=== PATIENT | female | born 1950 | race Caucasian/White ===

== ENCOUNTER 2022-11-22 08:13 | Outpatient (OUT) | payer MEDICARE, OTHER, SELFPAY ==
--- NOTE | 2022-11-22 08:27 | P.CN_ITS ---
Consult Note: HPI Data of Consult Patient: known to practice within the last 3 years Requesting Physician: Chayo Eisenberg NP Primary Care Provider: VALENTIN BRIZUELA Consult Narrative Reason for consult: f/u Narrative: Farnaz Ruffin a 72 year old female presents for evaluation of chronic bilateral foot burning numbness and pain. Patient is a controlled diabetic, symptoms have worsened over the last few months. cc:: CC: Chayo Eisenberg NP Review of Systems ROS Status of ROS 10 or more systems reviewed and unremarkable except as noted in history and below Musculoskeletal Reports: extremity pain Exam Constitutional Documenting provider has reviewed patient's vital signs: yes Common normals: no apparent distress, oriented x3, healthy appearing, alert and well nourished General appearance: cooperative HENMT Common normals: normocephalic, hearing grossly normal bilaterally and moist oral mucous membranes Head and scalp: normocephalic Eye Common normals: PERRL Pupil: PERRL Neck & C-Spine Common normals: full ROM General: normal visual inspection Chest Common normals: inspection of chest normal Respiratory Common normals: normal respiratory effort, no retractions and no use of accessory muscles Extremity Right lower extremity: foot and digits Left lower extremity: foot and digits Other: failed proprioception testing failed monofilament testing evidence of severe neuropathy Neuro Common normals: oriented x3, CN's II-XII intact bilaterally, moves all extremities, no focal motor deficits, no sensory deficits noted and deep tendon reflexes 2+ bilaterally Sensorium/orientation: alert Gait (neuro): normal gait Motor exam: strength 5/5 throughout and no movement abnormalities noted Psych Common normals: mental status grossly normal, thought process normal, cooperative, affect normal, speech normal and activity/motor behavior normal Speech: normal speech Thought process: normal thought process Assessment and Plan Assessment and Plan (1) Polyneuropathy: (2) Neuropathic pain: (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 Then patient went on to say she cannot live like this and wants to try the Caudal KRISTINE again. Patient has previously had great benefit, >50% pain relief and functional improvement from Caudal KRISTINE in the past -Repeat caudal KRISTINE under fluoroscopy, will need to get clearance to hold xarelto -educational information provided on topical cream, patient not interested at this time but would like to discuss with her transplant team and call back if interested -f/u 2 weeks after caudal KRISTINE
== END 2022-11-22 08:14 | disposition home or self-care (01) ==
LOC: PM 11-24 13:13
PROVIDERS: PCP Family Medicine; Visit Provider Nurse Practitioner
DX: E11.42 Type 2 diabetes mellitus with diabetic polyneuropathy (principal); Z79.01 Long term (current) use of anticoagulants; K72.90 Hepatic failure, unspecified without coma; M54.16 Radiculopathy, lumbar region
CPT/HCPCS: G0463

== ENCOUNTER 2022-12-11 09:55 | Day surgery (SDC) | payer MEDICARE, OTHER, SELFPAY ==
[2022-12-11 10:39] VITALS: BP 150/77; PULSE 69; RESP 14; TEMP 36.6; O2SAT 97
[2022-12-11 10:52] LABS: Glucometer 127 mg/dL (74-106)
[2022-12-11 11:40] VITALS: BP 174/81; PULSE 71; RESP 18; O2SAT 100
[2022-12-11] MEDS: IOHEXOL 240 MG/ML - 10 ML VIAL IV (11:44)
[2022-12-11] MEDS: BUPIVACAINE HCL 0.25% PF 25 MG/10 ML VIAL 2 ML INJ (11:44)
[2022-12-11] MEDS: LIDOCAINE HCL 2% PF 100 MG/5 ML VIAL INJ (11:44)
[2022-12-11] MEDS: TRIAMCINOLONE ACETONIDE 40 MG/ML VIAL 80 MG INJ (11:45)
[2022-12-11 11:46] VITALS: BP 168/87; PULSE 80; RESP 18; O2SAT 91
--- NOTE | 2022-12-11 11:47 | W.PM.PROCNOT ---
Date of procedure: 12/11/22 Pre-op diagnosis: Lumbar stenosis with neurogenic claudication, lumbar radiculopathy Post-op diagnosis: same as pre-op Procedure: Procedure: Caudal epidural steroid injection Medications: Bupivacaine 0.25% 4cc, normal saline 0.9% 4cc, kenalog 80mg After informed consent was obtained, the patient was brought to the medical procedure unit and placed in the prone position.? A timeout was completed identifying correct patient, procedure, site, positioning, and special equipment.? The skin overlying the area was prepped and draped in standard sterile fashion using alcohol, after which a 25-gauge needle was used to raise a skin wheal over the sacral hiatus identified under fluoroscopy.? Subsequently a 17-gauge Tuohy needle was inserted through anesthetized area and directed toward the sacral hiatus under fluoroscopic guidance.? After piercing the sacrococcygeal membrane, needle tip placement was confirmed by injection of Omnipaque dye.? Then 10 mL of steroid solution was instilled.? Postoperatively, needles were removed and the catheter was removed with the tip intact.? The patient was transferred to the recovery area in stable condition to be discharged after meeting criteria. Anesthesia: Local Surgeon: Jack Kebede Pathology: none sent Condition: stable Disposition: no change
== END 2022-12-11 11:51 | disposition home or self-care (01) ==
PROVIDERS: PCP Family Medicine; Visit Provider Anesthesiology
DX: M48.062 Spinal stenosis, lumbar region with neurogenic claudication (principal); M54.16 Radiculopathy, lumbar region; E11.9 Type 2 diabetes mellitus without complications
CPT/HCPCS: 36415; 36416; 62323; 82948; Q9966

== ENCOUNTER 2022-12-27 08:27 | Outpatient (OUT) | payer MEDICARE, OTHER, SELFPAY ==
--- NOTE | 2022-12-27 08:56 | PM.CN ---
Consult Note: HPI Data of Consult Requesting Physician: Chayo Eisenberg NP Primary Care Provider: VALENTIN BRIZUELA Consult Narrative Reason for consult: f/u Narrative: Farnaz Ruffin a pleasant 72 year old female presents for evaluation and management of chronic radiculopathy and neuropathy of bilateral lower extremeties. Since last visit patient has had several episodes of sudden incontinence and continues to have radiculopathy and pain in bilateral feet. Caudal KRISTINE provided 0% pain relief or symptom relief, previously had great response. Pain 5/10 today in bilateral feet described as a tingling stabbing, as well as weakness of bilateral legs. Pain is worse with sitting, improved with standing. cc:: CC: Chayo Eisenberg NP Review of Systems ROS Status of ROS 10 or more systems reviewed and unremarkable except as noted in history and below Musculoskeletal Reports: extremity pain Meds Home Medications and Allergies Home Medications Medication Instructions Recorded Confirmed Type albuterol 90 mcg/actuation aerosol 90 mcg inhalation .4 TIMES PER DAY 11/22/22 12/11/22 History inhaler PRN shortness of breath carvedilol 25 mg tablet 25 mg PO BID 11/22/22 12/11/22 History denosumab 60 mg/mL subcutaneous mg subcut .EVERY 2 WEEKS 11/22/22 History syringe (Prolia) furosemide 20 mg tablet (Lasix) 20 mg PO DAILY 11/22/22 12/11/22 History rivaroxaban 20 mg tablet (Xarelto) 20 mg PO DAILY 11/22/22 12/11/22 History ropinirole 2 mg tablet 2 mg PO BID 11/22/22 12/11/22 History tacrolimus 1 mg tablet,extended 2 mg PO DAILY 11/22/22 12/11/22 History release 24 hr (Envarsus XR) Allergies Allergy/AdvReac Type Severity Reaction Status Date / Time No Known Drug Allergies Allergy Verified 11/22/22 09:03 Exam Narrative Exam Narrative: pt reports several episodes of urinary incontinence, denies burning urgency or increase in frequency Constitutional Documenting provider has reviewed patient's vital signs: yes Common normals: no apparent distress, oriented x3, healthy appearing, alert and well nourished General appearance: cooperative HENMT Common normals: normocephalic, hearing grossly normal bilaterally and moist oral mucous membranes Head and scalp: normocephalic Eye Common normals: PERRL Pupil: PERRL Neck & C-Spine Common normals: full ROM General: normal visual inspection Chest Common normals: inspection of chest normal Respiratory Common normals: normal respiratory effort, no retractions and no use of accessory muscles Back & Pelvis Lumbar spine/lower back: straight leg raise negative bilaterally Extremity Common normals: normal to inspection and full ROM Right lower extremity: foot and digits Left lower extremity: foot and digits Other: failed proprioception testing failed monofilament testing evidence of severe neuropathy Neuro Common normals: oriented x3, CN's II-XII intact bilaterally, moves all extremities, no focal motor deficits, no sensory deficits noted and deep tendon reflexes 2+ bilaterally Sensorium/orientation: alert Gait (neuro): antalgic Motor exam: strength 5/5 throughout and no movement abnormalities noted Psych Common normals: mental status grossly normal, thought process normal, cooperative, affect normal, speech normal and activity/motor behavior normal Speech: normal speech Thought process: normal thought process Assessment and Plan Assessment and Plan (1) Bladder incontinence: (2) Polyneuropathy: (3) Lumbar radiculopathy: Plan update lumbar MRI without contrast, rule out Cauda Equina syndrome with radiculopathy and numerous episodes of sudden incontinence increasing in frequency patient previously declined topical creams and gabapentin, is now interested in trialing topical creams and is open to lyrica. Caution medications with liver transplant, lyrica has no contraindication transdermal therapeutics cream discussed and ordered podiatry referral declined for neuropathy f/u 6-8 weeks to review MRI and discuss effectiveness of topical cream
== END 2022-12-27 08:28 | disposition home or self-care (01) ==
LOC: PM 08:28
PROVIDERS: PCP Family Medicine; Visit Provider Nurse Practitioner
DX: R32 Unspecified urinary incontinence (principal); G62.9 Polyneuropathy, unspecified; M54.16 Radiculopathy, lumbar region
CPT/HCPCS: G0463

== ENCOUNTER 2023-01-08 10:44 | Outpatient (OUT) | payer MEDICARE, OTHER, SELFPAY ==
--- NOTE | 2023-01-08 10:47 | MR_ITS ---
[facility] [id number] Patient Name: HENOK CERVANTES MRN: [id number] date: 1950 Sex: F Assigned Patient Location: MRI Current Patient Location: MRI Accession/Order Number: [id number] Exam Date: 01/08/2023 11:05 Report Date: 01/08/2023 12:39 At the request of: PATRICK REED Procedure: MR lumbar spine wo con MR lumbar spine wo con, 01/08/2023 11:05 AM EST INDICATION: Lumbar Radiculopathy COMPARISON: Prior MRI lumbar dated 08/19/2021 TECHNIQUE: Multiplanar, multisequential MRI images of lumbar spine were obtained without contrast. FINDINGS: For dictation purposes, the lowest complete disc space in the lumbar spine considered as L5-S1. Bilateral renal lesions with T2 prolongation and shortening not fully characterized by this study and statistically may suggest simple or hemorrhagic renal cyst. There is normal physiologic lumbar lordosis. Mild retrolisthesis of L1 on L2 and L2 on L3 is noted. The vertebral height is preserved. The conus medullaris is at the level of L1. No signal abnormality within the visualized spinal cord is noted. No neural foraminal narrowing or canal stenoses at the level of T12-L1 is noted. At the level of L1-L2, there are disc bulge with right lateral annular fissure with moderate right and mild left neuroforaminal narrowing and mild canal stenosis. At the level of L2-L3, there are disc bulge with moderate bilateral neuroforaminal narrowing and mild canal stenosis. At the level of L3-4, there are disc bulge with mild bilateral neuroforaminal narrowing and mild canal stenosis. At the level of L4-5, there are disc bulge with mild right and severe left neuroforaminal narrowing and mild canal stenosis. At the level of L5-S1, there are disc bulge with mild to moderate bilateral neuroforaminal narrowing and no canal stenosis. Bilateral S1 nerve roots are in close contact with the disc bulge in the lateral recesses. The paraspinal muscles are unremarkable. MR/MR lumbar spine wo con IMPRESSION: Moderate degenerative changes of lumbar spine in particular at L2-L3 and L4-L5. Electronically authenticated by: CIRO LINARES Date: 01/08/2023 12:39
== END 2023-01-08 10:45 | disposition home or self-care (01) ==
LOC: MRI 10:44
PROVIDERS: PCP Family Medicine; Visit Provider Nurse Practitioner
DX: M54.16 Radiculopathy, lumbar region (principal); M51.36 Other intervertebral disc degeneration, lumbar region
CPT/HCPCS: 72148

== ENCOUNTER 2023-01-29 15:01 | Outpatient (OUT) | payer MEDICARE, OTHER, SELFPAY ==
--- NOTE | 2023-01-29 15:43 | PM.CN ---
Consult Note: HPI Data of Consult Patient: known to practice within the last 3 years Consult date: 01/29/23 Requesting Physician: Jack Kebede MD Primary Care Provider: VALENTIN BRIZUELA Consult Narrative Reason for consult: Lumbar radiculopathy, bilateral lower extremity pain Narrative: 72yof who presents for assessment. continues to have significant pain and burning that radiates into bilateral feet. recently underwent lumbar mri, which is significant for multiple levels of stenosis and disc bulging, particularly at l5-s1 with near abutment of s1 nerve root. she continues to engage in a provider directed home exercise program >6 weeks, with minimal benefit. she has recently tried lidocaine patches on her feet, which helps to some degree. she otherwise denies adverse medication side effects or loss of bowel or bladder control. cc:: CC: Jack Kebede MD Review of Systems ROS Status of ROS 10 or more systems reviewed and unremarkable except as noted in history and below Meds Home Medications and Allergies Home Medications Medication Instructions Recorded Confirmed Type albuterol 90 mcg/actuation aerosol 90 mcg inhalation .4 TIMES PER DAY 11/22/22 12/11/22 History inhaler PRN shortness of breath carvedilol 25 mg tablet 25 mg PO BID 11/22/22 12/11/22 History denosumab 60 mg/mL subcutaneous mg subcut .EVERY 2 WEEKS 11/22/22 History syringe (Prolia) furosemide 20 mg tablet (Lasix) 20 mg PO DAILY 11/22/22 12/11/22 History rivaroxaban 20 mg tablet (Xarelto) 20 mg PO DAILY 11/22/22 12/11/22 History ropinirole 2 mg tablet 2 mg PO BID 11/22/22 12/11/22 History tacrolimus 1 mg tablet,extended 2 mg PO DAILY 11/22/22 12/11/22 History release 24 hr (Envarsus XR) Allergies Allergy/AdvReac Type Severity Reaction Status Date / Time No Known Drug Allergies Allergy Verified 11/22/22 09:03 Exam Narrative Exam Narrative: Psych-alert and oriented x 3. Attentive and appropriate, constitutionally normal, displays normal mood and affect per situation. There are no obvious deficits in memory, reasoning, or intellect.? Skin-no obvious rashes, bruising, erythema noted to the patient's area of pain.? Extremities- extremities are warm with minimal edema and palpable pulses. Lumbar-tenderness to palpation noted in the lumbar spine and paraspinal musculature. Pain is elicited with flexion, extension, and lateral rotation of the lumbar spine. Range of motion is diminished with these motions. Facet loading maneuvers are negative.? Strength-noted to be unremarkable with the exception of decreased strength rated at 4 out of 5 in bilateral posterior tibialis. Sensory-no notable sensory deficits in the bilateral lower extremities to touch or pinprick in all dermatomal distributions with the exception to decreased sensation to the bilateral L5, S1 dermatomal distribution Coordination remains intact.? Gait remains non-antalgic. Assessment and Plan Assessment and Plan (1) Lumbar radiculopathy: (2) Lumbar stenosis with neurogenic claudication: (3) Lumbar spondylosis: Plan 72yof who presents for assessment. failed conservative measures, as noted. imaging reviewed, as noted. given symptoms and imaging findings, coupled with failure of conservative measures, prudent to attempt bilateral L5-S1 selective nerve root block under fluoroscopic guidance. she is in agreement. will utilize valium 10mg for this. medications reviewed. agreed to refill lidocaine patches when needed. also suggested that she could place on her neck, which has been painful from a bout of shingles. she expressed understanding. will follow up after procedure.
== END 2023-01-29 15:02 | disposition home or self-care (01) ==
LOC: PM 15:01
PROVIDERS: PCP Family Medicine; Visit Provider Anesthesiology
DX: M54.16 Radiculopathy, lumbar region (principal); M48.062 Spinal stenosis, lumbar region with neurogenic claudication; M47.816 Spondylosis without myelopathy or radiculopathy, lumbar region
CPT/HCPCS: G0463

== ENCOUNTER 2023-02-19 06:55 | Day surgery (SDC) | payer MEDICARE, OTHER, SELFPAY ==
[2023-02-19 07:10] VITALS: BP 153/84; PULSE 77; RESP 16; TEMP 36.2; O2SAT 96
[2023-02-19 07:15] LABS: Glucometer 175 mg/dL (74-106)
[2023-02-19 07:46] VITALS: BP 135/67; PULSE 75; RESP 18; O2SAT 94
[2023-02-19 07:49] VITALS: BP 146/69; PULSE 77; RESP 18; O2SAT 94
--- NOTE | 2023-02-19 07:50 | W.PM.PROCNOT ---
Date of procedure: 02/19/23 Pre-op diagnosis: Lumbar stenosis with neurogenic claudication Post-op diagnosis: same as pre-op Procedure: Procedure: Bilateral L5-S1 transforaminal epidural steroid injection Medications: Bupivacaine 0.25% 2cc, lidocaine 1% 1cc, kenalog 80mg The patient was seen and examined in the preoperative holding area.? Informed consent was obtained and placed on the chart.? Patient was brought to the medical procedure unit and placed in the prone position where a timeout was completed verifying the correct patient, procedure site, position, and planned special equipment using sterile aseptic technique.? Under direct fluoroscopic visualization a 25-gauge Quincke tipped spinal needle was advanced at level left L5-S1 to the designated neural foramen where contrast dye was injected to show adequate spread.? There was no evidence of vascular or adverse uptake.? Epidural spread was appreciated.? The above-mentioned injectate was then placed in a 1.5 mL aliquot preceded by negative aspiration.? The needle was removed. The same procedure, at the same level, was completed on the opposite side. ? Patient was taken to the postprocedural recovery area and monitored for an appropriate length of time before found suitable for discharge in the accompaniment of a responsible adult. Anesthesia: Local Surgeon: Jack Kebede Pathology: none sent Condition: stable Disposition: no change
[2023-02-19] MEDS: 0.9 % SODIUM CHLORIDE 10 ML INJ (07:52)
[2023-02-19] MEDS: IOHEXOL 240 MG/ML - 10 ML VIAL 36 MG INJ (07:53)
[2023-02-19] MEDS: TRIAMCINOLONE ACETONIDE 40 MG/ML VIAL 80 MG INJ (07:53)
[2023-02-19] MEDS: BUPIVACAINE HCL 0.25% PF 25 MG/10 ML VIAL INJ (07:53)
[2023-02-19] MEDS: LIDOCAINE HCL 2% PF 100 MG/5 ML VIAL 3 ML INJ (07:53)
== END 2023-02-19 07:54 | disposition home or self-care (01) ==
PROVIDERS: PCP Family Medicine; Visit Provider Anesthesiology
DX: M48.062 Spinal stenosis, lumbar region with neurogenic claudication (principal)
CPT/HCPCS: 36415; 64483; 82948; Q9966

== ENCOUNTER 2023-03-22 11:00 | Outpatient (OUT) | payer MEDICARE, OTHER, SELFPAY ==
--- NOTE | 2023-03-22 11:50 | PM.CN ---
Consult Note: HPI Data of Consult Patient: known to practice within the last 3 years Consult date: 01/29/23 Requesting Physician: Chayo Eisenberg NP Primary Care Provider: VALENTIN BRIZUELA Consult Narrative Reason for consult: Lumbar radiculopathy, bilateral lower extremity pain Narrative: 72yof who presents for assessment. continues to have significant pain and burning that radiates into bilateral feet. recently underwent lumbar mri, which is significant for multiple levels of stenosis and disc bulging, particularly at l5-s1 with near abutment of s1 nerve root. she continues to engage in a provider directed home exercise program >6 weeks, with minimal benefit. she has recently tried lidocaine patches on her feet, which helps to some degree. she otherwise denies adverse medication side effects or loss of bowel or bladder control. Recently underwent bilateral L5/S1 nerve root block with 90% improvement in symptoms for 4 days-1 to 2 weeks per patient, at this time no ongoing relief. Pain 3/10 sharp burning tingling bilateral feet. cc:: CC: Chayo Eisenberg NP Review of Systems ROS Status of ROS 10 or more systems reviewed and unremarkable except as noted in history and below Meds Home Medications and Allergies Home Medications Medication Instructions Recorded Confirmed Type albuterol 90 mcg/actuation aerosol 90 mcg inhalation .4 TIMES PER DAY 11/22/22 02/19/23 History inhaler PRN shortness of breath carvedilol 25 mg tablet 25 mg PO BID 11/22/22 02/19/23 History denosumab 60 mg/mL subcutaneous mg subcut .EVERY 2 WEEKS 11/22/22 History syringe (Prolia) furosemide 20 mg tablet (Lasix) 20 mg PO DAILY 11/22/22 02/19/23 History rivaroxaban 20 mg tablet (Xarelto) 20 mg PO DAILY 11/22/22 02/19/23 History ropinirole 2 mg tablet 2 mg PO BID 11/22/22 02/19/23 History tacrolimus 1 mg tablet,extended 2 mg PO DAILY 11/22/22 02/19/23 History release 24 hr (Envarsus XR) Allergies Allergy/AdvReac Type Severity Reaction Status Date / Time No Known Drug Allergies Allergy Verified 11/22/22 09:03 Exam Narrative Exam Narrative: Psych-alert and oriented x 3. Attentive and appropriate, constitutionally normal, displays normal mood and affect per situation. There are no obvious deficits in memory, reasoning, or intellect.? Skin-no obvious rashes, bruising, erythema noted to the patient's area of pain.? Extremities- extremities are warm with minimal edema and palpable pulses. Lumbar-tenderness to palpation noted in the lumbar spine and paraspinal musculature. Pain is elicited with flexion, extension, and lateral rotation of the lumbar spine. Range of motion is diminished with these motions. Facet loading maneuvers are negative.? Strength-noted to be unremarkable with the exception of decreased strength rated at 4 out of 5 in bilateral posterior tibialis. Sensory-no notable sensory deficits in the bilateral lower extremities to touch or pinprick in all dermatomal distributions with the exception to decreased sensation to the bilateral L5, S1 dermatomal distribution Coordination remains intact.? Gait remains non-antalgic. Results Additional Findings Additional findings: I have checked an [place] report on this patient today and there are no aberrancies noted in the prescribing history.?? A drug screen was completed and reviewed within the last year, and if there has not been a drug screen completed we ordered one today to monitor higher risk, state monitored pain medication use. As part of providing excellent, safe, comprehensive care, the following was completed at our patient's visit: 1. A medication reconciliation and review to ensure accurate knowledge of current/active medications, including asking our patients to inform us about any [id number] medications or herbal remedies/nutritional supplements/alternative remedies. 2. A review to specifically ensure our patients have had annual screening for: elevated body mass index (BMI), tobacco use, screening for depression, and screening for unhealthy alcohol use. When screening is concerning, patients are provided with education and the specific recommendation to discuss the concerning health issue and treatment options with their primary care provider. 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 Patient educated on SCS trial and given handout, she will think this over. Discussed medication options, patient concerned with potential side effects of gabapentin and lyrica as well as cost. Unfortunately I am unaware of the cost of these medications. Patient would like to think these over and talk with PCP f/u as needed
== END 2023-03-22 11:01 | disposition home or self-care (01) ==
PROVIDERS: PCP Family Medicine; Visit Provider Nurse Practitioner
DX: M47.816 Spondylosis without myelopathy or radiculopathy, lumbar region (principal); M48.062 Spinal stenosis, lumbar region with neurogenic claudication; G62.9 Polyneuropathy, unspecified; M54.16 Radiculopathy, lumbar region
CPT/HCPCS: G0463

== ENCOUNTER 2023-06-13 08:15 | Outpatient (OUT) | payer MEDICARE, OTHER, SELFPAY ==
--- NOTE | 2023-06-13 08:25 | P.CN_ITS ---
Consult Note: HPI Data of Consult Patient: known to practice within the last 3 years Consult date: 01/29/23 Requesting Physician: Chayo Eisenberg NP Primary Care Provider: VALENTIN BRIZUELA Consult Narrative Reason for consult: bilateral lower extremity pain Narrative: 72yof who presents for assessment. continues to have significant pain and burning that radiates into bilateral feet. recently underwent lumbar MRI, which is significant for multiple levels of stenosis and disc bulging, particularly at l5-s1 with near abutment of s1 nerve root. she continues to engage in a provider directed home exercise program >6 weeks, with minimal benefit. she has recently tried lidocaine patches on her feet, which helps to some degree. she otherwise denies adverse medication side effects or loss of bowel or bladder control. Pain today 5/10 increasing to 10/10 in the evenings. Bilateral castro/feet pain worsening and burning is intensifying at night, consistent with neuropathy. Patient has been hesitant to trial gabapentin in the past. With hx of liver failure/transplant I would caution duloxetine, TCAs, SSRIs, SNRIs. Patient very sparingly takes tramadol 50mg but notices improvement. cc:: CC: Chayo Eisenberg NP Review of Systems ROS Status of ROS 10 or more systems reviewed and unremark able except as noted in history and below Musculoskeletal Reports: extremity pain and extremity swelling Meds Home Medications and Allergies Home Medications ?Medication ?Instructions ?Recorded ?Confirmed ?Type albuterol 90 mcg/actuation aerosol 90 mcg inhalation .4 TIMES PER DAY 11/22/22 02/19/23 History inhaler PRN shortness of breath carvedilol 25 mg tablet 25 mg PO BID 11/22/22 02/19/23 History denosumab 60 mg/mL subcutaneous mg subcut .EVERY 2 WEEKS 11/22/22 History syringe (Prolia) furosemide 20 mg tablet (Lasix) 20 mg PO DAILY 11/22/22 02/19/23 History rivaroxaban 20 mg tablet (Xarelto) 20 mg PO DAILY 11/22/22 02/19/23 History ropinirole 2 mg tablet 2 mg PO BID 11/22/22 02/19/23 History tacrolimus 1 mg tablet,extended 2 mg PO DAILY 11/22/22 02/19/23 History release 24 hr (Envarsus XR) Allergies Allergy/AdvReac Type Severity Reaction Status Date / Time No Known Drug Allergies Allergy Verified 09/20/23 09:03 Exam Narrative Exam Narrative: Psych-alert and oriented x 3. Attentive and appropriate, constitutionally normal, displays normal mood and affect per situation. There are no obvious deficits in memory, reasoning, or intellect.? Skin-no obvious rashes, bruising, erythema noted to the patient's area of pain.? Extremities- extremities are warm with minimal edema and palpable pulses. Lumbar-tenderness to palpation noted in the lumbar spine and paraspinal musculature. Pain is elicited with flexion, extension, and lateral rotation of the lumbar spine. Range of motion is diminished with these motions. Facet loading maneuvers are negative.? Strength-noted to be unremarkable with the exception of decreased strength rated at 4 out of 5 in bilateral posterior tibialis. Sensory-no notable sensory deficits in the bilateral lower extremities to touch or pinprick in all dermatomal distributions with the exception to decreased sensation to the bilateral L5, S1 dermatomal distribution Coordination remains intact.? Gait remains non-antalgic. 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 Risks vs benefits discussed, procedure would be completed under fluoroscopy with iv sedation. patient would like to think this over start gabapentin 100mg HS, call if tolerating well we will increase to 100mg BID-TID f/u 1 month, patient can call if she would like to proceed with trial.
== END 2023-06-13 08:16 | disposition home or self-care (01) ==
LOC: PM 06-19 09:44
PROVIDERS: PCP Family Medicine; Visit Provider Nurse Practitioner
DX: E11.40 Type 2 diabetes mellitus with diabetic neuropathy, unspecified (principal); M47.816 Spondylosis without myelopathy or radiculopathy, lumbar region; M48.062 Spinal stenosis, lumbar region with neurogenic claudication; M54.16 Radiculopathy, lumbar region; K72.90 Hepatic failure, unspecified without coma; Z79.01 Long term (current) use of anticoagulants; G62.9 Polyneuropathy, unspecified; N18.9 Chronic kidney disease, unspecified
CPT/HCPCS: G0463

== ENCOUNTER 2023-07-05 08:12 | Outpatient (OUT) | payer MEDICARE, OTHER, SELFPAY ==
--- NOTE | 2023-07-05 08:45 | P.CN_ITS ---
Consult Note: HPI Data of Consult Patient: known to practice within the last 3 years Consult date: 01/29/23 Requesting Physician: Chayo Eisenberg NP Primary Care Provider: VALENTIN BRIZUELA Consult Narrative Reason for consult: bilateral lower extremity pain Narrative: 72yof who presents for assessment. continues to have significant pain and burning that radiates into bilateral feet. recently underwent lumbar MRI, which is significant for multiple levels of stenosis and disc bulging, particularly at l5-s1 with near abutment of s1 nerve root. she continues to engage in a provider directed home exercise program >6 weeks, with minimal benefit. she has recently tried lidocaine patches on her feet, which helps to some degree. she otherwise denies adverse medication side effects or loss of bowel or bladder control. Pain today 5-6/10 increasing to 10/10 in the evenings. Bilateral castro/feet pain worsening and burning is intensifying at night, consistent with painful diabetic neuropathy. With hx of liver failure/transplant I would caution duloxetine, TCAs, SSRIs, SNRIs. Patient takes tramadol 50mg q8hr PRN and notices improvement. failed tylenol, cannot take NSAIDs with CKD. Has started on gabapentin 200mg HS with drowsiness and brain fog, would like to discuss adjusting or rotating. Patient would like to discuss spinal cord stimulator trial. cc:: CC: Chayo Eisenberg NP Review of Systems ROS Status of ROS 10 or more systems reviewed and unremark able except as noted in history and below Musculoskeletal Reports: extremity pain Meds Home Medications and Allergies Home Medications ?Medication ?Instructions ?Recorded ?Confirmed ?Type albuterol 90 mcg/actuation aerosol 90 mcg inhalation .4 TIMES PER DAY 11/22/22 02/19/23 History inhaler PRN shortness of breath carvedilol 25 mg tablet 25 mg PO BID 11/22/22 02/19/23 History denosumab 60 mg/mL subcutaneous mg subcut .EVERY 2 WEEKS 11/22/22 History syringe (Prolia) furosemide 20 mg tablet (Lasix) 20 mg PO DAILY 11/22/22 02/19/23 History rivaroxaban 20 mg tablet (Xarelto) 20 mg PO DAILY 11/22/22 02/19/23 History ropinirole 2 mg tablet 2 mg PO BID 11/22/22 02/19/23 History tacrolimus 1 mg tablet,extended 2 mg PO DAILY 11/22/22 02/19/23 History release 24 hr (Envarsus XR) gabapentin 100 mg capsule 200 mg (2 x 100 mg) PO DAILY #14 06/27/23 Rx caps Allergies Allergy/AdvReac Type Severity Reaction Status Date / Time No Known Drug Allergies Allergy Verified 11/22/22 09:03 Exam Narrative Exam Narrative: Psych-alert and oriented x 3. Attentive and appropriate, constitutionally normal, displays normal mood and affect per situation. There are no obvious deficits in memory, reasoning, or intellect.? Skin-no obvious rashes, bruising, erythema noted to the patient's area of pain.? Extremities- extremities are warm with minimal edema and palpable pulses. Lumbar-tenderness to palpation noted in the lumbar spine and paraspinal musculature. Pain is elicited with flexion, extension, and lateral rotation of the lumbar spine. Range of motion is diminished with these motions. Facet loading maneuvers are negative.? Strength-noted to be unremarkable with the exception of decreased strength rated at 4 out of 5 in bilateral posterior tibialis. Sensory-no notable sensory deficits in the bilateral lower extremities to touch or pinprick in all dermatomal distributions with the exception to decreased sensation to the bilateral L5, S1 dermatomal distribution Coordination remains intact.? Gait remains non-antalgic. Constitutional Documenting provider has reviewed patient's vital signs: yes Common normals: no apparent distress, oriented x3, healthy appearing, alert and well nourished General appearance: cooperative [facility] Common normals: normocephalic, hearing grossly normal bilaterally and moist oral mucous membranes Head and scalp: normocephalic Eye Common normals: PERRL Pupil: PERRL Neck & C-Spine Common normals: full ROM General: normal visual inspection Chest Common normals: inspection of chest normal Respiratory Common normals: normal respiratory effort, no retractions and no use of a ccessory muscles Neuro Common normals: oriented x3, CN's II-XII intact bilaterally, moves all extremities, no focal motor deficits, no sensory deficits noted and deep tendon reflexes 2+ bilaterally Sensorium/orientation: alert Motor exam: strength 5/5 throughout and no movement abnormalities noted Psych Common normals: mental status grossly normal, thought process normal, cooperative, affect normal, speech normal and activity/motor behavior normal Speech: normal speech Thought process: normal thought process Results Additional Findings Additional findings: If on a controlled substance or opioids, I have checked an [place]AR[place] report on this patient and there are no aberrancies noted in the prescribing history.??If on a controlled substance or opioid a drug screen was completed and reviewed within the last year, and if there has not been a drug screen completed we ordered one today to monitor higher risk, state monitored pain medication use. As part of providing excellent, safe, comprehensive care, the following was completed at our patient's visit: 1. A medication reconciliation and review to ensure accurate knowledge of current/active medications, including asking our patients to inform us about any [id number] medications or herbal remedies/nutritional supplements/alternative remedies. 2. A review to specifically ensure our patients have had annual screening for screening for depression, screening for tobacco use, and screening for unhealthy alcohol use. For concerning screenings had a discussion with the patient, provided patient education, and recommended follow-up with primary care provider when appropriate. If patient noted with a risk of falling, they received education on strength, gait, and balance training to prevent future risk of falling. Assessment and Plan Assessment and Plan (1) Chronic painful diabetic neuropathy: Assessment and Plan: patient would like to proceed with spinal cord stimulator trial patient previously given information to arrange psychiatric evaluation at todays visit the trial workup, procedure, and procedure f/u was discussed risks reviewed target goal of >80% improvement in pain and functional improvement for the length of the trial we will request a copy of patients most recent blood work I reviewed the risks and benefits of proceeding with the spinal cord stimulator trial including infection (including epidural abscess, meningitis), bleeding (including epidural hematoma), dural puncture/tear, post dural puncture headache, pneumocephalus, paralysis, nerve damage, and complications from anesthesia versus improvement in her pain. I reviewed the following with the patient and ordered any necessary imaging, labs, and medications. ? CBC with plts, coags (PT, INR, PTT) if needed CMP with renal function HgbA1C (target ~8) UA (before implant, can consider before trial as well if high risk for UTI) Smoking status - nonsmoker Independent psychological evaluation prior to trial MRI of C-spine, T-spine or L-spine No showering during trial period until follow up, ok to sponge bath with no water over the back or dressing. Ok to shower 24 hours after removal of leads Hold all anticoagulation, vitamins, and herbal supplements during the trial, resume 24 hours after removal of leads. NO NSAIDS FOR PAIN DURING TRIAL. Pre-operative ancef IV antibiotics and postoperative antibiotics Follow up in clinic 3-7 days after trial for lead pull. Procedure is done under MAC anesthesia, will need a dolly driver to go home with to monitor during the car ride. Recommend having someone at home the day of proc edure to keep an eye on the patient. ? ? ? 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
== END 2023-07-05 08:13 | disposition home or self-care (01) ==
LOC: PM 08:13
PROVIDERS: PCP Family Medicine; Visit Provider Nurse Practitioner
DX: E13.40 Other specified diabetes mellitus with diabetic neuropathy, unspecified (principal); N18.9 Chronic kidney disease, unspecified; E11.8 Type 2 diabetes mellitus with unspecified complications; K72.90 Hepatic failure, unspecified without coma; Z79.01 Long term (current) use of anticoagulants
CPT/HCPCS: G0463

== ENCOUNTER 2023-08-03 08:51 | Outpatient (OUT) | payer MEDICARE, OTHER, SELFPAY ==
--- NOTE | 2023-08-03 09:06 | XR_ITS ---
[facility] [id number] Patient Name: HENOK CERVANTES MRN: [id number] date: 1950 Sex: F Assigned Patient Location: [facility] Current Patient Location: Accession/Order Number: [id number] Exam Date: 08/03/2023 09:20 Report Date: 08/06/2023 07:10 At the request of: ALFONZO GIEDRAITIS Procedure: XR lumbar spine min 4V EXAMINATION: XR thoracic spine 2V, XR lumbar spine min 4V HISTORY: Thoracic Back Pain ; chronic back pain COMPARISON: No relevant comparison available. FINDINGS: BONES: Mild right convex curvature of thoracic spine and left convex curvature of lumbar spine. Minimal grade 1 retrolisthesis of L1 on 2 and L2 on 3. No fracture or bone lesion. Moderate degenerative facet arthropathy L4-5, L5-S1. DISC SPACES: Mild narrowing L1-2, L3-4, L4-5, L5-S1. PARASPINOUS: Negative. No paraspinous abnormality is seen. OTHER: Negative. XR/XR lumbar spine min 4V IMPRESSION: 1. Mild S-shaped curvature of thoracic lumbar spine bordering on scoliosis. 2. Multilevel moderate degenerative disc disease and moderate degenerative facet arthropathy of lumbar spine. 2. No acute abnormality of the thoracic or lumbar spine. Electronically authenticated by: MARTHA TURNER Date: 08/06/2023 07:10
--- NOTE | 2023-08-03 09:06 | XR_ITS ---
[facility] [id number] Patient Name: HENOK CERVANTES MRN: [id number] date: 1950 Sex: F Assigned Patient Location: [facility] Current Patient Location: Accession/Order Number: [id number] Exam Date: 08/03/2023 09:20 Report Date: 08/06/2023 07:10 At the request of: ALFONZO GIEDRAITIS Procedure: XR thoracic spine 2V EXAMINATION: XR thoracic spine 2V, XR lumbar spine min 4V HISTORY: Thoracic Back Pain ; chronic back pain COMPARISON: No relevant comparison available. FINDINGS: BONES: Mild right convex curvature of thoracic spine and left convex curvature of lumbar spine. Minimal grade 1 retrolisthesis of L1 on 2 and L2 on 3. No fracture or bone lesion. Moderate degenerative facet arthropathy L4-5, L5-S1. DISC SPACES: Mild narrowing L1-2, L3-4, L4-5, L5-S1. PARASPINOUS: Negative. No paraspinous abnormality is seen. OTHER: Negative. XR/XR thoracic spine 2V IMPRESSION: 1. Mild S-shaped curvature of thoracic lumbar spine bordering on scoliosis. 2. Multilevel moderate degenerative disc disease and moderate degenerative facet arthropathy of lumbar spine. 2. No acute abnormality of the thoracic or lumbar spine. Electronically authenticated by: MARTHA TURNER Date: 08/06/2023 07:10
== END 2023-08-03 08:52 | disposition home or self-care (01) ==
LOC: RAD 08:54
PROVIDERS: PCP Family Medicine; Visit Provider Anesthesiology
DX: M48.062 Spinal stenosis, lumbar region with neurogenic claudication (principal); M54.6 Pain in thoracic spine
CPT/HCPCS: 72070; 72110

== ENCOUNTER 2023-11-15 07:52 | Outpatient (OUT) | payer MEDICARE, OTHER, SELFPAY ==
--- NOTE | 2023-11-15 08:11 | P.CN_ITS ---
Consult Note: HPI Data of Consult Patient: known to practice within the last 3 years Consult date: 01/29/23 Requesting Physician: Chayo Eisenberg NP Primary Care Provider: VALENTIN BRIZUELA Consult Narrative Reason for consult: bilateral lower extremity pain Narrative: 72yof who presents for assessment. continues to have significant pain and burning that radiates into bilateral feet. recently underwent lumbar MRI, which is significant for multiple levels of stenosis and disc bulging, particularly at l5-s1 with near abutment of s1 nerve root. she continues to engage in a provider directed home exercise program >6 weeks, with minimal benefit. she has recently tried lidocaine patches on her feet, which helps to some degree. she otherwise denies adverse medication side effects or loss of bowel or bladder control. Pain today 2/10 increasing to 10/10 in the evenings. Bilateral castro/feet pain worsening and burning is intensifying at night, consistent with painful diabetic neuropathy. With hx of liver failure/transplant I would caution duloxetine, TCAs, SSRIs, SNRIs. Patient takes tramadol 50mg q8hr PRN and notices improvement. failed tylenol, cannot take NSAIDs with CKD. gabapentin caused brain frog, lyrica 50mg BID helping but also causing brain fog during the day. Patient has completed psychiatric evaluation for spinal cord stimulator trial. cc:: CC: Chayo Eisenberg NP Review of Systems ROS Status of ROS 10 or more systems reviewed and unremark able except as noted in history and below Musculoskeletal Reports: extremity pain Meds Home Medications and Allergies Home Medications ?Medication ?Instructions ?Recorded ?Confirmed ?Type albuterol 90 mcg/actuation aerosol 90 mcg inhalation .4 TIMES PER DAY 11/22/22 02/19/23 History inhaler PRN shortness of breath carvedilol 25 mg tablet 25 mg PO BID 11/22/22 02/19/23 History denosumab 60 mg/mL subcutaneous mg subcut .EVERY 2 WEEKS 11/22/22 History syringe (Prolia) furosemide 20 mg tablet (Lasix) 20 mg PO DAILY 11/22/22 02/19/23 History rivaroxaban 20 mg tablet (Xarelto) 20 mg PO DAILY 11/22/22 02/19/23 History ropinirole 2 mg tablet 2 mg PO BID 11/22/22 02/19/23 History tacrolimus 1 mg tablet,extended 2 mg PO DAILY 11/22/22 02/19/23 History release 24 hr (Envarsus XR) gabapentin 100 mg capsule 200 mg (2 x 100 mg) PO DAILY #14 06/27/23 Rx caps pregabalin 50 mg capsule (Lyrica) 50 mg PO BID #60 caps 09/04/23 Rx Allergies Allergy/AdvReac Type Severity Reaction Status Date / Time No Known Drug Allergies Allergy Verified 11/22/22 09:03 Exam Narrative Exam Narrative: Psych-alert and oriented x 3. Attentive and appropriate, constitutionally normal, displays normal mood and affect per situation. There are no obvious deficits in memory, reasoning, or intellect.? Skin-no obvious rashes, bruising, erythema noted to the patient's area of pain.? Extremities- extremities are warm with minimal edema and palpable pulses. Lumbar-tenderness to palpation noted in the lumbar spine and paraspinal musculature. Pain is elicited with flexion, extension, and lateral rotation of the lumbar spine. Range of motion is diminished with these motions. Facet loading maneuvers are negative.? Strength-noted to be unremarkable with the exception of decreased strength rated at 4 out of 5 in bilateral posterior tibialis. Sensory-no notable sensory deficits in the bilateral lower extremities to touch or pinprick in all dermatomal distributions with the exception to decreased sensation to the bilateral L5, S1 dermatomal distribution Coordination remains intact.? Gait remains non-antalgic. Constitutional Documenting provider has reviewed patient's vital signs: yes Common normals: no apparent distress, oriented x3, healthy appearing, alert and well nourished General appearance: cooperative [facility] Common normals: normocephalic, hearing grossly normal bilaterally and moist oral mucous membranes Head and scalp: normocephalic Eye Common normals: PERRL Pupil: PERRL Neck & C-Spine Common normals: full ROM General: normal visual inspection Chest Common normals: inspection of chest normal Respiratory Common normals: normal respiratory effort, no retractions and no use of accessory muscles Neuro Common normals: oriented x3, CN's II-XII intact bilaterally, moves all extremities, no focal motor deficits, no sensory deficits noted and deep tendon reflexes 2+ bilaterally Sensorium/orientation: alert Motor exam: strength 5/5 throughout and no movement abnormalities noted Psych Common normals: mental status grossly normal, thought process normal, wenceslao ative, affect normal, speech normal and activity/motor behavior normal Speech: normal speech Thought process: normal thought process Results Additional Findings Additional findings: If on a controlled substance or opioids, I have checked an [place]AR[place] report on this patient and there are no aberrancies noted in the prescribing history.??If on a controlled substance or opioid a drug screen was completed and reviewed within the last year, and if there has not been a drug screen completed we ordered one today to monitor higher risk, state monitored pain medication use. As part of providing excellent, safe, comprehensive care, the following was completed at our patient's visit: 1. A medication reconciliation and review to ensure accurate knowledge of current/active medications, including asking our patients to inform us about any [id number] medications or herbal remedies/nutritional supplements/alternative remedies. 2. A review to specifically ensure our patients have had annual screening for screening for depression, screening for tobacco use, and screening for unhealthy alcohol use. For concerning screenings had a discussion with the patient, provided patient education, and recommended follow-up with primary care provider when appropriate. If patient noted with a risk of falling, they received education on strength, gait, and balance training to prevent future risk of falling. Assessment and Plan Assessment and Plan (1) Chronic painful diabetic neuropathy: Assessment and Plan: patient would like to proceed with spinal cord stimulator trial at todays visit the trial workup, procedure, and procedure f/u was discussed risks reviewed target goal of >80% improvement in pain and functional improvement for the length of the trial I reviewed the risks and benefits of proceeding with the spinal cord stimulator trial including infection (including epidural abscess, meningitis), bleeding (including epidural hematoma), dural puncture/tear, post dural puncture headache, pneumocephalus, paralysis, nerve damage, and complications from anesthesia versus improvement in her pain. I reviewed the following with the patient and ordered any necessary imaging, labs, and medications. ? 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
== END 2023-11-15 07:53 | disposition home or self-care (01) ==
LOC: PM 07:52
PROVIDERS: PCP Family Medicine; Visit Provider Nurse Practitioner
DX: E11.8 Type 2 diabetes mellitus with unspecified complications (principal); E11.40 Type 2 diabetes mellitus with diabetic neuropathy, unspecified; N18.9 Chronic kidney disease, unspecified; K72.90 Hepatic failure, unspecified without coma; Z79.01 Long term (current) use of anticoagulants; G62.9 Polyneuropathy, unspecified
CPT/HCPCS: G0463

== ENCOUNTER 2023-11-27 09:53 | Outpatient (OUT) | payer MEDICARE, OTHER, SELFPAY ==
[2023-11-27 11:25] LABS: INR 1.19; Partial Thromboplastin Time 38.3 sec (22.3-36.2); Prothrombin Time 12.4 sec (9.0-11.6)
== END 2023-11-27 09:54 | disposition home or self-care (01) ==
LOC: PST 09:54
PROVIDERS: PCP Family Medicine; Visit Provider Anesthesiology
DX: Z01.810 Encounter for preprocedural cardiovascular examination (principal); E11.42 Type 2 diabetes mellitus with diabetic polyneuropathy; I10 Essential (primary) hypertension; Z79.01 Long term (current) use of anticoagulants; K76.9 Liver disease, unspecified
CPT/HCPCS: 80048; 85610; 85730

== ENCOUNTER 2023-12-03 09:25 | Day surgery (SDC) | payer MEDICARE, OTHER, SELFPAY ==
[2023-11-27 10:53] VITALS: BP 152/84; PULSE 64; TEMP 36.3; O2SAT 97; BMI 34.3
--- OUTSIDE RECORDS SUMMARY | 2023-12-03 09:49 | XMS_ITS | CCD ---
Author Organization [facility] Care Team Providers Care Chocolate Dipper Name Role Phone DAVID PENNINGTON Unavailable Unavailable FURLONG, JANET G Unavailable Unavailable ALEXEY, RICHARD R Unavailable Unavailable FURLONG, JANET G Unavailable Unavailable FURLONG, JANET G Unavailable Unavailable ALEXEY, RICHARD R Unavailable Unavailable ALEXEY, RICHARD R Unavailable Unavailable ALEXEY, RICHARD R Unavailable Unavailable DABOUL, ISAM Unavailable Unavailable CHELSI, FRANCY Unavailable Unavailable CHELIS, FRANCY Unavailable Unavailable CHELSI, FRANCY Unavailable Unavailable CORTEZ, JOSÉ MIGUEL Unavailable Unavailable CORTEZ, JOSÉ MIGUEL Unavailable Unavailable LASHNER, ZAIRA A Unavailable Unavailable LASHNER, ZAIRA A Unavailable Unavailable DABOUL, ISAM Unavailable Unavailable FURLONG, JANET G Unavailable Unavailable DABOUL, ISAM Unavailable Unavailable ALEXEY, RICHARD R Unavailable Unavailable DABOUL, ISAM Unavailable Unavailable ALEXEY, RICHARD R Unavailable Unavailable DOMENICO, BALJENDRA Unavailable Unavailable DOMENICO, BALJENDRA Unavailable Unavailable ALEXEY, RICHARD R Referring Unavailable ALEXEY, RICHARD R Primary Care Unavailable Alexey, Richard R Primary Care Provider Marquis Lizarraga MD Unavailable Colkyung RN, Tatum Unavailable [phone] Marquis Lizarraga MD Unavailable [phone] Audi Ferrer RN Unavailable Unavailable Susy Brizuela RN Primary Care Provider Yany Nolen DRUGLESS PHYSICIAN.Gillian MANZANARES Unavailable Zora Martinez Unavailable Yana Parks Unavailable Marquis Lizarraga MD Unavailable [phone] Hieu RN, Tatum Unavailable Elham NAQVI, Marquis Unavailable Carissa RN, Audi Unavailable Unavailable Lard DRUGLESS PHYSICIAN.CONFIGURATION CONSULTANT, Gillian L Unavailable Shelli Nieto Unavailable [phone] MD Susy Brizuela Primary Care Provider MARIA EUGENIA Gilbert Attending Provider [phone] DO Sreekanth James Jr Attending Provider NO FAMILY, PHYSICIAN Primary Care Provider Unava MARIA EUGENIA Joy Attending Provider Hieu RN, Tatum Unavailable Elham NAQVI, Marquis Unavailable [phone] Chata CASTAÑEDA, Susy Primary Care Provider UnavaMARIA EUGENIA Avila Attending Provider MD Susy Brizuela Primary Care Provider DO Jonathan Baeic Emergency Provider NO FAMILY, PHYSICIAN Primary Care Provider Unava MARIA EUGENIA Power Attending Provider Elham NAQVI, Marquis Unavailable Hieu CASTAÑEDA, Tatum Unavailable Elham NAQVI, Marquis Unavailable [phone] Carissa CASTAÑEDA, Audi Unavailable Unavailable Chata CASTAÑEDA, Susy Primary Care Provider Unavamichael Nolen DRUGLESS PHYSICIAN.CONFIGURATION CONSULTANT, Gillian L Unavailable MD Susy Brizuela Primary Care Provider DO Kris Bae Emergency Provider MARIA EUGENIA Gilbert Attending Provider MD Susy Brizuela Primary Care Provider DR ROWDY PEREZ Admitting Unavailable DR KANG PEREZAL S Attending Unavailable CHATA, DR HANSON Primary Care Unavailable ANA, DR ROWDY Feliciano Consulting Unavailable ANA, DR ROWDY Feliciano Admitting Unavailable PEREZ, DR ROWDY Feliciano Attending Unavailable CHATA, DR HANSON Primary Care Unavailable CHATA, DR HANSON Consulting Unavailable ANA, DR ROWDY Feliciano Consulting Unavailable PEREZ, DR ROWDY Feliciano Admitting Unavailable PEREZ, DR ROWDY Feliciano Attending Unavailable CHATA, DR HANSON Primary Care Unavailable PEREZ, DR ROWDY Feliciano Consulting Unavailable CHRIS ABAD Consulting Unavailable ANA, DR ROWDY Feliciano Admitting Unavailable PEREZ, DR ROWDY Feliciano Attending Unavailable CHATA, DR HANSON Primary Care Unavailable CHRIS ABAD Consulting Unavailable KRYSTAL, DR Kamron Masesy Consulting Unavailable THAI, DR MARQUES Admitting Unavailable THAI, DR MARQUES Attending Unavailable ANDRE, DR MARQUES Consulting Unavailable ANA, DR ROWDY Feliciano Admitting Unavailable ANA, DR ROWDY Feliciano Attending Unavailable CHATA, DR HANSON Primary Care Unavailable Virgil, DR Bang Consulting Unavailable ANA, DR ROWDY Feliciano Consulting Unavailable DESIRAE, STEFANO Admitting Unavailable DESIRAE, STEFANO Attending Unavailable CHATA, DR HANSON Primary Care Unavailable DESIRAE, STEFANO Consulting Unavailable MARIA EUGENIA Gilbert Attending Provider MD uSsy Brizuela Primary Care Provider MD Susy Brizuela Primary Care Provider TAVO Martinez Emergency Provider [phone] Susy Brizuela Primary Care Provider DO Celestine Leiva Attending Provider Hieu RN, Tatum Unavailable Callum WILSONN.Gillian MANZANARES Unavailable Delio NAQVI, Jack Storey Attending Unavailable Delio NAQVI, Jack Storey Attending Unavailable Delio NAQVI, Jack Storey Attending Unavailable Susy Brizuela MD Primary Care Provider [phone] Susy Brizuela MD Primary Care Provider Elham NAQVI, Marquis Unavailable Unavailable Tatum Hagen RN (Rn) Unavailable Unavaila ble Elham NAQVI, Marquis Unavailable Unavailable Elham NAQVI, Marquis Unavailable Elham NAQVI, Marquis Unavailable Susy Brizuela Primary Care Provider [phone] MD Susy Duggan Primary Care Pr ovider MD Jesse Miguel Jr Emergency Provider SHELLI ANDRE Attending Unavailable SHELLI ANDRE Referring Unavailable SUSY BRIZUELA Attending Unavailable SHELLI ANDRE Attending Unavailable SUSY BRIZUELA Attending Unavailable SHELLI ANDRE Attending Unavailable SHELLI ANDRE Referring Unavailable SHELLI ANDRE Referring Unavailable SHELLI ANDRE Attending Unavailable SUSY BRIZUELA Attending Unavailable RAFFI MACIEL Attending Unavailab SUSY Stout Attending Unavailable SUSY BRIZUELA Referring Unavailable Susy Duggan Primary Care Un available Jesse Miguel Jr Attending Unavailable Jesse Miguel Jr Admitting Unavailable MARGARET LOPEZ Attending Unavailable MARGARET LOPEZ Referring Unavailable SUSY BRIZUELA Primary Care Unavailable MARGARET LOPEZ Attending Unavailable SUSY BRIZUELA Referring Unavailable SUSY BRZIUELA Primary Care Unavailable MARGARET LOPEZ Referring Unavailable SUSY BRIZUELA Primary Care Unavailable ABELINO JARVIS Attending Unavailable SUSY BRIZUELA Referring Unavailable SUSY BRIZUELA Primary Care Unavailable SUSY BRIZUELA Primary Care Unavailable RYAN BANSAL Attending Unavailab SUSY Stout Primary Care Unavailable GILLIAN NOLEN Attending Unavailable SUSY BRIZUELA Primary Care Unavailable SUSY BRIZUELA Primary Care Unavailable GILLIAN NOLEN Referring Unavailable SUSY BRIZUELA Primary Care Unavailable LIZZIE GILBERT Referring Unavailable SUSY BRIZUELA Primary Care Unavailable RAFFAELE SUAREZ Attending Unava ilable LIZZIE GILBERT Referring Unavailable SUSY BRIZUELA Primary Care Unavailable SUSY BRIZUELA Primary Care Unavailable SUSY BRIZUELA Primary Care Unavailable LIZZIE GILBERT Referring Unavailable SUSY BRIZUELA Primary Care Unavailable LIZZIE GILBERT Referring Unavailable SUSY BRIZUELA Primary Care Unavailable LIZZIE GILBERT Attending Unavailable LIZZIE GILBERT Referring Unavailable SUSY BRIZUELA Primary Care Unavailable SUSY BRIZUELA Referring Unavailable SUSY BRIZUELA Primary Care Unavailable RYAN BANSAL Attending Unavailab SUSY tSout Primary Care Unavailable GILLIAN NOLEN Attending Unavailable SUSY BRIZUELA Primary Care Unavailable GILLIAN NOLEN Referring Unavailable SUSY BRIZUELA Primary Care Unavailable SUSY BRIZUELA G Primary Care Unavailable SUSY BRIZUELA Primary Care Unavailable SUSY BRIZUELA Primary Care Unavailable SUSY BRIZUELA Primary Care Unavailable Allergies Allergy Classification Reported Allergen(s) Allergy Type Date of Onset Reaction(s) Facility (20 sources) Hmg-Coa Reductase Inhibitors (Statins); Translations: [[id number] REDUCTASE INHIBITORS] Propensity to adverse reactions to drug (disorder) 4 Other: See Melonie Barrera [facility] Repository (20 sources) Sulfonamides (Antibiotic); Translations: [SULFA (SULFONAMIDE ANTIBIOTICS)] Propensity to adverse reactions to drug (disorder) 4 [facility] Repository (4 sources) Hmg-Coa Reductase Inhibitors (Statins) Propensity to adverse reactions to drug 4 [place] (4 sources) Sulfonamides (Antibiotic) Propensity to adverse reactions to drug 4 [place] (20 sources) Ibuprofen; Translations: [IBUPROFEN] Drug Allergy 3 Other: See [facility] (11 sources) Jnpldlu-FLA-CcO Reductase Inhibitor; Translations: [Wtttimv-HNY-LzY Reductase Inhibitor] Allergy to substance 9 [facility] (1 source) Sulfonamides (Antibiotic) Drug allergy (disorder) [facility] Repository (20 sources) sulfaSALAzine; Translations: [SULFASALAZINE] Drug Allergy 3 Unknown [facility] (2 sources) HMG-CoA reductase inhibitor Drug Allergy 3 Unknown [facility] (2 sources) Sulfasalazine Allergy to substance 3 [facility] (2 sources) Sulfonamides (Antibiotic) Drug Allergy 3 Unknown [facility] (1 source) Ibuprofen Drug Allergy 4 [facility] Repository Medications Current Medications Medication Drug Class(es) Dates Sig (Normalized) Sig (Original) acetaminophen 500 mg oral tablet (2 sources) acetaminophen (Tylenol Extra Strength) 500 MG tablet every 6 (six) hours. 0 Active [id number] actuat albuterol 0.09 mg/actuat metered dose inhaler (20 sources) beta2-Adrenergic Agonist Start: 05-24-2022 albuterol HFA 90 mcg/act inhaler every 6 (six) hours. 0 05/24/2022 Active Start: 09-16-2018 End: 11-24-2018 take 2.5 mg by inhalation once Albuterol Sulfate Disco ntinued 2.5 MG INHALATION Once September 16, 2018 12:00am November 24, 2018 2:16pm WITH PENTAMIDINE Start: 04-01-2018 albuterol (PRO VENTIL) 2.5 mg /3 mL (0.083 %) nebulizer solution Use 3 mL via nebulizer once every month. to be given before pentamidine dose 04/01/2018 Active Start: 03-10-2017 End: 11-24-2018 Albuterol Sulfate (Ventolin Hfa) 90 MCG HFA aerosol inhaler Discontinued 2 PUFF INHALATION 2-4 TIMES DAILY March 10, 2017 12:00am November 24, 2018 1:16pm Start: 03-10-2017 End: 11-24-2018 Albuterol Sulfate (Ventolin Hfa) 90 MCG HFA aerosol inhaler Discontinued 2 PUFF INHALATION 2-4 TIMES DAILY March 10, 2017 1:00am November 24, 2018 2:16pm take 3 mL by inhalat ion every month albuterol (PROVENTIL,VENTOLIN) 2.5 mg /3 mL (0.083 %) nebulizer solution Inhale 3 mL (2.5 mg total) by nebulization once. Once per month. 0 Active Comment on above: Use 3 mL via nebuliz er once every month. to be given before pentamidine dose 1 ml alirocumab 150 mg/ml auto-injector (20 sources) PCSK9 Inhibitor Start: 11-24-2022 PRALUENT PEN 150 mg/mL pen injector INJECT 2 ml SUBCUTANEOUSLY EVERY 28 days 2 mL 2 11/24/2022 Active Start: 10-11-2022 alirocumab (Pr aluent) 150 MG/ML injection Indications: Mixed dyslipidemia (CMS/HCC) Inject 2 mL (300 mg) under the skin every 28 (twenty-eight) days. 2.24 mL 3 10/11/2022 Active Start: 02-20-2022 End: 02-17-2023 PRALUENT PEN 150 mg/mL INJEC T 1 (ONE) syringe SUBCUTANEOUSLY EVERY 14 days 0 02/20/2022 02/17/2023 Discontinued Praluent Active Comment on above: INJECT 1 (ONE) syrin ge SUBCUTANEOUSLY EVERY 14 days Alirocumab (Praluent Pen) 150 mg/mL pen injector (3 sources) Start: 08-14-19 inject 150 mg by subcutaneous injection every other week Alirocumab (Praluent Pen) 150 mg/mL pen injector Active 150 MG SUBCUT Q14D August 13, 2022 12:00am Start: 08-13-2022 Alirocumab (Pr aluent Pen) 150 mg/mL pen injector Active MG SUBCUT August 13, 2022 12:00am allopurinol 100 mg oral tablet (20 sources) Xanthine Oxidase Inhibitor Start: 07-19-2023 End: 01-15-2024 take 4 tablets by mouth once daily allopurinol (ZYLOPRIM) 100 mg tablet Take 4 tablets by mouth once daily. 360 tablet 1 07/19/2023 01/15/2024 Active Start: 03-12-2023 End: 06-10-2023 take 4 tablets by mouth once daily allopurinol (ZYLOPRIM) 100 mg tablet Take 4 tablets by mouth once daily. 360 tablet 0 03/12/2023 06/10/2023 Active Start: 03-11-2023 End: 06-09-2023 take 2 tablets by mouth in the morning allopurinol (Zyloprim) 100 MG tablet Indications: Acute gout due to renal impairment involving foot, unspecified laterality Take 2 tablets (200 mg) by mouth in the morning and 2 tablets (200 mg) before bedtime. 360 tablet 0 03/11/2023 06/09/2023 Active Start: 12-05-2022 End: 03-05-2023 take 4 tablets by mouth once daily allopurinol (ZYLOPRIM) 100 mg tablet Take 4 tablets by mouth once daily. 360 tablet 0 12/05/2022 03/05/2023 Active Start: 08-13-2022 take 400 mg by mouth once serafin y Allopurinol Active 400 MG PO Daily August 13, 2022 12:00am Start: 08-13-2022 Allopurinol Ac tive MG TABLET August 13, 2022 12:00am Start: 06-02-2022 End: 11-23-2022 take 4 tablets by mouth once daily allopurinol (ZYLOPRIM) 100 mg tablet Take 4 tablets by mouth once daily. 360 tablet 0 08/25/2022 11/23/2022 Start: 04-21-2022 End: 06-04-2022 take 3 tablets by mouth once daily, then take 4 tablets by mouth once daily allopurinol (ZYLOPRIM) 100 mg tablet Take 3 tablets by mouth once daily for 14 days, THEN 4 tablets once daily. 162 tablet 0 04/21/2022 06/04/2022 Active Start: 03-23-2022 End: 05-04-2022 take 1 tablet by mouth once daily, then take 1.5 tablets by mouth once daily, then take 2 tablets by mouth once daily, then take 3 tablets by mouth once daily allopurinol (ZYLOPRIM) 100 mg tablet Take 1 tablet by mouth once daily for 7 days, THEN 1.5 tablets once daily for 7 days, THEN 2 tablets once daily for 14 days, THEN 3 tablets once daily for 14 days. 88 tablet 0 03/23/2022 04/21/2022 Discontinued Start: 03-21-2022 End: 04-21-2022 take 0.5 tablet by mouth once daily allopurinol (ZYLOPRIM) 100 mg tablet Take 0.5 tablets by mouth once daily. 0 03/21/2022 04/21/2022 Discontinued allopurinol (ZYL OPRIM) 50 mg tablet Indications: gout Take 1 split tablet (50 mg total) by mouth in the morning. Indications: a type of joint disorder due to excess uric acid in the blood called gout. 0 Active Comment on above: Take 0.5 tablets by mouth once daily. Take 1 tablet by [facility] once daily for 7 days, THEN 1.5 tablets once daily for 7 days, THEN 2 tablets once daily for 14 days, THEN 3 tablets once daily for 14 days. Take 3 tablets by mo [facility] once daily for 14 days, THEN 4 tablets once daily. Take 4 tablets by [facility] once daily. Blood Glucose Monitoring Suppl (Accu-Chek Aaliyah Plus) w/Device kit (2 sources) Start: 08-17-2022 Blood Glucose Monitoring Suppl (Accu-Chek Aaliyah Plus) w/Device kit Indications: Steroid-induced diabetes mellitus, subsequent encounter ([facility]) 1 each in the morning. Or glucometer of the insurance choice.. 1 kit 0 08/17/2022 Active capsaicin 0.33 mg/ml topical cream (2 sources) Start: 02-15-2023 End: 03-17-2023 capsaicin 0.033 % crea Apply to affected area three times a day as needed (for post-herpetic neuralgia). 56.6 g 2 02/15/2023 03/17/2023 Active Comment on above: Apply to affected ar ea three times a day as needed (for post-herpetic neuralgia). carvedilol 25 mg oral tablet (20 sources) alpha-Adrenergic Sharifa, beta-Adrenergic Sharifa Start: 10-12-2022 End: 04-17-2023 take 25 mg by mouth twice daily Carvedilol Active 25 MG PO Twice daily October 13, 2023 12:00am Start: 08-13-2022 End: 10-13-2023 Carvedilol Discontinued MG T ABLET August 13, 2022 12:00am October 13, 2023 3:11am Start: 09-02-2019 End: 10-26-2022 take 1 tablet by mouth in the morning, then take 1 tablet by mouth at mealtime carvediloL (COREG) 12.5 mg tablet Indications: Essential hypertension , Primary hypertension , Other acute pulmonary embolism without acute cor pulmonale ([facility]) Take 1 tablet (12.5 mg total) by mouth in the morning and 1 tablet (12.5 mg total) in the evening. Take with meals. 180 tablet 3 02/07/2022 Active Comment on above: Take 1 tablet by shmuel th twice daily with meals. Take 1 tablet by shmuel th twice daily. cholecalciferol 0.125 mg oral capsule (20 sources) Vitamin D Start: take 2 capsules by mouth once daily Cholecalciferol, Vitamin D3, 125 mcg (5,000 unit) cap Take 2 capsules by mouth once daily. 60 capsule 1 08/03/2020 Active Start: 08-03-2020 take 1 capsule by mo [facility] once in the morning cholecalciferol, vitamin D3, (VITAMIN D3) 5,000 units capsule Indications: Vitamin D deficiency Take 1 capsule (5,000 Units total) by mouth in the morning. 0 08/03/2020 Active Comment on above: Take 2 capsules by out once daily. ubidecarenone 100 mg oral capsule (20 sources) Start: 06-29-19 End: 10-13-19 take 1 capsule by mouth once daily CO Q-10 100 mg cap capsule Take 100 mg by mouth once daily. 0 06/28/2018 Active Comment on above: Take 100 mg by mouth once daily. CoQ-10 150 MG (3 sources) CoQ-10 150 MG as directed Orally Active enteric contrast (will be provided with radiology test) (1 source) Start: 06-18-19 End: 06-18-19 take 1 dose by mouth once, then take 1 dose by mouth once enteric contrast (will be provided with radiology test) Take 1 Each by mouth one time only for [address] ABD/PEL WO Routine order Administer, As Directed One Time Only, via Oral, Rectal, both Oral and Rectal, Enteric Tube, Stoma or Indwelling Catheter, Enteric Contrast as designated per enteric contrast guidelines 1 Each 0 06/18/2023 06/18/2023 Active Comment on above: Take 1 Each by mouth one time only for [address] ABD/PEL WO Routine order Administer, As Directed One Time Only, via Oral, Rectal, both Oral and Rectal, Enteric Tube, Stoma or Indwelling Catheter, Enteric Contrast as designated per enteric contrast guidelines 1 ml evolocumab 140 mg/ml prefilled syringe (15 sources) PCSK9 Inhibitor Start: 08-06-19 Evolocumab (REPATHA) 140 MG/ML SOS Indications: Hyperlipidemia, unspecified hyperlipidemia type Inject 140 mg into the skin every 14 days 2 Syringe 2 08/05/2018 Active End: 03-23-2022 evolocumab (REPATHA SYRINGE SUBCUTANEOUS) Inject subcutaneously. 0 03/23/2022 Discontinued evolocumab (REPA SANTA SYRINGE SUBCUTANEOUS) Inject subcutaneously. 0 Active Comment on above: Inject subcutaneousl y. fluticasone furoate 0.0275 mg/actuat metered dose nasal spray (2 sources) Corticosteroid Start: 1 take 2 spray(s) nasal route once daily fluticasone (FLONASE SENSIMIST) 27.5 mcg/actuation nasal spray Indications: Nasal congestion Administer 2 sprays into each nostril once daily. 10 g 12 12/01/2020 Active furosemide 40 mg oral tablet (20 sources) Loop Diuretic Start: 4 take 1 tablet by mouth once daily Furosemide (Lasix) 40 mg tablet Active 40 MG PO Daily October 13, 2023 12:00am Start: 10-10-2022 take 1 tablet by shmuel th in the morning, then take 1 tablet by mouth in the evening, then take 1 tablet by mouth at bedtime furosemide (Lasix) 40 MG tablet Indications: Essential hypertension (CMS/HCC) Take 1 tablet (40 mg) by mouth in the morning and 1 tablet (40 mg) in the evening and 1 tablet (40 mg) before bedtime. 270 tablet 0 10/10/2022 Active Start: 08-13-2022 End: 10-13-2023 Furosemide Discontinued MG T ABLET August 13, 2022 12:00am October 13, 2023 3:12am Start: 07-24-2022 End: 02-15-2023 furosemide (LASIX) 20 mg tab let Take 2 tablets by mouth every morning and 1 tablet in the afternoon, 6 hours after the morning dose. 270 tablet 2 02/15/2023 Active Start: 04-27-2022 furosemide (LA SIX) 20 mg tablet Take 2 tablets by mouth every morning and 1 tablet in the afternoon, 6 hours after the morning dose. 60 tablet 2 04/27/2022 Active Start: 09-02-2019 End: 04-27-2022 take 1 tablet by mouth once daily furosemide (LASIX) 20 mg tablet TAKE 1 TABLET BY MOUTH DAILY 90 tablet 3 01/10/2021 Active Start: 03-10-2017 End: 09-16-2018 take 20 mg by mouth once daily Furosemide Discontinued 20 MG PO Daily March 10, 2017 1:00am September 16, 2018 9:45am Lasix Active Comment on above: Take 1 tablet by shmuel th once daily. Take 2 tablets by mo [facility] every morning and 1 tablet in the afternoon, 6 hours after the morning dose. microencapsulated potassium chloride 10 meq extended release oral tablet (2 sources) Start: 02-24-20 End: 02-23-20 24 take 1 tablet by mouth in the morning potassium chloride CR (Klor-Con M10) 10 MEQ ER tablet Indications: Localized edema Take 1 tablet (10 mEq) by mouth in the morning. Do not crush or chew.. 30 tablet 1 02/23/2023 02/23/2024 Active pramipexole dihydrochloride 0.25 mg oral tablet (2 sources) Nonergot Dopamine Agonist Start: 03-22-19 End: 04-21-19 take 1 tablet by mouth at bedtime pramipexole (Mirapex) 0.25 MG tablet Indications: Restless legs syndrome Take 1 tablet (0.25 mg) by mouth at bedtime 30 tablet 0 03/22/2023 04/21/2023 Active pravastatin sodium 40 mg oral tablet (10 sources) HMG-CoA Reductase Inhibitor Start: 08-29-19 take 1 tablet by mouth once daily at bedtime pravastatin (PRAVACHOL) 40 mg tablet Take 1 tablet by mouth daily at bedtime. 08/28/2018 Active pregabalin 50 mg oral capsule (10 sources) Start: 10-13-19 take 1 capsule by mouth twice daily Pregabalin (Lyrica) 50 mg capsule Active 50 MG PO Twice daily October 13, 2023 12:00am Start: 07-05-2023 pregabalin (LY DAYA) 50 mg capsule TAKE 1 CAPSULE BY MOUTH 1-2 times DAILY as tolerated 07/05/2023 Active rivaroxaban 10 mg oral tablet (20 sources) Factor Xa Inhibitor Start: 01-19-2023 take 1 tablet by mouth in the morning rivaroxaban (XARELTO) 10 mg tablet Take 1 tablet (10 mg total) by mouth in the morning. 90 tablet 1 01/19/2023 Active Start: 02-13-2022 End: 04-28-2023 take 1 tablet by mouth once daily at dinner XARELTO 20 mg tablet Take 20 mg by mouth daily with dinner. 03/21/2022 Active Comment on above: Take 20 mg by mouth daily with dinner. 24 hr tacrolimus 0.75 mg extended release oral tablet (20 sources) Calcineurin Inhibitor Immunosuppressant Start: 07-02-19 take 1 tablet by mouth once daily, then take 1 tablet by mouth every twenty-four hours Tacrolimus (Envarsus Xr) 0.75 mg tablet extended release 24 hr Active 0.75 MG PO Daily October 13, 2023 12:00am must be taken on empty stomach Start: 01-13-2021 End: 07-02-2023 take 1 tablet by mouth once daily tacrolimus ER (ENVARSUS XR) 1 mg tablet Indications: Liver replaced by transplant (HCC) Take 1 tablet by mouth once daily. 30 tablet 11 05/07/2023 07/02/2023 Discontinued (Dosage adjustment) Start: 09-16-2018 End: 10-13-2023 take 1 capsule by mouth once daily Tacrolimus (Prograf) 1 mg Capsule Discontinued 1 MG PO Daily September 16, 2018 12:00am October 13, 2023 3:12am Start: 09-16-2018 Tacrolimus (Pr ograf) 1 mg Capsule Active 3 MG PO Q12H September 15, 2018 11:00pm Start: 06-04-2018 tacrolimus (SD OGRAF) 1 MG capsule Take 4 mg by mouth 0 06/04/2018 Active Envarsus XR Acti ve Comment on above: Take 2 tablets by mo uth once daily. Take 1 tablet by shmuel th once daily. traMADol hydrochloride 50 mg oral tablet (1 source) Opioid Agonist Start: 10-13-2023 take 50 mg by mouth twice daily Tramadol Active 50 MG PO Twice daily October 13, 2023 12:00am Vitamin D (3 sources) Vitamin D Active Completed/Discontinued Medications Medication Drug Class(es) Dates Sig (Normalized) Sig (Original) aspirin 325 mg oral tablet (20 sources) Platelet Aggregation Inhibitor, Nonsteroidal Anti-inflammatory Drug Start: 09-16-2018 End: 02-17-2023 take 325 mg by mouth once daily Aspirin Discontinued 325 MG PO Daily September 16, 2018 12:00am August 13, 2022 11:42am Start: 02-25-2018 aspirin 325 MG EC tablet Take 325 mg by mouth 0 02/25/2018 Active take 1 tablet by shmuel once daily Aspirin 81 81 MG 1 tablet Orally Once a day Not-Taking take 1 tablet by shmuel th once daily Aspirin 81 81 MG 1 tablet Orally Once a day Active Comment on above: Take 1 tablet by shmuel th once daily. colchicine 0.6 mg oral tablet (20 sources) Start: 08-13-2022 End: 10-13-2023 Colchicine Discontinued MG TABLET August 13, 2022 12:00am October 13, 2023 3:12am Start: 03-23-2022 End: 02-15-2023 take 0.5 tablet by mouth every other day colchicine 0.6 mg tablet Take 0.5 tablets by mouth every other day. 23 tablet 0 03/23/2022 02/15/2023 Discontinued (Discontinued by another Health Care Provider) Comment on above: Take 0.5 tablets by mouth every other day. 1 ml denosumab 60 mg/ml prefilled syringe (20 sources) RANK Ligand Inhibitor End: 2022 inject 60 mg by subcutaneous injection every other week denosumab (PROLIA) 60 mg/mL Inject 60 mg subcutaneously every other week. 0 02/17/2023 Discontinued Comment on above: Inject 60 mg subcuta neously every other week. docusate sodium 100 mg oral capsule (10 sources) Start: 2018 End: 2022 take 100 mg by mouth twice daily Docusate Sodium Discontinued 100 MG PO Twice daily September 16, 2018 12:00am August 13, 2022 11:42am gabapentin 100 mg oral capsule (11 sources) Anti-epileptic Agent Start: 2018 End: 2022 take 100 mg by mouth at bedtime Gabapentin Discontinued 100 MG PO Bedtime November 24, 2018 12:00am August 13, 2022 11:42am 10 ml lidocaine hydrochloride 10 mg/ml injection (11 sources) Antiarrhythmic, Amide Local Anesthetic Start: 2022 End: 2022 lidocaine (PF) 10 mg/mL (1 %) 1 mL injection (XYLOCAINE) Start: 07-14-2020 End: 08-13-2022 apply 1 dose topically once daily Lidocaine Discontinued 1 PATCH TOPICAL Daily July 14, 2020 12:00am August 13, 2022 11:42am leave on most painful area for up to 12 hrs lisinopril 20 mg oral tablet (11 sources) Angiotensin Converting Enzyme Inhibitor Start: 08-28-2018 End: 08-13-2022 take 20 mg by mouth once daily Lisinopril Discontinued 20 MG PO Daily September 16, 2018 12:00am August 13, 2022 11:42am metoprolol tartrate 50 mg oral tablet (10 sources) beta-Adrenergic Sharifa Start: 03-10-2017 End: 08-13-2022 take 50 mg by mouth once daily Metoprolol Tartrate Discontinued 50 MG PO Daily March 10, 2017 1:00am August 13, 2022 11:42am mirtazapine 15 mg oral tablet (20 sources) Start: 03-21-2022 End: 02-17-2023 take 1 tablet by mouth once daily at bedtime mirtazapine (REMERON) 15 mg tablet Take 15 mg by mouth daily at bedtime. 0 03/21/2022 02/17/2023 Discontinued Start: 05-26-2018 mirtazapine (R EMERON) 15 MG tablet Take 15 mg by mouth 0 05/26/2018 Active Comment on above: Take 15 mg by mouth daily at bedtime. NIFEdipine 30 mg osmotic 24 hr extended release oral tablet (14 sources) Dihydropyridine Calcium Channel Sharifa take 1 tablet by mouth once daily NIFEdipine ER (PROCARDIA XL) 30 mg 24 hr tablet Take 30 mg by mouth once daily. 0 Active Comment on above: Take 30 mg by mouth once daily. Omeprazole (2 sources) Proton Pump Inhibitor PriLOSEC N ot-Taking PriLOSEC Active oxyCODONE hydrochloride 5 mg oral tablet (8 sources) Opioid Agonist Start: 12-06-2021 End: 08-13-2022 take 5 mg by mouth every eight hours Oxycodone Discontinued 5 MG PO Q8H 12 December 06, 2021 August 13, 2022 11:42am pantoprazole 20 mg delayed release oral tablet (11 sources) Proton Pump Inhibitor Start: 09-16-2018 End: 08-13-2022 take 2 tablets by mouth once daily Pantoprazole (Protonix) 20 mg Tablet,Delayed Release (Dr/Ec) Discontinued 40 MG PO Daily September 16, 2018 12:00am Caroline 11th, 2023 11:42am take 1 tablet by mouth once serafin y pantoprazole (PROTONIX) 40 MG tablet Take 40 mg by mouth daily 0 Active pentamidine isethionate 50 mg/ml inhalation solution (20 sources) Antiprotozoal Start: 03-22-2020 End: 05-05-2022 take 300 mg by inhalation every month pentamidine (NEBUPENT) 300 mg inhalation solution Inhale 300 mg as instructed once every month. 1 Each 10/18/2021 05/05/2022 Discontinued (Course of therapy completed) Start: 09-16-2018 End: 08-13-2022 Pentamidine Discontinued 300 MG INHALATION EVERY 4 WEEKS September 16, 2018 12:00am August 13, 2022 11:42am Start: 09-16-2018 Pentamidine Ac tive 300 MG INHALATION EVERY 4 WEEKS September 15, 2018 11:00pm Start: 04-01-2018 pentamidine (N EBUPENT) 300 MG inhalation solution Inhale 300 mg into the lungs 0 04/01/2018 Active Comment on above: Inhale 300 mg as ins tructed once every month. predniSONE 20 mg oral tablet (20 sources) Start: 3 End: take 40 mg by mouth once daily at mealtime Prednisone Discontinued 40 MG PO Daily August 13, 2022 12:00am October 13, 2023 3:12am administer with food or milk Start: 03-23-2022 End: 04-12-2022 take 4 tablets by mouth once daily, then take 3 tablets by mouth once daily, then take 2 tablets by mouth once daily, then take 1 tablet by mouth once daily predniSONE (DELTASONE) 10 mg tablet Take 4 tablets by mouth once daily for 5 days, THEN 3 tablets once daily for 5 days, THEN 2 tablets once daily for 5 days, THEN 1 tablet once daily for 5 days. 50 tablet 0 03/23/2022 04/12/2022 Active Start: 03-21-2022 End: 02-17-2023 predniSONE (DELTASONE) 10 mg tablet Take (4) tabs PO x 3 days, then (3) tabs x 3 days, then (2) tabs x 3 days, then 1 tab PO x 3 days and stop as directed, in the morning with food 32 tablet 1 03/21/2022 02/17/2023 Discontinued Start: 01-19-2021 take 2 tablets by mo uth once daily predniSONE 20 MG 2 tabs Orally Once a day for 5 day(s) Jan, Not-Taking Start: 07-14-2020 End: 08-13-2022 take 50 mg by mouth once daily at mealtime Prednisone Discontinued 50 MG PO Daily 5 July 14, 2020 12:00am August 13, 2022 11:42am administer with food or milk Start: 03-10-2017 End: 09-16-2018 take 20 mg by mouth once daily Prednisone Discontinued 20 MG PO Daily March 10, 2017 1:00am September 16, 2018 9:45am Comment on above: Take (4) tabs PO x 3 days, then (3) tabs x 3 days, then (2) tabs x 3 days, then 1 tab PO x 3 days and stop as directed, in the morning with food Take 4 tablets by mo uth once daily for 5 days, THEN 3 tablets once daily for 5 days, THEN 2 tablets once daily for 5 days, THEN 1 tablet once daily for 5 days. rOPINIRole 2 mg oral tablet (20 sources) Nonergot Dopamine Agonist Start: 08-13-2022 End: 10-13-2023 Ropinirole Discontinued MG TABLET August 13, 2022 12:00am October 13, 2023 3:12am Start: 02-22-2022 End: 07-19-2023 take 1 tablet by mouth once daily in the morning rOPINIRole (REQUIP) 2 mg tablet Take 2 mg by mouth every morning. 0 02/22/2022 07/19/2023 Discontinued (Discontinued by another Health Care Provider) Start: 02-22-2022 End: 07-19-2023 take 1 tablet by mouth once daily rOPINIRole (REQUIP) 4 mg tablet TAKE 1 TABLET BY MOUTH NIGHTLY 0 02/22/2022 07/19/2023 Discontinued (Discontinued by another Health Care Provider) Start: 06-08-2021 rOPINIRole (RE QUIP) 4 mg tablet Indications: Restless legs syndrome 2 mg in AM and 4 mg PM 90 tablet 1 06/08/2021 Active Start: 08-03-2020 End: 03-23-2022 take 1 tablet by mouth once daily in the morning rOPINIRole (REQUIP) 1 mg tablet Take (2) tablets by mouth every morning and (4) tablets every evening 120 tablet 1 08/03/2020 03/23/2022 Discontinued (Course of therapy completed) Start: 11-13-2018 rOPINIRole (RE QUIP) 1 MG tablet TAKE 1 TABLET EVERY NIGHT 90 tablet 3 11/13/2018 Active Start: 09-16-2018 End: 10-13-2023 take 4 mg by mouth once daily at bedtime Ropinirole Discontinued 4 MG PO Daily at bedtime September 16, 2018 12:00am October 13, 2023 3:12am Start: 09-16-2018 take 2 mg by mouth o nce daily at bedtime Ropinirole Active 2 MG PO Daily at bedtime September 15, 2018 11:00pm Start: 09-08-2015 take 2 tablets by mo uth at dinner, then take 4 tablets by mouth at bedtime Requip 1 MG 2 tablet at dinner time and 4 at bedtime Orally for 30 day(s) Sep, Active Comment on above: Take (2) tablets by mouth every morning and (4) tablets every evening TAKE 1 TABLET BY SHMUEL TH NIGHTLY Take 2 mg by mouth e very morning. sodium polystyrene sulfonate 250 mg/ml oral suspension (20 sources) Start: 11-21-2018 End: 08-13-2022 take 1 mL by mouth once daily Sodium Polystyrene Sulfonate Discontinued 120 ML PO Daily 500 November 21, 2018 12:00am August 13, 2022 11:42am As directed per your doctor. Start: 10-01-2018 End: 11-24-2018 take 30 g by mouth once daily Sodium Polystyrene Sulfo ebenezer Discontinued 30 GM PO Daily 150 October 01, 2018 12:00am November 24, 2018 2:22pm Start: 09-02-2018 End: 09-16-2018 take 15 g by mouth once daily Sodium Polystyrene Sulfo ebenezer Discontinued 15 GM PO Daily 45 September 02, 2018 12:00am September 16, 2018 9:45am Toradol 30 mg/ml (2 sources) Start: 01-19-2021 Toradol 30 mg/ ml Jan, 30 mg Triamcinolone (4 sources) Corticosteroid Start: 07-09-2020 Kenalog -40 mg July, 20 mg Start: 09-24-2019 Kenalog -40 mg Sep, 40 mg zolpidem tartrate 10 mg oral tablet (10 sources) gamma-Aminobutyric Acid-ergic Agonist Start: 03-10-2017 End: 09-16-2018 take 10 mg by mouth at bedtime Zolpidem Discontinued 10 MG PO Bedtime March 10, 2017 1:00am September 16, 2018 9:45am Problems Active Problems Problem Classification Problem Date Documented Da te Episodic/Chronic Abdominal pain (14 sources) Right sided abdominal pain; Translations: [Unspecified abdominal pain] Onset: 4 03-10-2017 Episodic Acute bronchitis (10 sources) Acute bronchitis with bronchospasm; Translations: [Acute bronchitis, unspecified] 03-10-2017 Episodic Adjustment disorders (20 sources) Adjustment disorder with depressed mood; Translations: [Adjustment disorder with depressed mood] Onset: 9 05-23-2018 Chronic Biliary tract disease (20 sources) Cholecystitis, unspecified; Translations: [Biliary dyskinesia] Onset: 8 07-24-2017 Episodic Chronic kidney disease (20 sources) Chronic kidney disease; Translations: [Chronic kidney disease stage 3] Onset: 9 07-25-2017 Chronic Chronic ulcer of skin (1 source) Pressure ulcer of unspecified ankle, unspecified stage; Translations: [Controlled type 2 diabetes mellitus with pressure ulcer of ankle (HCC) (HCC)] Onset: 4 Chronic Diabetes mellitus without complication (3 sources) Type 2 diabetes mellitus without complication; Translations: [Type 2 diabetes mellitus without complications] Onset: 3 08-14-2022 Chronic Disorders of lipid metabolism (7 sources) Hypercholesterolemia; Translations: [Pure hypercholesterolemia, unspecified] Onset: 9 02-19-2019 Chronic E Codes: Adverse effects of medical drugs (2 sources) Immunosuppressant adverse reaction; Translations: [Adverse effect of antineoplastic and immunosuppressive drugs, initial encounter] 11-23-2022 Episodic E Codes: Fall (1 source) Fall on same level from slipping, tripping or stumbling ; Translations: [Fall on same level from slipping, tripping and stumbling without subsequent striking against object, initial encounter] 10-13-2023 Episodic Essential hypertension (20 sources) Hypertensive disorder; Translations: [Essential (primary) hypertension] Onset: 8 07-24-2017 Chronic Gastroduodenal ulcer (except hemorrhage) (2 sources) Gastric ulcer without hemorrhage AND without perforation; Translations: [Gastric ulcer, unspecified as acute or chronic, without hemorrhage or perforation] Onset: 2 08-14-2022 Chronic Gout and other crystal arthropathies (18 sources) Gouty arthritis of toe; Translations: [Gout, unspecified] Onset: 1 Resolved: 1 Chronic Hepatitis (20 sources) Nonalcoholic steatohepatitis (ST[place]ON); Translations: [Cirrhosis - non-alcoholic] Onset: 7 02-12-2018 Chronic Hypertension with complications and secondary hypertension (1 source) Benign hypertensive renal disease; Translations: [Hypertensive chronic kidney disease with stage 1 through stage 4 chronic kidney disease, or unspecified chronic kidney disease] 08-15-2023 Chronic Immunity disorders (2 sources) Immunosuppression; Translations: [Immunodeficiency, unspecified] Onset: 4 07-02-2023 Chronic Malaise and fatigue (2 sources) Weakness; Translations: [Malaise and fatigue] Onset: 8 10-26-2022 Episodic Nausea and vomiting (3 sources) Nausea; Translations: [Nausea] Episodic Nutritional deficiencies (20 sources) Malnutrition of mild degree (Lewis: 75% to less than 90% of standard weight); Translations: [Vitamin D deficiency] Onset: 4 Resolved: 3 03-13-2018 Chronic Osteoarthritis (20 sources) Osteoarthritis of knee; Translations: [Degenerative joint disease involving multiple joints] Onset: 4 07-24-2017 Chronic Other aftercare (2 sources) Long-term current use of tacrolimus; Translations: [Long-term current use of tacrolimus] Episodic Other aftercare (5 sources) Drug therapy finding; Translations: [Other buttermaker helper (current) drug therapy] Episodic Other aftercare (1 source) Long-term current use of anticoagulant; Translations: [penitentiary (current) use of anticoagulants] 10-13-2023 Episodic Other and ill-defined heart disease (4 sources) Left ventricular hypertrophy; Translations: [Cardiomegaly] Onset: 9 02-10-2019 Chronic Other connective tissue disease (8 sources) Disorder of extremity; Translations: [Pain in unspecified limb] 12-06-2021 Episodic Other connective tissue disease (1 source) Pain of bilateral hands; Translations: [Bilateral hand pain] Onset: 4 07-24-2017 Other gastrointestinal disorders (3 sources) Diarrhea; Translations: [Diarrhea, unspecified] Episodic Other hereditary and degenerative nervous system conditions (20 sources) Restless legs; Translations: [Restless legs syndrome] Onset: 8 07-24-2017 Chronic Other hereditary and degenerative nervous system conditions (1 source) Restless legs syndrome; Translations: [Restless legs syndrome (RLS)] Onset: 4 Chronic Other liver diseases (7 sources) Hepatic failure, unspecified without coma; Translations: [Unspecified cirrhosis of liver] Onset: 8 Chronic Other liver diseases (20 sources) Cirrhosis of liver; Translations: [Unspecified cirrhosis of liver] Onset: 7 08-22-2017 Chronic Other liver diseases (20 sources) Inflammatory disease of liver; Translations: [Inflammatory liver disease, unspecified] Onset: 6 07-24-2017 Chronic Other liver diseases (1 source) H/O: liver recipient; Translations: [Liver transplant recipient] Onset: 8 03-13-2018 Chronic Other liver diseases (5 sources) Non-alcoholic fatty liver; Translations: [Fatty (change of) liver, not elsewhere classified] Onset: 8 07-05-2017 Chronic Other liver diseases (5 sources) Disease of liver; Translations: [Liver disease, unspecified] Chronic Other liver diseases (1 source) Liver transplant status; Translations: [Liver replaced by transplant (HCC)] Onset: 4 Chronic Other liver diseases (2 sources) Increased creatine kinase level; Translations: [Abnormal levels of other serum enzymes] Episodic Other lower respiratory disease (1 source) Shortness of breath Onset: 4 Episodic Other nervous system disorders (1 source) Metabolic encephalopathy; Translations: [Acute metabolic encephalopathy] Onset: 8 06-09-2017 Chronic Other nervous system disorders (5 sources) Disorder of brain; Translations: [Encephalopathy, unspecified] Onset: 0 06-10-2017 Chronic Other nervous system disorders (3 sources) Carpal tunnel syndrome of right wrist; Translations: [Carpal tunnel syndrome, right upper limb] Chronic Other nervous system disorders (5 sources) Polyneuropathy, unspecified; Translations: [POLYNEUROPATHY UNSPECIFIED] Onset: 2 Chronic Other nervous system disorders (1 source) Other chronic pain; Translations: [OTHER CHRONIC PAIN] Onset: 2 Chronic Other nervous system disorders (2 sources) Neuropathy of lower limb; Translations: [Unspecified mononeuropathy of bilateral lower limbs] Onset: 3 08-14-2022 Chronic Other nervous system disorders (3 sources) Chronic pain; Translations: [Other chronic pain] Onset: 2 08-14-2022 Chronic Other non-traumatic joint disorders (1 source) Acute ankle pain; Translations: [Pain in right ankle and joints of right foot] Episodic Other non-traumatic joint disorders (1 source) Chronic pain of left upper limb; Translations: [Pain in left shoulder] 10-26-2022 Episodic Other non-traumatic joint disorders (1 source) Pain in right hip joint; Translations: [Pain in right hip] 10-26-2022 Episodic Other nutritional; endocrine; and metabolic disorders (2 sources) Disorder of urea cycle metabolism, unspecified; Translations: [Disorder of urea cycle metabolism, unspecified] Onset: 8 Chronic Other nutritional; endocrine; and metabolic disorders (5 sources) Hyperbilirubinemia; Translations: [Other disorders of bilirubin metabolism] Onset: 8 06-09-2017 Chronic Other nutritional; endocrine; and metabolic disorders (20 sources) Morbid obesity; Translations: [Morbid (severe) obesity due to excess calories] Onset: 8 07-24-2017 Chronic Other nutritional; endocrine; and metabolic disorders (5 sources) Hypophosphatemia; Translations: [Other disorders of phosphorus metabolism] Onset: 8 06-09-2017 Chronic Other nutritional; endocrine; and metabolic disorders (16 sources) Hyperammonemia; Translations: [Disorder of urea cycle metabolism, unspecified] Onset: 8 Resolved: 3 07-25-2017 Chronic Other nutritional; endocrine; and metabolic disorders (20 sources) Body mass index 40+ - severely obese; Translations: [Morbid (severe) obesity due to excess calories] Onset: 8 02-16-2018 Chronic Other nutritional; endocrine; and metabolic disorders (2 sources) Severe obesity; Translations: [Morbid (severe) obesity due to excess calories] Onset: 9 02-04-2019 Chronic Other nutritional; endocrine; and metabolic disorders (4 sources) Body mass index 30+ - obesity; Translations: [Obesity, unspecified] Onset: 2 04-14-2021 Chronic Other nutritional; endocrine; and metabolic disorders (1 source) Morbid (severe) obesity due to excess calories; Translations: [Obesity, Class III, BMI 40-49.9 (morbid obesity) (HCC)] Onset: 8 Chronic Other nutritional; endocrine; and metabolic disorders (2 sources) Hyperuricemia; Translations: [Hyperuricemia without signs of inflammatory arthritis and tophaceous disease] Episodic Other screening for suspected conditions (not mental disorders or infectious disease) (7 sources) Platelet count below reference range; Translations: [Patient encounter status] Onset: 8 07-24-2017 Episodic Other skin disorders (3 sources) Skin irritation ; Translations: [Other skin changes] 08-13-2022 Episodic Peripheral and visceral atherosclerosis (2 sources) Atherosclerosis of aorta; Translations: [Atherosclerosis of aorta] Onset: 1 08-14-2022 Chronic Phlebitis; thrombophlebitis and thromboembolism (17 sources) Superficial thrombophlebitis; Translations: [Phlebitis and thrombophlebitis of unspecified site] Onset: 2 11-24-2018 Episodic Residual codes; unclassified (20 sources) Obstructive sleep apnea syndrome; Translations: [Obstructive sleep apnea (adult) (pediatric)] Onset: 8 07-24-2017 Chronic Residual codes; unclassified (20 sources) Liver transplant planned; Translations: [Awaiting organ transplant status] Onset: 8 02-12-2018 Chronic Residual codes; unclassified (5 sources) Localized edema; Translations: [LOCALIZED EDEMA] Onset: 2 Resolved: 2 Episodic Residual codes; unclassified (8 sources) Pain; Translations: [Pain, unspecified] 12-06-2021 Episodic Spondylosis; intervertebral disc disorders; other back problems (3 sources) Other spondylosis with radiculopathy, lumbar region; Translations: [Spondylosis without myelopathy or radiculopathy, lumbar region] Onset: 2 Chronic Sprains and strains (10 sources) Forearm sprain; Translations: [Unspecified sprain of right wrist, initial encounter] 07-14-2020 Episodic Unclassified (1 source) Unknown / UNK(Unknown) Onset: 8 Unclassified (1 source) Liver transplant planned; Translations: [Liver transplant planned] Onset: 8 03-13-2018 Unclassified (1 source) Prevention status; Translations: [Need for prophylactic immunotherapy] Onset: 8 03-13-2018 Unclassified (1 source) CHRN KIDNEY DISEASE STG 3 UNSP; Translations: [CHRN KIDNEY DISEASE STG 3 UNSP] Onset: 2 Unclassified (1 source) CONTACT W/AND (SUSP) EXPOS COVID-19; Translations: [CONTACT W/AND (SUSP) EXPOS COVID-19] Onset: 2 Unclassified (1 source) Pre-op Exam Onset: 4 Varicose veins of lower extremity (2 sources) Venous varices; Translations: [Varicose veins of unspecified lower extremity with other complications] Onset: 2 Resolved: 2 Episodic Viral infection (2 sources) Herpes zoster without complication; Translations: [Zoster without complications] Episodic Past or Other Problems Problem Classification Problem Date Documented Da te Episodic/Chronic Abdominal hernia (7 sources) Incisional hernia; Translations: [Incisional hernia without obstruction or gangrene] Onset: 07-02-2023 06-18-2023 Episodic Acute and unspecified renal failure (20 sources) Acute injury of kidney; Translations: [Acute kidney failure, unspecified] Onset: 02-13-2018 02-13-2018 Episodic Acute posthemorrhagic anemia (12 sources) Acute posthemorrhagic anemia; Translations: [Acute posthemorrhagic anemia] Onset: 02-12-2018 Resolved: 02-19-2018 02-19-2018 Episodic Bacterial infection; unspecified site (4 sources) Pertussis; Translations: [Whooping cough, unspecified species without pneumonia] Onset: 09-17-2019 09-17-2019 Episodic Cancer of breast (2 sources) History of malignant neoplasm of breast; Translations: [Personal history of malignant neoplasm of breast] Onset: 04-26-2020 08-14-2022 Episodic Cardiac dysrhythmias (20 sources) Palpitations; Translations: [Palpitations] Onset: 03-29-2018 03-29-2018 Episodic Coagulation and hemorrhagic disorders (20 sources) Platelet disorder; Translations: [Acquired platelet function disorder] Onset: 07-14-2015 Resolved: 11-24-2022 06-10-2017 Chronic Complication of device; implant or graft (20 sources) Graft rejection; 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] Onset: 05-07-2018 06-28-2018 Episodic Conditions associated with dizziness or vertigo (1 source) Dizziness Onset: 08-24-2023 Episodic Deficiency and other anemia (2 sources) Iron deficiency anemia; Translations: [Iron deficiency anemia, unspecified] Onset: 11-01-2020 08-14-2022 Episodic Diabetes mellitus without complication (20 sources) Hyperglycemia; Translations: [Hyperglycemia, unspecified] Onset: 05-10-2018 05-10-2018 Episodic Esophageal disorders (5 sources) Esophageal varices without bleeding; Translations: [Esophageal varices without bleeding] Onset: 06-09-2017 Resolved: 04-14-2021 07-05-2017 Chronic Esophageal disorders (1 source) Esophageal mass; Translations: [Esophageal mass] Onset: 06-09-2017 Resolved: 06-09-2017 06-09-2017 Episodic Fluid and electrolyte disorders (20 sources) Hyperkalemia; Translations: [Hyperkalemia] Onset: 02-12-2018 Resolved: 02-19-2018 10-01-2018 Episodic Hemorrhoids (4 sources) Hemorrhoids; Translations: [Unspecified hemorrhoids] Onset: 09-17-2019 09-17-2019 Episodic Mood disorders (4 sources) Mood disorders Onset: 02-21-2022 Resolved: 08-17-2022 02-21-2022 Nonmalignant breast conditions (2 sources) Lump in upper outer quadrant of left breast; Translations: [Unspecified lump in the left breast, upper outer quadrant] Onset: 09-20-2022 09-20-2022 Episodic Nonspecific chest pain (3 sources) Other chest pain; Translations: [Chest pain] Onset: 08-24-2023 Episodic Other acquired deformities (2 sources) Spondylolysis; Translations: [Spondylolysis, lumbar region] Onset: 08-14-2022 08-14-2022 Episodic Other and unspecified benign neoplasm (4 sources) Tubular adenoma ; Translations: [Benign neoplasm, unspecified site] Onset: 09-17-2019 09-17-2019 Episodic Other bone disease and musculoskeletal deformities (20 sources) Osteopenia; Translations: [Other specified disorders of bone density and structure, unspecified site] Onset: 12-09-2013 07-24-2017 Episodic Other connective tissue disease (20 sources) Ganglion cyst; Translations: [Ganglion, unspecified site] Onset: 12-09-2013 07-24-2017 Episodic Other connective tissue disease (20 sources) Muscle pain; Translations: [Myalgia, unspecified site] Onset: 12-08-2013 07-24-2017 Episodic Other connective tissue disease (5 sources) Calcaneal spur; Translations: [Calcaneal spur, unspecified foot] Onset: 11-27-2017 11-27-2017 Episodic Other connective tissue disease (1 source) Synovitis; Translations: [Synovitis of hand] Onset: 12-08-2013 07-24-2017 Episodic Other connective tissue disease (20 sources) Pain of bilateral hands; Translations: [Pain in right hand] Onset: 12-08-2013 12-08-2013 Episodic Other connective tissue disease (20 sources) Disorder of hand; Translations: [Synovitis and tenosynovitis, unspecified] Onset: 12-08-2013 12-08-2013 Episodic Other connective tissue disease (4 sources) Pain in right foot; Translations: [PAIN IN RIGHT FOOT] Onset: 12-13-2021 Episodic Other connective tissue disease (1 source) Other muscle spasm; Translations: [OTHER MUSCLE SPASM] Onset: 12-15-2021 Episodic Other gastrointestinal disorders (5 sources) Ascites; Translations: [Other ascites] Onset: 09-17-2019 07-25-2017 Episodic Other liver diseases (6 sources) Hepatic encephalopathy; Translations: [Hepatic encephalopathy] Onset: 06-09-2017 Resolved: 11-24-2022 07-25-2017 Episodic Other liver diseases (5 sources) Elevated liver enzymes level; Translations: [Abnormal levels of other serum enzymes] Onset: 07-25-2017 07-25-2017 Episodic Other liver diseases (5 sources) Enzyme level - finding; Translations: [Transaminasemia] Onset: 06-09-2017 06-09-2017 Episodic Other liver diseases (11 sources) Hepatic failure; Translations: [Hepatic failure, unspecified without coma] Onset: 07-19-2023 07-19-2023 Episodic Other liver diseases (1 source) Hepatic failure, unspecified without coma; Translations: [Liver failure without hepatic coma, unspecified chronicity (HCC)] Onset: 07-19-2023 Episodic Other lower respiratory disease (5 sources) Chest pain on breathing; Translations: [Chest pain on breathing] Onset: 11-27-2017 11-27-2017 Episodic Other lower respiratory disease (12 sources) Respiratory insufficiency; Translations: [Other abnormalities of breathing] Onset: 02-12-2018 Resolved: 02-19-2018 02-19-2018 Episodic Other lower respiratory disease (2 sources) Other forms of dyspnea; Translations: [Other forms of dyspnea] Onset: 08-24-2023 Episodic Other nervous system disorders (12 sources) Acute postoperative pain; Translations: [Other acute postprocedural pain] Onset: 02-12-2018 Resolved: 02-19-2018 02-19-2018 Episodic Other non-traumatic joint disorders (20 sources) Hip pain; Translations: [Pain in right hip] Onset: 12-08-2013 07-24-2017 Episodic Other nutritional; endocrine; and metabolic disorders (15 sources) Obese class II; Translations: [Body mass index (BMI) 37.0-37.9, adult] Onset: 02-08-2018 Resolved: 02-19-2018 02-19-2018 Chronic Other nutritional; endocrine; and metabolic disorders (20 sources) Weight change finding; Translations: [Other general symptoms and signs] Onset: 07-14-2015 07-24-2017 Episodic Other nutritional; endocrine; and metabolic disorders (2 sources) Overweight; Translations: [Overweight] Onset: 04-15-2020 04-15-2020 Episodic Pneumonia (except that caused by tuberculosis or sexually transmitted disease) (2 sources) Pneumonia; Translations: [Pneumonia, unspecified organism] Onset: 01-23-2022 01-23-2022 Episodic Pulmonary heart disease (10 sources) Pulmonary embolism; Translations: [Other pulmonary embolism without acute cor pulmonale] Onset: 03-16-2020 Episodic Residual codes; unclassified (5 sources) Altered mental status; Translations: [Altered mental status, unspecified] Onset: 07-21-2017 07-21-2017 Episodic Residual codes; unclassified (20 sources) Prevention status; Translations: [Encounter for other specified prophylactic measures] Onset: 02-19-2018 05-23-2018 Episodic Residual codes; unclassified (4 sources) Insomnia; Translations: [Insomnia, unspecified] Onset: 02-27-2017 09-17-2019 Episodic Residual codes; unclassified (2 sources) History of left mastectomy; Translations: [Acquired absence of left breast and nipple] Onset: 01-13-2019 08-14-2022 Episodic Spondylosis; intervertebral disc disorders; other back problems (20 sources) Low back pain; Translations: [Neck pain] Onset: 12-08-2013 07-24-2017 Episodic Unclassified (2 sources) Onset: 12-01-2020 12-01-2020 Results Test Name Value Interpretation Reference Range Facility CBC W Auto Differential pane l (Bld)on 11-23-2023 Basophils (Bld) [#/Vol] 0.07 10*3/uL [facility] Basophils/100 WBC (Bld) 0.9 % [facility] Differential cell count method Nom (Bld) Auto [facility] Eosinophils (Bld) [#/Vol] 0.32 10*3/uL [facility] Eosinophils/100 WBC (Bld) 4.1 % [facility] Erythrocyte distribution width (RBC) [Ratio] 15.9 % High 11.5 - 15.0 % [facility] Hematocrit (Bld) [Volume fraction] 34.8 % Low 36.0 - 46.0 % [facility] Hemoglobin (Bld) [Mass/Vol] 12.2 g/dL 11.5 - 15.5 g/dL [facility] Immature granulocytes (Bld) [#/Vol] 0.03 10*3/uL [facility] Immature granulocytes/100 WBC (Bld) 0.4 % [facility] Interpretation and review of laboratory results Abnormal [facility] Lymphocytes (Bld) [#/Vol] 2.60 10*3/uL [facility] Lymphocytes/100 WBC (Bld) 32.9 % [facility] MCH (RBC) [Entitic mass] 35.8 pg High 26.0 - 34.0 pg [facility] MCHC (RBC) [Mass/Vol] 35.1 g/dL 30.5 - 36.0 g/dL [facility] MCV (RBC) [Entitic vol] 102.1 fL High 80.0 - 100.0 fL [facility] Monocytes (Bld) [#/Vol] 0.93 10*3/uL High NINF [facility] Monocytes/100 WBC (Bld) 11.8 % [facility] Neutrophils (Bld) [#/Vol] 3.95 10*3/uL [facility] Neutrophils/100 WBC (Bld) 49.9 % [facility] Nucleated RBC (Bld) [#/Vol] 0.02 10*3/uL [facility] Nucleated RBC/100 WBC (Bld) [Ratio] 0.3 % /100 WBC [facility] Platelet mean volume (Bld) [Entitic vol] 10.8 fL 9.0 - 12.7 fL [facility] Platelets (Bld) [#/Vol] 401 10*3/uL High [facility] RBC (Bld) [#/Vol] 3.41 10*6/uL Low 3.90 - 5.2 0 m/uL [facility] WBC (Bld) [#/Vol] 7.90 10*3/uL [facility] Comprehensive metabolic 2000 panelOrdered By: Jack Marquis on 11-23-2023 Albumin [Mass/Vol] 4.4 g/dL 3.9 - 4.9 g/dL [facility] ALP [Catalytic activity/Vol] 85 U/L 34 - 123 U/L [facility] ALT [Catalytic activity/Vol] 23 U/L 7 - 38 U/L [facility] Anion gap [Moles/Vol] 12 mmol/L 8 - 15 mmol/L [facility] AST [Catalytic activity/Vol] 23 U/L 13 - 35 U/L [facility] Bilirubin [Mass/Vol] 0.3 mg/dL 0.2 - 1 .3 mg/dL [facility] Calcium [Mass/Vol] 10.3 mg/dL High 8.5 - 10. 2 mg/dL [facility] Chloride [Moles/Vol] 104 mmol/L 98 - 10 7 mmol/L [facility] CO2 [Moles/Vol] 26 mmol/L 22 - 30 mmol/L [facility] Creatinine [Mass/Vol] 1.73 mg/dL High 0.58 - 0.96 mg/dL [facility] GFR/1.73 sq M.predicted among non-blacks MDRD (S/P/Bld) [Vol rate/Area] 30 mL/min/{1.73_m2} Low - PINF [facility] Comment on above: Estimated Glomerular Filtration Rate (eGFR) is calculated using the 2020 CKD-EPI creatinine equation. This equation utilizes serum creatinine, sex, and age as parameters. The creatinine assay has traceable calibration to isotope dilution-mass spectrometry. Refer to KDIGO guidelines for clinical interpretation. In patients with unstable renal function, e.g. those with acute kidney injury, the eGFR may not accurately reflect actual GFR. Glucose [Mass/Vol] 121 mg/dL High 74 - 99 mg/dL [facility] Comment on above: The [place] Diab[employer] Association (ADA) provides guidance for cutoff values for fasting glucose and random glucose. The ADA defines fasting as no caloric intake for at least 8 hours. Fasting plasma glucose results between 100 to 125 mg/dL indicate increased risk for diabetes (prediabetes). Fasting plasma glucose results greater than or equal to 126 mg/dL meet the criteria for diagnosis of diabetes. In the absence of unequivocal hyperglycemia, results should be confirmed by repeat testing. In a patient with classic symptoms of hyperglycemia or hyperglycemic crisis, random plasma glucose results greater than or equal to 200 mg/dL meet the criteria for diagnosis of diabetes. Reference: Standards of Medical Care in Diabetes 2016, [place] [employer]. Diabetes Care. 2016.39(Suppl 1). Interpretation and review of laboratory results Abnormal [facility] Potassium [Moles/Vol] 4.2 mmol/L 3.7 - 5.1 mmol/L [facility] Protein [Mass/Vol] 7.9 g/dL 6.3 - 8.0 g/dL [facility] Sodium [Moles/Vol] 142 mmol/L 136 - 144 mmol/L [facility] Urea nitrogen [Mass/Vol] 46 mg/dL High 7 - 21 mg/dL [facility] PHOSPHORUS INORGANICon 11-22 Phosphate [Mass/Vol] 3.4 mg/dL 2.7 - 4 .8 mg/dL [facility] Phosphate [Mass/Vol]on 11-22 Interpretation and review of laboratory results Normal [facility] CT CTA COR ARTERIES W OR WO SCORINGon 11-07-2023 CT CTA COR ARTERIES W OR WO SCORING CT CTA COR ARTERIES W OR WO SCORING CLINICAL INFORMATION: . Chest pain. Dyspnea with exertion. TECHNIQUE: Computed tomography (CT) of the heart was obtained using electrocardiography (ECG) triggering. 100 mL of Omni 350 contrast was administered intravenously. In preparation for the examination, the patient received 0.8 mg sublingual nitroglycerin tablet for coronary vasodilation. There were no complications 3-D volume rendered maximum intensity projection images were generated and reviewed under concurrent physician supervision on an independent workstation.. No FFR performed. All CT scans at this facility use dose modulation, iterative reconstruction, and/or weight based dosing when appropriate to reduce radiation dose to as low as reasonably achievable. COMPARISON: No relevant prior studies available. EXTRACARDIAC FINDINGS: Dependent changes and atelectasis in both lungs. Mild mosaic attenuation lung suggestive of small or reactive airway disease. Thoracic aorta and pulmonary artery appear to be normal caliber. CARDIAC MORPHOLOGY: The right atrium is unremarkable. The right ventricle is unremarkable. The left atrium is unremarkable. The left ventricle is unremarkable. CALCIUM SCORE: Agatston Score: The total (aggregate) calcium score using the AJ-130 method is 1286.1. Total volume score is 1035.4. Greater than 90% of similar patients have less coronary artery calcium {this is reported using the interactive HODGES form found at http://www.hodges-nhlbi.org } Individual major vessel AJ-130 scores are: LM = 0 LAD = 550.0 LCX = 250.1 RCA/PDA = 520.9 Other = [address] Angiogram: The overall quality of the CT angiographic examination is adequate. Coronary Artery Angiogram Findings: Stenoses are reported as maximum percentage diameter stenosis. Stenosis grading is reported using the following scheme: Normal: no stenosis Mild: 1-49% stenosis Moderate: 50-70% stenosis Severe: >70% stenosis Occluded The coronary artery system is right dominant with normal origins. The LM has no stenosis with no plaque. The proximal LAD and first diagonal branch (D1) have multifocal mild stenosis of up to 35-45% with calcified plaque. The mid-distal LAD, D2 and D3 branches) and multifocal mild stenosis of up to 30-35% with calcified plaque. Short segment of mild myocardial bridging. The LCx and its obtuse marginal (OM) branches have multifocal mild luminal irregularities with calcified plaque. The RCA and acute marginal and right posterior descending artery (RPDA)/right posterolateral {RPL} branches have multifocal mild stenosis of up to 20-25 % with calcified plaque. IMPRESSION: Multifocal three-vessel disease with multifocal mild luminal stenosis most pronounced in the proximal mid LAD. No stenosis of greater than or equal to 50% identified. No FFR performed. Total calcium score of 1286.1; greater than 90% of similar patients have less coronary artery calcium. The coronary arteries and cardiac structures were co-interpreted by Dr. David Mercer MD of the department of radiology and Dr. Rupert Ramirez of department of cardiology. The extracardiac structures including the lungs were solely interpreted by Dr. David Mercer MD of the department of radiology. Calcium Score interpretation and guidelines for asymptomatic individuals, 45 - 75 years of age are as follows: Estimated Risk of a Total Score Relative Risk Coronary Event Each Year 0 very low risk 2 per 1000 1-10 low risk 5 per 1000 11-100 intermediate risk 5 to 20 per 1000 101-400 moderately high risk more than 2 per 100 over 400 high risk between 2 and 5 per 100; approximately 15% chance of significant blockages; consideration should be given to obtaining stress echo or stress nuclear testing. Finalized by David Mercer MD on 11/07/2023 3:[address] [facility] Activated partial thrombopla stin time (aPTT) in platelet poor plasma by coagulation aOrdered By: Jesse Miguel on 10-13-2023 aPTT Coag (PPP) [Time] 38.6 s High 25.1-36.5 [facility] Comment on above: A hematocrit value g reater than 55% may lead to inaccurate results in coagulation testing. Patients having hematocrit values >55% require a special collection tube for coagulation studies. Please contact the laboratory at [phone] for redraw instructions. Alanine aminotransferase [En zymatic activity/volume] in Serum or PlasmaOrdered By: Jesse Miguel on 10-13-2023 ALT [Catalytic activity/Vol] 24 U/L Normal 7-52 [facility] Comment on above: Performed By: #### P T, CBC, HS TROP, CMP, LIPASE, PTT #### [facility] [address] [place] [address] [place] Albumin [Mass/volume] in Ser um or Plasma by Bromocresol green (BCG) dye binding methoOrdered By: Jesse Miguel on 10-13-2023 Albumin BCG dye [Mass/Vol] 4.2 g/dL 3.5-5.7 [facility] Alkaline phosphatase [Enzyma tic activity/volume] in Serum or PlasmaOrdered By: Jesse Miguel on 10-13-2023 ALP [Catalytic activity/Vol] 68 U/L Normal 34-104 [facility] Comment on above: Performed By: #### P T, CBC, HS TROP, CMP, LIPASE, PTT #### [facility] [address] [place] [id number] [place] Aspartate aminotransferase [ Enzymatic activity/volume] in Serum or PlasmaOrdered By: Jesse Miguel on 10-13-2023 AST [Catalytic activity/Vol] 27 U/L Normal 13-39 [facility] Comment on above: Performed By: #### P T, CBC, HS TROP, CMP, LIPASE, PTT #### [facility] [address] [place] [id number] [place] Automated basophil %Ordered By: Jesse Miguel on 10-13-2023 Basophils/100 WBC (Bld) 0.3 % Normal . [facility] Comment on above: Performed By: #### P T, CBC, HS TROP, CMP, LIPASE, PTT #### [address] Automated basophil countOrde red By: Jesse Miguel on 10-13-2023 Basophils (Bld) [#/Vol] 0.0 10*3/uL Normal 0.0-0.2 [facility] Comment on above: Result Comment: PERF ORMED BY: [place] [address] PATHOLOGIST [employer] NORMA RESENDEZ M.D. Performed By: #### P T, CBC, HS TROP, CMP, LIPASE, PTT #### [address] Automated blood monocyte cou ntOrdered By: Jesse Miguel on 10-13-2023 Monocytes (Bld) [#/Vol] 1.2 10*3/uL High 0.0-0.8 [facility] Comment on above: Performed By: #### P T, CBC, HS TROP, CMP, LIPASE, PTT #### [address] Automated eosinophil %Ordere d By: Jesse Miguel on 10-13-2023 Eosinophils/100 WBC (Bld) 2.9 % Normal . [facility] Comment on above: Performed By: #### P T, CBC, HS TROP, CMP, LIPASE, PTT #### [address] Automated eosinophil countOr dered By: Jesse Miguel on 10-13-2023 Eosinophils (Bld) [#/Vol] 0.3 10*3/uL Normal 0.0-0.45 [facility] Comment on above: Performed By: #### P T, CBC, HS TROP, CMP, LIPASE, PTT #### [address] Automated monocyte %Ordered By: Jesse Miguel on 10-13-2023 Monocytes/100 WBC (Bld) 10.3 % Normal . [facility] Comment on above: Performed By: #### P T, CBC, HS TROP, CMP, LIPASE, PTT #### [facility] [address] [place] [address] Automated neutrophil %Ordere d By: Jesse Miguel on 10-13-2023 Neutrophils/100 WBC (Bld) 64.1 % Normal . [facility] Comment on above: Performed By: #### P T, CBC, HS TROP, CMP, LIPASE, PTT #### [address] Bacteria [Presence] in Urine by AutomatedOrdered By: Jesse Miguel on 10-13-2023 Bacteria Auto Ql (U) None seen [HPF] None Seen [facility] Bilirubin Test strip Ql (U)O rdered By: Jesse Miguel on 10-13-2023 Bilirubin Ql (U) Negative Negative [facility] Bilirubin.total [Mass/volume ] in Serum or PlasmaOrdered By: Jesse Miguel on 10-13-2023 Bilirubin [Mass/Vol] 0.3 mg/dL Normal 0.3-1.0 [facility] Comment on above: Performed By: #### P T, CBC, HS TROP, CMP, LIPASE, PTT #### [address] abdomen pelvis wo conon 0 10-13-2023 CT abdomen pelvis wo con [facility] [place] [address] CT Scan Report Signed Patient: Farnaz Ruffin MR#: [id number] : 1950 Acct:[id number] Age/Sex: 72 / F ADM Date: 10/12/23 Loc: ER Room: Type: [facility] ER Attending Dr: Copies to: Jesse Miguel Jr, MD Ordering Provider: Jesse Miguel Jr, MD Date of Service: 10/13/23 CT/CT abdomen pelvis wo con: fall, upper abd pain; declined contrast CKD CT ABDOMEN AND PELVIS WITHOUT CONTRAST COMPARISON: 03/10/2017 CLINICAL DATA: Patient fell and has upper abdominal pain and cramping. Previous liver transplant. Spiral images were obtained through the abdomen and pelvis without contrast due to patient refusal. This CT exam was performed using one or more following dose reduction techniques: Automated exposure control, adjustment of the mA and/or kV according to patient size, or use of iterative reconstruction technique. Limited cuts through the lung bases show atelectasis or scarring. There is coronary disease. Evaluation of the intra-abdominal organs is slightly limited by the absence of contrast. There are hemostasis clips along the medial aspect of the liver compatible with surgery. There is minor peripheral hypodensity at the dome and at the anterior inferior liver. No biliary dilatation is seen. The spleen is surgically absent. The pancreas is mildly atrophic. No adrenal nodularity is identified. There is left nephrolithiasis and possible bilateral renal cysts. No hydronephrosis is identified. No ureteral dilatation or stones are seen. There is mild atherosclerotic plaque at the aorta and iliac arteries. There are small scattered lymph nodes. No ascites is present. There are small upper abdominal midline ventral and tiny umbilical hernias containing fat. Small bowel loops are not dilated. There is mild air and stool within the colon. Degenerative changes and levoscoliotic curvature are present at the spine. There is L5 spondylolysis, without associated spondylolisthesis. Images through the pelvis show no dilated small bowel. No appendiceal inflammation is seen. There is air and stool within the pelvic colon. No diverticular disease is noted. There are no urinary bladder abnormalities for the poor degree of distention. The uterus is surgically absent. No ascites is present. There is sclerosis and mild degenerative change at the SI joints. CT/CT abdomen pelvis wo con IMPRESSION: MILD BIBASILAR ATELECTASIS OR SCARRING. POSTOPERATIVE CHANGES OF LIVER TRANSPLANT INTENSE SPLENECTOMY. LEFT BREAST CHOLELITHIASIS AND SMALL BILATERAL RENAL CYSTS. NO BOWEL OR URINARY TRACT OBSTRUCTION. NO ACUTE FINDINGS. Impression dictated by: Komal Schumacher M.D.10/13/2023 10:22 AM Dictation Location: [place] [address] Transcribed By: [facility] 10/13/23 1022 Dictated By: Komal Schumacher MD 10/13/23 1013 Signed By: 10/13/23 1022 Normal [facility] Physician [facility] Calcium [Mass/volume] in Ser um or PlasmaOrdered By: Jesse Miguel on 10-13-2023 Calcium [Mass/Vol] 9.7 mg/dL Normal 8.6-10.3 [facility] Comment on above: Performed By: #### P T, CBC, HS TROP, CMP, LIPASE, PTT #### [address] Carbon dioxide, total [Moles /volume] in Serum or PlasmaOrdered By: Jesse Miguel on 10-13-2023 CO2 [Moles/Vol] 26.8 mmol/L Normal 21.0-31.0 [facility] Comment on above: Performed By: #### P T, CBC, HS TROP, CMP, LIPASE, PTT #### [address] Chloride [Moles/volume] in S emilee or PlasmaOrdered By: Jesse Miguel on 10-13-2023 Chloride [Moles/Vol] 101 mmol/L Normal 98-107 [facility] Comment on above: Performed By: #### P T, CBC, HS TROP, CMP, LIPASE, PTT #### [address] Color of Urine by AutoOrdere d By: Jesse Miguel on 10-13-2023 Color (U) Light-yellow Normal Yellow [facility] Comment on above: Order Comment: Name Collection Type:: Clean-Voided Midstream Performed By: #### A DDONUAPLUS, CUU #### [address] Complete Blood Count Auto Di ffon 10-13-2023 Mean Corpuscular HGB Conc 33.5 g/dL Normal 32.0-35.0 [facility] Comment on above: Performed By: #### P T, CBC, HS TROP, CMP, LIPASE, PTT #### [address] Monocytes/100 WBC (Bld) 22.40 % High 0.00-20.00 [facility] Comment on above: Result Comment: For adults in ED, MDW > 20.0 may be associated with a higher risk of sepsis during the first 12 hrs of hospital admission The predictive value of MDW for identifying sepsis in patients with hematological abnormalities has not been established Performed By: #### P T, CBC, HS TROP, CMP, LIPASE, PTT #### [address] NRBC% 0.3 /100{WBC} Normal 0-0.5 [facility] Comment on above: Performed By: #### P T, CBC, HS TROP, CMP, LIPASE, PTT #### [address] Comprehensive Metabolic Pane ana laura 10-13-2023 Albumin [Mass/Vol] 4.2 g/dL Normal 3.5-5.7 [facility] Comment on above: Performed By: #### P T, CBC, HS TROP, CMP, LIPASE, PTT #### [address] Creatinine Clr Calc Pharmacy 28.85 Normal [facility] Comment on above: Performed By: #### P T, CBC, HS TROP, CMP, LIPASE, PTT #### [address] GFR/1.73 sq M.predicted MDRD (S/P/Bld) [Vol rate/Area] 29.595 mL/min/{1.73_m2} Normal [facility] Comment on above: Performed By: #### P T, CBC, HS TROP, CMP, LIPASE, PTT #### [address] Creatinine [Mass/volume] in Serum or PlasmaOrdered By: Jesse Miguel on 10-13-2023 Creatinine [Mass/Vol] 1.78 mg/dL High 0.60-1.20 [facility] Comment on above: Performed By: #### P T, CBC, HS TROP, CMP, LIPASE, PTT #### [address] Dipstick and Microscopicon 0 10-13-2023 Bacteria,Urine None Seen Normal None Seen [facility] Comment on above: Order Comment: Name Collection Type:: Clean-Voided Midstream Performed By: #### A JORDI MCGEE #### [address] [place] [address] [place] Bilirubin,Urine Negative Normal Negative [facility] Comment on above: Order Comment: Name Collection Type:: Clean-Voided Midstream Performed By: #### A DDONUAPLUS, CUU #### [place] [id number] [place] Glucose Ql (U) Normal Normal Normal [facility] Comment on above: Order Comment: Name Collection Type:: Clean-Voided Midstream Performed By: #### A DDONUAPLUS, CUU #### [place] [id number] [place] Hyaline Casts,Urine 0-8 Normal 0-8 [facility] Comment on above: Order Comment: Name Collection Type:: Clean-Voided Midstream Performed By: #### A DDONUAPLUS, CUU #### [place] [address] [place] Mucus,Urine Rare Normal [facility] Comment on above: Order Comment: Name Collection Type:: Clean-Voided Midstream Result Comment: PERF ORMED BY: [place] [address] PATHOLOGIST [employer]SE SERVANT NORMA RESENDEZ M.D. Performed By: #### A DDONUAPLUS, CUU #### [place] [id number] [place] Nitrite,Urine Negative Normal Negative [facility] Comment on above: Order Comment: Name Collection Type:: Clean-Voided Midstream Performed By: #### A DDONUAPLUS, CUU #### [place] [id number] [place] Occult Blood,Urine Negative Normal Negative [facility] Comment on above: Order Comment: Name Collection Type:: Clean-Voided Midstream Result Comment: PERF ORMED BY: [place] [address] PATHOLOGIST HOUSE SERVANT NORMA RESENDEZ M.D. Performed By: #### A DDONUAPLUS, CUU #### [place] [id number] [place] Protein,Urine Negative Normal Negative [facility] Comment on above: Order Comment: Name Collection Type:: Clean-Voided Midstream Performed By: #### A DDONUAPLUS, CUU #### [place] [address] [place] RBC,Urine 3-4 Normal 0-4 [facility] Comment on above: Order Comment: Name Collection Type:: Clean-Voided Midstream Performed By: #### A DDONUAPLUS, CUU #### [address] Specificy [place],Urine 1.021 Normal 1.001-1.030 [facility] Comment on above: Order Comment: Name Collection Type:: Clean-Voided Midstream Performed By: #### A DDONUAPLUS, CUU #### [address] Squamous Epithelial Cell,Urine 3-4 High 0-2 [facility] Comment on above: Order Comment: Name Collection Type:: Clean-Voided Midstream Performed By: #### A DDONUAPLUS, CUU #### [address] Urobilinogen,Urine Normal Normal Normal [facility] Comment on above: Order Comment: Name Collection Type:: Clean-Voided Midstream Performed By: #### A DDONUAPLUS, CUU #### [place] [address] [place] WBC,Urine 5-9 High 0-4 [facility] Comment on above: Order Comment: Name Collection Type:: Clean-Voided Midstream Performed By: #### A DDONUAPLUS, CUU #### [address] Epithelial cells.squamous [# /area] in Urine sediment by Automated countOrdered By: Jesse Miguel on 10-13-2023 Epithelial cells.squamous Auto (Urine sed) [#/Area] 3-4 [HPF] High 0-2 [facility] Erythrocyte distribution wid th [Ratio] by Automated countOrdered By: Jesse Miguel on 08-10-2024 Erythrocyte distribution width (RBC) [Ratio] 17.2 % High 11.9-15.3 [facility] Comment on above: Performed By: #### P T, CBC, HS TROP, CMP, LIPASE, PTT #### [facility] [address] [place] [address] [facility] Erythrocytes [#/area] in Uri ne sediment by Automated countOrdered By: Jesse Miguel on 10-13-2023 RBC Auto (Urine sed) [#/Area] 3-4 [HPF] 0-4 [facility] Erythrocytes [#/volume] in B lood by Automated countOrdered By: Jesse Miguel on 10-13-2023 RBC (Bld) [#/Vol] 3.35 10*6/uL Low 3.60-5.00 [facility] Comment on above: Performed By: #### P T, CBC, HS TROP, CMP, LIPASE, PTT #### [facility] [address] [place] [id number] [facility] Glucose [Mass/volume] in Ser um or PlasmaOrdered By: Jesse Miguel on 10-13-2023 Glucose [Mass/Vol] 189 mg/dL High 70-100 [facility] Comment on above: ADA recommended refe rence rangeRandom Glucose Reference Range is dependent on time and content of last meal. Glucose of more than 200 mg/dL in a nonstressed, ambulatory subject supports the diagnosis of Diabetes Mellitus. Result Comment: [place] om Glucose Reference Range is dependent on time and content of last meal. Glucose of more than 200 mg/dL in a nonstressed, ambulatory subject supports the diagnosis of Diabetes Mellitus. ADA recommended reference range Performed By: #### P T, CBC, HS TROP, CMP, LIPASE, PTT #### [facility] [address] [place] [address] [place] Glucose [Mass/volume] in Uri ne by Test stripOrdered By: Jesse Miguel on 10-13-2023 Glucose Test strip (U) [Mass/Vol] Normal mg/dL Normal [facility] Hematocrit [Volume Fraction] of Blood by Automated countOrdered By: Jesse Miguel on 10-13-2023 Hematocrit (Bld) [Volume fraction] 35.3 % Normal 34.0-46.4 [facility] Comment on above: Performed By: #### P T, CBC, HS TROP, CMP, LIPASE, PTT #### [facility] [address] Hemoglobin Test strip Ql (U) Ordered By: Jesse Miguel on 10-13-2023 Hemoglobin Ql (U) Negative Negative [facility] Hemoglobin [Mass/volume] in BloodOrdered By: Jesse Miguel on 10-13-2023 Hemoglobin (Bld) [Mass/Vol] 11.8 g/dL Normal 11.8-15.4 [facility] Comment on above: Performed By: #### P T, CBC, HS TROP, CMP, LIPASE, PTT #### [facility] [address] Hyaline casts [#/area] in Ur ine sediment by Automated countOrdered By: Jesse Miguel on 10-13-2023 Hyaline casts Auto (Urine sed) [#/Area] 0-8 [LPF] 0-8 [facility] INR in Platelet poor plasma by Coagulation assayOrdered By: Jesse Miguel on 10-13-2023 INR Coag (PPP) [Relative time] 1.4 {INR} Normal [facility] Comment on above: INR Therapeutic Rang e A) Pre- and Peroperative OAT started two weeks before surgery. NOT HIP SURGERY: 1.5 - 2.5 HIP SURGERY: 2 - 3B) Primary and secondary prevention of venous THROMBOSIS: 2 - 3C) Active venous thrombosis, pulmonary embolismand prevention of recurrent venous thrombosis: 2 - 3D) Prevention of arterial thromboembolismincluding patients with mechanical heart valves: 3 - 4.5 Result Comment: INR Therapeutic Range A) Pre- and Peroperative OAT started two weeks before surgery. NOT HIP SURGERY: 1.5 - 2.5 HIP SURGERY: 2 - 3 B) Primary and secondary prevention of venous THROMBOSIS: 2 - 3 C) Active venous thrombosis, pulmonary embolism and prevention of recurrent venous thrombosis: 2 - 3 D) Prevention of arterial thromboembolism including patients with mechanical heart valves: 3 - 4.5 Performed By: #### P T, CBC, HS TROP, CMP, LIPASE, PTT #### [facility] [address] Ketones [Presence] in Urine by Test stripOrdered By: Jesse Miguel on 10-13-2023 Ketones Ql (U) Negative Normal Negative [facility] Comment on above: Order Comment: Name Collection Type:: Clean-Voided Midstream Performed By: #### A DDONUAPLUS, CUU #### [facility] [address] [place] [address] [place] Leukocyte esterase [Presence ] in Urine by Test stripOrdered By: Jesse Miguel on 10-13-2023 Leukocyte esterase Test strip Ql (U) 2+ High Negative [facility] Comment on above: Order Comment: Name Collection Type:: Clean-Voided Midstream Performed By: #### A DDONUAPLUS, CUU #### [facility] [address] [place] [address] [place] Leukocytes [#/area] in Urine sediment by Automated countOrdered By: Jesse Miguel on 10-13-2023 WBC Auto (Urine sed) [#/Area] 5-9 [HPF] High 0-4 [facility] Leukocytes [#/volume] correc analisa for nucleated erythrocytes in Blood by Automated counOrdered By: Jesse Miguel on 10-13-2023 WBC corrected for nucl RBC Auto (Bld) [#/Vol] 11.7 10*3/uL High 3.8-11.6 [facility] Leukocytes [#/volume] in Blo od by Automated countOrdered By: Jesse Miguel on 10-13-2023 WBC (Bld) [#/Vol] 11.7 10*3/uL High 3.8-11.6 [facility] Comment on above: Performed By: #### P T, CBC, HS TROP, CMP, LIPASE, PTT #### [facility] [address] [place] [address] [place] Lipase [Enzymatic activity/v olume] in Serum or PlasmaOrdered By: Jesse Miguel on 10-13-2023 Lipase [Catalytic activity/Vol] 35.0 U/L Normal 11.0-82.0 [facility] Comment on above: Result Comment: PERF ORMED BY: [place] [address] PATHOLOGIST HOUSE SERVANT NORMA RESENDEZ M.D. Performed By: #### P T, CBC, HS TROP, CMP, LIPASE, PTT #### [address] Lymphocytes [#/volume] in Bl ood by Automated countOrdered By: Jesse Miguel on 10-13-2023 Lymphocytes (Bld) [#/Vol] 2.6 10*3/uL Normal 1.00-4.8 [facility] Comment on above: Performed By: #### P T, CBC, HS TROP, CMP, LIPASE, PTT #### [address] Lymphocytes/100 leukocytes i n Blood by Automated countOrdered By: Jesse Miguel on 10-13-2023 Lymphocytes/100 WBC (Bld) 22.4 % Normal . [facility] Comment on above: Performed By: #### P T, CBC, HS TROP, CMP, LIPASE, PTT #### [address] MCH [Entitic mass] by Automa analisa countOrdered By: Jesse Miguel on 10-13-2023 MCH (RBC) [Entitic mass] 35.4 pg High 24.7-34.3 [facility] Comment on above: Performed By: #### P T, CBC, HS TROP, CMP, LIPASE, PTT #### [address] MCHC Auto (RBC) [Mass/Vol]Or dered By: Jesse Miguel on 10-13-2023 MCHC (RBC) [Mass/Vol] 33.5 g/dL 32.0-35.0 [facility] MCV [Entitic volume] by Auto mated countOrdered By: Jesse Miguel on 10-13-2023 MCV (RBC) [Entitic vol] 105.6 fL High 80-100 [facility] Comment on above: Performed By: #### P T, CBC, HS TROP, CMP, LIPASE, PTT #### [place] [address] [place] Monocyte distribution width [Entitic volume] in Blood by AutomatedOrdered By: Jesse Miguel on 10-13-2023 Monocyte distribution width Auto (Bld) [Entitic vol] 22.40 % High 0.00-20.00 [facility] Comment on above: For adults in ED, MD W > 20.0 may be associated with a higher risk of sepsis during the first 12 hrs of hospital admissionThe predictive value of MDW for identifying sepsis in patients with hematological abnormalities has not been established Mucus [Presence] in Urine by AutomatedOrdered By: Jesse Miguel on 10-13-2023 Mucus Auto Ql (U) Rare [LPF] [facility] Neutrophils [#/volume] in Bl ood by Automated countOrdered By: Jesse Miguel on 10-13-2023 Neutrophils (Bld) [#/Vol] 7.5 10*3/uL Normal 1.8-7.7 [facility] Comment on above: Performed By: #### P T, CBC, HS TROP, CMP, LIPASE, PTT #### [address] Nitrite Test strip Ql (U)Ord ered By: Jesse Miguel on 10-13-2023 Nitrite Ql (U) Negative Negative [facility] No Panel InformationOrdered By: Jesse Miguel on 10-13-2023 Estimated GFR (CKD-EPI) 29.595 mL/Min [facility] Creatinine Clearance (Chem 28.85 [facility] Nucleated erythrocytes [Pres ence] in Blood by Automated countOrdered By: Jesse Miguel on 10-13-2023 Nucleated RBC Auto Ql (Bld) 0.3 /100{WBC} 0-0.5 [facility] Partial Thromboplastin Timeo n 10-13-2023 aPTT Coag (Bld) [Time] 38.6 s High 25.1-36.5 [facility] Comment on above: Result Comment: A he matocrit value greater than 55% may lead to inaccurate results in coagulation testing. Patients having hematocrit values >55% require a special collection tube for coagulation studies. Please contact the laboratory at [phone] for redraw instructions. PERFORMED BY: [facility] [address] [place] [address] PATHOLOGIST HOUSE SERVANT NORMA RESENDEZ M.D. Performed By: #### P T, CBC, HS TROP, CMP, LIPASE, PTT #### [address] Platelet mean volume [Entiti c volume] in Blood by Automated countOrdered By: Jesse Miguel on 10-13-2023 Platelet mean volume (Bld) [Entitic vol] 9.9 fL Normal 6.3-10.7 [facility] Comment on above: Performed By: #### P T, CBC, HS TROP, CMP, LIPASE, PTT #### [address] Platelets [#/volume] in Bloo d by Automated countOrdered By: Jesse Miguel on 10-13-2023 Platelets (Bld) [#/Vol] 403 10*3/uL Normal 150-450 [facility] Comment on above: Performed By: #### P T, CBC, HS TROP, CMP, LIPASE, PTT #### [address] Potassium [Moles/volume] in Serum or PlasmaOrdered By: Jesse Miguel on 10-13-2023 Potassium [Moles/Vol] 4.1 mmol/L Normal 3.5-5.1 [facility] Comment on above: Hemolysis is present at a level that could interfere with the result.Contact lab if redraw is required Result Comment: Hemo lysis is present at a level that could interfere with the result. Contact lab if redraw is required Performed By: #### P T, CBC, HS TROP, CMP, LIPASE, PTT #### [address] Protein Test strip (U) [Mass /Vol]Ordered By: Jesse Miguel on 10-13-2023 Protein (U) [Mass/Vol] Negative Negative [facility] Protein [Mass/volume] in Ser um or PlasmaOrdered By: Jesse Miguel on 10-13-2023 Protein [Mass/Vol] 7.6 g/dL Normal 6.4-8.9 [facility] Comment on above: Performed By: #### P T, CBC, HS TROP, CMP, LIPASE, PTT #### [address] Prothrombin time (PT)Ordered By: Jesse Miguel on 10-13-2023 PT Coag (PPP) [Time] 16.6 s High 9.0-12.9 [facility] Comment on above: A hematocrit value g reater than 55% may lead to inaccurate results in coagulation testing. Patients having hematocrit values >55% require a special collection tube for coagulation studies. Please contact the laboratory at [phone] for redraw instructions. Result Comment: A he matocrit value greater than 55% may lead to inaccurate results in coagulation testing. Patients having hematocrit values >55% require a special collection tube for coagulation studies. Please contact the laboratory at [phone] for redraw instructions. Performed By: #### P T, CBC, HS TROP, CMP, LIPASE, PTT #### [address] Serum globulin measurement b y calculation (mass/volume)Ordered By: Jesse Miguel on 10-13-2023 Globulin (S) [Mass/Vol] 3.4 g/dL [facility] Comment on above: Performed By: #### P T, CBC, HS TROP, CMP, LIPASE, PTT #### [facility] [address] [place] [address] Serum or plasma albumin/glob ulin mass ratioOrdered By: Jesse Miguel on 10-13-2023 Albumin/Globulin [Mass ratio] 1.2 {ratio} [facility] Comment on above: Performed By: #### P T, CBC, HS TROP, CMP, LIPASE, PTT #### [facility] [address] [place] [address] Serum or plasma anion gap de terminationOrdered By: Jesse Miguel on 10-13-2023 Anion gap [Moles/Vol] 13.3 mmol/L Normal 6.0-15.0 [facility] Comment on above: Performed By: #### P T, CBC, HS TROP, CMP, LIPASE, PTT #### [address] Sodium [Moles/volume] in Ser um or PlasmaOrdered By: Jesse Miguel on 10-13-2023 Sodium [Moles/Vol] 137 mmol/L Normal 136-145 [facility] Comment on above: Performed By: #### P T, CBC, HS TROP, CMP, LIPASE, PTT #### [address] Specific gravity Test strip (U) [Rel density]Ordered By: Jesse Miguel on 10-13-2023 Specific gravity (U) [Rel density] 1.021 1.001-1.030 [facility] Troponin I High Sensitivityo n 10-13-2023 Troponin I High Sensitivity 7.4 pg/mL Normal 0.0-15.0 [facility] Comment on above: Result Comment: PERF ORMED BY: [place] [address] PATHOLOGIST HOUSE SERVANT NORMA RESENDEZ M.D. Performed By: #### P T, CBC, HS TROP, CMP, LIPASE, PTT #### [address] Troponin I.cardiac [Mass/vol ume] in Serum or Plasma by Detection limit <= 0.01 ng/Ordered By: Jesse Miguel on 10-13-2023 Troponin I.cardiac DL <= 0.01 ng/mL [Mass/Vol] 7.4 pg/mL 0.0-15.0 [facility] Urea nitrogen [Mass/volume] in Serum or PlasmaOrdered By: Jesse Miguel on 10-13-2023 Urea nitrogen [Mass/Vol] 38 mg/dL High 7-25 [facility] Comment on above: Performed By: #### P T, CBC, HS TROP, CMP, LIPASE, PTT #### [address] Urine Cultureon 10-13-2023 Bacteria identified Cx Nom (U) ORGANISM: Strep agalactiae - (group b) (O:STRAGA) Boulevard Count 100,000 PERFORMED BY: [place] [address] PATHOLOGIST HOUSE SERVANT NORMA RESENDEZ M.D. Normal [facility] Comment on above: Performed By: #### A JORDI MCGEE #### [address] [place] [address] [facility] Urine appearanceOrdered By: Jesse Miguel on 10-13-2023 Appearance (U) Clear Normal Clear [facility] Comment on above: Order Comment: Name Collection Type:: Clean-Voided Midstream Performed By: #### A DDONUAPLUS, CUU #### [facility] [address] [place], [place] [id number] [facility] Urobilinogen Test strip (U) [Mass/Vol]Ordered By: Jesse Miguel on 10-13-2023 Urobilinogen (U) [Mass/Vol] Normal mg/dL Normal [facility] pH of Urine by Test stripOrd ered By: Jesse Miguel on 10-13-2023 pH (U) 6.0 [pH] Normal 5.0-9.0 [facility] Comment on above: Order Comment: Name Collection Type:: Clean-Voided Midstream Performed By: #### A DDONUAPLUS, CUU #### [place] [id number] [facility] CT SHOULDER RIGHT WO IV CONT RASTon 10-03-2023 CT SHOULDER RIGHT WO IV CONTRAST CT - CT RT SHOULDER WO CONTRAST Reason for exam: Right shoulder pain Technique: Axial sections were obtained through the right shoulder with sagittal and coronal reconstructions. FINDINGS: There is spurring at the AC joint margins. There is mild spurring at the inferior glenoid and the inferior humeral articular margin. The acromion has a type II appearance. No evidence of fracture or lytic or blastic bone lesions. There are no obvious soft tissue abnormalities. No axillary lymphadenopathy is identified. Portions of the right lung and chest wall included on the study appear normal. IMPRESSION: Acromioclavicular and glenohumeral osteoarthritis. Dictated on: 10/09/2023 5:54 PM This report has been electronically signed and approved by the interpreting Radiologist. Electronically Signed Mark Martins M.D. 2023-10-09 17:57:11 Normal Not Available Comment on above: Order Comment: FELL INTO SLIDING GLASS DOOR 3 WKS AGO, GEN SHOULDER PAIN DIRECT LDLon 08-24-2023 Cholesterol in LDL [Mass/Vol] 109 mg/dL Normal <130 [facility] Comment on above: Result Comment: LDL <100 mg/dL - Desirable LDL 130-159 mg/dL - Borderline High Risk LDL >160 mg/dL - High Risk Performed By: #### 2 4331-1, 2088-03 #### [facility] ([id number]) [address] [facility] [address] [place] [address] Lipid 1996 panelon 4 Cholesterol [Mass/Vol] 279 mg/dL High 150-200 Pr [facility] Comment on above: Performed By: #### 2 433-1, 2088-03 #### [facility] ([id number]) [address] [facility] [address] [place] [address] Cholesterol in HDL [Mass/Vol] 41 mg/dL Normal >39 [facility] Comment on above: Result Comment: HDL <40 mg/dL - High Risk HDL > or = 40mg/dL- Desirable HDL >60 mg/dL - Negative Risk Performed By: #### 2 4331-1, 2088-03 #### [facility] ([id number]) [address] [facility] [address] [place] [address] Cholesterol in VLDL [Mass/Vol] 106 mg/dL High 0-30 [facility] Comment on above: Performed By: #### 2 4331-1, 2088-03 #### [facility] ([id number]) [address] [address] CHOLESTEROL:HDL 6.8 High 1.0-5.0 [facility] Comment on above: Performed By: #### 2 4331-1, 2088-03 #### [facility] ([id number]) [address] [place] [address] LDL (CALC) RESULT NOT REPORTED DUE TO HIGH TRIGLYCERIDE Normal <130 [facility] Comment on above: Performed By: #### 2 4331-1, 2088-03 #### [facility] ([id number]) [address] [place] [address] Triglyceride [Mass/Vol] 529 mg/dL High 27-150 [facility] Comment on above: Performed By: #### 2 4331-1, 2088-03 #### [facility] ([id number]) [address] [place] [address] URINALYSIS, REFLEX MICROSCOP ICon 07-19-2023 Bilirubin Ql (U) Negative Negative [facility] Clarity (Unsp spec) Clear Clear [facility] Color (U) Colorless Yellow [facility] Glucose Test strip (U) [Mass/Vol] Negative Trace, Negative [facility] Hemoglobin Ql (U) Negative Negative, Trace [facility] Interpretation and review of laboratory results Normal [facility] Ketones Ql (U) Negative Negative, Trace [facility] Leukocyte esterase Test strip Ql (U) Negative Negative, 25 [place]/uL [facility] Nitrite Ql (U) Negative Negative [facility] pH (U) 5.0 [pH] 5.0 - 8.0 [facility] Protein (U) [Mass/Vol] Negative Trace , Negative [facility] Specific gravity (U) [Rel density] 1.008 1.005 - 1.030 [facility] Urobilinogen Ql (U) Normal Normal [facility] CT Abdomen and Pelvis WO con traston 07-02-2023 IMPRESSION: Fat-containing ventral abdominal wall hernias. 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 Habilitation Assistant: MADDISON Transcribe Date/Time: Jul 02 2023 1:33P Dictated by : NOELLE DURAN MD This examination was interpreted and the report reviewed and electronically signed by: HERMAN TORRES DO on Jul 02 2023 2:00PM [facility] DIVISION OF RADIOLOGY * * *Final Report* * * DATE OF EXAM: Jul 02 2023 1:30PM [facility] 0531 - CT ABD/PEL WO IVCON / PROCEDURE REASON: multiple diagnoses * * * * Physician Interpretation * * * * EXAMINATION: CT ABDOMEN AND PELVIS WITHOUT IV CONTRAST CLINICAL HISTORY: Status post liver transplant, concern for incisional/ventral hernia. TECHNIQUE: Non-IV contrast imaging of the abdomen and pelvis was performed using standard technique, scanning from just above the dome of the diaphragm to the symphysis pubis. Unenhanced imaging is limited for the evaluation of some intra-abdominal and pelvic pathology. MQ: CTAPWO_3 Contrast: IV: None Oral: 400 ml of Omni 240 10-25ml diluted with water CT Radiation dose: Integrated Dose-length product (DLP) for this visit = 378 mGy*cm. CT Dose Reduction Employed: Automated exposure control (AEC) COMPARISON: CT abdomen pelvis 05/28/2018. RESULT: Abdomen / Pelvis: Liver: * Right lobe transplant. Geographic areas of low attenuation throughout. * Vascular coil material is seen in the inferior right hepatic lobe. Biliary: Cholecystectomy. Spleen: Splenectomy. Pancreas: Unremarkable. Adrenals: No mass. Kidneys: No calculus, hydronephrosis or finding to suggest a cyst or mass in the unenhanced kidney. GI Tract: No bowel dilation. Lymph Nodes: No lymphadenopathy. Mesentery/peritoneum: * Small epigastric abdominal wall fat-containing hernias, one at midline and one to the left of midline (3:54, 56; 5:59). * Small fat-containing periumbilical hernia (5:59). * Left rectus musculature atrophy superiorly. * No ascites or fluid collection. Retroperitoneum: No mass. Vasculature: Arterial atherosclerotic disease without no abdominal aortic aneurysm. Pelvis: No mass or ascites. Bones/Soft Tissues: Degenerative changes. Osteopenia. Lower thorax: Unremarkable. Localizer images: Unremarkable. DIVISION OF RADIOLOGY Provider, [facility] - 07/02/2023 * * *Final Report* * * DATE OF EXAM: Jul 02 2023 1:30PM [facility] 0531 - CT ABD/PEL WO IVCON / PROCEDURE REASON: multiple diagnoses * * * * Physician Interpretation * * * * EXAMINATION: CT ABDOMEN AND PELVIS WITHOUT IV CONTRAST CLINICAL HISTORY: Status post liver transplant, concern for incisional/ventral hernia. TECHNIQUE: Non-IV contrast imaging of the abdomen and pelvis was performed using standard technique, scanning from just above the dome of the diaphragm to the symphysis pubis. Unenhanced imaging is limited for the evaluation of some intra-abdominal and pelvic pathology. MQ: CTAPWO_3 Contrast: IV: None Oral: 400 ml of Omni 240 10-25ml diluted with water CT Radiation dose: Integrated Dose-length product (DLP) for this visit = 378 mGy*cm. CT Dose Reduction Employed: Automated exposure control (AEC) COMPARISON: CT abdomen pelvis 05/28/2018. RESULT: Abdomen / Pelvis: Liver: * Right lobe transplant. Geographic areas of low attenuation throughout. * Vascular coil material is seen in the inferior right hepatic lobe. Biliary: Cholecystectomy. Spleen: Splenectomy. Pancreas: Unremarkable. Adrenals: No mass. Kidneys: No calculus, hydronephrosis or finding to suggest a cyst or mass in the unenhanced kidney. GI Tract: No bowel dilation. Lymph Nodes: No lymphadenopathy. Mesentery/peritoneum: * Small epigastric abdominal wall fat-containing hernias, one at midline and one to the left of midline (3:54, 56; 5:59). * Small fat-containing periumbilical hernia (5:59). * Left rectus musculature atrophy superiorly. * No ascites or fluid collection. Retroperitoneum: No mass. Vasculature: Arterial atherosclerotic disease without no abdominal aortic aneurysm. Pelvis: No mass or ascites. Bones/Soft Tissues: Degenerative changes. Osteopenia. Lower thorax: Unremarkable. Localizer images: Unremarkable. IMPRESSION IMPRESSION: Fat-containing ventral abdominal wall hernias. 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 Habilitation Assistant: MADDISON Transcribe Date/Time: Jul 02 2023 1:33P Dictated by : NOELLE DURAN MD This examination was interpreted and the report reviewed and electronically signed by: HERMAN TORRES DO on Jul 02 2023 2:00PM EST [facility] Radiology Study observation (narrative) [facility] CT Abdomen and Pelvis WO con trastOrdered By: Ccf Provider on 07-02-2023 [facility] CBC W AUTO DIFF BLDon Basophils/100 WBC (Bld) 0.8 % [facility] BASOPHILS # BLD AUTO 0.07 [facility] CC DIFFERENTIAL METHOD BLD Auto [facility] EOSINOPHIL # BLD AUTO 0.20 [facility] LYMPHOCYTES # BLD AUTO 2.42 [facility] MONOCYTES # BLD AUTO 0.[address] [facility] NEUTROPHILS # BLD AUTO 5.41 [facility] NRBC # BLD AUTO 0.[address] [facility] NRBC/100 WBC BLD-RTO 0.4 /100 WBC [facility] PLATELET # BLD AUTO 375 [facility] PMV BLD AUTO 10.8 fL 9.0 - 12.7 fL [facility] WBC # BLD AUTO 9.08 [facility] Eosinophils/100 WBC (Bld) 2.2 % [facility] Erythrocyte distribution width (RBC) [Ratio] 15.6 % High 11.5 - 15.0 % [facility] Hematocrit (Bld) [Volume fraction] 36.5 % 36.0 - 46.0 % [facility] Hemoglobin (Bld) [Mass/Vol] 12.1 g/dL 11.5 - 15.5 g/dL [facility] IMM GRANULOCYTES # BLD AUTO 0.08 [facility] IMM GRANULOCYTES/LEUK NFR BLD AUTO 0.9 % [facility] Interpretation and review of laboratory results Abnormal [facility] Lymphocytes/100 WBC (Bld) 26.7 % [facility] MCH (RBC) [Entitic mass] 34.2 pg High 26.0 - 34.0 pg [facility] MCHC (RBC) [Mass/Vol] 33.2 g/dL 30.5 - 36.0 g/dL [facility] MCV (RBC) [Entitic vol] 103.1 fL High 80.0 - 100.0 fL [facility] Monocytes/100 WBC (Bld) 9.9 % [facility] Neutrophils/100 WBC (Bld) 59.5 % [facility] RBC (Bld) [#/Vol] 3.54 10*6/uL Low 3.90 - 5.2 0 m/uL [facility] Specimen Type: BLOOD SPECIMEN [facility]ing Facility: [facility] Address: [place] [address] Original Ordering Provider: LIZZIE CADE [facility] XR CHEST 2 VIEWSon XR CHEST 2 VIEWS EXAMINATION: XR CHES T 2 VIEWS HISTORY: swelling, sob. TECHNIQUE: Frontal and lateral views of the chest. COMPARISON: Chest radiographs June 30, 2022 FINDINGS: Cardiomediastinal silhouette is within normal limits. No pneumothorax, pleural effusion, or consolidation. No acute osseous abnormality. IMPRESSION: No radiographic evidence of acute intrathoracic process. ELECTRONICALLY SIGNED BY: Jose Eduardo Ludwig, DO Normal Not Available URINALYSIS, REFLEX MICROSCOP ICon 02-15-2023 Bilirubin Ql (U) Negative Negative [facility] Clarity (Unsp spec) Clear Clear [facility] Color (U) Light Yellow Yellow [facility] Glucose Test strip (U) [Mass/Vol] Negative Trace, Negative [facility] Hemoglobin Ql (U) Negative Negative, Trace [facility] Ketones Ql (U) Negative Negative, Trace [facility] Leukocyte esterase Test strip Ql (U) 75 Sowmya/uL Abnormal Negative, 25 Sowmya/uL [facility] Nitrite Ql (U) Negative Negative [facility] pH (U) 5.0 [pH] 5.0 - 8.0 [facility] Protein (U) [Mass/Vol] Negative Trace , Negative [facility] Specific gravity (U) [Rel density] 1.010 1.005 - 1.030 [facility] Urobilinogen Ql (U) Negative Negative [facility] CBC W Auto Differential pane l (Bld)on 01-08-2023 Basophils (Bld) [#/Vol] 0.04 10*3/uL Normal <0.11 [facility] Comment on above: Order Comment: Speci men Type: BLOOD SPECIMEN [facility]: [facility] Address: [address] [place] [address] Performed By: #### 5 7021-8 #### [facility] CLIA [id number] [address] [place] [address] 05845 Basophils/100 WBC (Bld) 0.5 % Normal [facility] Comment on above: Order Comment: Speci men Type: BLOOD SPECIMEN [facility]ing [facility] Address: [address] [place] [address] Performed By: #### 5 7021-8 #### [facility] CLIA [id number] [address] [place] [address] 13123 Differential cell count method Nom (Bld) Auto Normal [facility] Comment on above: Order Comment: Speci men Type: BLOOD SPECIMEN [facility]ing [facility] Address: [address] [place] [address] Performed By: #### 5 7021-8 #### [facility] CLIA [id number] [address] [place] [address] 22150 Eosinophils (Bld) [#/Vol] 0.24 10*3/uL Normal <0.46 [facility] Comment on above: Order Comment: Speci men Type: BLOOD SPECIMEN [facility]ing [facility] Address: [address] [place] [address] Performed By: #### 5 7021-8 #### [facility] CLIA [id number] [address] [place] [address] 69351 Eosinophils/100 WBC (Bld) 3.1 % Normal [facility] Comment on above: Order Comment: Speci men Type: BLOOD SPECIMEN [facility] Address: [address] [place] [address] Performed By: #### 5 7021-8 #### [facility] CLIA [id number] [address] [place] [address] 39013 Erythrocyte distribution width (RBC) [Ratio] 16.2 % High 11.5-15.0 [facility] Comment on above: Order Comment: Speci men Type: BLOOD SPECIMEN [facility] Address: [address] [place] [address] Performed By: #### 5 7021-8 #### [facility] CLIA [id number] [address] [place] [address] 73200 Hematocrit (Bld) [Volume fraction] 35.0 % Low 36.0-46.0 [facility] Comment on above: Order Comment: Speci men Type: BLOOD SPECIMEN [facility] Address: [address] [place] [address] Performed By: #### 5 7021-8 #### [facility] CLIA [id number] [address] [place] [address] 47121 Hemoglobin (Bld) [Mass/Vol] 11.7 g/dL Normal 11.5-15.5 [facility] Comment on above: Order Comment: Speci men Type: BLOOD SPECIMEN [facility] Address: [address] [place] [address] Performed By: #### 5 7021-8 #### [facility] CLIA [id number] [address] [place] [address] 33651 Immature granulocytes (Bld) [#/Vol] 0.04 10*3/uL Normal <0.10 [facility] Comment on above: Order Comment: Speci men Type: BLOOD SPECIMEN [facility] Address: [address] [place] [address] Performed By: #### 5 7021-8 #### [facility] CLIA [id number] [address] [place] [address] 18512 Immature granulocytes/100 WBC (Bld) 0.5 % Normal [facility] Comment on above: Order Comment: Speci men Type: BLOOD SPECIMEN [facility] Address: [address] [place] [address] Performed By: #### 5 7021-8 #### [facility] CLIA [id number] [address] [place] [address] 08177 Lymphocytes (Bld) [#/Vol] 2.64 10*3/uL Normal 1.00-4.00 [facility] Comment on above: Order Comment: Speci men Type: BLOOD SPECIMEN [facility] Address: [address] [place] [address] Performed By: #### 5 7021-8 #### [facility] CLIA [id number] [address] [place] [address] 52552 Lymphocytes/100 WBC (Bld) 34.1 % Normal [facility] Comment on above: Order Comment: Speci men Type: BLOOD SPECIMEN [facility] Address: [address] [place] [address] Performed By: #### 5 7021-8 #### [facility] CLIA [id number] [address] [place] [address] 89357 MCH (RBC) [Entitic mass] 34.9 pg High 26.0-34.0 [facility] Comment on above: Order Comment: Speci men Type: BLOOD SPECIMEN [facility] Address: [address] [place] [address] Performed By: #### 5 7021-8 #### [facility] CLIA [id number] [address] [place] [address] 05329 MCHC (RBC) [Mass/Vol] 33.4 g/dL Normal 30.5-36.[address] [facility] Comment on above: Order Comment: Speci men Type: BLOOD SPECIMEN [facility] Address: [address] [place] [address] Performed By: #### 5 7021-8 #### [facility] CLIA [id number] [address] [place] [address] 86799 MCV (RBC) [Entitic vol] 104.5 fL High 80.0-100.0 [facility] Comment on above: Order Comment: Speci men Type: BLOOD SPECIMEN [facility] Address: [address] [place] [address] Performed By: #### 5 7021-8 #### [facility] CLIA [id number] [address] [place] [address] 95825 Monocytes (Bld) [#/Vol] 0.76 10*3/uL Normal <0.87 [facility] Comment on above: Order Comment: Speci men Type: BLOOD SPECIMEN [facility] Address: [address] [place] [address] Performed By: #### 5 7021-8 #### [facility] CLIA [id number] [address] [place] [address] 72738 Monocytes/100 WBC (Bld) 9.8 % Normal [facility] Comment on above: Order Comment: Speci men Type: BLOOD SPECIMEN [facility] Address: [address] [place] [address] Performed By: #### 5 7021-8 #### [facility] CLIA [id number] [address] [place] [address] Neutrophils (Bld) [#/Vol] 4.03 10*3/uL Normal 1.45-7.50 [facility] Comment on above: Order Comment: Speci men Type: BLOOD SPECIMEN [facility] Address: [address] [place] [address] Performed By: #### 5 7021-8 #### [facility] CLIA [id number] [address] [place] [address] 63004 Neutrophils/100 WBC (Bld) 52.0 % Normal [facility] Comment on above: Order Comment: Speci men Type: BLOOD SPECIMEN [facility] Address: [address] [place] [address] Performed By: #### 5 7021-8 #### [facility] CLIA [id number] [address] [place] [address] 72610 Nucleated RBC (Bld) [#/Vol] 10*3/uL Normal <0.01 [facility] Comment on above: Order Comment: Speci men Type: BLOOD SPECIMEN [facility] Address: [address] [place] [address] Performed By: #### 5 7021-8 #### [facility] CLIA [id number] [address] [place] [address] 07003 Nucleated RBC/100 WBC (Bld) [Ratio] 0.0 /100 WBC Normal [facility] Comment on above: Order Comment: Speci men Type: BLOOD SPECIMEN [facility] Address: [address] [place] [address] Performed By: #### 5 7021-8 #### [facility] CLIA [id number] [address] [place] [address] 00586 Platelet mean volume (Bld) [Entitic vol] 10.5 fL Normal 9.0-12.7 [facility] Comment on above: Order Comment: Speci men Type: BLOOD SPECIMEN [facility] Address: [address] [place] [address] Performed By: #### 5 7021-8 #### [facility] CLIA [id number] [address] [place] [address] 57427 Platelets (Bld) [#/Vol] 371 10*3/uL Normal 150-400 [facility] Comment on above: Order Comment: Speci men Type: BLOOD SPECIMEN [facility] Address: [address] [place] [address] Performed By: #### 5 7021-8 #### [facility] CLIA [id number] [address] [place] [address] 88223 RBC (Bld) [#/Vol] 3.35 10*6/uL Low 3.90-5.20 [facility] Comment on above: Order Comment: Speci men Type: BLOOD SPECIMEN [facility] Address: [address] [place] [address] Performed By: #### 5 7021-8 #### [facility] CLIA [id number] [address] [place] [address] 73398 WBC (Bld) [#/Vol] 7.75 10*3/uL Normal 3.70-11.00 [facility] Comment on above: Order Comment: Speci men Type: BLOOD SPECIMEN [facility] Address: [address] [place] [address] Performed By: #### 5 7021-8 #### [facility] CLIA [id number] [address] [place] [address] 31297 Comprehensive metabolic 2000 panelon 01-08-2023 Albumin [Mass/Vol] 4.4 g/dL Normal 3.9-4.9 [facility] Comment on above: Order Comment: Speci men Type: BLOOD SPECIMEN Ordering [facility]: [facility] Address: [address] [place], [place] [id number] Performed By: #### 3 084-1, 40698-5 #### [facility] CLIA [id number] [address] [place] [address] 21682 ALP [Catalytic activity/Vol] 71 U/L Normal 34-123 [facility] Comment on above: Order Comment: Speci men Type: BLOOD SPECIMEN [facility] Address: [address] [place] [address] Performed By: #### 3 084-1, 83451-1 #### [facility] CLIA [id number] [address] [place] [address] 53183 ALT [Catalytic activity/Vol] 19 U/L Normal 7-38 [facility] Comment on above: Order Comment: Speci men Type: BLOOD SPECIMEN [facility] Address: [address] [place] [address] Performed By: #### 3 084-1, 45637-9 #### [facility] CLIA [id number] [address] [place] [address] 23035 Anion gap [Moles/Vol] 9 mmol/L Normal 9-[address] [facility] Comment on above: Order Comment: Speci men Type: BLOOD SPECIMEN [facility] Address: [address] [place] [address] Performed By: #### 3 084-1, 35406-2 #### [facility] CLIA [id number] [address] [place] [address] 28770 AST [Catalytic activity/Vol] 17 U/L Normal 13-35 [facility] Comment on above: Order Comment: Speci men Type: BLOOD SPECIMEN [facility] Address: [address] [place] [address] Performed By: #### 3 084-1, 53190-4 #### [facility] CLIA [id number] [address] [place] [address] 26536 Bilirubin [Mass/Vol] 0.3 mg/dL Normal 0.2-1.3 [facility] Comment on above: Order Comment: Speci men Type: BLOOD SPECIMEN [facility] Address: [address] [place] [address] Performed By: #### 3 084-1, 93459-7 #### [facility] CLIA [id number] [address] [place] [address] Calcium [Mass/Vol] 9.5 mg/dL Normal 8.5-10.2 [facility] Comment on above: Order Comment: Speci men Type: BLOOD SPECIMEN [facility] Address: [address] [place] [address] Performed By: #### 3 084-1, 23248-9 #### [facility] CLIA [id number] [address] [place] [address] 78815 Chloride [Moles/Vol] 105 mmol/L Normal 97-105 [facility] Comment on above: Order Comment: Speci men Type: BLOOD SPECIMEN [facility] Address: [address] [place] [address] Performed By: #### 3 084-1, 51805-9 #### [facility] CLIA [id number] [address] [place] [address] 54575 CO2 [Moles/Vol] 28 mmol/L Normal 22-30 [facility] Comment on above: Order Comment: Speci men Type: BLOOD SPECIMEN [facility] Address: [address] [place] [address] Performed By: #### 3 084-1, 75860-5 #### [facility] CLIA [id number] [address] [place] [address] 22056 Creatinine [Mass/Vol] 1.54 mg/dL High 0.58-0.[address] [facility] Comment on above: Order Comment: Speci men Type: BLOOD SPECIMEN [facility] Address: [address] [place] [place] [address] Performed By: #### 3 084-1, 83200-4 #### [facility] CLIA [id number] [address] [place] [address] 31265 Creatinine and Glomerular filtration rate.predicted panel (S/P/Bld) 35 mL/min/1.73m??? Low >=60 [facility] Comment on above: Order Comment: Makenzie rossi Type: BLOOD SPECIMEN [facility]: [facility] Address: [address] [place] [address] Result Comment: Reshma mated Glomerular Filtration Rate (eGFR) is calculated using the 2020 CKD-EPI creatinine equation. This equation utilizes serum creatinine, sex, and age as parameters. The creatinine assay has traceable calibration to isotope dilution-mass spectrometry. Refer to KDIGO guidelines for clinical interpretation. In patients with unstable renal function, e.g. those with acute kidney injury, the eGFR may not accurately reflect actual GFR. Performed By: #### 3 084-1, 94595-7 #### [facility] CLIA [id number] [address] [place] [address] 83885 Glucose [Mass/Vol] 101 mg/dL High 74-99 [facility] Comment on above: Order Comment: Makenzie rossi Type: BLOOD SPECIMEN [facility] Address: [address] [place] [address] Result Comment: The [place] [employer] (ADA) provides guidance for cutoff values for fasting glucose and random glucose. The ADA defines fasting as no caloric intake for at least 8 hours. Fasting plasma glucose results between 100 to 125 mg/dL indicate increased risk for diabetes (prediabetes). Fasting plasma glucose results greater than or equal to 126 mg/dL meet the criteria for diagnosis of diabetes. In the absence of unequivocal hyperglycemia, results should be confirmed by repeat testing. In a patient with classic symptoms of hyperglycemia or hyperglycemic crisis, random plasma glucose results greater than or equal to 200 mg/dL meet the criteria for diagnosis of diabetes. Reference: Standards of Medical Care in Diabetes 2016, [place] [employer]. Diabetes Care. 2016.39(Suppl 1). Performed By: #### 3 084-1, 17502-8 #### [facility] CLIA [id number] [address] [place] [address] 30783 Potassium [Moles/Vol] 4.3 mmol/L Normal 3.7-5.[address] [facility] Comment on above: Order Comment: Speci men Type: BLOOD SPECIMEN [facility] Address: [address] [place] [address] Performed By: #### 3 084-1, 74017-7 #### [facility] CLIA [id number] [address] [place] [address] 44535 Protein [Mass/Vol] 7.0 g/dL Normal 6.3-8.0 [facility] Comment on above: Order Comment: Speci men Type: BLOOD SPECIMEN [facility] Address: [address] [place] [address] Performed By: #### 3 084-1, 99992-9 #### [facility] CLIA [id number] [address] [place] [address] 55283 Sodium [Moles/Vol] 142 mmol/L Normal 136-144 [facility] Comment on above: Order Comment: Speci men Type: BLOOD SPECIMEN [facility] Address: [address] [place] [address] Performed By: #### 3 084-1, 46472-7 #### [facility] CLIA [id number] [address] [place] [address] 68918 Urea nitrogen [Mass/Vol] 44 mg/dL High 7-21 [facility] Comment on above: Order Comment: Speci men Type: BLOOD SPECIMEN [facility] Address: [address] [place] [address] Performed By: #### 3 084-1, 93007-2 #### [facility] CLIA [id number] [address] [place] [address] 64107 Urate SerPl-ncon 3 Urate [Mass/Vol] 5.2 mg/dL Normal 2.5-6.6 [facility] Comment on above: Order Comment: Speci men Type: BLOOD SPECIMEN [facility] Address: [address] [place] [address] Performed By: #### 3 084-1, 13830-6 #### [facility] CLIA [id number] [address] [place] [address] 07304 CBC W Auto Differential pane l (Bld)on 12-04-2022 Basophils (Bld) [#/Vol] 0.05 10*3/uL Normal <0.11 [facility] Comment on above: Order Comment: Speci men Type: BLOOD SPECIMEN [facility] Address: [address] [place] [address] Performed By: #### 5 7021-8 #### [facility] CLIA [id number] [address] [place] [address] 43613 Basophils/100 WBC (Bld) 0.6 % Normal [facility] Comment on above: Order Comment: Speci men Type: BLOOD SPECIMEN [facility] Address: [address] [place] [address] Performed By: #### 5 7021-8 #### [facility] CLIA [id number] [address] [place] [address] 59525 Differential cell count method Nom (Bld) Auto Normal [facility] Comment on above: Order Comment: Speci men Type: BLOOD SPECIMEN [facility] Address: [address] [place] [address] Performed By: #### 5 7021-8 #### [facility] CLIA [id number] [address] [place] [address] 86960 Eosinophils (Bld) [#/Vol] 0.34 10*3/uL Normal <0.46 [facility] Comment on above: Order Comment: Speci men Type: BLOOD SPECIMEN [facility] Address: [address] [place] [address] Performed By: #### 5 7021-8 #### [facility] CLIA [id number] [address] [place] [address] 55784 Eosinophils/100 WBC (Bld) 4.2 % Normal [facility] Comment on above: Order Comment: Speci men Type: BLOOD SPECIMEN [facility] Address: [address] [place] [address] Performed By: #### 5 7021-8 #### [facility] CLIA [id number] [address] [place] [address] 01121 Erythrocyte distribution width (RBC) [Ratio] 16.2 % High 11.5-15.0 [facility] Comment on above: Order Comment: Speci men Type: BLOOD SPECIMEN [facility] Address: [address] [place] [address] Performed By: #### 5 7021-8 #### [facility] CLIA [id number] [address] [place] [address] 28945 Hematocrit (Bld) [Volume fraction] 35.8 % Low 36.0-46.0 [facility] Comment on above: Order Comment: Speci men Type: BLOOD SPECIMEN [facility] Address: [address] [place] [address] Performed By: #### 5 7021-8 #### [facility] CLIA [id number] [address] [place] [address] 18148 Hemoglobin (Bld) [Mass/Vol] 12.1 g/dL Normal 11.5-15.5 [facility] Comment on above: Order Comment: Speci men Type: BLOOD SPECIMEN [facility] Address: [address] [place] [address] Performed By: #### 5 7021-8 #### [facility] CLIA [id number] [address] [place] [address] 23571 Immature granulocytes (Bld) [#/Vol] 0.05 10*3/uL Normal <0.10 [facility] Comment on above: Order Comment: Speci men Type: BLOOD SPECIMEN [facility] Address: [address] [place] [address] Performed By: #### 5 7021-8 #### [facility] CLIA [id number] [address] [place] [address] 17505 Immature granulocytes/100 WBC (Bld) 0.6 % Normal [facility] Comment on above: Order Comment: Speci men Type: BLOOD SPECIMEN [facility] Address: [address] [place] [address] Performed By: #### 5 7021-8 #### [facility] CLIA [id number] [address] [place] [address] 50033 Lymphocytes (Bld) [#/Vol] 2.39 10*3/uL Normal 1.00-4.00 [facility] Comment on above: Order Comment: Speci men Type: BLOOD SPECIMEN [facility] Address: [address] [place] [address] Performed By: #### 5 7021-8 #### [facility] CLIA [id number] [address] [place] [address] 65690 Lymphocytes/100 WBC (Bld) 29.8 % Normal [facility] Comment on above: Order Comment: Speci men Type: BLOOD SPECIMEN [facility] Address: [address] [place] [address] Performed By: #### 5 7021-8 #### [facility] CLIA [id number] [address] [place] [address] 50394 MCH (RBC) [Entitic mass] 34.6 pg High 26.0-34.0 [facility] Comment on above: Order Comment: Speci men Type: BLOOD SPECIMEN [facility] Address: [address] [place] [address] Performed By: #### 5 7021-8 #### [facility] CLIA [id number] [address] [place] [address] 09157 MCHC (RBC) [Mass/Vol] 33.8 g/dL Normal 30.5-36.[address] [facility] Comment on above: Order Comment: Speci men Type: BLOOD SPECIMEN [facility]ing [facility] Address: [address] [address] Performed By: #### 5 7021-8 #### [facility] CLIA [id number] [address] [place] [address] 67585 MCV (RBC) [Entitic vol] 102.3 fL High 80.0-100.0 [facility] Comment on above: Order Comment: Speci men Type: BLOOD SPECIMEN [facility]ing [facility] Address: [address] [address] Performed By: #### 5 7021-8 #### [facility] CLIA [id number] [address] [place] [address] 38769 Monocytes (Bld) [#/Vol] 1.02 10*3/uL High <0.87 [facility] Comment on above: Order Comment: Speci men Type: BLOOD SPECIMEN [facility] Address: [address] [place] [address] Performed By: #### 5 7021-8 #### [facility] CLIA [id number] [address] [place] [address] 57061 Monocytes/100 WBC (Bld) 12.7 % Normal [facility] Comment on above: Order Comment: Speci men Type: BLOOD SPECIMEN [facility] Address: [address] [place] [address] Performed By: #### 5 7021-8 #### [facility] CLIA [id number] [address] [place] [address] 97295 Neutrophils (Bld) [#/Vol] 4.17 10*3/uL Normal 1.45-7.50 [facility] Comment on above: Order Comment: Speci men Type: BLOOD SPECIMEN [facility] Address: [address] [place] [address] Performed By: #### 5 7021-8 #### [facility] CLIA [id number] [address] [place] [address] 17486 Neutrophils/100 WBC (Bld) 52.1 % Normal [facility] Comment on above: Order Comment: Speci men Type: BLOOD SPECIMEN [facility] Address: [address] Performed By: #### 5 7021-8 #### [facility] CLIA [id number] [address] [place] [address] 65804 Nucleated RBC (Bld) [#/Vol] 0.02 10*3/uL High <0.01 [facility] Comment on above: Order Comment: Speci men Type: BLOOD SPECIMEN [facility] Address: [address] Performed By: #### 5 7021-8 #### [facility] CLIA [id number] [address] [place] [address] 36892 Nucleated RBC/100 WBC (Bld) [Ratio] 0.2 /100 WBC Normal [facility] Comment on above: Order Comment: Speci men Type: BLOOD SPECIMEN [facility] Address: [address] Performed By: #### 5 7021-8 #### [facility] CLIA [id number] [address] [place] [address] 65110 Platelet mean volume (Bld) [Entitic vol] 10.9 fL Normal 9.0-12.7 [facility] Comment on above: Order Comment: Speci men Type: BLOOD SPECIMEN [facility] Address: [address] Performed By: #### 5 7021-8 #### [facility] CLIA [id number] [address] [place] [address] 85236 Platelets (Bld) [#/Vol] 403 10*3/uL High 150-400 [facility] Comment on above: Order Comment: Speci men Type: BLOOD SPECIMEN [facility] Address: [address] Performed By: #### 5 7021-8 #### [facility] CLIA [id number] [address] [place] [address] 83694 RBC (Bld) [#/Vol] 3.50 10*6/uL Low 3.90-5.20 [facility] Comment on above: Order Comment: Speci men Type: BLOOD SPECIMEN [facility] Address: [address] [place] [address] Performed By: #### 5 7021-8 #### [facility] CLIA [id number] [address] [place] [address] 99870 WBC (Bld) [#/Vol] 8.02 10*3/uL Normal 3.70-11.00 [facility] Comment on above: Order Comment: Speci men Type: BLOOD SPECIMEN [facility] Address: [address] [place] [address] Performed By: #### 5 7021-8 #### [facility] IA [id number] [address] [place], [place] [address] CK SerPl-cCncon 12-04-2022 CK [Catalytic activity/Vol] 397 U/L High 42-196 [facility] Comment on above: Order Comment: Speci men Type: BLOOD SPECIMEN [facility] Address: [address] [place] [address] Performed By: #### 2 157-6, 2324-2 #### [facility] CLIA [id number] [address] [place] [address] [facility] Comprehensive metabolic 2000 panelon 12-04-2022 Albumin [Mass/Vol] 4.5 g/dL Normal 3.9-4.9 [facility] Comment on above: Order Comment: Speci men Type: BLOOD SPECIMEN [facility] Address: [address] [place] [address] Performed By: #### 3 084-1, 92458-8 #### [facility] CLIA [id number] [address] [place] [address] 12208 ALP [Catalytic activity/Vol] 94 U/L Normal 34-123 [facility] Comment on above: Order Comment: Speci men Type: BLOOD SPECIMEN [facility] Address: [address] [address] Performed By: #### 3 084-1, 59419-9 #### [facility] CLIA [id number] [address] [place] [address] 62105 ALT [Catalytic activity/Vol] 27 U/L Normal 7-38 [facility] Comment on above: Order Comment: Speci men Type: BLOOD SPECIMEN [facility] Address: [address] [address] Performed By: #### 3 084-1, 33106-3 #### [facility] CLIA [id number] [address] [place] [address] 86975 Anion gap [Moles/Vol] 9 mmol/L Normal 9-[address] [facility] Comment on above: Order Comment: Speci men Type: BLOOD SPECIMEN [facility] Address: [address] [address] Performed By: #### 3 084-1, #### [facility] CLIA [id number] [address] [place] [address] 64091 AST [Catalytic activity/Vol] 26 U/L Normal 13-35 [facility] Comment on above: Order Comment: Speci men Type: BLOOD SPECIMEN [facility] Address: [address] [address] Performed By: #### 3 084-1, 00215-8 #### [facility] CLIA [id number] [address] [place] [address] 35232 Bilirubin [Mass/Vol] 0.3 mg/dL Normal 0.2-1.3 [facility] Comment on above: Order Comment: Speci men Type: BLOOD SPECIMEN [facility] Address: [address] [address] Performed By: #### 3 084-1, #### [facility] CLIA [id number] [address] [place] [address] Calcium [Mass/Vol] 10.3 mg/dL High 8.5-10.2 [facility] Comment on above: Order Comment: Speci men Type: BLOOD SPECIMEN [facility] Address: [address] [place] [address] Performed By: #### 3 084-1, 40283-9 #### [facility] CLIA [id number] [address] [place] [address] 44505 Chloride [Moles/Vol] 103 mmol/L Normal 97-105 [facility] Comment on above: Order Comment: Speci men Type: BLOOD SPECIMEN [facility] Address: [address] [place] [address] Performed By: #### 3 084-1, #### [facility] CLIA [id number] [address] [place] [address] 70297 CO2 [Moles/Vol] 30 mmol/L Normal 22-30 [facility] Comment on above: Order Comment: Speci men Type: BLOOD SPECIMEN [facility] Address: [address] [place] [address] Performed By: #### 3 084-1, #### [facility] CLIA [id number] [address] [place] [address] 36108 Creatinine [Mass/Vol] 1.67 mg/dL High 0.58-0.[address] [facility] Comment on above: Order Comment: Speci men Type: BLOOD SPECIMEN [facility] Address: [address] [place] [address] Performed By: #### 3 084-1, 37682-9 #### [facility] CLIA [id number] [address] [place] [address] 46101 Creatinine and Glomerular filtration rate.predicted panel (S/P/Bld) 32 mL/min/1.73m??? Low >=60 [facility] Comment on above: Order Comment: Makenzie rossi Type: BLOOD SPECIMEN [facility] Address: [address] [id number] Result Comment: Reshma mated Glomerular Filtration Rate (eGFR) is calculated using the 2020 CKD-EPI creatinine equation. This equation utilizes serum creatinine, sex, and age as parameters. The creatinine assay has traceable calibration to isotope dilution-mass spectrometry. Refer to KDIGO guidelines for clinical interpretation. In patients with unstable renal function, e.g. those with acute kidney injury, the eGFR may not accurately reflect actual GFR. Performed By: #### 3 084-1, 99041-9 #### [facility] CLIA [id number] [address] [place] [address] 80089 Glucose [Mass/Vol] 109 mg/dL High 74-99 [facility] Comment on above: Order Comment: Makenzie rossi Type: BLOOD SPECIMEN [facility] Address: [place] [address] Result Comment: The [place] Diabetes Association (ADA) provides guidance for cutoff values for fasting glucose and random glucose. The ADA defines fasting as no caloric intake for at least 8 hours. Fasting plasma glucose results between 100 to 125 mg/dL indicate increased risk for diabetes (prediabetes). Fasting plasma glucose results greater than or equal to 126 mg/dL meet the criteria for diagnosis of diabetes. In the absence of unequivocal hyperglycemia, results should be confirmed by repeat testing. In a patient with classic symptoms of hyperglycemia or hyperglycemic crisis, random plasma glucose results greater than or equal to 200 mg/dL meet the criteria for diagnosis of diabetes. Reference: Standards of Medical Care in Diabetes 2016, [place] Diabetes Association. Diabetes Care. 2016.39(Suppl 1). Performed By: #### 3 084-1, 28250-4 #### [facility] CLIA [id number] [address] [place] [address] 20016 Potassium [Moles/Vol] 4.4 mmol/L Normal 3.7-5.[address] [facility] Comment on above: Order Comment: Makenzie rossi Type: BLOOD SPECIMEN [facility] Address: [address] [address] Performed By: #### 3 084-1, 88736-0 #### [facility] CLIA [id number] [address] [place] [address] 69822 Protein [Mass/Vol] 7.3 g/dL Normal 6.3-8.0 [facility] Comment on above: Order Comment: Speci men Type: BLOOD SPECIMEN [facility] Address: [address] [address] Performed By: #### 3 084-1, 55594-6 #### [facility] CLIA [id number] [address] [place] [address] 27928 Sodium [Moles/Vol] 142 mmol/L Normal 136-144 [facility] Comment on above: Order Comment: Speci men Type: BLOOD SPECIMEN [facility] Address: [address] [address] Performed By: #### 3 084-1, 05387-0 #### [facility] CLIA [id number] [address] [place] [address] 88800 Urea nitrogen [Mass/Vol] 37 mg/dL High 7-21 [facility] Comment on above: Order Comment: Speci men Type: BLOOD SPECIMEN [facility] Address: [address] [address] Performed By: #### 3 084-1, 63042-1 #### [facility] CLIA [id number] [address] [place] [address] 92294 D dimer FEU PPP-mCncon 12-04 Fibrin D-dimer FEU (PPP) [Mass/Vol] 340 ng/mL FEU Normal <500 [facility] Comment on above: Order Comment: Speci men Type: BLOOD SPECIMEN Ordering Facility: [facility] Address: , , Result Comment: Jettz en Plasma Aliquot Performed By: #### 4 8065-7 #### [facility] CLIA [id number] [address] [place], [place] [address] [facility] CLIA [id number] [address] [place] [address] 24016 Ferritin SerPl-mCncon 2022 Ferritin [Mass/Vol] 147.0 ng/mL Normal 14.7-205.1 [facility] Comment on above: Order Comment: Speci men Type: BLOOD SPECIMEN Ordering [facility] Address: , , Performed By: #### 2 276-4 #### [facility] CLIA [id number] [address] [place] [address] [place] Fibrin D-dimer FEU (PPP) [Ma ss/Vol]on 12-04-2022 D DIMER AGE-RELATED CUTOFF 740 ng/mL FEU Normal [facility] Comment on above: Order Comment: Paigei men Type: BLOOD SPECIMEN Ordering Facility[facility] Address: , , Performed By: #### 4 8065-7 #### [facility] CLIA [id number] [address] [place] [address] [facility] CLIA [id number] [address] [place] [address] 36274 GGT SerPl-cCncon 12-04-2022 Gamma glutamyl transferase [Catalytic activity/Vol] 36 U/L Normal 6-46 [facility] Comment on above: Order Comment: Paigei men Type: BLOOD SPECIMEN [facility] Address: [address] [id number] Performed By: #### 2 157-6, 2324-2 #### [facility] CLIA [id number] [address] [place] [address] [place] HbA1c (Bld)on 12-04-2022 Average glucose Estimated from glycated hemoglobin (Bld) [Mass/Vol] 137 mg/dL Normal [facility] Comment on above: Order Comment: Paigei men Type: BLOOD SPECIMEN Ordering Facility: [facility] Address: , , Result Comment: eAG: (Estimated average glucose) is a calculated value from HgbA1c and is branch service representative of the average blood glucose level in the last 2-3 month period. Performed By: #### 5 5454-3 #### [facility] CLIA [id number] [address] [place] [address] [place] HbA1c (Bld) [Mass fraction] 6.4 % High 4.3-5.6 [facility] Comment on above: Order Comment: Makenzie rossi Type: BLOOD SPECIMEN Ordering Facility: [facility] Address: , , Result Comment: [place] Diabetes Association guidelines indicate that patients with HgbA1c in the range 5.7-6.4% are at increased risk for development of diabetes, and intervention by lifestyle modification may be beneficial. HgbA1c greater or equal to 6.5% is considered diagnostic of diabetes. Performed By: #### 5 5454-3 #### [facility] CLIA [id number] [facility] [place] [address] [place] Tacrolimus Bld-ncon 2022 Tacrolimus (Bld) [Mass/Vol] 7.4 ng/mL Normal 5.0-20.0 [facility] Comment on above: Order Comment: Makenzie rossi Type: BLOOD SPECIMEN [facility] Address: [address] [place] [address] Result Comment: Karla vidualized target levels for a given patient will depend on many factors (including the type of organ transplant, time since transplantation, concurrent medications, and other clinical factors), and should be assessed by those health care providers experienced in the management of immunosuppression. Reference ranges and high/low indicator flags are provided as general guidelines only. The treating physician must determine appropriate target levels/dosing based on the specific clinical situation. Test performed by chemiluminescent immunoassay using [employer] Al[employer] i. Performed By: #### 1 1253-2 #### [facility] CLIA [id number] [address] [place] [address] [place] Urate SerPl-mCncon Urate [Mass/Vol] 4.9 mg/dL Normal 2.5-6.6 [facility] Comment on above: Order Comment: Speci men Type: BLOOD SPECIMEN [facility] Address: [place] [address] Performed By: #### 3 084-1, 76153-2 #### [facility] CLIA [id number] [address] [place] [address] 95526 ALDOLASE BLDon 10-26-2022 Aldolase [Catalytic activity/Vol] 3.9 mU/mL 1.5 - 8.1 U/L [facility] URINALYSIS, REFLEX MICROSCOP ICon 10-26-2022 Bilirubin Ql (U) Negative Negative [facility] Clarity (Unsp spec) Clear Clear [facility] Color (U) Colorless Yellow [facility] Glucose Test strip (U) [Mass/Vol] Negative Trace, Negative [facility] Hemoglobin Ql (U) Negative Negative, Trace [facility] Ketones Ql (U) Negative Negative, Trace [facility] Leukocyte esterase Test strip Ql (U) Negative Negative, 25 Sowmya/uL [facility] Nitrite Ql (U) Negative Negative [facility] pH (U) 6.5 [pH] 5.0 - 8.0 [facility] Protein (U) [Mass/Vol] Negative Trace , Negative [facility] Specific gravity (U) [Rel density] 1.009 1.005 - 1.030 [facility] Urobilinogen Ql (U) Negative Negative [facility] TACROLIMUS/FK-506 BLon 04-25 Tacrolimus (Bld) [Mass/Vol] 12.9 ng/mL 5.0 - 20.0 ng/mL [facility] CBC W Auto Differential pane l (Bld)on 04-24-2022 Basophils (Bld) [#/Vol] 0.06 10*3/uL <0.11 k/uL [facility] Basophils/100 WBC (Bld) 0.7 % [facility] Differential cell count method Nom (Bld) Auto [facility] Eosinophils (Bld) [#/Vol] 0.28 10*3/uL <0.46 k/uL [facility] Eosinophils/100 WBC (Bld) 3.2 % [facility] Erythrocyte distribution width (RBC) [Ratio] 16.8 % High 11.5 - 15.0 % [facility] Hematocrit (Bld) [Volume fraction] 36.4 % 36.0 - 46.0 % [facility] Hemoglobin (Bld) [Mass/Vol] 11.8 g/dL 11.5 - 15.5 g/dL [facility] Immature granulocytes (Bld) [#/Vol] 0.09 10*3/uL <0.10 k/uL [facility] Immature granulocytes/100 WBC (Bld) 1.0 % [facility] Lymphocytes (Bld) [#/Vol] 2.88 10*3/uL 1.00 - 4.00 k/uL [facility] Lymphocytes/100 WBC (Bld) 33.2 % [facility] MCH (RBC) [Entitic mass] 33.3 pg 26.0 - 34.0 pg [facility] MCHC (RBC) [Mass/Vol] 32.4 g/dL 30.5 - 36.0 g/dL [facility] MCV (RBC) [Entitic vol] 102.8 fL High 80.0 - 100.0 fL [facility] Monocytes (Bld) [#/Vol] 0.98 10*3/uL High <0.87 k/uL [facility] Monocytes/100 WBC (Bld) 11.3 % [facility] Neutrophils (Bld) [#/Vol] 4.39 10*3/uL 1.45 - 7.50 k/uL [facility] Neutrophils/100 WBC (Bld) 50.6 % [facility] Nucleated RBC (Bld) [#/Vol] 0.03 10*3/uL High <0.01 k/uL [facility] Nucleated RBC/100 WBC (Bld) [Ratio] 0.3 /100 WBC [facility] Platelet mean volume (Bld) [Entitic vol] 10.5 fL 9.0 - 12.7 fL [facility] Platelets (Bld) [#/Vol] 471 10*3/uL High 150 - 400 k/uL [facility] RBC (Bld) [#/Vol] 3.54 10*6/uL Low 3.90 - 5.2 0 m/uL [facility] WBC (Bld) [#/Vol] 8.68 10*3/uL 3.70 - 11. 00 k/uL [facility] Comprehensive metabolic 2000 panelon 04-24-2022 Albumin [Mass/Vol] 4.2 g/dL 3.9 - 4.9 g/dL [facility] ALP [Catalytic activity/Vol] 71 U/L 34 - 123 U/L [facility] ALT [Catalytic activity/Vol] 38 U/L 7 - 38 U/L [facility] Anion gap [Moles/Vol] 12 mmol/L 9 - 18 mmol/L [facility] AST [Catalytic activity/Vol] 35 U/L 13 - 35 U/L [facility] Bilirubin [Mass/Vol] 0.3 mg/dL 0.2 - 1 .3 mg/dL [facility] Calcium [Mass/Vol] 10.1 mg/dL 8.5 - 10. 2 mg/dL [facility] Chloride [Moles/Vol] 102 mmol/L 97 - 10 5 mmol/L [facility] CO2 [Moles/Vol] 27 mmol/L 22 - 30 mmol/L [facility] Creatinine [Mass/Vol] 1.34 mg/dL High 0.58 - 0.96 mg/dL [facility] Estimated Glomerular Filtration Rate 42 mL/min/1.73m Low >=60 mL/min/1.73m [facility] Glucose [Mass/Vol] 138 mg/dL High 74 - 99 mg/dL [facility] Potassium [Moles/Vol] 4.1 mmol/L 3.7 - 5.1 mmol/L [facility] Protein [Mass/Vol] 6.9 g/dL 6.3 - 8.0 g/dL [facility] Sodium [Moles/Vol] 141 mmol/L 136 - 144 mmol/L [facility] Urea nitrogen [Mass/Vol] 24 mg/dL High 7 - 21 mg/dL [facility] GGT Don 04-24-2022 Gamma glutamyl transferase [Catalytic activity/Vol] 65 U/L High 6 - 46 U/L [facility] MAGNESIUM BLDon 04-24-2022 Magnesium [Mass/Vol] 1.7 mg/dL 1.7 - 2 .3 mg/dL [facility] PHOSPHORUS INORGANICon 04-24 Phosphate [Mass/Vol] 3.1 mg/dL 2.7 - 4 .8 mg/dL [facility] URIC ACID BLOODon 04-10-2022 Urate [Mass/Vol] 9.7 mg/dL High 2.5 - 6.6 mg/dL [facility] SYNOVIAL FL,CRYSTAL ID/STAFF REVon 03-24-2022 Crystal Prelim, SF PRELIMINARY REPORT Positive for crystals with polarizing properties of uric acid. SEE FINAL SF PATH REVIEW [facility] Crystal Review Reviewed by Richie Oswald M.D. [facility] Crystals LM Nom (Syn fld) Positive for crystals with polarizing properties of uric acid. Abnormal None seen [facility] Specimen source Nom (Unsp spec) ANKLE RIGHT [facility] SYNOVIAL FLUID MANUAL DIFFon 03-24-2022 Diff Total Synovial Fluid 100 cells counted [facility] Lymph%, SF 1 [facility] [place]%, SF 2 [facility] Neut%, SF 97 High 0 - <25 [facility] SYNOVIAL FLUID, ROUTINEon Clarity (Unsp spec) Cloudy Abnormal Clear [facility] Clarity (Unsp spec) [facility] Color (Syn fld) Yellow Yellow [facility] Color (Syn fld) [facility] RBC Manual cnt (Syn fld) [#/Vol] <2,000 /uL [facility] Specimen source Nom (Unsp spec) ANKLE RIGHT [facility] WBC Manual cnt (Syn fld) [#/Vol] 8400 /uL High 0 - 200 /uL [facility] URINALYSIS, REFLEX MICROSCOP ICon 03-21-2022 Bilirubin Ql (U) Negative Negative [facility] Clarity (Unsp spec) Clear Clear [facility] Color (U) Light Yellow Yellow [facility] Glucose Test strip (U) [Mass/Vol] Negative Trace, Negative [facility] Hemoglobin Ql (U) Negative Negative, Trace [facility] Ketones Ql (U) Negative Negative, Trace [facility] Leukocyte esterase Test strip Ql (U) Negative Negative, 25 Sowmya/mL [facility] Nitrite Ql (U) Negative Negative [facility] pH (U) 5.0 [pH] 5.0 - 8.0 [facility] Protein (U) [Mass/Vol] Negative Trace , Negative [facility] Specific gravity (U) [Rel density] 1.011 1.005 - 1.030 [facility] Urobilinogen Ql (U) Negative Negative [facility] CBC W Auto Differential pane l (Bld)on 03-20-2022 Basophils (Bld) [#/Vol] 0.06 10*3/uL <0.11 k/uL [facility] Basophils/100 WBC (Bld) 0.7 % [facility] Differential cell count method Nom (Bld) Auto [facility] Eosinophils (Bld) [#/Vol] 0.24 10*3/uL <0.46 k/uL [facility] Eosinophils/100 WBC (Bld) 2.6 % [facility] Erythrocyte distribution width (RBC) [Ratio] 16.7 % High 11.5 - 15.0 % [facility] Hematocrit (Bld) [Volume fraction] 32.6 % Low 36.0 - 46.0 % [facility] Hemoglobin (Bld) [Mass/Vol] 10.6 g/dL Low 11.5 - 15.5 g/dL [facility] Immature granulocytes (Bld) [#/Vol] 0.06 10*3/uL <0.10 k/uL [facility] Immature granulocytes/100 WBC (Bld) 0.7 % [facility] Lymphocytes (Bld) [#/Vol] 2.32 10*3/uL 1.00 - 4.00 k/uL [facility] Lymphocytes/100 WBC (Bld) 25.6 % [facility] MCH (RBC) [Entitic mass] 33.3 pg 26.0 - 34.0 pg [facility] MCHC (RBC) [Mass/Vol] 32.5 g/dL 30.5 - 36.0 g/dL [facility] MCV (RBC) [Entitic vol] 102.5 fL High 80.0 - 100.0 fL [facility] Monocytes (Bld) [#/Vol] 1.32 10*3/uL High <0.87 k/uL [facility] Monocytes/100 WBC (Bld) 14.6 % [facility] Neutrophils (Bld) [#/Vol] 5.06 10*3/uL 1.45 - 7.50 k/uL [facility] Neutrophils/100 WBC (Bld) 55.8 % [facility] Nucleated RBC (Bld) [#/Vol] 0.02 10*3/uL High <0.01 k/uL [facility] Nucleated RBC/100 WBC (Bld) [Ratio] 0.2 /100 WBC [facility] Platelet mean volume (Bld) [Entitic vol] 10.6 fL 9.0 - 12.7 fL [facility] Platelets (Bld) [#/Vol] 501 10*3/uL High 150 - 400 k/uL [facility] RBC (Bld) [#/Vol] 3.18 10*6/uL Low 3.90 - 5.2 0 m/uL [facility] WBC (Bld) [#/Vol] 9.06 10*3/uL 3.70 - 11. 00 k/uL [facility] PHOSPHORUS INORGANICon 03-20 Phosphate [Mass/Vol] 3.6 mg/dL 2.7 - 4 .8 mg/dL [facility] BNPon 03-03-2022 Natriuretic peptide B (Bld) [Mass/Vol] 760.0 pg/mL Normal <=900.0 [facility] Comment on above: Performed By: #### C MP, BNP #### [facility] [address] [place] [address] Dr. Dimple Painting CBC AUTO DIFFon 03-03-2022 BASO # 0.0 103/ul Normal 0.0-0.1 [facility] Comment on above: Performed By: #### C BC #### [facility] [address] [place] [address] Dr. Dimple Painting Basophils/100 WBC (Bld) 0.4 % Normal 0.2-2.0 [facility] Comment on above: Performed By: #### C BC #### [facility] [address] [place] [address] Dr. Dimple Painting EO # 0.2 103/ul Normal 0.0-0.7 [facility] Comment on above: Performed By: #### C BC #### [facility] [address] [place] [address] Dr. Dimple Painting Eosinophils/100 WBC (Bld) 1.9 % Normal 0.9-7.0 [facility] Comment on above: Performed By: #### C BC #### [facility] [address] [place] [address] Dr. Dimple Painting Erythrocyte distribution width (RBC) [Ratio] 16.6 % Critically high 11.0-15.0 [facility] Comment on above: Performed By: #### C BC #### [facility] [address] [place] [address] Dr. Dimple Painting Hematocrit (Bld) [Volume fraction] 30.8 % Critically low 36.0-48.0 [facility] Comment on above: Performed By: #### C BC #### [facility] [address] [place] [address] Dr. Dimple Painting Hemoglobin (Bld) [Mass/Vol] 10.1 g/dL Critically low 12.0-16.0 [facility] Comment on above: Performed By: #### C BC #### [facility] [address] [place] [address] Dr. Dimple Painting IG # 0.11 10e3/ul Critically high 0.00-0.03 [facility] Comment on above: Performed By: #### C BC #### [facility] [address] [place] [address] Dr. Dimple Painting IG % 1.1 % Critically high 0.0-0.5 [facility] Comment on above: Performed By: #### C BC #### [facility] [address] [place] [address] Dr. Dimple Painting LYMPH # 1.5 103/ul Normal 1.2-3.8 [facility] Comment on above: Performed By: #### C BC #### [facility] [address] [place] [address] Dr. Dimple Painting Lymphocytes/100 WBC (Bld) 15.2 % Critically low 20.5-60.0 [facility] Comment on above: Performed By: #### C BC #### [facility] [address] [place] [address] Dr. Dimple Painting MANUAL DIFF REQ NO Normal [facility] Comment on above: Performed By: #### C BC #### [facility] [address] [place] [address] Dr. Dimple Painting MCH (RBC) [Entitic mass] 33.6 pg Normal 26.7-34.0 [facility] Comment on above: Performed By: #### C BC #### [facility] [address] [place] [address] Dr. Dimple Painting MCHC (RBC) [Mass/Vol] 32.8 g/dL Normal 29.9-35.2 [facility] Comment on above: Performed By: #### C BC #### [facility] [address] [place] [address] Dr. Dimple Painting MCV (RBC) [Entitic vol] 102.3 fL Critically high 81.0-99.0 [facility] Comment on above: Performed By: #### C BC #### [facility] [address] [place] [address] Dr. Dimple Painting MONO # 0.6 103/ul Normal 0.3-0.8 [facility] Comment on above: Performed By: #### C BC #### [facility] [address] [place] [address] Dr. Dimple Painting Monocytes/100 WBC (Bld) 5.9 % Normal 1.7-12.0 [facility] Comment on above: Performed By: #### C BC #### [facility] [address] [place] [address] Dr. Dimple Painting NEUT # 7.5 103/ul Critically high 1.4-6.5 [facility] Comment on above: Performed By: #### C BC #### [facility] [address] [place] [address] Dr. Dimple Painting Neutrophils/100 WBC (Bld) 75.5 % Critically high 43.0-75.0 [facility] Comment on above: Performed By: #### C BC #### [facility] [address] [place] [address] Dr. Dimple Painting Platelet mean volume (Bld) [Entitic vol] 10.1 fL Normal 9.5-13.5 [facility] Comment on above: Performed By: #### C BC #### [facility] [address] [place] [address] Dr. Dimple Painting PLT 479 103/ul Critically high 150-450 [facility] Comment on above: Performed By: #### C BC #### [facility] [address] [place] [address] Dr. Dimple Painting RBC 3.01 106/ul Critically low 4.20-5.40 [facility] Comment on above: Performed By: #### C BC #### [facility] [address] [place] [address] Dr. Dimple Painting WBC 10.0 103/ul Normal 4.0-11.0 [facility] Comment on above: Performed By: #### C BC #### [facility] [address] [place] [address] Dr. Dimple Painting PROF 14(COMP METB)on 022 Albumin [Mass/Vol] 3.1 g/dL Critically low 3.4-5.0 [facility] Comment on above: Performed By: #### C MP, BNP #### [facility] [address] [place] [address] Dr. Dimple Painting Albumin/Globulin [Mass ratio] 0.7 {ratio} Normal [facility] Comment on above: Performed By: #### C MP, BNP #### [facility] [address] [place] [address] Dr. Dimple Paitning ALP [Catalytic activity/Vol] 93 U/L Normal 46-116 [facility] Comment on above: Performed By: #### C MP, BNP #### [facility] [address] [place] [address] Dr. Dimple Painting ALT [Catalytic activity/Vol] 40 U/L Normal 14-59 [facility] Comment on above: Performed By: #### C MP, BNP #### [facility] [address] [place] [address] Dr. Dimple Painting Anion gap [Moles/Vol] 14.3 mmol/L Normal [facility] Comment on above: Performed By: #### C MP, BNP #### [facility] [address] [place] [address] Dr. Dimple Painting AST [Catalytic activity/Vol] 29 U/L Normal 15-37 [facility] Comment on above: Performed By: #### C MP, BNP #### [facility] [address] [place] [address] Dr. Dimple Painting Bilirubin [Mass/Vol] 0.1 mg/dL Critically low 0.2-1.0 [facility] Comment on above: Performed By: #### C MP, BNP #### [facility] [address] [place] [address] Dr. Dimple Painting Calcium [Mass/Vol] 9.5 mg/dL Normal 8.5-10.1 [facility] Comment on above: Performed By: #### C MP, BNP #### [facility] [address] [place] [address] Dr. Dimple Painting Chloride [Moles/Vol] 100 mmol/L Normal 98-107 [facility] Comment on above: Performed By: #### C MP, BNP #### [facility] [address] [place] [address] Dr. Dimple Painting CO2 [Moles/Vol] 29.3 mmol/L Normal 21.0-32.0 [facility] Comment on above: Performed By: #### C MP, BNP #### [facility] [address] [place] [address] Dr. Dimple Painting Creatinine [Mass/Vol] 1.89 mg/dL Critically high 0.55-1.02 [facility] Comment on above: Performed By: #### C MP, BNP #### [facility] [address] [place] [address] Dr. Dimple Painting EGFR-AF ETHIOPIAN 32 mL/min/1.73m2 Critically low >=60 [facility] Comment on above: Performed By: #### C MP, BNP #### [facility] [address] [place] [address] Dr. Dimple Painting EGFR-NON AF ETHIOPIAN 26 mL/min/1.73m2 Critically low >=60 [facility] Comment on above: Performed By: #### C MP, BNP #### [facility] [address] [place] [address] Dr. Dimple Painting Globulin (S) [Mass/Vol] 4.4 g/dL Normal [facility] Comment on above: Performed By: #### C MP, BNP #### [facility] [address] [place] [address] Dr. Dimple Painting Glucose [Mass/Vol] 298 mg/dL Critically high 74-106 T [facility] Comment on above: Performed By: #### C MP, BNP #### [facility] [address] [address] [address] Dimple Painting Potassium [Moles/Vol] 4.6 mmol/L Normal 3.5-5.1 [facility] Comment on above: Performed By: #### C MP, BNP #### [facility] [address] [address] [address] Dimple Painting Protein [Mass/Vol] 7.5 g/dL Normal 6.4-8.2 [facility] Comment on above: Performed By: #### C MP, BNP #### [facility] [address] [place] [address] Dr. Dimple Painting Sodium [Moles/Vol] 139 mmol/L Normal 136-145 [facility] Comment on above: Performed By: #### C MP, BNP #### [facility] [address] [place] [address] Dr. Dimple Painting Urea nitrogen [Mass/Vol] 39.0 mg/dL Critically high 7.0-18.0 [facility] Comment on above: Performed By: #### C MP, BNP #### [facility] [address] [place] [address] Dr. Dimple Painting Urea nitrogen/Creatinine [Mass ratio] 20.6 mg/mg Normal [facility] Comment on above: Performed By: #### C MP, BNP #### [facility] [address] [place] [address] Dr. Dimple Painting US Venous, Unilat, Lower Ext Righton 03-02-2022 US Venous, Unilat, Lower Ext Right FINDINGS: The deep venous system of the right lower extremity exhibits full compressibility and normal flow augmentation. These specifically include the common femoral, superficial femoral, popliteal, and visualized anterior tibialis, posterior tibialis, and peroneal veins. No evidence of deep venous thrombosis is present. Greater saphenous vein is patent. No cystic or soft tissue mass in the popliteal fossa. IMPRESSION: No evidence of deep or superficial venous thrombosis Report reported and signed by Migel Basilio on 03/07/2022 0759 Normal [facility] XR Foot Complete Right*on XR Foot Complete Right* CLINICAL HISTORY: Right foot swelling for 2 days. COMPARISON: None available. TECHNIQUE: AP, lateral and oblique radiographs of the right foot were obtained. FINDINGS: Soft tissue swelling is noted, predominantly of the forefoot. Moderate osteoarthritic changes are present in the first MTP joint, and to a lesser extent elsewhere. Less than 1 cm coarse dystrophic calcifications are present at the Achilles tendon insertion and plantar fascia. There is no fracture, dislocation, worrisome bone destruction,, or other findings of concern identified. IMPRESSION: NO DISPLACED FRACTURE OR ACUTE OSSEOUS PROCESS IDENTIFIED. Report reported and signed by Martha Tobias on 03/03/2022 0955 Normal [facility] XR Chest 2 Views*on 02-11-20 SARS-CoV-2 (COVID-19) RNA PETER+probe Ql (Unsp spec) HISTORY: Pneumonia, COVID FINDINGS: No acute cardiac or pulmonary disease is identified. No worrisome mass lesions or infiltrates are seen. No pulmonary edema or pneumothorax is present. Mild infrahilar subsegmental atelectasis. Cardiac silhouette size is normal. Skeletal structures are normal. IMPRESSION: Minimal volume loss, no significant parenchymal consolidation or infiltrates Report reported and signed by Migel Basilio on 02/13/2022 0659 Normal [facility] CBC W Auto Differential pane l (Bld)on 12-26-2021 Basophils (Bld) [#/Vol] 0.06 10*3/uL <0.11 k/uL [facility] Basophils/100 WBC (Bld) 0.5 % [facility] Differential cell count method Nom (Bld) Auto [facility] Eosinophils (Bld) [#/Vol] 0.23 10*3/uL <0.46 k/uL [facility] Eosinophils/100 WBC (Bld) 2.1 % [facility] Erythrocyte distribution width (RBC) [Ratio] 15.6 % High 11.5 - 15.0 % [facility] Hematocrit (Bld) [Volume fraction] 32.9 % Low 36.0 - 46.0 % [facility] Hemoglobin (Bld) [Mass/Vol] 10.8 g/dL Low 11.5 - 15.5 g/dL [facility] Immature granulocytes (Bld) [#/Vol] 0.09 10*3/uL <0.10 k/uL [facility] Immature granulocytes/100 WBC (Bld) 0.8 % [facility] Lymphocytes (Bld) [#/Vol] 2.77 10*3/uL 1.00 - 4.00 k/uL [facility] Lymphocytes/100 WBC (Bld) 24.8 % [facility] MCH (RBC) [Entitic mass] 33.2 pg 26.0 - 34.0 pg [facility] MCHC (RBC) [Mass/Vol] 32.8 g/dL 30.5 - 36.0 g/dL [facility] MCV (RBC) [Entitic vol] 101.2 fL High 80.0 - 100.0 fL [facility] Monocytes (Bld) [#/Vol] 0.92 10*3/uL High <0.87 k/uL [facility] Monocytes/100 WBC (Bld) 8.2 % [facility] Neutrophils (Bld) [#/Vol] 7.12 10*3/uL 1.45 - 7.50 k/uL [facility] Neutrophils/100 WBC (Bld) 63.6 % [facility] Nucleated RBC (Bld) [#/Vol] <0.01 k/uL [facility] Nucleated RBC/100 WBC (Bld) [Ratio] 0.0 /100 WBC [facility] Platelet mean volume (Bld) [Entitic vol] 10.4 fL 9.0 - 12.7 fL [facility] Platelets (Bld) [#/Vol] 390 10*3/uL 150 - 400 k/uL [facility] RBC (Bld) [#/Vol] 3.25 10*6/uL Low 3.90 - 5.2 0 m/uL [facility] WBC (Bld) [#/Vol] 11.19 10*3/uL High 3.70 - 11 .00 k/uL [facility] Comprehensive metabolic 2000 panelon 12-26-2021 Albumin [Mass/Vol] 4.0 g/dL 3.9 - 4.9 g/dL [facility] ALP [Catalytic activity/Vol] 74 U/L 34 - 123 U/L [facility] ALT [Catalytic activity/Vol] 15 U/L 7 - 38 U/L [facility] Anion gap [Moles/Vol] 8 mmol/L Low 9 - 18 mmol/L [facility] AST [Catalytic activity/Vol] 14 U/L 13 - 35 U/L [facility] Bilirubin [Mass/Vol] 0.3 mg/dL 0.2 - 1 .3 mg/dL [facility] Calcium [Mass/Vol] 9.3 mg/dL 8.5 - 10. 2 mg/dL [facility] Chloride [Moles/Vol] 104 mmol/L 97 - 10 5 mmol/L [facility] CO2 [Moles/Vol] 27 mmol/L 22 - 30 mmol/L [facility] Creatinine [Mass/Vol] 1.49 mg/dL High 0.58 - 0.96 mg/dL [facility] Estimated Glomerular Filtration Rate 37 mL/min/1.73m Low >=60 mL/min/1.73m [facility] Glucose [Mass/Vol] 107 mg/dL High 74 - 99 mg/dL [facility] Potassium [Moles/Vol] 4.4 mmol/L 3.7 - 5.1 mmol/L [facility] Protein [Mass/Vol] 6.5 g/dL 6.3 - 8.0 g/dL [facility] Sodium [Moles/Vol] 139 mmol/L 136 - 144 mmol/L [facility] Urea nitrogen [Mass/Vol] 50 mg/dL High 7 - 21 mg/dL [facility] GGT [facility] 12-26-2021 Gamma glutamyl transferase [Catalytic activity/Vol] 75 U/L High 6 - 46 U/L [facility] MAGNESIUM [facility] 12-26-2021 Magnesium [Mass/Vol] 2.0 mg/dL 1.7 - 2 .3 mg/dL [facility] PHOSPHORUS INORGANICon 12-26 Phosphate [Mass/Vol] 3.2 mg/dL 2.7 - 4 .8 mg/dL [facility] TACROLIMUS/[id number] BLon 12-26 Tacrolimus (Bld) [Mass/Vol] 7.3 ng/mL 5.0 - 20.0 ng/mL [facility] URIC ACID SERUMon 12-13-2021 Urate [Mass/Vol] 10.8 mg/dL Critically high 2.6-6.0 [facility] Comment on above: Performed By: #### U LUIS #### [facility] [address] [address] [address] Dimple Painting [facility] metabolic 2000 panelon 11-22-2021 Albumin [Mass/Vol] 4.1 g/dL 3.9 - 4.9 g/dL [facility] ALP [Catalytic activity/Vol] 66 U/L 34 - 123 U/L [facility] ALT [Catalytic activity/Vol] 20 U/L 7 - 38 U/L [facility] Anion gap [Moles/Vol] 11 mmol/L 9 - 18 mmol/L [facility] AST [Catalytic activity/Vol] 20 U/L 13 - 35 U/L [facility] Bilirubin [Mass/Vol] 0.2 mg/dL 0.2 - 1 .3 mg/dL [facility] Calcium [Mass/Vol] 10.0 mg/dL 8.5 - 10. 2 mg/dL [facility] Chloride [Moles/Vol] 107 mmol/L High 97 - 10 5 mmol/L [facility] CO2 [Moles/Vol] 25 mmol/L 22 - 30 mmol/L [facility] Creatinine [Mass/Vol] 1.68 mg/dL High 0.58 - 0.96 mg/dL [facility] Estimated Glomerular Filtration Rate 32 mL/min/1.73m Low >=60 mL/min/1.73m [facility] Glucose [Mass/Vol] 86 mg/dL 74 - 99 mg/dL [facility] Potassium [Moles/Vol] 5.2 mmol/L High 3.7 - 5.1 mmol/L [facility] Protein [Mass/Vol] 6.6 g/dL 6.3 - 8.0 g/dL [facility] Sodium [Moles/Vol] 143 mmol/L 136 - 144 mmol/L [facility] Urea nitrogen [Mass/Vol] 48 mg/dL High 7 - 21 mg/dL [facility] GGT BLDon 11-22-2021 Gamma glutamyl transferase [Catalytic activity/Vol] 27 U/L 6 - 46 U/L [facility] Lipid 1996 panelon 2 Cholesterol [Mass/Vol] 178 mg/dL <200 mg/dL [facility] Cholesterol in HDL [Mass/Vol] 53 mg/dL >39 mg/dL [facility] Cholesterol in LDL [Mass/Vol] 86 mg/dL <100 mg/dL [facility] Cholesterol in LDL/Cholesterol in HDL [Mass ratio] 1.62 {ratio} <2.54 [facility] Cholesterol in VLDL [Mass/Vol] 39 mg/dL High <30 mg/dL [facility] Cholesterol non HDL [Mass/Vol] 125 mg/dL <130 mg/dL [facility] Cholesterol.total/Chol esterol in HDL [Mass ratio] 3.36 {ratio} <5.10 [facility] Fasting Time unknown [facility] Triglyceride [Mass/Vol] 193 mg/dL High <150 mg/dL [facility] TACROLIMUS/[id number] BLon 11-22 Tacrolimus (Bld) [Mass/Vol] 9.7 ng/mL 5.0 - 20.0 ng/mL [facility] CBC W Auto Differential pane l (Bld)on 11-21-2021 Abs Immature Gran 0.10 k/uL High <0.10 k/uL [facility] Basophils (Bld) [#/Vol] 0.05 10*3/uL <0.11 k/uL [facility] Basophils/100 WBC (Bld) 0.5 % [facility] Differential cell count method Nom (Bld) Auto [facility] Eosinophils (Bld) [#/Vol] 0.25 10*3/uL <0.46 k/uL [facility] Eosinophils/100 WBC (Bld) 2.4 % [facility] Erythrocyte distribution width (RBC) [Ratio] 15.3 % High 11.5 - 15.0 % [facility] Hematocrit (Bld) [Volume fraction] 34.0 % Low 36.0 - 46.0 % [facility] Hemoglobin (Bld) [Mass/Vol] 11.2 g/dL Low 11.5 - 15.5 g/dL [facility] Immature Gran % 1.0 % [facility] Lymphocytes (Bld) [#/Vol] 2.25 10*3/uL 1.00 - 4.00 k/uL [facility] Lymphocytes/100 WBC (Bld) 22.0 % [facility] MCH (RBC) [Entitic mass] 33.2 pg 26.0 - 34.0 pg [facility] MCHC (RBC) [Mass/Vol] 32.9 g/dL 30.5 - 36.0 g/dL [facility] MCV (RBC) [Entitic vol] 100.9 fL High 80.0 - 100.0 fL [facility] Monocytes (Bld) [#/Vol] 0.95 10*3/uL High <0.87 k/uL [facility] Monocytes/100 WBC (Bld) 9.3 % [facility] Neutrophils (Bld) [#/Vol] 6.64 10*3/uL 1.45 - 7.50 k/uL [facility] Neutrophils/100 WBC (Bld) 64.8 % [facility] Nucleated RBC (Bld) [#/Vol] <0.01 k/uL [facility] Nucleated RBC/100 WBC (Bld) [Ratio] 0.0 /100 WBC [facility] Platelet mean volume (Bld) [Entitic vol] 10.2 fL 9.0 - 12.7 fL [facility] Platelets (Bld) [#/Vol] 389 10*3/uL 150 - 400 k/uL [facility] RBC (Bld) [#/Vol] 3.37 10*6/uL Low 3.90 - 5.2 0 m/uL [facility] WBC (Bld) [#/Vol] 10.24 10*3/uL 3.70 - 11 .00 k/uL [facility] Laboratory - Chemistry and C hemistry - challengeon 11-21-2021 Magnesium [Mass/Vol] 2.0 mg/dL 1.7 - 2 .3 mg/dL [facility] PHOSPHORUS INORGANICon 11-21 Phosphate [Mass/Vol] 3.6 mg/dL 2.7 - 4 .8 mg/dL [facility] CBC W Auto Differential pane l (Bld)on 09-19-2021 Abs Immature Gran 0.04 k/uL <0.10 k/uL [facility] Basophils (Bld) [#/Vol] 0.03 10*3/uL <0.11 k/uL [facility] Basophils/100 WBC (Bld) 0.4 % [facility] Differential cell count method Nom (Bld) Auto [facility] Eosinophils (Bld) [#/Vol] 0.14 10*3/uL <0.46 k/uL [facility] Eosinophils/100 WBC (Bld) 1.8 % [facility] Erythrocyte distribution width (RBC) [Ratio] 14.3 % 11.5 - 15.0 % [facility] Hematocrit (Bld) [Volume fraction] 33.9 % Low 36.0 - 46.0 % [facility] Hemoglobin (Bld) [Mass/Vol] 10.9 g/dL Low 11.5 - 15.5 g/dL [facility] Immature Gran % 0.5 % [facility] Lymphocytes (Bld) [#/Vol] 1.92 10*3/uL 1.00 - 4.00 k/uL [facility] Lymphocytes/100 WBC (Bld) 24.0 % [facility] MCH (RBC) [Entitic mass] 32.4 pg 26.0 - 34.0 pg [facility] MCHC (RBC) [Mass/Vol] 32.2 g/dL 30.5 - 36.0 g/dL [facility] MCV (RBC) [Entitic vol] 100.9 fL High 80.0 - 100.0 fL [facility] Monocytes (Bld) [#/Vol] 1.12 10*3/uL High <0.87 k/uL [facility] Monocytes/100 WBC (Bld) 14.0 % [facility] Neutrophils (Bld) [#/Vol] 4.74 10*3/uL 1.45 - 7.50 k/uL [facility] Neutrophils/100 WBC (Bld) 59.3 % [facility] Nucleated RBC (Bld) [#/Vol] 10*3/uL <0.01 k/uL [facility] Nucleated RBC/100 WBC (Bld) [Ratio] 0.0 /100 WBC [facility] Platelet mean volume (Bld) [Entitic vol] 10.6 fL 9.0 - 12.7 fL [facility] Platelets (Bld) [#/Vol] 462 10*3/uL High 150 - 400 k/uL [facility] RBC (Bld) [#/Vol] 3.36 10*6/uL Low 3.90 - 5.2 0 m/uL [facility] WBC (Bld) [#/Vol] 7.99 10*3/uL 3.70 - 11. 00 k/uL [facility] Comprehensive metabolic 2000 panelon 09-19-2021 Albumin [Mass/Vol] 4.2 g/dL 3.9 - 4.9 g/dL [facility] ALP [Catalytic activity/Vol] 88 U/L 34 - 123 U/L [facility] ALT [Catalytic activity/Vol] 17 U/L 7 - 38 U/L [facility] Anion gap [Moles/Vol] 11 mmol/L 9 - 18 mmol/L [facility] AST [Catalytic activity/Vol] 18 U/L 13 - 35 U/L [facility] Bilirubin [Mass/Vol] 0.3 mg/dL 0.2 - 1 .3 mg/dL [facility] Calcium [Mass/Vol] 9.8 mg/dL 8.5 - 10. 2 mg/dL [facility] Chloride [Moles/Vol] 101 mmol/L 97 - 10 5 mmol/L [facility] CO2 [Moles/Vol] 26 mmol/L 22 - 30 mmol/L [facility] Creatinine [Mass/Vol] 2.28 mg/dL High 0.58 - 0.96 mg/dL [facility] Estimated Glomerular Filtration Rate 22 mL/min/1.73m Low >=60 mL/min/1.73m [facility] Glucose [Mass/Vol] 109 mg/dL High 74 - 99 mg/dL [facility] Potassium [Moles/Vol] 5.2 mmol/L High 3.7 - 5.1 mmol/L [facility] Protein [Mass/Vol] 7.1 g/dL 6.3 - 8.0 g/dL [facility] Sodium [Moles/Vol] 138 mmol/L 136 - 144 mmol/L [facility] Urea nitrogen [Mass/Vol] 47 mg/dL High 7 - 21 mg/dL [facility] GGT [facility] 09-19-2021 Gamma glutamyl transferase [Catalytic activity/Vol] 86 U/L High 6 - 46 U/L [facility] MAGNESIUM [facility] 09-19-2021 Magnesium [Mass/Vol] 2.0 mg/dL 1.7 - 2 .3 mg/dL [facility] PHOSPHORUS INORGANICon 09-19 Phosphate [Mass/Vol] 3.4 mg/dL 2.7 - 4 .8 mg/dL [facility] TACROLIMUS/FK-506 BLon 09-19 Tacrolimus (Bld) [Mass/Vol] 8.6 ng/mL 5.0 - 20.0 ng/mL [facility] Covid-19 PCR (CVDTBH)on SARS-CoV-2 (COVID-19) RNA PETER+probe Ql (Unsp spec) Not detected Normal NOT DETECTED [facility] Comment on above: Result Comment: When diagnostic testing is negative, the possibility of a false negative should be considered in the context of a patient's recent exposures and the presence of clinical signs and symptoms consistent with SARS-CoV-2. This test is not yet approved or cleared by the [place] FDA. When there are no FDA-approved or cleared tests available, and other criteria are met, FDA can make tests available under an emergency access mechanism called an Emergency Use Authorization (EUA). The EUA for this test is supported by the [place] of Health and Human Service's declaration that circumstances exist to justify the emergency use of in vitro diagnostics for the detection and/or diagnosis of the virus that causes COVID-19. This EUA will remain in effect for the duration of the COVID-19 declaration justifying emergency of IVDs, unless it is terminated or revoked by the FDA (after which the test may no longer be used). Performed By: #### C VDTB #### [facility] [address] [place], [place] [address] Dr[address] Dimple Painting [facility] FERR 102.7 ng/mL Normal 15.0-150.0 [facility] Control Operator Comment on above: Performed By: #### U LUIS, ESR, FERR, RF #### [facility] [address] [place], [place] [id number] Q - DONALD SCREEN IFA W/RFL TIT ER AND PATTERNon 08-09-2021 DONALD SCREEN, IFA Negative Normal NEGATIVE [facility] Control Operator Comment on above: Order Comment: [facility] performed at: [facility], [facility], [address] [place] [address], [address] [place] [address], [phone], Herbicide Service Sales Representative: Lex Trejo MD [facility] Collection Date/Time: [id number] [facility] Results Received Date/Time: [id number] [facility] Reported Date/Time: [id number] Result Comment: DONALD IFA is a first line screen for detecting the presence of up to approximately 150 autoantibodies in various autoimmune diseases. A negative DONALD IFA result suggests an DONALD-associated autoimmune disease is not present at this time, but is not definitive. If there is high clinical suspicion for Sjogren's syndrome, testing for anti-SS-A/Ro antibody should be considered. Anti-Jennifer-1 antibody should be considered for clinically suspected inflammatory myopathies. AC-0: Negative International Consensus on DONALD Patterns (https://doi.org/10.1515/qbvr-9993-0497) For additional information, please refer to http://dilitronics.BuysideFX/faq/TTJ321 (This link is being provided for informational/ educational purposes only.) Performed By: #### 2 49 #### [facility] [address] [place] [address] RBC Sedimentation Rateon ESR (Bld) [Velocity] 38.00 mm/h High 0.00-30.00 [facility] Comment on above: Performed By: #### U LUIS, ESR, FERR, RF #### [facility] [address] [place], [place] [id number] Rheumatoid Factoron 08-10-19 RF 11.0 IU/mL Normal <14.0 [facility] Comment on above: Performed By: #### U LUIS, ESR, FERR, RF #### [facility] [address] [place], [place] [id number] Uric Acidon 08-09-2021 URIC 11.3 mg/dL High 2.5-7.0 [facility] Specialist Comment on above: Result Comment: Refe rence range change 01/19/2017. Prior reference range F 2.4-5.7mg/dL. M 3.4-7.0 mg/dL. Performed By: #### U LUIS, ESR, FERR, RF #### [facility] [address] [place], [place] [id number] SCREENING MAMMOGRAM W/SHELBI, BILATERAL*on 05-31-2021 SCREENING MAMMOGRAM W/SHELBI, BILATERAL* COMPARISON: Dating back to February 05, 2018 and January 31, 2017 TECHNIQUE: 2D and 3D Tomosynthesis of the right and left breasts was performed. FINDINGS: Breast composition demonstrates scattered fibroglandular densities. Stable. Typically benign calcifications. No suspicious microcalcifications, asymmetry, architectural distortion or associated features are present. IMPRESSION: BI RADS 2 : BENIGN MAMMOGRAM Board Certified Radiologist. Accredited by the ACR and FDA. MAMMOGRAPHY IS VERY IMPORTANT TO YOUR HEALTH. THE CURRENT [employer]IAN COLLEGE OF RADIOLOGY AND NATIONAL COMPREHENSIVE CANCER NETWORK GUIDELINES RECOMMENDS ANNUAL MAMMOGRAPHY BEGINNING AT AGE 40. THIS FACILITY USES A REMINDER SYSTEM TO ENSURE ALL PATIENTS RECEIVE REMINDER NOTIFICATIONS AT THE APPROPRIATE TIME BASED ON THE RECOMMENDATIONS OF THIS EXAM. Report reported and signed by Migel Basilio on 06/06/2021 1652 Normal [facility] Control Operator XR Bone Density (DEXA)on XR Bone Density (DEXA) EXAM: Dual Femur Bone Density FINDINGS: Dual Femur bone density obtained with a gantto whole body system: YewztbTNLWupil-HrcxkGmh-H atched Total(g/cm2)(%)T-Score(%) Z-Score Mean0.9147046.55873.0 Impression: The mean BMD and corresponding T-score indicated above indicate Normal Bone Mass and places the patient at no significant risk for fracture. This information can serve as a baseline with which to compare future studies. EXAM: AP Lumbar Bone Density FINDINGS: AP Spine bone density obtained with a gantto whole body system: [employer] atched Total(g/cm2)(%)T-Score(%) Z-Score L1-L41.2590648.31178.8 Impression: The mean BMD and corresponding T-score indicated above indicate Normal Bone Mass and places the patient no significant risk for fracture. This information can serve as a baseline with which to compare future studies. Comment: The T-score is the primary focus of the interpretation of a patient???s bone mineral density measurement. The T-score is the number of standard deviations an individual is above or below the mean value for a young female having normal bone mass. The WHO defines osteoporosis based on the T-score value??? +1.0 to ???0.9: Normal bone mass -1.0 to -2.5: Osteopenia and thus may be at future risk of fracture -2.6 to ???5: Osteoporosis and ???at significantly increased risk of fracture??? A Z-Score of -2.0 or lower is defined as ???below the expected range for age??? and a Z-Score above -2.0 is ???within the expected range for age.??? Osteoporosis cannot be diagnosed in men under the age of 50 on the basis of BMD alone. Per 2019 ISCD guidelines, Z-Scores (not T-Scores) are preferred when reporting data in premenopausal females and males less than 50 years of age. Report reported and signed by Migel Basilio on 05/31/2021 1212 Normal [facility] Control Operator Q - SARS CoV2 COVID 19 Ab Ig Jeff 04-18-2021 SARS-CoV-2 (COVID-19) Ab IA Qn >150.00 High <1.00 [facility] Control Operator Comment on above: Order Comment: [facility] performed at: [facility], [facility], [address] [facility], [address] [place] [address], [phone], Herbicide Service Sales Representative: Lex Trejo MDQuest Collection Date/Time: [id number] Results Received Date/Time: [id number] Reported Date/Time: FASTING: UNKNOWN Result Comment: This test is intended to help identify individuals with antibodies to SARS-CoV-2 (COVID-19). The results of this semi-quantitative test should not be interpreted as an indication or degree of immunity or protection from reinfection. A test result that is 1.00 or more (Positive) means antibodies to SARS-CoV-2 were detected in the blood sample by the test. This could mean that the individual may have an immune response to a recent or prior infection with SARS-CoV-2. Positive results may occur after COVID-19 vaccination, but the clinical significance of a positive antibody result for individuals that have received a COVID-19 vaccine is unknown, and the performance of the test has not been established in COVID-19 vaccinees. False positive results for the test may occur due to cross-reactivity from pre-existing antibodies or other possible causes. A test result that is less than 1.00 (Negative) means that antibodies were not detected in the blood sample by the test. This could mean that the individual has not been previously infected with SARS-CoV-2. The clinical significance of a negative antibody result for individuals that have received a COVID-19 vaccine is unknown. The performance of the test has not been established in COVID-19 vaccinees. False negative results for the test may occur if the individual's antibodies have not reached a sufficient level for the test to be able to detect them. Antibodies can take up to two to three weeks (sometimes longer) to develop after someone is infected. How long antibodies to SARS-CoV-2 last after infection is not known. This test should not be used to diagnose an active SARS-CoV-2 infection. If an active infection is suspected, direct molecular or antigen testing for SARS-CoV-2 is recommended. Please review the Fact Sheets available for healthcare providers and patients using the following websites: http://patient.[employer]com/[employer]-HCP http://patient.[employer]com/[employer]-Patients Healthcare Providers: For additional information please refer to: http://education.RatePoint/faq/ANB650 (This link is being provided for informational/educational purposes only.) This test has been authorized by the FDA under an Emergency Use Authorization (EUA) for use by authorized laboratories. The FDA authorized labeling is available on the [employer] website: www.BuysideFX/Covid19. Performed By: #### 3 [id number] ####[facility] [address] [place] [address] TSHon 04-18-2021 TSH 2.840 uIU/mL Normal 0.400-4.500 [facility] Comment on above: Performed By: #### T SH ####[facility] [address] [place], [place] [id number] CKon 11-18-2018 Interpretation and review of laboratory results Abnormal [place], [place] Total CK 231 U/L High 26 - 192 U/L [place], [place] Creatine Kinaseon 11-18-2018 CK [Catalytic activity/Vol] 231 U/L High 26-192 [facility] Comment on above: Performed By: #### C K #### [facility] [address] [place] [address] Laser Engineer: Hitesh Mitchell MD BRIEF OP NOTon 02-01-2018 BRIEF OP NOT HNO ID: [id number] thor: Michelle BurkettoorService: RadiologyAuthor Type: PhysicianType: Brief Op NoteFiled: 02/01/2018 4:54 PMNote Text:PROCEDURE: HEPATIC VENOGRAM AND PRESSURE MEASUREMENTHISTORY: Pretransplant evaluationCONSENT: Risks, benefits, treatment options, potential complications andpersonnel to be involved were discussed (including the risks of radiationexposure, contrast and anesthesia administration, and any equipment neededfor the procedure to ensure best possible outcome) with the patient andall questions were answered and consent was obtained prior to procedure.MEDICATION RECONCILIATION: The patient's medications and allergies werereviewed in the electronic medical record and reconciled to the proposedprocedure/treatme nt.MARGARITA-PROCEDURE DISCUSSION: The appropriate elements of the pre-procedurediscussion, safety check list and sign-out were performed.TIME OUT: A time out was performed immediately prior to procedure startwith the nursing, and interventional team, correctly identifying thename, date of , procedure, anatomy (including marking of site andside if applicable), patient position, procedure consent form, relevantdiagnostic and radiology test results, antibiotic administration ifapplicable, safety precautions, and procedure-specific equipment needs.Start of procedure: 1525End of procedure: 1548Patient position: SupineAnesthesia: After establishing pulse oximetry, BP and EKG monitoring wasprovided by the Radiology nurse.Intra-service time (monitoring for moderate sedation): starts withadministration of agent, ends when continuous wugv-va-kswy time endsminutesPatient monitorinLocal anesthesia: 2 % lidocaineANTIBIOTICS: NoneAntibiotic infusion start time: N/APostprocedure diagnosis: As aboveCONTRAST DOSE: 15 cc of OMNIPAQUE 240 was injected into the venous systemduring the procedure.IMAGE GUIDANCE: Fluoroscopic and sonographic guidance was used.Ultrasound demonstrated patency of the target vein without fillingdefects. Access was obtained under direct sonographic visualization. Asonographic image of the vessel was obtained and placed into the permanentarchive for documentation.FLUOROSCOPI C RADIATION SUMMARY:Plane A, Air Kerma: 90.4 mGyDose Area Product (DAP): 32916.0 mGy*qa0Wnucxp Time: 5:06 min:secRadiation dose exceed 5 Gy: NoIf radiation dose exceeded 5 Gy, was counseling and instructional brochureprovided: N/AACCESS: Right internal jugular veinACCESS HEMOSTASIS: Manual compressionTECHNIQUE: The patient was prepped and draped using all elements ofmaximal sterile barrier technique (cap, mask, sterile gown, sterilegloves, a large sterile sheet, hand hygiene and cutaneous antisepsis),sterile ultrasound gel and sterile ultrasound probe covers. Underultrasound guidance, using micropuncture technique, right internal jugularvein was accessed and a 6 [place] sheath was placed. Using a MPA catheter,right hepatic vein was selected and hepatic venography was performed.Following the hepatic venography, pressure measurements were performed.Right Hepatic vein is patent. Multiple attempts were made to cannulate themiddle hepatic vein however these attempts were unsuccessful. A Dopplerultrasound may be utilized for further evaluation of the middle and lefthepatic vein.Pressure measurements: Wedge hepatic 33 mmHg. Free hepatic 3 mmHg.Inferior vena cava 2 mmHg. Right atrium 1 mm Hg. portosystemic gradient 30mmHg. Following pressure measurements, the sheath and catheter wereremoved. Adequate pressure was applied to achieve hemostasis.The patient tolerated the procedure well. There were no othercomplications during the procedure.CONCLUSION: The patient was comfortable and was transferred to therecovery room in stable condition.Estimated Blood Loss: MinimalNumber and Type of Removed Specimens: 0: Surgical pathologyATTENDING RADIOLOGIST: Michelle Humphries MDASSISTANT: NoneThe procedure was performed by the:Michelle Humphries MDThe attending radiologist performed the following procedural activities:Entire procedureIMPRESSION:WIDEL Y PATENT RIGHT HEPATIC VEIN. PORTAL HYPERTENSION WITH PORTOSYSTEMICGRADIENT OF 30 MMHG. LEFT AND MIDDLE HEPATIC VEINS COULD NOT BECANNULATED. DOPPLER ULTRASOUND MAY BEUTILIZED TO CONFIRM PATENCY OF THESE VEINS, IF CLINICALLY INDICATED. Normal [facility] HISTORY PHYSICALon 8 HISTORY PHYSICAL HNO ID: [id number] thor: Michelle Kingervice: RadiologyAuthor Type: PhysicianType: HANDPFiled: 02/01/2018 2:50 PMNote Text:RADIOLOGY PROCEDURAL SEDATION HISTORY AND PHYSICAL EXAMSERVICE DATE: 02/01/2018SERVICE TIME: 2:48 PMSubjectiveHPI: This is a 67 year old female who presents with for pre transplanthepatic venogram and presure measurementsPROCEDURE SCHEDULED: Procedure(s):HEPATIC VENOGRAPHY WEDGED OR FREE W/ HEMODYNAMIC EVAL RADIOLOGICALSUPERVISION AND INTERPRETATION (Pending)RADIOLOGY ORDER PLACED:PAST MEDICAL HISTORYDiagnosis Date- Biliary dyskinesia- Cirrhosis of liver with ascites (HCC)- Hepatitis possible- HTN (hypertension)- Morbid obesity (HCC)- YOVANNY (obstructive sleep apnea) no tx, being tx for RLS- Platelet dysfunction (HCC)- RLS (restless legs syndrome)- Thrombocytopenia (HCC)PAST SURGICAL HISTORYProcedure Laterality Date- SECTION HX x3- COLONOSCOPY x3- EGD 07/2016- HEART CATHETERIZATION early nl per pt- HYSTERECTOMY HX- PAST SURGICAL HISTORY OF mult DANDC's- PAST SURGICAL HISTORY OF Right eye surg- PAST SURGICAL HISTORY OF Right 2015 total knee arthroplasty- Dr. AlfonsoPrior to Admission medications as of 02/01/18 1318Medication Sig Last Dose Takingranitidine (ZANTAC) 150 mg tablet Take 1 tablet by mouth twice daily. Yesmidodrine (PROAMITINE) 5 mg tablet Take 5 mg by mouth three times daily.YesIbuprofen 100 mg tablet Take 200 mg by mouth twice daily as needed. Yeszoster vaccine, recombinant, adjuvanted, (SHINGRIX, PF,) 50 mcg/0.5 mLinjection Inject 0.5 mL intramuscularly now and repeat 2nd?dose in 2months Yeslactulose (DUPHALAC, CONSTULOSE) 20 gram/30 mL solution TAKE (45ML)EVERY8 HOURS NEEDED. Yesiv contrast (will be provided with radiology test) CT LIVER Inject,intravenously, once for 1 dose.No IV access, insert saline lock prior tothe beginning of sedation, infusion, injection of imaging exam.Discontinue saline lock post exam. If Pt. has a central line or IVAD, mayaccess for administration according to line specific nursing protocol.Once exam is complete flush line and de-access according to line specificnursing protocol in the CT contrast administration guidelines link. YesrifAXIMin (RIFAXIMIN) 550 mg tab Take by mouth twice daily. Yespropranolol (INDERAL) 10 mg tablet Take 10 mg by mouth three times daily.Yesondansetron (ZOFRAN) 8 mg tablet Take 8 mg by mouth every 6 hours asneeded. Yesfurosemide (LASIX) 40 mg tablet Take 1 tablet by mouth twice daily.Patient taking differently: Take 60 mg by mouth twice daily. Pt takes 40mg in the am and 20 mg in the pm Yesspironolactone (ALDACTONE) 100 mg tablet Take 1 tablet by mouth oncedaily.Patient taking differently: Take 100 mg by mouth twice daily. YesrOPINIRole (REQUIP) 1 mg tablet Take 1 mg by mouth daily at bedtime. YesALLERGIESAllergen Reactions- Knmnibs-Kmc-Hnm Red* Other: See Comments Muscle deterioration- Sulfa (Sulfonamide * Rash}Assessment/PlanASA Class:Provisional Diagnosis/Treatment Plan: Hepatic venogram under localanesthesiaSIGNATURE: Michelle Humphries MD PATIENT NAME: Farnaz RuffinDATE: February 01, 2018 : 2:48 PM PAGER: [phone] [facility] IR HEPATIC VENOGRAMon 2017 IR HEPATIC VENOGRAM * * *Final Report* * *DATE OF EXAM: Feb 01 2018 4:04PM [facility] 0765 - HEPATIC VENOGRAM / REASON: TRANSPLANT * * * * Physician Interpretation * * * * PROCEDURE: HEPATIC VENOGRAM AND PRESSURE MEASUREMENTHISTORY: Pretransplant evaluationCONSENT: Risks, benefits, treatment options, potential complications and personnel to be involved were discussed (including the risks of radiation exposure, contrast and anesthesia administration, and any equipment needed for the procedure to ensure best possible outcome) with the patient and all questions were answered and consent was obtained prior to procedure.MEDICATION RECONCILIATION: The patient's medications and allergies were reviewed in the electronic medical record and reconciled to the proposed procedure/treatment.MARGARITA- PROCEDURE DISCUSSION: The appropriate elements of the pre-procedure discussion, safety check list and sign-out were performed.TIME OUT: A time out was performed immediately prior to procedure start with the nursing, and interventional team, correctly identifying the name, date of , procedure, anatomy (including marking of site and side if applicable), patient position, procedure consent form, relevant diagnostic and radiology test results, antibiotic administration if applicable, safety precautions, and procedure-specific equipment needs.Start of procedure: 1525End of procedure: 1548Patient position: SupineAnesthesia: After establishing pulse oximetry, BP and EKG monitoring was provided by the Radiology nurse.Intra-service time (monitoring for moderate sedation): starts with administration of agent, ends when continuous aqar-ug-ysxa time ends minutesPatient monitorinLocal anesthesia: 2 % lidocaineANTIBIOTICS: NoneAntibiotic infusion start time: N/APostprocedure diagnosis: As aboveCONTRAST DOSE: 15 cc of OMNIPAQUE 240 was injected into the venous system during the procedure.IMAGE GUIDANCE: Fluoroscopic and sonographic guidance was used. Ultrasound demonstrated patency of the target vein without filling defects. Access was obtained under direct sonographic visualization. A sonographic image of the vessel was obtained and placed into the permanent archive for documentation.FLUOROSCOPI C RADIATION SUMMARY:Plane A, Air Kerma: 90.4 mGyDose Area Product (DAP): 01633.0 mGy*ro7Hewovg Time: 5:06 min:secRadiation dose exceed 5 Gy: NoIf radiation dose exceeded 5 Gy, was counseling and instructional brochure provided: N/AACCESS: Right internal jugular veinACCESS HEMOSTASIS: Manual compressionTECHNIQUE: The patient was prepped and draped using all elements of maximal sterile barrier technique (cap, mask, sterile gown, sterile gloves, a large sterile sheet, hand hygiene and cutaneous antisepsis), sterile ultrasound gel and sterile ultrasound probe covers. Under ultrasound guidance, using micropuncture technique, right internal jugular vein was accessed and a 6 Kazakh sheath was placed. Using a MPA catheter, right hepatic vein was selected and hepatic venography was performed. Following the hepatic venography, pressure measurements were performed. Right Hepatic vein is patent. Multiple attempts were made to cannulate the middle hepatic vein however these attempts were unsuccessful. A Doppler ultrasound may be utilized for further evaluation of the middle and left hepatic vein.Pressure measurements: Wedge hepatic 33 mmHg. Free hepatic 3 mmHg. Inferior vena cava 2 mmHg. Right atrium 1 mm Hg. Portosystemic gradient 30 mmHg. Following pressure measurements, the sheath and catheter were removed. Adequate pressure was applied to achieve hemostasis.The patient tolerated the procedure well. There were no other complications during the procedure.CONCLUSION: The patient was comfortable and was transferred to the recovery room in stable condition.Estimated Blood Loss: MinimalNumber and Type of Removed Specimens: 0: Surgical pathologyATTENDING RADIOLOGIST: Michelle Humphries MDASSISTANT: NoneThe procedure was performed by the:Michelle Humphries MDThe attending radiologist performed the following procedural activities: Entire procedureIMPRESSION:WIDEL Y PATENT RIGHT HEPATIC VEIN. PORTAL HYPERTENSION WITH PORTOSYSTEMIC GRADIENT OF 30 MMHG. LEFT AND MIDDLE HEPATIC VEINS COULD NOT BE CANNULATED. DOPPLER ULTRASOUND MAY BEUTILIZED TO CONFIRM PATENCY OF THESE VEINS, IF CLINICALLY INDICATED.Transcriptionis t: PSCB Transcribe Date/Time: Feb 01 2018 4:12PDictated by : MICHELLE HUMPHRIES MDThis examination was interpreted and the report reviewed and electronically signed by: MICHELLE HUMPHRIES MD on Feb 01 2018 4:54PM [id number] [facility] PT EDon 02-01-2018 PT ED HNO ID: [id number] thor: Aline (Rn) AMERICO Mcneilervice: NursingAuthor Type: Registered NurseType: Patient EducationFiled: 02/01/2018 4:53 PMNote Text:POST OP LEARNING RESPONSEINSTRUCTION PROVIDED TO: Patient and Significant OtherMETHOD OF INSTRUCTION: Individual instructionWritten instruction - handoutsVerbal instructionPATIENT / FAMILY RESPONSE: Verbalizes understanding of: POST-PROCEDUREINSTRUCTION S-Correct actions to take to reduce post procedurecomplicationsFOL LOW-UP PLAN: Patient instructed to call with any further issuesSUPPLEMENTAL MATERIAL: NoneREFERRAL (RECOMMENDATION): NoneElectronically Signed By: Aline Mcneil RN [facility] PT ED HNO ID: [id number] thor: Komal DenisRn) AMERICO Wildeervice: NursingAuthor Type: Registered NurseType: Patient EducationFiled: 02/01/2018 1:52 PMNote Text:PRE OP LEARNING ASSESSMENTPROCEDURE/SURGE RY: SURGERY: hepatic venographyREADINESS TO LEARNCOGNITIVE ABILITY: Alert and orientedMOTIVATION TO LEARN: EagerFAMILY SUPPORT: High - Very involved in pt carePATIENT LEARNS BEST BY: Individual InstructionWritten Instruction - Hand-outsVerbal InstructionFACTORS AFFECTING LEARNING: NonePHYSICAL LIMITATIONS AFFECTING LEARNING: NoneElectronically Signed By: Komal Wilde RN [facility] HOSPon 01-25-2018 HOSP Patient:Emiliano Ruffin JMRN: Height:5' 2.25 (1.581 m)Weight:202 lb (91.627 kg)Outpatient Medications as of 02/01/18:ranitidine (ZANTAC) 150 mg tabletmidodrine (PROAMITINE) 5 mg tabletIbuprofen 100 mg tabletzoster vaccine, recombinant, adjuvanted, (SHINGRIX, PF,) 50 mcg/0.5 mL injectionlactulose (DUPHALAC, CONSTULOSE) 20 gram/30 mL solutioniv contrast (will be provided with radiology test)rifAXIMin (RIFAXIMIN) 550 mg tabpropranolol (INDERAL) 10 mg tabletondansetron (ZOFRAN) 8 mg tabletfurosemide (LASIX) 40 mg tabletspironolactone (ALDACTONE) 100 mg tabletrOPINIRole (REQUIP) 1 mg tabletAdmission/Clinic Administered Medications as of 02/01/18:Patient has no admission medications.Problem List:Bilateral hand pain [M79.641, M79.642]Hip pain, bilateral [M25.551, M25.552]Cervicalgia [M54.2]Vitamin D deficiency [E55.9]Myalgia [M79.10]Synovitis of hand [M65.9]Lumbago without sciatica [M54.5]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]Osteopenia [M85.80]Ganglion cyst [M67.40]Morbid obesity (HCC) [E66.01]HTN (hypertension) [I10]RLS (restless legs syndrome) [G25.81]YOVANNY (obstructive sleep apnea) [G47.33]Hepatitis [K75.9]Thrombocytopenia (HCC) [D69.6]Unintentional weight change [R68.89]Platelet dysfunction (HCC) [D69.1]OA (osteoarthritis) of knee [M17.10]Cirrhosis of liver with ascites (HCC) [K74.60, R18.8]Biliary dyskinesia [K82.8]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 Patient stated that she is aware ofappointments. Informed her that the [place] is scheduled in [place]. Informedher that [facility] will contact her about the appointment time prior to 02/01.Patient verbalized understanding to all.Progress Notes ([facility] MAIN):Lizzie Lake Masking Machine Operator 01/28/2018 9:00 AM SignedPatient calling in today in regards to her nurse visit scheduled for 01/29. Shestates she is unsure what this is for as she was to wait for vaccinations untilafter her venography which is scheduled for 02/01. She also states she receivedher pneumonia vaccination from her primary care physician. She can be reached [phone].Lizzie Lake Masking Machine Operator Normal [facility] Electrolyteson 09-18-2017 Anion gap 8 mmol/L Low 11-19 [facility] Comment on above: Performed By: #### P T, LIVP, LYTE ####[address] [place] [address] Chloride 104 mmol/L Normal 98-107 [facility] Comment on above: Performed By: #### P T, LIVP, LYTE ####[address] [place] [address] CO2 26 mmol/L Normal 20-31 [facility] Comment on above: Performed By: #### P T, LIVP, LYTE ####[address] [place] [address] Potassium molar conc 4.7 mmol/L Normal 3.7-5.3 [facility] Comment on above: Performed By: #### P T, LIVP, LYTE ####[address] [place] [address] Sodium 138 mmol/L Normal 135-144 [facility] Comment on above: Performed By: #### P T, LIVP, LYTE ####[address] [place] [address] Liver Profileon 09-18-2017 Alanine aminotransferase (ALT) 61 U/L High 5-33 [facility] Comment on above: Performed By: #### P T, LIVP, LYTE ####[address] [place] [address] Albumin 3.1 g/dL Low 3.5-5.2 [facility] Comment on above: Performed By: #### P T, LIVP, LYTE ####[address] [place] [id number] Albumin/Globulin Ratio 0.8 {ratio} Low 1.0-2.5 M [facility] Comment on above: Performed By: #### P T, LIVP, LYTE ####[address] [place] [address] Alkaline Phos 131 U/L High 35-104 [facility] Comment on above: Performed By: #### P T, LIVP, LYTE ####[address] [place] [address] Aspartate aminotransferase (AST) 94 U/L High <32 [facility] Comment on above: Performed By: #### P T, LIVP, LYTE ####[address] [place] [address] Bilirubin (direct) 0.46 mg/dL High <0.31 [facility] Comment on above: Performed By: #### P T, LIVP, LYTE ####[address] [place] [address] Bilirubin Ql (U) 1.32 mg/dL High 0.3-1.2 [facility] Comment on above: Performed By: #### P T, LIVP, LYTE ####[address] [place] [address] Bilirubin, Indirect 0.86 mg/dL Normal 0.00-1.00 [facility] Comment on above: Performed By: #### P T, LIVP, LYTE ####[address] [place] [address] Protein 7.0 g/dL Normal 6.4-8.3 [facility] Comment on above: Performed By: #### P T, LIVP, LYTE ####[address] [place] [address] Globulin NOT REPORTED Normal 1.5-3.8 [facility] Comment on above: Performed By: #### P T, LIVP, LYTE ####[address] [place] [address] PTon 09-18-2017 INR Coag RelTime (PPP) 1.4 {INR} High 0.9-1.2 [facility] Comment on above: Performed By: #### P T, LIVP, LYTE ####[address] [place] [address] Prothrombin time (PT) Coag time (PPP) 14.3 s High 9.7-12.2 [facility] Comment on above: Performed By: #### P T, LIVP, LYTE ####[address] [place] [address] Ammoniaon 07-27-2017 Ammonia 68 umol/L High 11-51 [facility] Comment on above: Result Comment: Perf ormed at [facility] [address] [place] [address] Performed By: #### C DP, BMP, LIP, LIVP, TROPI ####[facility] [place] [address] Bilirubin, Directon 20 18 Bilirubin (direct) 0.58 mg/dL High <0.31 [facility] Comment on above: Result Comment: Perf ormed at [place] [id number] [place] [address] Performed By: #### C DP, BMP, LIP, LIVP, TROPI ####[facility] [place] [address] CBCon 07-27-2017 Erythrocyte distribution width Auto Ratio (RBC) 16.3 % High 11.5-14.9 [facility] Comment on above: Performed By: #### C DP, BMP, LIP, LIVP, TROPI ####[address] [address] Erythrocytes (RBC) 3.79 10*6/uL Low 4.0-5.2 [facility] Comment on above: Performed By: #### C DP, BMP, LIP, LIVP, TROPI ####[address] [address] Hematocrit (HCT) 39.6 % Normal 36-[address] [facility] Comment on above: Performed By: #### C DP, BMP, LIP, LIVP, TROPI ####[place] [address] [place] [address] Hemoglobin mass conc (Bld) 13.8 g/dL Normal 12.0-16.0 [facility] Comment on above: Performed By: #### C DP, BMP, LIP, LIVP, TROPI ####[address] [facility] [place] [address] MCH 36.3 pg High 26-34 [facility] Comment on above: Performed By: #### C DP, BMP, LIP, LIVP, TROPI ####[address] [place] [address] MCHC mass conc (RBC) 34.7 g/dL Normal 31-37 [facility] Comment on above: Performed By: #### C DP, BMP, LIP, LIVP, TROPI ####[address] [place] [address] MCV 104.6 fL High 80-100 [facility] Comment on above: Performed By: #### C DP, BMP, LIP, LIVP, TROPI ####[facility] [place] [address] Platelet mean volume (PMV) 9.0 fL Normal 6.0-12.0 [facility] Comment on above: Result Comment: Perf ormed at [facility] [address] [place] [address] Performed By: #### C DP, BMP, LIP, LIVP, TROPI ####[address] [place] [address] Platelets 83 10*3/uL Low 150-450 [facility] Comment on above: Performed By: #### C DP, BMP, LIP, LIVP, TROPI ####[facility] [place], [place] [address] [place] [address] WBC (Leukocytes) 7.1 10*3/uL Normal 3.5-11.0 [facility] Comment on above: Performed By: #### C DP, BMP, LIP, LIVP, TROPI ####[facility] [facility] [place] [address] Erythrocytes (RBC) NOT REPORTED Normal [facility] Comment on above: Performed By: #### C DP, BMP, LIP, LIVP, TROPI ####[facility] [place] [address] Comp Metabolic Pr/rfx MGon 0 07-27-2017 (cont.) Normal [facility] Comment on above: Result Comment: Aver age GFR for 60-69 years old: 85 mL/min/1.73sq mChronic Kidney Disease: <60 mL/min/1.73sq mKidney failure: <15 mL/min/1.73sq meGFR calculated using average adult body mass. Additional eGFR calculator available at:http://www.ItsGoinOn.com/multiple_crcl_2012.htmPerformed at [facility] [address] [place] [address] Performed By: #### C DP, BMP, LIP, LIVP, TROPI ####[address] [place] [address] Alanine aminotransferase (ALT) 64 U/L High 5-33 [facility] Comment on above: Performed By: #### C DP, BMP, LIP, LIVP, TROPI ####[address] [place] [address] Albumin 2.9 g/dL Low 3.5-5.2 [facility] Comment on above: Performed By: #### C DP, BMP, LIP, LIVP, TROPI ####[address] [place] [address] Alkaline Phos 126 U/L High 35-104 [facility] Comment on above: Performed By: #### C DP, BMP, LIP, LIVP, TROPI ####[facility] [facility] [place] [address] Anion gap 11 mmol/L Normal 9-17 [facility] Comment on above: Performed By: #### C DP, BMP, LIP, LIVP, TROPI ####[address] [address] Aspartate aminotransferase (AST) 95 U/L High <32 [facility] Comment on above: Performed By: #### C DP, BMP, LIP, LIVP, TROPI ####[address] [place] [address] Bilirubin Ql (U) 2.05 mg/dL High 0.3-1.[address] [facility] Comment on above: Performed By: #### C DP, BMP, LIP, LIVP, TROPI ####[facility] [facility] [place] [address] Calcium 8.5 mg/dL Low 8.6-10.4 [facility] Comment on above: Performed By: #### C DP, BMP, LIP, LIVP, TROPI ####[address] [place] [address] Chloride 98 mmol/L Normal 98-107 [facility] Comment on above: Performed By: #### C DP, BMP, LIP, LIVP, TROPI ####[address] [address] CO2 24 mmol/L Normal 20-31 [facility] Comment on above: Performed By: #### C DP, BMP, LIP, LIVP, TROPI ####[address] [address] Creatinine 0.93 mg/dL High 0.50-0.90 [facility] Comment on above: Performed By: #### C DP, BMP, LIP, LIVP, TROPI ####[address] [address] eGFR (non-black) mL/min/{1.73_m2} Normal >60 [facility] Comment on above: Performed By: #### C DP, BMP, LIP, LIVP, TROPI ####[address] [address] eGFR (non-black) 60 mL/min/{1.73_m2} Low >60 [facility] Comment on above: Performed By: #### C DP, BMP, LIP, LIVP, TROPI ####[address] [address] Glucose mass conc 114 mg/dL High 70-99 [facility] Comment on above: Performed By: #### C DP, BMP, LIP, LIVP, TROPI ####[facility] [place] [address] Potassium molar conc 4.2 mmol/L Normal 3.7-5.3 [facility] Comment on above: Performed By: #### C DP, BMP, LIP, LIVP, TROPI ####[facility] [place] [address] Protein 6.8 g/dL Normal 6.4-8.3 [facility] Comment on above: Performed By: #### C DP, BMP, LIP, LIVP, TROPI ####[address] [place] [address] Sodium 133 mmol/L Low 135-144 [facility] Comment on above: Performed By: #### C DP, BMP, LIP, LIVP, TROPI ####[facility] [place] [address] Urea nitrogen 18 mg/dL Normal 8-23 [facility] Comment on above: Performed By: #### C DP, BMP, LIP, LIVP, TROPI ####[facility] [address] Albumin/Globulin Ratio NOT REPORTED Normal 1.0-2.5 [facility] Comment on above: Performed By: #### C DP, BMP, LIP, LIVP, TROPI ####[place] [address] [place] [address] BUN/CRE Ratio NOT REPORTED Normal 9-20 [facility] Comment on above: Performed By: #### C DP, BMP, LIP, LIVP, TROPI ####[facility] [place] [address] Staging: NOT REPORTED Normal [facility] Comment on above: Performed By: #### C DP, BMP, LIP, LIVP, TROPI ####[facility] [place] [address] Ammoniaon 07-26-2017 Ammonia 51 umol/L Normal 11-51 [facility] Comment on above: Result Comment: Perf ormed at [facility] [address] [place] [address] Performed By: #### C DP, BMP, LIP, LIVP, TROPI ####[facility] [place] [address] CBCon 2018 Erythrocyte distribution width Auto Ratio (RBC) 16.5 % High 11.5-14.9 [facility] Comment on above: Performed By: #### LENNIE Limon DAU ####[facility] [place] [address] Erythrocytes (RBC) 3.82 10*6/uL Low 4.0-5.2 [facility] Comment on above: Performed By: #### U LENNIE Massey JOSE RAUL ####[facility] [place] [address] Hematocrit (HCT) 40.1 % Normal 36-[address] [facility] Comment on above: Performed By: #### U ALENNIE JOSE RAUL ####[facility] [place] [address] Hemoglobin mass conc (Bld) 13.6 g/dL Normal 12.0-16.0 [facility] Comment on above: Performed By: #### U ALENNIE JOSE RAUL ####[facility] [place] [address] MCH 35.6 pg High 26-34 [facility] Comment on above: Performed By: #### LENNIE Limon DAU ####[address] [address] MCHC mass conc (RBC) 34.0 g/dL Normal 31-37 [facility] Comment on above: Performed By: #### LENNIE Limon DAU ####[address] [address] MCV 105.0 fL High 80-100 [facility] Comment on above: Performed By: #### LENNIE Limon DAU ####[address] [address] Platelet mean volume (PMV) 8.9 fL Normal 6.0-12.0 [facility] Comment on above: Result Comment: Perf ormed at [facility] [address] [place] [address] Performed By: #### LENNIE Limon DAU ####[address] [address] Platelets 77 10*3/uL Low 150-450 [facility] Comment on above: Performed By: #### LENNIE Limon DAU ####[address] [address] WBC (Leukocytes) 8.8 10*3/uL Normal 3.5-11.0 [facility] Comment on above: Performed By: #### LENNIE Limon DAU ####[place] [address] [place] [address] Erythrocytes (RBC) NOT REPORTED Normal [facility] Comment on above: Performed By: #### LENNIE Limon DAU ####[address] [place] [address] Comp Metabolic Pr/rfx MGon 0 - (cont.) Normal [facility] Comment on above: Result Comment: Aver age GFR for 60-69 years old: 85 mL/min/1.73sq mChronic Kidney Disease: <60 mL/min/1.73sq mKidney failure: <15 mL/min/1.73sq meGFR calculated using average adult body mass. Additional eGFR calculator available at:http://www.Lavaboom/multiple_crcl_2012.htmPerformed at [facility] [address] [place] [address] Performed By: #### LENNIE Limon JOSE RAUL ####[address] [place] [address] Alanine aminotransferase (ALT) 61 U/L High 5-33 [facility] Comment on above: Performed By: #### LENNIE Limon JOSE RAUL ####[place] [address] [facility] [place] [address] Albumin 2.8 g/dL Low 3.5-5.2 [facility] Comment on above: Performed By: #### U ALENNIE JOSE RAUL ####[facility] [facility] [place] [address] Alkaline Phos 137 U/L High 35-104 [facility] Comment on above: Performed By: #### U ALENNIE JOSE RAUL ####[facility] [facility] [place] [address] Anion gap 8 mmol/L Low 9-17 [facility] Comment on above: Performed By: #### U A, LENNIE JOSE RAUL ####[place] [address] [facility] [place] [address] Aspartate aminotransferase (AST) 90 U/L High <32 [facility] Comment on above: Performed By: #### LENNIE Limon DAU ####[address] [place] [address] Bilirubin Ql (U) 1.30 mg/dL High 0.3-1.[address] [facility] Comment on above: Performed By: #### LENNIE Limon DAU ####[address] [address] Calcium 8.7 mg/dL Normal 8.6-10.4 [facility] Comment on above: Performed By: #### LENNIE Limon DAU ####[address] [place] [address] Chloride 99 mmol/L Normal 98-107 [facility] Comment on above: Performed By: #### LENNIE Limon DAU ####[address] [address] CO2 25 mmol/L Normal 20-31 [facility] Comment on above: Performed By: #### LENNIE Limon DAU ####[address] [address] Creatinine 1.16 mg/dL High 0.50-0.90 [facility] Comment on above: Performed By: #### LENNIE Limon DAU ####[address] [place] [address] eGFR (non-black) 56 mL/min/{1.73_m2} Low >60 [facility] Comment on above: Performed By: #### U LENNIE Massey DAU ####[facility] [place] [address] eGFR (non-black) 46 mL/min/{1.73_m2} Low >60 [facility] Comment on above: Performed By: #### LENNIE Limon DAU ####[facility] [place] [address] Glucose mass conc 96 mg/dL Normal 70-99 [facility] Comment on above: Performed By: #### LENNIE Limon DAU ####[facility] [place] [address] Potassium molar conc 4.2 mmol/L Normal 3.7-5.3 [facility] Comment on above: Performed By: #### LENNIE Limon DAU ####[facility] [place] [address] Protein 6.5 g/dL Normal 6.4-8.3 [facility] Comment on above: Performed By: #### LENNIE Limon DAU ####[facility] [place] [address] Sodium 132 mmol/L Low 135-144 [facility] Comment on above: Performed By: #### LENNIE Limon DAU ####[facility] [place] [address] Urea nitrogen 22 mg/dL Normal 8-23 [facility] Comment on above: Performed By: #### LENNIE Limon JOSE RAUL ####[facility] [place] [address] Albumin/Globulin Ratio NOT REPORTED Normal 1.0-2.5 [facility] Comment on above: Performed By: #### LENNIE Limon JOSE RAUL ####[facility] [place] [address] BUN/CRE Ratio NOT REPORTED Normal 9-20 [facility] Comment on above: Performed By: #### LENNIE Limon DAU ####[facility] [place] [address] Staging: NOT REPORTED Normal [facility] Comment on above: Performed By: #### LENNIE Limon DAU ####[facility] [place] [address] Ammoniaon 07-25-2017 Ammonia 69 umol/L High 11-51 [facility] Comment on above: Result Comment: Perf ormed at [facility] [address] [place] [address] Performed By: #### LENNIE Limon DAU ####[address] [address] CBCon 07-25-2017 Erythrocyte distribution width Auto Ratio (RBC) 17.0 % High 11.5-14.9 [facility] Comment on above: Performed By: #### LENNIE Limon DAU ####[address] [address] Erythrocytes (RBC) 4.01 10*6/uL Normal 4.0-5.2 [facility] Comment on above: Performed By: #### LENNIE Limon DAU ####[address] [address] Hematocrit (HCT) 41.5 % Normal 36-[address] [facility] Comment on above: Performed By: #### LENNIE Limon DAU ####[address] [place] [address] Hemoglobin mass conc (Bld) 14.4 g/dL Normal 12.0-16.0 [facility] Comment on above: Performed By: #### LENNIE Limon DAU ####[facility] [facility] [place] [address] MCH 36.0 pg High 26-34 [facility] Comment on above: Performed By: #### LENNIE Limon DAU ####[facility] [facility] [place] [address] MCHC mass conc (RBC) 34.7 g/dL Normal 31-37 [facility] Comment on above: Performed By: #### LENNIE Limon DAU ####[facility] [facility] [place] [address] MCV 103.7 fL High 80-100 [facility] Comment on above: Performed By: #### LENNIE Limon DAU ####[facility] [place] [address] Platelet mean volume (PMV) 9.0 fL Normal 6.0-12.0 [facility] Comment on above: Result Comment: Perf ormed at [facility] [address] [place] [address] Performed By: #### LENNIE Limon DAU ####[facility] [place] [address] Platelets 86 10*3/uL Low 150-450 [facility] Comment on above: Performed By: #### LENNIE Limon DAU ####[facility] [place] [address] WBC (Leukocytes) 9.1 10*3/uL Normal 3.5-11.0 [facility] Comment on above: Performed By: #### LENNIE Limon DAU ####[facility] [place] [address] Erythrocytes (RBC) NOT REPORTED Normal [facility] Comment on above: Performed By: #### LENNIE Limon DAU ####[address] [address] Comp Metabolic Pr/rfx MGon 0 07-25-2017 (cont.) Normal [facility] Comment on above: Result Comment: Aver age GFR for 60-69 years old: 85 mL/min/1.73sq mChronic Kidney Disease: <60 mL/min/1.73sq mKidney failure: <15 mL/min/1.73sq meGFR calculated using average adult body mass. Additional eGFR calculator available at:http://www.Lavaboom/multiple_crcl_2012.htmPerformed at [facility] [address] [place] [address] Performed By: #### LENNIE Limon DAU ####[address] [address] Alanine aminotransferase (ALT) 68 U/L High 5-33 [facility] Comment on above: Performed By: #### LENNIE Limon DAU ####[address] [place] [address] Albumin 3.1 g/dL Low 3.5-5.2 [facility] Comment on above: Performed By: #### LENNIE Limon DAU ####[address] [place] [address] Alkaline Phos 174 U/L High 35-104 [facility] Comment on above: Performed By: #### LENNIE Limon DAU ####[address] [address] Anion gap 12 mmol/L Normal 9-17 [facility] Comment on above: Performed By: #### LENNIE Limon DAU ####[facility] [facility] [place] [address] Aspartate aminotransferase (AST) 100 U/L High <32 [facility] Comment on above: Performed By: #### LENNIE Limon DAU ####[facility] [place] [address].[place] [address] Bilirubin Ql (U) 1.35 mg/dL High 0.3-1.[address] [facility] Comment on above: Performed By: #### LENNIE Limon DAU ####[facility] [place] [address] Calcium 8.8 mg/dL Normal 8.6-10.4 [facility] Comment on above: Performed By: #### LENNIE Limon DAU ####[address] [address] Chloride 98 mmol/L Normal 98-107 [facility] Comment on above: Performed By: #### LENNIE Limon DAU ####[address] [place] [address] CO2 24 mmol/L Normal 20-31 [facility] Comment on above: Performed By: #### LENNIE Limon DAU ####[facility] [place] [address] Creatinine 1.14 mg/dL High 0.50-0.90 [facility] Comment on above: Performed By: #### LENNIE Limon DAU ####[address] [address] eGFR (non-black) 47 mL/min/{1.73_m2} Low >60 [facility] Comment on above: Performed By: #### LENNIE Limon DAU ####[facility] [facility] [address] eGFR (non-black) 57 mL/min/{1.73_m2} Low >60 [facility] Comment on above: Performed By: #### LENNIE Limon DAU ####[facility] [place] [address].[place] [address] Glucose mass conc 122 mg/dL High 70-99 [facility] Comment on above: Performed By: #### LENNIE Limon DAU ####[address] [address] Potassium molar conc 4.3 mmol/L Normal 3.7-5.3 [facility] Comment on above: Performed By: #### LENNIE Limon DAU ####[address] [address] Protein 7.3 g/dL Normal 6.4-8.3 [facility] Comment on above: Performed By: #### LENNIE Limon DAU ####[address] [address] Sodium 134 mmol/L Low 135-144 [facility] Comment on above: Performed By: #### LENNIE Limon DAU ####[facility] [place] [address] Urea nitrogen 23 mg/dL Normal 8-23 [facility] Comment on above: Performed By: #### LENNIE Limon DAU ####[address] [address] Albumin/Globulin Ratio NOT REPORTED Normal 1.0-2.5 [facility] Comment on above: Performed By: #### LENNIE Limon DAU ####[facility] [place] [address] BUN/CRE Ratio NOT REPORTED Normal -20 [facility] Comment on above: Performed By: #### LENNIE Limon DAU ####[facility] [place] [address] Staging: NOT REPORTED Normal [facility] Comment on above: Performed By: #### LENNIE Limon DAU ####[facility] [place] [address] PTon 07-25-2017 INR Coag RelTime (PPP) 1.3 {INR} Normal [facility] Comment on above: Result Comment: Non- therapeutic Range: INR = 0.9- 1.2Therapeutic Range: Moderate Anticoagulant Intensity: INR = 2.0-3.0 High Anticoagulant Intensity: INR = 2.5-3.5Performed at [facility] [address] [facility] [place] [address] Performed By: #### LENNIE Limon DAU ####[facility] [facility] [place] [address] Prothrombin time (PT) Coag time (PPP) 13.3 s High 9.7-12.0 [facility] Comment on above: Performed By: #### LENNIE Limon DAU ####[facility] [facility] [place] [address] US ABDOMEN LIMITEDon 018 US ABDOMEN LIMITED EXAMINATION:LIMITED ABDOMINAL ULTRASOUND07/25/2017 1:56 pmCOMPARISON:06/10/2017HI STORY:ORDERING SYSTEM PROVIDED HISTORY: ASCITESTECHNOLOGIST PROVIDED HISTORY:Reason for exam:->ascitesOrdering Physician Provided Reason for Exam: ascitesAcuity: AcuteType of Exam: InitialCIRRHOSIS, CHECK FOR ASCITESFINDINGS:Survey scanning of the abdomen was performed and shows no significantascites. Liver has a cirrhotic appearance. The gallbladder is distended.IMPRESSION: No evidence of ascites.Incidental distended gallbladder.Interpreted by:ASIM Rodriguezigned by:Eduardo Kee MD07/25/inal result Normal [facility] Ammoniaon 07-24-2017 Ammonia 64 umol/L High 11-51 [facility] Comment on above: Result Comment: Perf ormed at [id number] [place] [address] Performed By: #### U LENNIE Massey JOSE RAUL ####[address] [address] Basic Metabolic Profon 07-24 (cont.) Normal [facility] Comment on above: Result Comment: Aver age GFR for 60-69 years old: 85 mL/min/1.73sq mChronic Kidney Disease: <60 mL/min/1.73sq mKidney failure: <15 mL/min/1.73sq meGFR calculated using average adult body mass. Additional eGFR calculator available at:http://www.ItsGoin[employer]/multiple_crcl_2012.htmPerformed at [place] [address] [place] [address] Performed By: #### U ALENNIE JOSE RAUL ####[facility] [place] [address] Anion gap 9 mmol/L Normal 9-17 [facility] Comment on above: Performed By: #### U ALENNIE JOSE RAUL ####[facility] [place] [address] Calcium 9.2 mg/dL Normal 8.6-10.4 [facility] Comment on above: Performed By: #### U A UMICAO JOSE RAUL ####[address] [facility] [place] [address] Chloride 98 mmol/L Normal 98-107 [facility] Comment on above: Performed By: #### LENNIE Limon DAU ####[facility] [facility] [place] [address] CO2 26 mmol/L Normal 20-31 [facility] Comment on above: Performed By: #### LENNIE Limon DAU ####[facility] [place] [address].[place] [address] Creatinine 1.01 mg/dL High 0.50-0.90 [facility] Comment on above: Performed By: #### LENNIE Limon DAU ####[facility] [place] [address].[place] [address] eGFR (non-black) 55 mL/min/{1.73_m2} Low >60 [facility] Comment on above: Performed By: #### LENNIE Limon DAU ####[facility] [place] [address] eGFR (non-black) mL/min/{1.73_m2} Normal >60 [facility] Comment on above: Performed By: #### LENNIE Limon JOSE RAUL ####[facility] [place] [address].[place] [address] Glucose mass conc 109 mg/dL High 70-99 [facility] Comment on above: Performed By: #### U LENNIE Massey JOSE RAUL ####[facility] [place] [address].[place] [address] Potassium molar conc 4.9 mmol/L Normal 3.7-5.3 [facility] Comment on above: Performed By: #### U ALENNIE JOSE RAUL ####[facility] [place] [address].[place] [address] Sodium 133 mmol/L Low 135-144 [facility] Comment on above: Performed By: #### LENNIE Limon DAU ####[address] [place] [address] Urea nitrogen 25 mg/dL High 8-23 [facility] Comment on above: Performed By: #### LENNIE Limon DAU ####[address] [place] [address] BUN/CRE Ratio NOT REPORTED Normal 9-20 [facility] Comment on above: Performed By: #### LENNIE Limon DAU ####[address] [address] Staging: NOT REPORTED Normal [facility] Comment on above: Performed By: #### LENNIE Limon DAU ####[address] [address] CBCon 07-24-2017 Erythrocyte distribution width Auto Ratio (RBC) 16.7 % High 11.5-14.9 [facility] Comment on above: Performed By: #### LENNIE Limon DAU ####[address] [address] Erythrocytes (RBC) 3.84 10*6/uL Low 4.0-5.2 [facility] Comment on above: Performed By: #### LENNIE Limon DAU ####[facility] [place] [address] Hematocrit (HCT) 39.6 % Normal 36-[address] [facility] Comment on above: Performed By: #### LENNIE Limon DAU ####[address] [address] Hemoglobin mass conc (Bld) 13.6 g/dL Normal 12.0-16.0 [facility] Comment on above: Performed By: #### ELNNIE Limon DAU ####[facility] [place] [address] MCH 35.5 pg High 26-34 [facility] Comment on above: Performed By: #### LENNIE Limon DAU ####[facility] [place] [address] MCHC mass conc (RBC) 34.4 g/dL Normal 31-37 [facility] Comment on above: Performed By: #### LENNIE Limon DAU ####[address] [address] MCV 103.3 fL High 80-100 [facility] Comment on above: Performed By: #### LENNIE Limon DAU ####[facility] [place] [address] Platelet mean volume (PMV) 8.8 fL Normal 6.0-12.0 [facility] Comment on above: Result Comment: Perf ormed at [facility] [address] [facility] [place] [address] Performed By: #### LENNIE Limon DAU ####[facility] [place] [address] Platelets 84 10*3/uL Low 150-450 [facility] Comment on above: Performed By: #### LENNIE Limon DAU ####[address] [address] WBC (Leukocytes) 9.7 10*3/uL Normal 3.5-11.0 [facility] Comment on above: Performed By: #### LENNIE Limon DAU ####[facility] [facility] [place] [address] Erythrocytes (RBC) NOT REPORTED Normal [facility] Comment on above: Performed By: #### LENNIE Limon DAU ####[address] [address] Liver Profileon 07-24-2017 Alanine aminotransferase (ALT) 65 U/L High 5-33 [facility] Comment on above: Performed By: #### LENNIE Limon DAU ####[address] [address] Albumin 2.9 g/dL Low 3.5-5.2 [facility] Comment on above: Performed By: #### LENNIE Limon DAU ####[address] [address] Alkaline Phos 150 U/L High 35-104 [facility] Comment on above: Performed By: #### LENNIE Limon DAU ####[address] [address] Aspartate aminotransferase (AST) 95 U/L High <32 [facility] Comment on above: Performed By: #### LENNIE Limon DAU ####[address] [address] Bilirubin (direct) 0.50 mg/dL High <0.31 [facility] Comment on above: Performed By: #### LENNIE Limon DAU ####[address] [address] Bilirubin Ql (U) 1.54 mg/dL High 0.3-1.[address] [facility] Comment on above: Performed By: #### LENNIE Limon DAU ####[facility] [place] [address] Bilirubin, Indirect 1.04 mg/dL High 0.00-1.00 [facility] Comment on above: Performed By: #### LENNIE Limon JOSE RAUL ####[facility] [place] [address] Protein 7.0 g/dL Normal 6.4-8.3 [facility] Comment on above: Result Comment: Perf ormed at [facility] [address] [facility] [place] [address] Performed By: #### LENNIE Limon JOSE RAUL ####[facility] [place] [address] Albumin/Globulin Ratio NOT REPORTED Normal 1.0-2.5 [facility] Comment on above: Performed By: #### LENNIE Limon JOSE RAUL ####[facility] [place] [address] Globulin NOT REPORTED Normal 1.5-3.8 [facility] Comment on above: Performed By: #### LENNIE Limon JOSE RAUL ####[facility] [facility] [address] Ammoniaon 07-21-2017 Ammonia 146 umol/L Critically high 11-51 [facility] Comment on above: Result Comment: Perf ormed at [facility] [address] [facility] [place] [address] Performed By: #### LENNIE Limon JOSE RAUL ####[facility] [facility] [place] [address] Basic Metabolic Profon 07-21 (cont.) Normal [facility] Comment on above: Result Comment: Aver age GFR for 60-69 years old: 85 mL/min/1.73sq mChronic Kidney Disease: <60 mL/min/1.73sq mKidney failure: <15 mL/min/1.73sq meGFR calculated using average adult body mass. Additional eGFR calculator available at:http://www.Lavaboom/multiple_crcl_2012.htmPerformed at [facility] [address] [facility] [place] [address] Performed By: #### LENNIE Limon DAU ####[facility] [facility] [place] [address] Anion gap 12 mmol/L Normal 9-17 [facility] Comment on above: Performed By: #### LENNIE Limon DAU ####[address] [facility] [place] [address] Calcium 9.3 mg/dL Normal 8.6-10.4 [facility] Comment on above: Performed By: #### LENNIE Limon JOSE RAUL ####[facility] [facility] [place] [address] Chloride 97 mmol/L Low 98-107 [facility] Comment on above: Performed By: #### U ALENNIE JOSE RAUL ####[facility] [facility] [place] [address] CO2 23 mmol/L Normal 20-31 [facility] Comment on above: Performed By: #### U ALENNIE JOSE RAUL ####[facility] [facility] [place] [address] Creatinine 1.21 mg/dL High 0.50-0.90 [facility] Comment on above: Performed By: #### U ALENNIE JOSE RAUL ####[facility] [facility] [facility] [address] eGFR (non-black) 44 mL/min/{1.73_m2} Low >60 [facility] Comment on above: Performed By: #### LENNIE Limon DAU ####[facility] [place] [address] eGFR (non-black) 54 mL/min/{1.73_m2} Low >60 [facility] Comment on above: Performed By: #### LENNIE Limon JOSE RAUL ####[facility] [place] [address] Glucose mass conc 100 mg/dL High 70-99 [facility] Comment on above: Performed By: #### LENNIE Limon JOSE RAUL ####[facility] [place] [address] Potassium molar conc 4.2 mmol/L Normal 3.7-5.3 [facility] Comment on above: Performed By: #### LENNIE Limon DAU ####[facility] [place] [address] Sodium 132 mmol/L Low 135-144 [facility] Comment on above: Performed By: #### LENNIE Limon JOSE RAUL ####[facility] [place] [address] Urea nitrogen 26 mg/dL High 8-23 [facility] Comment on above: Performed By: #### U ALENNIE JOSE RAUL ####[facility] [place] [address] BUN/CRE Ratio NOT REPORTED Normal 9-20 [facility] Comment on above: Performed By: #### U ALENNIE, JOSE RAUL ####[facility] [place] [address] Staging: NOT REPORTED Normal [facility] Comment on above: Performed By: #### LENNIE Limon DAU ####[address] [address] CBC with Diffon 07-21-2017 Abs. Basophil 0.00 k/uL Normal 0.0-0.2 [facility] Comment on above: Result Comment: Perf ormed at [facility] [address] [place] [address] Performed By: #### LENNIE Limon DAU ####[facility] [place] [address] Abs.Neutrophil (Seg) 6.30 k/uL Normal 1.3-9.1 [facility] Comment on above: Performed By: #### LENNIE Limon DAU ####[address] [address] Basophils/100 WBC Auto (Bld) 1 % Normal 0-2 [facility] Comment on above: Performed By: #### LENNIE Limon DAU ####[address] [address] Eosinophils 0.20 10*3/uL Normal 0.0-0.4 [facility] Comment on above: Performed By: #### LENNIE Limon DAU ####[address] [address] Eosinophils/100 leukocytes 2 % Normal 0-4 [facility] Comment on above: Performed By: #### LENNIE Limon DAU ####[address] [address] Erythrocyte distribution width Auto Ratio (RBC) 17.0 % High 11.5-14.9 [facility] Comment on above: Performed By: #### LENNIE Limon DAU ####[facility] [place] [address] Erythrocytes (RBC) 4.04 10*6/uL Normal 4.0-5.2 [facility] Comment on above: Performed By: #### LENNIE Limon DAU ####[facility] [place] [address] Hematocrit (HCT) 42.1 % Normal 36-[address] [facility] Comment on above: Performed By: #### LENNIE Limon DAU ####[address] [place] [address] Hemoglobin mass conc (Bld) 14.6 g/dL Normal 12.0-16.0 [facility] Comment on above: Performed By: #### LENNIE Limon DAU ####[facility] [place], [place] [address] [facility] [place] [address] Lymphocytes 2.00 10*3/uL Normal 1.0-4.8 [facility] Comment on above: Performed By: #### LENNIE Limon DAU ####[facility] [place], [place] [address] [place] [address] Lymphocytes/100 leukocytes 20 % Low 24-44 [facility] Comment on above: Performed By: #### LENNIE Limon DAU ####[facility] [place] [address] MCH 36.2 pg High 26-34 [facility] Comment on above: Performed By: #### LENNIE Limon DAU ####[facility] [place] [address] MCHC mass conc (RBC) 34.7 g/dL Normal 31-37 [facility] Comment on above: Performed By: #### LENNIE Limon DAU ####[facility] [place] [address] MCV 104.3 fL High 80-100 [facility] Comment on above: Performed By: #### LENNIE Limon DAU ####[facility] [place] [address] Monocytes 1.10 10*3/uL Normal 0.1-1.3 [facility] Comment on above: Performed By: #### LENNIE Limon DAU ####[address] [address] Monocytes/100 leukocytes 12 % High 1-7 [facility] Comment on above: Performed By: #### LENNIE Limon DAU ####[address] [address] Neutrophil (Seg) 65 % Normal 36-[address] [facility] Comment on above: Performed By: #### LENNIE Limon DAU ####[facility] [place] [address] Platelet mean volume (PMV) 9.3 fL Normal 6.0-12.0 [facility] Comment on above: Performed By: #### LENNIE Limon DAU ####[facility] [place] [address] Platelets 108 10*3/uL Low 150-450 [facility] Comment on above: Performed By: #### LENNIE Limon DAU ####[address] [address] WBC (Leukocytes) 9.6 10*3/uL Normal 3.5-11.0 [facility] Comment on above: Performed By: #### Kavya MasseyLENNIE JOSE RAUL ####[facility] [place] [address] Auto Diff Performed NOT REPORTED Normal [facility] Comment on above: Performed By: #### U A, LENNIE JOSE RAUL ####[facility] [facility] [address] Erythrocyte morphology NOT REPORTED Normal [facility] Comment on above: Performed By: #### U A, LENNIE JOSE RAUL ####[facility] [place] [address].[place] [address] Erythrocytes (RBC) NOT REPORTED Normal [facility] Comment on above: Performed By: #### U ALENNIE JOSE RAUL ####[address] [place] [address] Granulocytes/100 WBC (Bld) NOT REPORTED Normal 0.00-0.30 [facility] Comment on above: Performed By: #### U ALENNIE JOSE RAUL ####[address] [place] [address] Immature granulocytes #/vol (Bld) NOT REPORTED Normal 0 [facility] Comment on above: Performed By: #### U ALENNIE JOSE RAUL ####[facility] [facility] [place] [address] Platelets NOT REPORTED Normal [facility] Comment on above: Performed By: #### U ALENNIE JOSE RAUL ####[address] [place] [address] WBC Morphology NOT REPORTED Normal [facility] Comment on above: Performed By: #### U A, ALEXIAO, JOSE RAUL ####[address] [place] [address] Lipaseon 07-21-2017 Lipase 92 U/L High 13-60 [facility] Comment on above: Result Comment: Perf ormed at [facility] [address] [place] [address] Performed By: #### LENNIE Limon DAU ####[address] [address] Liver Profileon 07-21-2017 Alanine aminotransferase (ALT) 62 U/L High 5-33 [facility] Comment on above: Performed By: #### LENNIE Limon DAU ####[address] [address] Albumin 3.1 g/dL Low 3.5-5.2 [facility] Comment on above: Performed By: #### LENNIE Limon DAU ####[address] [address] Alkaline Phos 158 U/L High 35-104 [facility] Comment on above: Performed By: #### LENNIE Limon DAU ####[address] [place] [address] Aspartate aminotransferase (AST) 90 U/L High <32 [facility] Comment on above: Performed By: #### LENNIE Limon DAU ####[address] [address] Bilirubin (direct) 0.45 mg/dL High <0.31 [facility] Comment on above: Performed By: #### LENNIE Limon DAU ####[address] [place] [address] Bilirubin Ql (U) 1.42 mg/dL High 0.3-1.[address] [facility] Comment on above: Performed By: #### LENNIE Limon DAU ####[facility] [facility] [place] [address] Bilirubin, Indirect 0.97 mg/dL Normal 0.00-1.00 [facility] Comment on above: Performed By: #### LENNIE Limon DAU ####[facility] [facility] [place] [address] Protein 7.1 g/dL Normal 6.4-8.3 [facility] Comment on above: Result Comment: Perf ormed at [facility] [address] [facility] [place] [address] Performed By: #### LENNIE Limon DAU ####[facility] [place] [address] Albumin/Globulin Ratio NOT REPORTED Normal 1.0-2.5 [facility] Comment on above: Performed By: #### LENNIE Limon DAU ####[facility] [facility] [place] [address] Globulin NOT REPORTED Normal 1.5-3.8 [facility] Comment on above: Performed By: #### LENNIE Limon DAU ####[facility] [facility] [place] [address] Smooth Muscle Abon 05-14-201 8 Smooth Muscle Ab 1:40 Normal NONE DETECTED [facility] Comment on above: Result Comment: (NOT E) NONE DETECTED: LESS THAN 1:20 WEAKLY POSITIVE: 1:20 - 1:40 SUGGESTIVE OF CHRONIC HEPATITIS: 1:80 OR GREATER NOTE: FOR WEAKLY POSITIVE RESULTS, TITER MAY BE PRESENT IN ACUTE VIRAL HEPATITIS, INFECTIOUS MONONUCLEOSIS OR MALIGNANCY.Test performed at the [facility]) Performed By: #### A NASC ####[address] [place] [address] #### AAMAB ####[address] [place] [address] #### MASMAB ####[facility] [place] Anti-Mitochon Abon 8 Anti-Mitochon Ab 4.2 Units Normal 0.0-20.0 [facility] Comment on above: Result Comment: (NOT E)INTERPRETIVE INFORMATION: Mitochondrial (M2) Antibody, IgG 20.0 Units or less ......... Negative 20.1 - 24.9 Units........... Equivocal 25.0 Units or greater....... PositivePerformed by [facility],[address] [place] [phone] qbl.DDVTECH, Tate Yu MD, Lab. DirectorPerformed at [address] [place] [address] [phone] Performed By: #### A NASC ####[address] [id number] #### AAMAB ####[address] , [place] [id number] #### MASMAB ####[facility] [place] DONALD Screenon 07-13-2017 DONALD Screen Positive Abnormal NEG [facility] Comment on above: Result Comment: This test was run on the [employer] DONALD test system. The system provides ten test results (HEp-2NA, dsDNA, SSA, SSB, Sm, ULTRASONIC TESTER, Scl-70, Jennifer-1, Centromere and Histone analytes) from a single patient sample. A specimen that is DONALD screen positive is positive for any one or more of the nine analytes and/or the Hep-2NA.These tests are available as add-on orders without having to re-collect the blood. We recommend ordering an DONALD profile. Please fax add-on orders to [phone].Performed at [address] [id number] [phone] Performed By: #### A NASC ####[address] [place] [address] #### AAMAB ####[address] [place] [address] #### MASMAB ####[facility] Cult,Urine,CCon 07-05-2017 Cult,Urine,CC Specimen Description .URINE Performed at [facility] [address] [place] [address] Special Requests NOT REPORTEDCulture NO GROWTH Performed at [facility] [address] [place] [address] Report Status FINAL 07/04/2017 Normal [facility] Comment on above: Performed By: #### LENNIE Limon DAU ####[facility] [place] [address] NM HEPATOBILIARYon 8 NM HEPATOBILIARY EXAMINATION:NUCLEAR MEDICINE HEPATOBILIARY SCINTIGRAPHY (HIDA SCAN) WITH EJECTIONFRACTION.TECHNIQU E:Approximately 5.0 millicuries Tc99m Mebrofenin (Choletec) was administeredIV. Then, dynamic images of the abdomen were obtained in the anteriorprojection for 60 mins. A right lateral view was also obtained at 60 mins.Due to a shortage/inavailability of CCK, one can (237 ml) Ensure plus wassubstitued orally. Images were obtained in the BARBADIAN projection and regions ofinterest were drawn around the gallbladder and ejection fraction wascalculated.HISTORY:ORD ERING SYSTEM PROVIDED HISTORY: CholecystitisOrdering Physician Provided Reason for Exam: PainAdditional signs and symptoms: Nausea x 1 year, random associated, vomiting,right side pain under ribs x 1.5 years, has cirrhosis of the liverFINDINGS:Prompt, homogenous uptake by the liver is noted with normal appearance ofradiotracer excretion into the biliary system. Clearance of bloodpoolactivity appears appropriate.Gallbladder and small bowel is visualized in appropriate sequence and time.Gallbladder ejection fraction measured 13%.Normal value is >33% for Ensure protocol. Note, Ensure normal range is basedon a limited study.IMPRESSION: No convincing scintigraphic evidence of acute or chronic cholecystitis.Decreased gallbladder ejection fraction suggesting gallbladder dyskinesia.Interpreted by:ASIM Manciniigned by:Duke Moncada MD5/3/18Final result Normal [facility] Ammoniaon 07-03-2017 Ammonia 55 umol/L High 11-51 [facility] Comment on above: Result Comment: Perf ormed at [facility] [address] [place] [address] Performed By: #### A MON ####[address] [address] Basic Metabolic Profon 07-03 (cont.) Normal [facility] Comment on above: Result Comment: Aver age GFR for 60-69 years old: 85 mL/min/1.73sq mChronic Kidney Disease: <60 mL/min/1.73sq mKidney failure: <15 mL/min/1.73sq meGFR calculated using average adult body mass. Additional eGFR calculator available at:[email or web address]_crcl_2012.htmPerformed at [id number] [place] [address] Performed By: #### C DP, BMP, LIP, LIVP, TROPI ####[address] [address] Anion gap 8 mmol/L Low 9-17 [facility] Comment on above: Performed By: #### C DP, BMP, LIP, LIVP, TROPI ####[address] [place] [address] Calcium 8.7 mg/dL Normal 8.6-10.4 [facility] Comment on above: Performed By: #### C DP, BMP, LIP, LIVP, TROPI ####[address] [place] [address] Chloride 100 mmol/L Normal 98-107 [facility] Comment on above: Performed By: #### C DP, BMP, LIP, LIVP, TROPI ####[address] [place] [address] CO2 28 mmol/L Normal 20-31 [facility] Comment on above: Performed By: #### C DP, BMP, LIP, LIVP, TROPI ####[address] [place] [address] Creatinine 1.00 mg/dL High 0.50-0.90 [facility] Comment on above: Performed By: #### C DP, BMP, LIP, LIVP, TROPI ####[address] [place] [address] eGFR (non-black) mL/min/{1.73_m2} Normal >60 [facility] Comment on above: Performed By: #### C DP, BMP, LIP, LIVP, TROPI ####[address] [place] [address] eGFR (non-black) 55 mL/min/{1.73_m2} Low >60 [facility] Comment on above: Performed By: #### C DP, BMP, LIP, LIVP, TROPI ####[address] [place] [address] Glucose mass conc 92 mg/dL Normal 70-99 [facility] Comment on above: Performed By: #### C DP, BMP, LIP, LIVP, TROPI ####[address] [place] [address] Potassium molar conc 4.1 mmol/L Normal 3.7-5.3 [facility] Comment on above: Performed By: #### C DP, BMP, LIP, LIVP, TROPI ####[address] [place] [address] Sodium 136 mmol/L Normal 135-144 [facility] Comment on above: Performed By: #### C DP, BMP, LIP, LIVP, TROPI ####[facility] [place] [address] Urea nitrogen 17 mg/dL Normal 8-23 [facility] Comment on above: Performed By: #### C DP, BMP, LIP, LIVP, TROPI ####[facility] [place] [address] BUN/CRE Ratio NOT REPORTED Normal 9-20 [facility] Comment on above: Performed By: #### C DP, BMP, LIP, LIVP, TROPI ####[address] [place] [address] Staging: NOT REPORTED Normal [facility] Comment on above: Performed By: #### C DP, BMP, LIP, LIVP, TROPI ####[facility] [place] [address] CBC with Diffon 07-03-2017 Abs. Basophil 0.00 k/uL Normal 0.0-0.2 [facility] Comment on above: Result Comment: Perf ormed at [facility] [address] [place] [address] Performed By: #### C DP, BMP, LIP, LIVP, TROPI ####[facility] [address] Abs.Neutrophil (Seg) 5.10 k/uL Normal 1.3-9.1 [facility] Comment on above: Performed By: #### C DP, BMP, LIP, LIVP, TROPI ####[address] [place] [address] Basophils/100 WBC Auto (Bld) 0 % Normal 0-2 [facility] Comment on above: Performed By: #### C DP, BMP, LIP, LIVP, TROPI ####[facility] [facility] [address] Eosinophils 0.20 10*3/uL Normal 0.0-0.4 [facility] Comment on above: Performed By: #### C DP, BMP, LIP, LIVP, TROPI ####[facility] [place] [address] Eosinophils/100 leukocytes 3 % Normal 0-4 [facility] Comment on above: Performed By: #### C DP, BMP, LIP, LIVP, TROPI ####[facility] [place] [address] Lymphocytes 1.20 10*3/uL Normal 1.0-4.8 [facility] Comment on above: Performed By: #### C DP, BMP, LIP, LIVP, TROPI ####[facility] [place] [address] Lymphocytes/100 leukocytes 16 % Low 24-44 [facility] Comment on above: Performed By: #### C DP, BMP, LIP, LIVP, TROPI ####[facility] [place] [address].[place] [address] Monocytes 0.80 10*3/uL Normal 0.1-1.3 [facility] Comment on above: Performed By: #### C DP, BMP, LIP, LIVP, TROPI ####[facility] [place], [place] [address] [facility] [address] Monocytes/100 leukocytes 10 % High 1-7 [facility] Comment on above: Performed By: #### C DP, BMP, LIP, LIVP, TROPI ####[facility] [place] [address] Neutrophil (Seg) 71 % High 36-[address] [facility] Comment on above: Performed By: #### C DP, BMP, LIP, LIVP, TROPI ####[address] [place] [address] Erythrocyte distribution width Auto Ratio (RBC) 17.3 % High 11.5-14.9 [facility] Comment on above: Performed By: #### C DP, BMP, LIP, LIVP, TROPI ####[address] [place] [address] Erythrocytes (RBC) 3.98 10*6/uL Low 4.0-5.2 [facility] Comment on above: Performed By: #### C DP, BMP, LIP, LIVP, TROPI ####[address] [place] [address] Hematocrit (HCT) 41.1 % Normal 36-[address] [facility] Comment on above: Performed By: #### C DP, BMP, LIP, LIVP, TROPI ####[address] [address] [facility] [place] [address] Hemoglobin mass conc (Bld) 14.0 g/dL Normal 12.0-16.0 [facility] Comment on above: Performed By: #### C DP, BMP, LIP, LIVP, TROPI ####[address] [place] [address] MCH 35.2 pg High 26-34 [facility] Comment on above: Performed By: #### C DP, BMP, LIP, LIVP, TROPI ####[address] [place] [address] MCHC mass conc (RBC) 34.1 g/dL Normal 31-37 [facility] Comment on above: Performed By: #### C DP, BMP, LIP, LIVP, TROPI ####[facility] [place] [address] MCV 103.1 fL High 80-100 [facility] Comment on above: Performed By: #### C DP, BMP, LIP, LIVP, TROPI ####[facility] [place] [address] Platelet mean volume (PMV) 9.9 fL Normal 6.0-12.0 [facility] Comment on above: Performed By: #### C DP, BMP, LIP, LIVP, TROPI ####[facility] [place] [address] Platelets 86 10*3/uL Low 150-450 [facility] Comment on above: Performed By: #### C DP, BMP, LIP, LIVP, TROPI ####[facility] [place] [address] WBC (Leukocytes) 7.3 10*3/uL Normal 3.5-11.0 [facility] Comment on above: Performed By: #### C DP, BMP, LIP, LIVP, TROPI ####[facility] [place] [address] Auto Diff Performed NOT REPORTED Normal [facility] Comment on above: Performed By: #### C DP, BMP, LIP, LIVP, TROPI ####[facility] [place] [address] Erythrocyte morphology NOT REPORTED Normal [facility] Comment on above: Performed By: #### C DP, BMP, LIP, LIVP, TROPI ####[address] [place] [address] Erythrocytes (RBC) NOT REPORTED Normal [facility] Comment on above: Performed By: #### C DP, BMP, LIP, LIVP, TROPI ####[facility] [place] [address] Granulocytes/100 WBC (Bld) NOT REPORTED Normal 0.00-0.30 [facility] Comment on above: Performed By: #### C DP, BMP, LIP, LIVP, TROPI ####[facility] [place] [address] Immature granulocytes #/vol (Bld) NOT REPORTED Normal 0 [facility] Comment on above: Performed By: #### C DP, BMP, LIP, LIVP, TROPI ####[address] [place] [address] Platelets NOT REPORTED Normal [facility] Comment on above: Performed By: #### C DP, BMP, LIP, LIVP, TROPI ####[address] [place] [address] WBC Morphology NOT REPORTED Normal [facility] Comment on above: Performed By: #### C DP, BMP, LIP, LIVP, TROPI ####[address] [place] [address] CT HEAD WO CONTRASTon 2017 CT HEAD WO CONTRAST EXAMINATION:CT OF E HEAD WITHOUT CONTRAST 07/03/2017 12:33 pmTECHNIQUE:CT of the head was performed without the administration of intravenouscontrast. Dose modulation, iterative reconstruction, and/or weight basedadjustment of the mA/kV was utilized to reduce the radiation dose to as lowas reasonably achievable.COMPARISON:Non e.HISTORY:ORDERING SYSTEM PROVIDED HISTORY: increased confusion, nonfocal neuro examTECHNOLOGIST PROVIDED HISTORY:Has a code stroke or stroke alert been called?->NoFINDINGS:BRAIN /VENTRICLES: No acute intracranial hemorrhage, mass effect or midlineshift. No abnormal extra-axial fluid collection. The foss-whitedifferentiation is maintained without evidence of an acute infarct. Nohydrocephalus Stable nonspecific areas of hypoattenuation within theperiventricular and subcortical white matter, which likely represent chronicmicrovascular ischemic change.ORBITS: The visualized portion of the orbits demonstrate no acute abnormality.SINUSES: The visualized paranasal sinuses and mastoid air cells demonstrateno acute abnormality.SOFT TISSUES/SKULL: No acute abnormality of the visualized skull or softtissues.IMPRESSION: Stable CT brain with no acute intracranial abnormality and re- demonstrationof mild chronic small vessel ischemia.Interpreted by:ASIM Manciniigned by:Duke Moncada MD//18Final result Normal [facility] Drug Scr, Abuse, Uron 2017 Amphetamine(s),Ur Negative Normal NEG [facility] Comment on above: Result Comment: (Pos itive cutoff 1000 ng/mL) Performed By: #### LENNIE Limon DAU ####[address] [address] Barbiturate(s),Ur Negative Normal NEG [facility] Comment on above: Result Comment: (Pos itive cutoff 200 ng/mL) Performed By: #### LENNIE Limon DAU ####[facility] [place] [address] Base excess Negative Normal NEG [facility] Comment on above: Result Comment: (Pos itive cutoff 300 ng/mL) Performed By: #### U ALENNIE JOSE RAUL ####[facility] [place] [address] Benzodiazepine(s) Negative Normal NEG [facility] Comment on above: Result Comment: (Pos itive cutoff 200 ng/mL) Performed By: #### U LENNIE Massey DAU ####[address] [address] Cannabinoid(s),Ur Negative Normal NEG [facility] Comment on above: Result Comment: (Pos itive cutoff 50 ng/mL) Performed By: #### U ALENNIE JOSE RAUL ####[address] [address] Interpretive Info Assay provides medic al screening only. The absence of expected drug(s) and/or Normal [facility] Comment on above: Result Comment: meta bolite(s) may indicate diluted or adulterated urine, limitations of testing or timing of collection.Testing for legal purposes should be confirmed by another method. To request confirmation of test result, please call the lab within 7 days of sample submission.Performed at [address] [address] Performed By: #### U A, UMICAO, JOSE RAUL ####[address] [address] Opiate(s), Ur Negative Normal NEG [facility] Comment on above: Result Comment: (Pos itive cutoff 300 ng/mL) Performed By: #### U A, UMICAO, JOSE RAUL ####[address] [address] Oxycodone, Urine Negative Normal NEG [facility] Comment on above: Result Comment: (Pos itive cutoff 100 ng/mL) Performed By: #### U A, UMICAO, JOSE RAUL ####[address] [address] Phencyclidine, Ur Negative Normal NEG [facility] Comment on above: Result Comment: (Pos itive cutoff 25 ng/mL) Performed By: #### U A, UMICAO, JOSE RAUL ####[address] [address] Urine, methadone presence Negative Normal NEG [facility] Comment on above: Result Comment: (Pos itive cutoff 300 ng/mL) Performed By: #### U A, UMICAO, JOSE RAUL ####[address] [address] Buprenorphrine, Ur NOT REPORTED Normal NEG [facility] Comment on above: Performed By: #### LENNIE Limon JOSE RAUL ####[address] [address] MDMA, Urine NOT REPORTED Normal NEG [facility] Comment on above: Performed By: #### LENNIE Limon JOSE RAUL ####[address] [address] Methamphetamine, Ur NOT REPORTED Normal NEG [facility] Comment on above: Performed By: #### LENNIE Limon DAU ####[address] [address] Propoxyphene,Urine NOT REPORTED Normal NEG [facility] Comment on above: Performed By: #### LENNIE Limon DAU ####[address] [address] Urine, tricyclic antidepressants NOT REPORTED Normal NEG [facility] Comment on above: Performed By: #### LENNIE Limon DAU ####[address] [address] Lipaseon 2018 Lipase 83 U/L High 13-60 [facility] Comment on above: Result Comment: Perf ormed at [facility] [address] [place] [address] Performed By: #### C DP, BMP, LIP, LIVP, TROPI ####[address] [address] Liver Profileon 2018 Alanine aminotransferase (ALT) 65 U/L High 5-33 [facility] Comment on above: Performed By: #### C DP, BMP, LIP, LIVP, TROPI ####[address] [place] [address] Albumin 3.0 g/dL Low 3.5-5.2 [facility] Comment on above: Performed By: #### C DP, BMP, LIP, LIVP, TROPI ####[facility] [place] [address] Alkaline Phos 158 U/L High 35-104 [facility] Comment on above: Performed By: #### C DP, BMP, LIP, LIVP, TROPI ####[facility] [place] [address] Aspartate aminotransferase (AST) 104 U/L High <32 [facility] Comment on above: Performed By: #### C DP, BMP, LIP, LIVP, TROPI ####[facility] [place] [address] Bilirubin (direct) 0.54 mg/dL High <0.31 [facility] Comment on above: Performed By: #### C DP, BMP, LIP, LIVP, TROPI ####[address] [place] [address] Bilirubin Ql (U) 1.68 mg/dL High 0.3-1.[address] [facility] Comment on above: Performed By: #### C DP, BMP, LIP, LIVP, TROPI ####[address] [address] Bilirubin, Indirect 1.14 mg/dL High 0.00-1.00 [facility] Comment on above: Performed By: #### C DP, BMP, LIP, LIVP, TROPI ####[address] [address] Protein 7.2 g/dL Normal 6.4-8.3 [facility] Comment on above: Result Comment: Perf ormed at [facility] [address] [facility] [place] [address] Performed By: #### C DP, BMP, LIP, LIVP, TROPI ####[address] [place] [address] Albumin/Globulin Ratio NOT REPORTED Normal 1.0-2.5 [facility] Comment on above: Performed By: #### C DP, BMP, LIP, LIVP, TROPI ####[address] [place] [address] Globulin NOT REPORTED Normal 1.5-3.8 [facility] Comment on above: Performed By: #### C DP, BMP, LIP, LIVP, TROPI ####[address] [place] [address] Troponinon 07-03-2017 Troponin I.cardiac mass conc Normal [facility] Comment on above: Result Comment: Refe rence Range: <0.03 Within reference range. 0.03-0.09 Possible myocardial damage.Repeat at appropriate intervals to rule out chronic elevation. >= 0.10 Indicative of myocardial damage.Patients with high levels of Biotin oral intake (i.e >5mg/day) may have falsely decreased Troponin T levels. Samples collected within 8 hours of biotin intake may require additional information for diagnosis.Performed at [address] [id number] [facility] [place] [address] Performed By: #### C DP, BMP, LIP, LIVP, TROPI ####[address] [place] [address] Troponin T.cardiac mass conc ug/L Normal <0.03 [facility] Comment on above: Result Comment: Trop onin T results cannot be compared to Troponin-I results. Performed By: #### C DP, BMP, LIP, LIVP, TROPI ####[address] [place] [address] UA w/Reflex Cultureon 2017 Acetaminophen mass conc Negative Normal NEG [facility] Comment on above: Performed By: #### LENNIE Limon DAU ####[address] [place] [address] Bilirubin (direct) Negative Normal NEG [facility] Comment on above: Performed By: #### LENNIE Limon DAU ####[address] [address] Hemoglobin mass conc (Bld) SMALL Abnormal NEG [facility] Comment on above: Performed By: #### LENNIE Limon DAU ####[address] [place] [address] Nitrite,Ur Negative Normal NEG [facility] Comment on above: Performed By: #### LENNIE Limon DAU ####[facility] [place] [address] [place] [address] Turbidity CLEAR Normal CLEAR [facility] Comment on above: Performed By: #### LENNIE Limon DAU ####[address] [place] [address] Urine, color YELLOW Normal YEL [facility] Comment on above: Performed By: #### LENNIE Limon DAU ####[address] [place] [address] Urine, glucose presence Negative Normal NEG [facility] Comment on above: Performed By: #### LENNIE Limon JOSE RAUL ####[address] [place] [address] Urine, leukocyte esterase presence Negative Normal NEG [facility] Comment on above: Result Comment: Perf ormed at [facility] [address] [place] [address] Performed By: #### LENNIE Limon DAU ####[address] [place] [address] Urine, pH 5.5 [pH] Normal 5.0-8.0 [facility] Comment on above: Performed By: #### LENNIE Limon DAU ####[address] [address] Urine, protein presence Negative Normal NEG [facility] Comment on above: Performed By: #### LENNIE Limon DAU ####[address] [address] Urine, specific gravity 1.012 Normal 1.000-1.030 [facility] Comment on above: Performed By: #### LENNIE Limon DAU ####[address] [place] [address] Urobilinogen,Ur Normal Normal NORM [facility] Comment on above: Performed By: #### LENNIE Limon DAU ####[address] [address] Comment NOT REPORTED Normal [facility] Comment on above: Performed By: #### LENNIE Limon DAU ####[address] [place] [address] Urinalysis, Routineon 2017 Acetaminophen mass conc Negative Normal NEG [facility] Comment on above: Performed By: #### LENNIE Limon DAU ####[address] [address] Bilirubin (direct) Negative Normal NEG [facility] Comment on above: Performed By: #### LENNIE Limon JOSE RAUL ####[facility] [place] [address] [place] [address] Hemoglobin mass conc (Bld) MOD Abnormal NEG [facility] Comment on above: Performed By: #### U A, UMICAO, JOSE RAUL ####[facility] [place] [address] Nitrite,Ur Negative Normal NEG [facility] Comment on above: Performed By: #### U A, UMICAO, JOSE RAUL ####[facility] [place] [address] [place] [address] Turbidity CLOUDY Abnormal CLEAR [facility] Comment on above: Performed By: #### U A, UMICAO, JOSE RAUL ####[address] [place] [address] Urine, color DARK YELLOW Abnormal YEL [facility] Comment on above: Performed By: #### U A, UMICAO, JOSE RAUL ####[facility] [place] [address] [place] [address] Urine, glucose presence Negative Normal NEG [facility] Comment on above: Performed By: #### U A, UMICAO, JOSE RAUL ####[address] [place] [address] Urine, leukocyte esterase presence Negative Normal NEG [facility] Comment on above: Result Comment: Perf ormed at [facility] [address] [facility] [address] Performed By: #### U A, UMICAO, JOSE RAUL ####[address] [place] [address] Urine, pH 5.5 [pH] Normal 5.0-8.0 [facility] Comment on above: Performed By: #### U A, UMICAO, JOSE RAUL ####[address] [facility] [place] [address] Urine, protein presence Negative Normal NEG [facility] Comment on above: Performed By: #### U A, UMICAO, JOSE RAUL ####[address] [place] [address] Urine, specific gravity 1.017 Normal 1.000-1.030 [facility] Comment on above: Performed By: #### U A, UMICAO, JOSE RAUL ####[address] [address] Urobilinogen,Ur Normal Normal NORM [facility] Comment on above: Performed By: #### U A, UMICAO, JOSE RAUL ####[address] [address] Comment NOT REPORTED Normal [facility] Comment on above: Performed By: #### U A, UMICAO, JOSE RAUL ####[address] [address] Urinalysis,Microon 8 ----- Normal [facility] Comment on above: Performed By: #### U A, UMICAO, JOSE RAUL ####[address] [address] Urine WBC's 2 TO 5 Normal [facility] Comment on above: Performed By: #### U A, UMICAO, JOSE RAUL ####[address] [address] Urine, casts in sediment 5 TO 10 Normal [facility] Comment on above: Result Comment: HYAL INE Performed By: #### U A, UMICAO, JOSE RAUL ####[address] [address] Urine, epithelial cells in sediment 5 TO 10 Normal [facility] Comment on above: Result Comment: Perf ormed at [facility] [address] [place] [address] Performed By: #### U A, UMICAO, JOSE RAUL ####[facility] [place] [address] Urine, erythrocytes 2 TO 5 Normal [facility] Comment on above: Performed By: #### U A, UMICAO, JOSE RAUL ####[facility] [place] [address] Epithelial, Renal NOT REPORTED Normal 0 [facility] Comment on above: Performed By: #### U A, UMICAO, JOSE RAUL ####[address] [address] Mucus Strands NOT REPORTED Normal NONE [facility] Comment on above: Performed By: #### U A, UMICAO, JOSE RAUL ####[address] [address] Other Observations NOT REPORTED [facility] Performed By: #### U A, UMICAO, JOSE RAUL ####[address] [address] Trichomonas NOT REPORTED Normal NONE [facility] Comment on above: Performed By: #### U A, UMICAO, JOSE RAUL ####[facility] [place] [address] Urine, amorphous sediment presence in sediment NOT REPORTED Normal NONE [facility] Comment on above: Performed By: #### U A, UMICAO, JOSE RAUL ####[facility] [place] [address] Urine, bacteria in sediment NOT REPORTED Normal NONE [facility] Comment on above: Performed By: #### U LENNIE Massey JOSE RAUL ####[address] [address] Urine, crystals in sediment NOT REPORTED Normal NONE [facility] Comment on above: Performed By: #### U ALENNIE, JOSE RAUL ####[address] [place] [address] Urine, yeast presence in sediment NOT REPORTED Normal [facility] Comment on above: Performed By: #### LENNIE Limon JOSE RAUL ####[address] [address] ----- Normal [facility] Comment on above: Performed By: #### LENNIE Limon JOSE RAUL ####[address] [place] [address] Urine WBC's 2 TO 5 Normal [facility] Comment on above: Performed By: #### LENNIE Limon JOSE RAUL ####[address] [place] [address] Urine, bacteria in sediment FEW Abnormal NONE [facility] Comment on above: Result Comment: Perf ormed at [facility] [address] [facility] [address] Performed By: #### U ALENNIE, JOSE RAUL ####[address] [place] [address] Urine, crystals in sediment FEW Abnormal NONE [facility] Comment on above: Result Comment: CALC IUM OXALATE Performed By: #### U ALENNIE, JOSE RAUL ####[address] [place] [address] Urine, erythrocytes 0 TO 2 Normal [facility] Comment on above: Performed By: #### U A, UMICAO, JOSE RAUL ####[place] [address] [place] [address] Epithelial, Renal NOT REPORTED Normal 0 [facility] Comment on above: Performed By: #### U A, UMICAO, JOSE RAUL ####[address] [place] [address] Mucus Strands NOT REPORTED Normal NONE [facility] Comment on above: Performed By: #### U A, UMICAO, JOSE RAUL ####[address] [address] Other Observations NOT REPORTED Normal NREQ [facility] Comment on above: Performed By: #### U A, UMICAO, JOSE RAUL ####[address] [place] [address] Trichomonas NOT REPORTED Normal NONE [facility] Comment on above: Performed By: #### U A, UMICAO, JOSE RAUL ####[address] [place] [address] Urine, amorphous sediment presence in sediment NOT REPORTED Normal NONE [facility] Comment on above: Performed By: #### U A, UMICAO, JOSE RAUL ####[address] [place] [address] Urine, casts in sediment NOT REPORTED Normal [facility] Comment on above: Performed By: #### U A, UMICAO, JOSE RAUL ####[address] [place] [address] Urine, epithelial cells in sediment NOT REPORTED Normal [facility] Comment on above: Performed By: #### U A, UMICAO, JOSE RAUL ####[address] [place] [address] Urine, yeast presence in sediment NOT REPORTED Normal NONE [facility] Comment on above: Performed By: #### U LENNIE Massey DAU ####[facility] [place] [address] HIV 12 Combo (Ag/Ab)on 03-15 HIV 12 Ag/Ab Non Reactive Normal Non Reactive [facility] Comment on above: Result Comment: (NOT E)HIV Information: [place] Rev. Code 3701.243(E):This information has been disclosed to you from confidential recordsprotected from disclosure by state law. You shall make no furtherdisclosure of this information without the specific, written, andinformed release of the individual to whom it pertains, or asotherwise permitted by state law. A general authorization for therelease of medical or other information is not sufficient for thepurpose of the release of HIV test results or diagnoses. Performed By: #### H IV12C, HREMOP, SYPHGX ####[address] [phone]#### HTLVSC ####[facility] [place] [address] [phone] HTLV I/II Ab Screenon 2017 HTLV I/II Ab Screen Negative Normal Negative [facility] Comment on above: Result Comment: (NOT E)Based on the non-reactive anti-HTLV IVETTE screen, the HTLV WesternBlot is not indicated and therefore not performed.INTERPRETIVE INFORMATION: HTLV I/II Antibodies w/Reflex to ConfirmThis assay should not be used for blood donor screening,associated re-entry protocols, or for screening Human Cell,Tissues and Cellular and Tissue-Based Products (HCT/P).Performed by [facility],[address] [place] [address] okk.DDVTECH, Tate Yu MD, Lab. Director Performed By: #### H IV12C, HREMOP, SYPHGX ####[address] [phone]#### HTLVSC ####[facility] [place], [place] [phone] Hepatic Functn Panelon 03-15 Alanine aminotransferase (ALT) 58 U/L High 7-38 [facility] Comment on above: Performed By: #### H FP ####[facility], [place] [phone] Albumin 2.7 g/dL Low 3.9-4.9 [facility] Comment on above: Performed By: #### H FP ####[facility], [place] [phone] Alkaline phosphatase (ALP) 142 U/L High 32-117 [facility] Comment on above: Performed By: #### H FP ####[place] [address], [place] [phone] Aspartate aminotransferase (AST) 98 U/L High 13-35 [facility] Comment on above: Performed By: #### H FP ####[place] [address], [place] [phone] Bilirubin (total) 1.8 mg/dL High 0.2-1.3 [facility] Comment on above: Performed By: #### H FP ####[place] [address], [place] [phone] Bilirubin,Conjugated 0.5 mg/dL High <0.2 [facility] Comment on above: Performed By: #### H FP ####[facility], [place] [phone] Protein 7.0 g/dL Normal 6.3-8.0 [facility] Comment on above: Performed By: #### H FP ####[facility], [place] [phone] Hepatitis Remote Panelon BSA (Body Surface Area) Negative Normal Negative [facility] Comment on above: Performed By: #### H IV12C, HREMOP, SYPHGX ####[facility] [address]ielle [place] [phone]#### HTLVSC ####[facility] [address] [place], [place] [phone] Hep B Core Ab,Total Negative Normal Negative [facility] Comment on above: Performed By: #### H IV12C, HREMOP, SYPHGX ####[place] [address] [phone]#### HTLVSC ####[facility] [address] [place] [address] [phone] Hepatitis C Ab IA Negative Normal Negative [facility] Comment on above: Performed By: #### H IV12C, HREMOP, SYPHGX ####[place] [phone]#### HTLVSC ####[facility] [address] [place] [address] [phone] HepB Surface Ab,Qual Positive Critically abnormal Negative [facility] Comment on above: Result Comment: Thes e results are consistent with previous exposure and/or immunity to the hepatitis B virus antigen. Performed By: #### H IV12C, HREMOP, SYPHGX ####[address] [phone]#### HTLVSC ####[facility] [address] [phone] Syphilis IgG with Confon Syphilis IgG <0.2 [facility] Comment on above: Result Comment: Anti body index is interpreted as follows:Non reactive SPECIMENS <=0.8Weak reactive SPECIMENS 0.9 to 5.9Reactive SPECIMENS >=6.0 Performed By: #### H IV12C, HREMOP, SYPHGX ####[facility] [address]ielle [place] [phone]#### HTLVSC ####[facility] [address] [place], [place] [phone] Syphilis IgG, Qual Nonreactive Normal Nonreactive [facility] Comment on above: Result Comment: In c onjunction with this result, the immune status of the patient should be evaluated based on their clinical status, related risk factors, and other diagnostic test results. Performed By: #### H IV12C, HREMOP, SYPHGX ####[facility] [address] [place], [place] [phone]#### HTLVSC ####[facility] [address] [place], [place] [phone] US ABD RIGHT UPPER QUADRANTo n 03-15-2017 US ABD RIGHT UPPER QUADRANT * * *Final Report* * *DATE OF EXAM: Mar 15 2017 9:45AM SUREKHA 1032 - US ABD RIGHT UPPER QUADRANT / REASON: ABD PAIN,CRYPTOGENIC CIRRHOSIS * * * * Physician Interpretation * * * * RIGHT UPPER QUADRANT ULTRASOUNDHISTORY: Abdominal pain, cryptogenic cirrhosis.COMPARISON: Outside CT 03/12/2016. Ultrasound 11/16/2016.TECHNIQUE: Sonography of the right upper quadrant was performed. Images were obtained and stored in a permanent archive.RESULT:Pancreas: The visualized pancreas is unremarkable. Portions obscured: Distal body and tail Lesions: NoneLiver: Echotexture: Coarse Echogenicity: Normal Surface contour: Nodular Lesions: NoneBiliary: Intrahepatic Biliary Dilation: Absent CBD: 0.5 cm, normal Gallbladder: Present -Cholelithiasis: Absent -Wall thickening: Absent -negative sonographic Guzman's sign.Right Kidney: No hydronephrosis.Ascites: Small volume.IMPRESSION:CIRRHOT IC LIVER MORPHOLOGY. NO FOCAL HEPATIC LESIONS.SMALL VOLUME ASCITES.Habilitation Assistant: PSCB Transcribe Date/Time: Mar 15 2017 9:50ADictated by : Raven BAIG examination was interpreted and the report reviewed and electronically signed by: CASEY CASIANO DO on Mar 15 2017 9:53AM [id number] [facility] Medium Joint Arthro/Inj: R a nkle joint [facility] Vital Signs Date Time Vital Sign Value Performing Clinician Facility 10-13-2023 04:24-0400 Diastolic blood pressure 73 mm[Hg] MD Susy Brizuela Work Phone: [facility] 10-13-2023 04:24-0400 Heart rate 69 /min MD Susy Brizuela Work Phone: [facility] 10-13-2023 04:24-0400 Respiratory rate 18 /min MD Susy Brizuela Work Phone: [facility] 10-13-2023 04:24-0400 SaO2% (BldA) [Mass fraction] 95 % MD Susy Brizuela Work Phone: [facility] 10-13-2023 04:24-0400 Systolic blood pressure 151 mm[Hg] MD Susy Brizuela Work Phone: [facility] 10-13-2023 00:44-0400 Body temperature 97.8 [degF] MD Susy Brizuela Work Phone: [facility] 10-12-2023 22:41-0400 Body height 160.02 cm MD Susy Brizuela Work Phone: [facility] 10-12-2023 22:41-0400 Body weight 86.18 kg MD Susy Brizuela Work Phone: [facility] 07-19-2023 11:04-0400 Body height 160 cm Gillian Nolen APRN.CONFIGURATION CONSULTANT Work Phone: [facility] 07-19-2023 11:04-0400 Body mass index (BMI) [Ratio] 34.9 kg/m2 Gillian Nolen APRN.CONFIGURATION CONSULTANT Work Phone: [facility] 07-19-2023 11:04-0400 Body temperature 97.39 [degF] Gillian Nolen APRN.CONFIGURATION CONSULTANT Work Phone: [facility] 07-19-2023 11:04-0400 Body weight 89.36 kg Gillian Callum DRUGLESS PHYSICIAN.CONFIGURATION CONSULTANT Work Phone: [facility] 07-19-2023 11:04-0400 Diastolic blood pressure 74 mm[Hg] Gillian Lard DRUGLESS PHYSICIAN.CONFIGURATION CONSULTANT Work Phone: [facility] 07-19-2023 11:04-0400 Heart rate 59 /min Gillian Callum DRUGLESS PHYSICIAN.CONFIGURATION CONSULTANT Work Phone: [facility] 07-19-2023 11:04-0400 Systolic blood pressure 126 mm[Hg] Gillian Joséd DRUGLESS PHYSICIAN.CONFIGURATION CONSULTANT Work Phone: [facility] 07-19-2023 09:33-0400 Body height 160 cm Ryan Bansal MD Work Phone: [facility] 07-19-2023 09:33-0400 Body mass index (BMI) [Ratio] 34.9 kg/m2 Ryan Bansal MD Work Phone: [facility] 07-19-2023 09:33-0400 Body temperature 97.59 [degF] Ryan Bansal MD Work Phone: [facility] 07-19-2023 09:33-0400 Body weight 89.36 kg Ryan Bansal MD Work Phone: [facility] 07-19-2023 09:33-0400 Diastolic blood pressure 71 mm[Hg] Ryan Bansal MD Work Phone: [facility] 07-19-2023 09:33-0400 Heart rate 63 /min Ryan Bansal MD Work Phone: [facility] 07-19-2023 09:33-0400 Systolic blood pressure 135 mm[Hg] Ryan Bansal MD Work Phone: [facility] 07-19-2023 08:28-0400 Body height 157.5 cm Raffaele Suarez MD Work Phone: [place] [address]-16-2024 08:28-0400 Body mass index (BMI) [Ratio] 36.03 kg/m2 Raffaele Suarez MD Work Phone: [facility] 07-19-2023 08:28-0400 Body temperature 96.69 [degF] Raffaele Suarez MD Work Phone: [facility] 07-19-2023 08:28-0400 Body weight 89.36 kg Raffaele Suarez MD Work Phone: [facility] 07-19-2023 08:28-0400 Diastolic blood pressure 72 mm[Hg] Raffaele Suarez MD Work Phone: [facility] 07-19-2023 08:28-0400 Heart rate 64 /min Raffaele Suarez MD Work Phone: [facility] 07-19-2023 08:28-0400 Respiratory rate 12 /min Raffaele Suarez MD Work Phone: [facility] 07-19-2023 08:28-0400 Systolic blood pressure 146 mm[Hg] Raffaele Suarez MD Work Phone: [facility] 07-02-2023 14:06-0400 Body height 157.5 cm Lizzie Gilbert APRN.CONFIGURATION CONSULTANT Work Phone: [facility] 07-02-2023 14:06-0400 Body mass index (BMI) [Ratio] 36.57 kg/m2 Lizzie Gilbert DRUGLESS PHYSICIAN.CONFIGURATION CONSULTANT Work Phone: [facility] 07-02-2023 14:06-0400 Body temperature 99 [degF] Lizzie Gilbert DRUGLESS PHYSICIAN.CONFIGURATION CONSULTANT Work Phone: [facility] 07-02-2023 14:06-0400 Body weight 90.7 kg Lizzie Gilbert DRUGLESS PHYSICIAN.CONFIGURATION CONSULTANT Work Phone: [facility] 07-02-2023 14:06-0400 Diastolic blood pressure 80 mm[Hg] Lizzie Gilbert DRUGLESS PHYSICIAN.CONFIGURATION CONSULTANT Work Phone: [facility] Comment on above: Pt has not taken BP med today 07-02-2023 14:06-0400 Heart rate 80 /min Lizzie Gilbert DRUGLESS PHYSICIAN.CONFIGURATION CONSULTANT Work Phone: [facility] 07-02-2023 14:06-0400 Respiratory rate 16 /min Lizzie Gilbert DRUGLESS PHYSICIAN.CONFIGURATION CONSULTANT Work Phone: [facility] 07-02-2023 14:06-0400 SaO2% (BldA) [Mass fraction] 96 % Lizzie Gilbert DRUGLESS PHYSICIAN.CONFIGURATION CONSULTANT Work Phone: [facility] 07-02-2023 14:06-0400 Systolic blood pressure 162 mm[Hg] Lizzie Gilbert DRUGLESS PHYSICIAN.CONFIGURATION CONSULTANT Work Phone: [facility] Comment on above: Pt has not taken BP med today 02-15-2023 08:26-0500 Body height 157 cm Ryan Bansal MD Work Phone: [facility] 02-15-2023 08:26-0500 Body temperature 98.01 [degF] Ryan Bansal MD Work Phone: [facility] 02-15-2023 08:26-0500 Body weight 88.2 kg Ryan Bansal MD Work Phone: [facility] 02-15-2023 08:26-0500 Diastolic blood pressure 62 mm[Hg] Ryan Bansal MD Work Phone: [facility] 02-15-2023 08:26-0500 Heart rate 66 /min Ryan Bansal MD Work Phone: [facility] 02-15-2023 08:26-0500 Systolic blood pressure 138 mm[Hg] Ryan Bansal MD Work Phone: [facility] 10-26-2022 11:07-0400 Body height 157.5 cm iGllian Nolen DRUGLESS PHYSICIAN.CONFIGURATION CONSULTANT Work Phone: [facility] 10-26-2022 11:07-0400 Body temperature 97.3 [degF] Gillian Nolen DRUGLESS PHYSICIAN.CONFIGURATION CONSULTANT Work Phone: [facility] 10-26-2022 11:07-0400 Body weight 87.18 kg Gillian Callum DRUGLESS PHYSICIAN.CONFIGURATION CONSULTANT Work Phone: [facility] 10-26-2022 11:07-0400 Diastolic blood pressure 73 mm[Hg] Gillian Nolen DRUGLESS PHYSICIAN.CONFIGURATION CONSULTANT Work Phone: [facility] 10-26-2022 11:07-0400 Heart rate 72 /min Gillian Nolen DRUGLESS PHYSICIAN.CONFIGURATION CONSULTANT Work Phone: [facility] 10-26-2022 11:07-0400 Systolic blood pressure 119 mm[Hg] Gillian Nolen DRUGLESS PHYSICIAN.CONFIGURATION CONSULTANT Work Phone: [facility] 10-26-2022 10:27-0400 Body weight 87.45 kg Ryan Bansal MD Work Phone: [facility] 10-26-2022 10:27-0400 Diastolic blood pressure 66 mm[Hg] Ryan Bansal MD Work Phone: [facility] 10-26-2022 10:27-0400 Heart rate 63 /min Ryan Bansal MD Work Phone: [facility] 10-26-2022 10:27-0400 Systolic blood pressure 126 mm[Hg] Ryan Bansal MD Work Phone: [facility] 09-25-2022 13:00-0400 Body temperature 97.8 [degF] MD Susy Brizuela Work Phone: [facility] 09-25-2022 13:00-0400 Diastolic blood pressure 71 mm[Hg] MD Susy Brizuela Work Phone: [facility] 09-25-2022 13:00-0400 Heart rate 69 /min MD Susy Brizuela Work Phone: [facility] 09-25-2022 13:00-0400 Respiratory rate 20 /min MD Susy Brizuela Work Phone: [facility] 09-25-2022 13:00-0400 SaO2% (BldA) [Mass fraction] 98 % MD Susy Brizuela Work Phone: [facility] 09-25-2022 13:00-0400 Systolic blood pressure 139 mm[Hg] MD Susy Brizuela Work Phone: [facility] 08-13-2022 11:36-0400 Body height 158.75 cm MD Susy Brizuela Work Phone: [facility] 08-13-2022 11:36-0400 Body temperature 97.5 [degF] MD Susy Brizuela Work Phone: [facility] 08-13-2022 11:36-0400 Body weight 90.71 kg MD Susy Brizuela Work Phone: [facility] 08-13-2022 11:36-0400 Diastolic blood pressure 79 mm[Hg] MD Susy Brizuela Work Phone: [facility] 08-13-2022 11:36-0400 Heart rate 69 /min MD Susy Brizuela Work Phone: [facility] 08-13-2022 11:36-0400 Respiratory rate 20 /min MD Susy Brizuela Work Phone: [facility] 08-13-2022 11:36-0400 SaO2% (BldA) [Mass fraction] 96 % MD Susy Brizuela Work Phone: [facility] 08-13-2022 11:36-0400 Systolic blood pressure 171 mm[Hg] MD Susy Brizuela Work Phone: [facility] 04-24-2022 08:56-0500 Heart rate 81 /min MD Susy Brizuela Work Phone: [facility] 04-24-2022 08:56-0500 Respiratory rate 18 /min MD Susy Brizuela Work Phone: [facility] 03-23-2022 11:20-0500 Body height 157.5 cm Ryan Bansal MD Work Phone: [facility] 03-23-2022 11:20-0500 Body weight 93.35 kg Ryan Bansal MD Work Phone: [facility] 03-23-2022 11:20-0500 Diastolic blood pressure 66 mm[Hg] Ryan Bansal MD Work Phone: [facility] 03-23-2022 11:20-0500 Heart rate 71 /min Ryan Bansal MD Work Phone: [facility] 03-23-2022 11:20-0500 Systolic blood pressure 143 mm[Hg] Ryan Bansal MD Work Phone: [facility] 03-21-2022 13:52-0500 Body height 157.5 cm Gillian Lard DRUGLESS PHYSICIAN.CONFIGURATION CONSULTANT Work Phone: [facility] 03-21-2022 13:52-0500 Body temperature 98.71 [degF] Gillian Lard DRUGLESS PHYSICIAN.CONFIGURATION CONSULTANT Work Phone: [facility] 03-21-2022 13:52-0500 Body weight 92.99 kg Gillian Lard DRUGLESS PHYSICIAN.CONFIGURATION CONSULTANT Work Phone: [facility] 03-21-2022 13:52-0500 Diastolic blood pressure 75 mm[Hg] Gillian Lard DRUGLESS PHYSICIAN.CONFIGURATION CONSULTANT Work Phone: [facility] 03-21-2022 13:52-0500 Heart rate 81 /min Gillian Lard DRUGLESS PHYSICIAN.CONFIGURATION CONSULTANT Work Phone: [facility] 03-21-2022 13:52-0500 Systolic blood pressure 138 mm[Hg] Gillian Lard DRUGLESS PHYSICIAN.CONFIGURATION CONSULTANT Work Phone: [facility] 03-20-2022 08:34-0500 Heart rate 76 /min MD Susy Brizuela Work Phone: [facility] 03-20-2022 08:34-0500 Respiratory rate 20 /min MD Susy Brizuela Work Phone: [facility] [facility] 02-20-2022 09:09-0500 Heart rate 72 /min MD Susy Brizuela Work Phone: [facility] 02-20-2022 09:09-0500 Respiratory rate 20 /min MD Susy Brizuela Work Phone: [facility] 12-26-2021 08:54-0400 Heart rate 70 /min PHYSICIAN NO [facility] 12-26-2021 08:54-0400 Respiratory rate 20 /min PHYSICIAN NO [facility] 12-06-2021 02:06-0400 Diastolic blood pressure 65 mm[Hg] PHYSICIAN NO [facility] 12-06-2021 02:06-0400 Heart rate 81 /min PHYSICIAN NO [facility] 12-06-2021 02:06-0400 Respiratory rate 18 /min PHYSICIAN NO [facility] 12-06-2021 02:06-0400 SaO2% (BldA) [Mass fraction] 97 % PHYSICIAN NO [facility] 12-06-2021 02:06-0400 Systolic blood pressure 138 mm[Hg] PHYSICIAN NO [facility] 12-05-2021 23:05-0400 Body height 160.02 cm PHYSICIAN NO [facility] 12-05-2021 23:05-0400 Body temperature 99.6 [degF] PHYSICIAN NO [facility] 12-05-2021 23:05-0400 Body weight 90.26 kg PHYSICIAN NO [facility] 11-21-2021 09:26-0400 Heart rate 50 /min DO Sreekanth James Jr Work Phone: [facility] 11-21-2021 09:26-0400 Respiratory rate 18 /min DO Sreekanth James Jr Work Phone: [facility] 11-03-2021 11:00-0400 Body height 157.48 cm Shelli Gerson Other Outline Other 11-03-2021 11:00-0400 Body mass index (BMI) [Ratio] 36.39 kg/m2 Shelli Gerson Other Outline Other 11-03-2021 11:00-0400 Body temperature 96.2 [degF] Shelli Gerson Other Outline Other 11-03-2021 11:00-0400 Body weight 90.27 kg Shelli Gerson Other Outline Other 11-03-2021 11:00-0400 Diastolic blood pressure 80 mm[Hg] Shelli Nieto Other Outline Other 11-03-2021 11:00-0400 SaO2% (BldA) [Mass fraction] 98 % Shelli Gerson Other Outline Other 11-03-2021 11:00-0400 Systolic blood pressure 152 mm[Hg] Shelli Nieto Other Outline Other 10-24-2021 09:15-0400 Heart rate 64 /min MD Susy Brizuela Work Phone: [facility] 10-24-2021 09:15-0400 Respiratory rate 18 /min MD Susy Brizuela Work Phone: [facility] 09-29-2021 10:15-0400 Body height 157.48 cm Yana Parks Other Outline Other 09-29-2021 10:15-0400 Body mass index (BMI) [Ratio] 36.39 kg/m2 Yana Parks Other Outline Other 09-29-2021 10:15-0400 Body temperature 97.3 [degF] Yana Parks Other Outline Other 09-29-2021 10:15-0400 Body weight 90.27 kg Yana Parks Other Outline Other 09-29-2021 10:15-0400 Diastolic blood pressure 80 mm[Hg] Yana Parks Other Outline Other 09-29-2021 10:15-0400 SaO2% (BldA) [Mass fraction] 98 % Yana Parks Other Outline Other 09-29-2021 10:15-0400 Systolic blood pressure 144 mm[Hg] Yana Parks Other Outline Other 09-19-2021 09:15-0400 Heart rate 68 /min MD Susy Brizuela Work Phone: [facility] 09-19-2021 09:15-0400 Respiratory rate 20 /min MD Susy Brizuela Work Phone: [facility] 08-22-2021 09:01-0400 Heart rate 67 /min MD Susy Brizuela Work Phone: [facility] 08-22-2021 09:01-0400 Respiratory rate 20 /min MD Susy Brizuela Work Phone: [facility] 01-19-2021 10:25-0500 Body height 157.48 cm Zora Martinez Other Outline Other 01-19-2021 10:25-0500 Body mass index (BMI) [Ratio] 36.83 kg/m2 Zora Martinez Other Outline Other 01-19-2021 10:25-0500 Body weight 91.36 kg Zora Martinez Other Outline Other 01-19-2021 10:25-0500 Diastolic blood pressure 78 mm[Hg] Zora Martinez Other Outline Other 01-19-2021 10:25-0500 Respiratory rate 18 /min Zora Martinez Other Outline Other 01-19-2021 10:25-0500 SaO2% (BldA) [Mass fraction] 97 % Zora Martinez Other Outline Other 01-19-2021 10:25-0500 Systolic blood pressure 146 mm[Hg] Zora Martinez Other Outline Other Encounters Encounter Date Encounter Type Care Provider Facility Start: 11-23-2023 End: 11-23-2023 Orders Only Audi Ferrer RN Trans[facility] Comment on above: Liver replaced by tr ansplant (HCC) (Primary Dx) Start: 11-22-2023 End: 11-22-[address] [facility] Start: 11-07-2023 End: 11-07-2023 ambulatory MARGARET Barton [facility] Start: 10-26-2023 End: 10-26-2023 ambulatory SUSY BRIZUELA Not Available Start: 10-12-2023 End: 10-13-2023 Emergency department patient visit MD Susy Brizuela Work Phone: [facility] Work Phone: Start: 10-10-2023 End: 10-10-2023 ambulatory SHELLI Kamron ANDRE Not Available Start: 10-09-2023 End: 10-09-2023 ambulatory SHELLI J THAI Not Available Start: 10-03-2023 End: 10-03-2023 ambulatory SHELLI Lundy THAI Not Available Start: 10-01-2023 End: 10-01-2023 ambulatory GILLIAN NOLEN Facility:[facility] Start: 09-23-2023 Orders Only Gillian elizabeth DRUGLESS PHYSICIAN.CONFIGURATION CONSULTANT Work Phone: [facility] [place] Comment on above: CKD (chronic kidney disease), stage IV (HCC) (Primary Dx) Clearance for [facility] Start: 09-20-2023 Telephone encounter Gillian Nolen DRUGLESS PHYSICIAN.CONFIGURATION CONSULTANT Work Phone: [facility] [place] Start: 09-13-2023 End: 09-13-2023 ambulatory GILLIAN NOLEN Facility:[facility] Start: 09-12-2023 Telephone encounter Gillian Nolen DRUGLESS PHYSICIAN.CONFIGURATION CONSULTANT Work Phone: [facility] [place] Start: 09-11-2023 Telephone encounter Susy Brizuela Work Phone: Transplant Center Start: 08-24-2023 End: 08-24-2023 ambulatory [facility] Start: 08-24-2023 End: 08-24-2023 ambulatory [facility] Start: 08-24-2023 Encounter for preprocedural cardiovascular examination [facility] Start: 07-19-2023 End: 07-19-2023 ambulatory Gillian Nolen DRUGLESS PHYSICIAN.CONFIGURATION CONSULTANT Work Phone: [facility] [place] Start: 07-19-2023 End: 07-19-2023 Office outpatient visit 25 minutes Ryan Bansal MD Work Phone: Rheumatology Comment on above: Chronic gout due to renal impairment without tophus, unspecified site (Primary Dx); On allopurinol therapy; Generalized osteoarthritis; Other chronic pain Start: 07-19-2023 End: 07-19-2023 Patient encounter procedure Raffaele Suarez MD Work Phone: General Surgery Comment on above: Incisional hernia, w ithout obstruction or gangrene (Primary Dx); Liver failure without hepatic coma, unspecified chronicity (HCC); Hyperammonemia (HCC); Obesity, Class III, BMI 40-49.9 (morbid obesity) (HCC) Stage 3 chronic kidn ey disease, unspecified whether stage 3a or 3b CKD (HCC) (Primary Dx); Liver replaced by transplant (HCC); Hyperuricemia; Calcineurin inhibitor causing toxicity in therapeutic use; Benign hypertensive kidney disease Start: 07-04-2023 End: 07-04-2023 ambulatory SUSY BRIZUELA Facility:[facility] Start: 07-02-2023 End: 07-02-2023 Patient encounter procedure Lizzie Gilbert APRN.CNP Work Phone: Transplant Center Comment on above: Ventral hernia witho ut obstruction or gangrene (Primary Dx); Liver replaced by transplant (HCC); Immunosuppressed status (HCC) Start: 07-02-2023 End: 07-02-2023 ambulatory LIZZIE GILBERT Facility:[facility] Start: 07-02-2023 End: 07-02-2023 Subsequent hospital visit by physician Ct 2 Main Qb (I-Stat) Radiology Comment on above: Liver replaced by tr ansplant (HCC) [Z94.4] Start: 07-02-2023 End: 07-02-2023 ambulatory LIZZIE GILBERT Facility:[facility] Start: 06-21-2023 End: 06-21-2023 ambulatory SUSY BRIZUELA Not Available Start: 06-18-2023 Orders Only Liver Txp Coor dinator Work Phone: Transplant Center Comment on above: Liver replaced by tr ansplant (HCC) (Primary Dx); Incisional hernia, without obstruction or gangrene Start: 05-24-2023 End: 05-24-2023 ambulatory SUSY BRIZUELA Facility:[facility] Start: 05-23-2023 Telephone encounter [facility] Start: 05-07-2023 Refill Lizzie feliciano APRN.CONFIGURATION CONSULTANT Work Phone: Transplant Center Comment on above: Refill Request Start: 04-19-2023 Clinisync Result Encounter Generic External Data Provider [facility] External Department Unsolicited Start: 04-19-2023 Clinisync Result Encounter Generic External Data Provider [facility] External Department Unsolicited Start: 04-19-2023 End: 04-19-2023 ambulatory SUSY BRIZUELA Facility:[facility] Start: 04-16-2023 Refill Susy ruano MD Work Phone: [facility] Comment on above: Essential hypertensi on (CMS/HCC) Start: 04-16-2023 Telephone encounter Zora Brady RN [facility] Start: 03-30-2023 End: 03-30-2023 ambulatory SHELLI ANDRE Not Available Start: 03-22-2023 End: 03-22-2023 ambulatory SUSY BRIZUELA Not Available Start: 03-19-2023 End: 03-19-2023 ambulatory SUSY BRIZUELA Facility:[facility] Start: 03-16-2023 End: 03-16-2023 ambulatory SHELLI ANDRE Not Available Start: 02-23-2023 End: 02-23-2023 ambulatory SUSY BRIZUELA Not Available Start: 02-19-2023 End: 02-20-2023 ambulatory Jack Kebede MD Facility:[facility] Start: 02-15-2023 End: 02-15-2023 ambulatory Gillian Nolen APRN.CONFIGURATION CONSULTANT Work Phone: Kidney Medicine [facility] Start: 02-15-2023 End: 02-15-2023 Office outpatient visit 40 minutes Ryan Bansal MD Work Phone: Rheumatology Comment on above: Post herpetic neural malcolm (Primary Dx); Chronic gout due to renal impairment without tophus, unspecified site; Stage 3b chronic kidney disease (HCC); Generalized osteoarthritis; On allopurinol therapy; Liver transplant recipient (HCC) Start: 02-12-2023 End: 02-12-2023 ambulatory RAFFI MACIEL Not Available Start: 02-12-2023 End: 02-12-2023 ambulatory SUSY BRIZUELA Facility:[facility] Start: 01-29-2023 End: 01-30-2023 ambulatory Jack Kebede MD Facility: [facility] Start: 01-15-2023 ambulatory Liver Txp Coor dinator Work Phone: Transplant Center Start: 01-08-2023 End: 01-08-2023 ambulatory SUSY BRIZUELA Facility:[facility] Start: 12-26-2022 End: 12-26-2022 ambulatory SUSY BRIZUELA Facility:[facility] Start: 12-11-2022 End: 12-12-2022 ambulatory Jack Kebede MD Facility:[facility] Start: 12-04-2022 End: 12-04-2022 ambulatory SUSY BRIZUELA Facility:[facility] Start: 10-26-2022 ambulatory Gillian elizabeth APRN.CONFIGURATION CONSULTANT Work Phone: [facility] [place] Start: 10-26-2022 End: 10-26-2022 Patient encounter procedure Gillian Nolen APRN.CONFIGURATION CONSULTANT Work Phone: [facility] [place] Comment on above: CKD (chronic kidney disease) stage 4, GFR 15-29 ml/min (HCC) (Primary Dx); Liver replaced by transplant (HCC); Calcineurin inhibitor causing toxicity in therapeutic use; Chronic gout due to renal impairment of multiple sites without tophus; Essential hypertension Start: 10-26-2022 End: 10-26-2022 Office outpatient visit 40 minutes Ryan Bnasal MD Work Phone: Rheumatology Comment on above: Elevated CK (Primary Dx); Chronic left shoulder pain; Pain in right hip; Chronic gout due to renal impairment without tophus, unspecified site; Stage 3b chronic kidney disease (HCC); Malaise and fatigue Start: 09-25-2022 End: 09-25-2022 Admission to same day surgery center MD Susy Brizuela Work Phone: [facility] Start: 09-25-2022 End: 09-25-2022 ambulatory MD Susy Brizuela Work Phone: [facility] Work Phone: Start: 08-25-2022 Refill Ryan burns MD Work Phone: Rheumatology Comment on above: Refill Request Follow Up Start: 08-23-2022 Telephone encounter Rosalva Salazartheresa [facility] Comment on above: Shingles; Follow Up; Results Start: 08-18-2022 Telephone encounter Ryan davis MD Work Phone: Rheumatology Comment on above: Appointment Start: 08-18-2022 End: 08-18-2022 Phys/qhp telephone evaluation 21-30 min Ryan Bansal MD Work Phone: Rheumatology Comment on above: Chronic gout due to renal impairment without tophus, unspecified site (Primary Dx); On allopurinol therapy; On colchicine therapy; Stage 3b chronic kidney disease (HCC); Herpes zoster without complication; Elevated CK Start: 08-14-2022 Telephone encounter Liver Txp Coordinator Work Phone: Transplant Center Comment on above: Medication Dosage Ad justment; Follow Up Start: 08-13-2022 End: 08-13-2022 Emergency department patient visit MD Susy Brizuela Work Phone: [facility] Work Phone: Start: 08-01-2022 End: 08-01-2022 ambulatory Timoteo Drummond MD, PhD Work Phone: Transplant Center Comment on above: Need for prophylacti c immunotherapy (Primary Dx); Encounter for aftercare following liver transplant (HCC) Start: 08-01-2022 End: 08-01-2022 Telemedicine consultation with patient Timoteo Drummond MD, PhD Work Phone: [facility] Start: 07-18-2022 ambulatory Liver Txp Coor dinator Work Phone: Transplant Center Start: 07-14-2022 Orders Only Mert Sharpe Work Phone: Hematology/Oncology Comment on above: Other pulmonary embo lism without acute cor pulmonale, unspecified chronicity (HCC) (Primary Dx); Recurrent deep venous thrombosis (HCC) Start: 05-25-2022 ambulatory Gillian elizabeth APRN.CONFIGURATION CONSULTANT Work Phone: [facility] [place] Comment on above: Edema of B LE s. Start: 05-11-2022 Orders Only Liver Txp Coor dinator Work Phone: Transplant Center Comment on above: Liver replaced by tr ansplant (HCC) (Primary Dx) Start: 05-05-2022 Telephone encounter Audi Ferrer RN Transplant Center Comment on above: Medication Dosage Ad justment Start: 05-03-2022 Telephone encounter Gillian Nolen APRN.CONFIGURATION CONSULTANT Work Phone: [facility] [place] Comment on above: Patient Update Start: 04-27-2022 Telephone encounter Gillian Nolen APRN.CONFIGURATION CONSULTANT Work Phone: [facility] [place] Comment on above: Edema Start: 04-25-2022 Telephone encounter Ryan davis MD Work Phone: Rheumatology Comment on above: Medication Problem; Patient Update Start: 04-24-2022 End: 04-24-2022 ambulatory MD Susy Brizuela Work Phone: [facility] Work Phone: Start: 04-24-2022 End: 04-24-2022 Patient encounter procedure MD Susy Brizuela Work Phone: [facility] Work Phone: Comment on above: Disorder of liver; Liver replaced by transplant (HCC) Start: 04-21-2022 End: 04-21-2022 ambulatory Ryan Bansal MD Work Phone: Rheumatology Comment on above: Chronic gout due to renal impairment without tophus, unspecified site (Primary Dx); Stage 3b chronic kidney disease (HCC); Long-term current use of tacrolimus; Liver transplant recipient (HCC); On allopurinol therapy Start: 04-21-2022 End: 04-21-2022 Telemedicine consultation with patient Ryan Bansal MD Work Phone: [facility] Start: 04-13-2022 End: 04-14-[address] ROWDY PEREZ Facility: Start: 03-23-2022 Telephone encounter Audi Ferrer RN Transplant Center Comment on above: Follow Up Start: 03-23-2022 End: 03-23-2022 Office outpatient new 60 minutes Ryan Bansal MD Work Phone: Rheumatology Comment on above: Chronic gout due to renal impairment without tophus, unspecified site (Primary Dx); Stage 3b chronic kidney disease (HCC); Liver transplant recipient (HCC); Long-term current use of tacrolimus; Acute right ankle pain Start: 03-21-2022 End: 03-21-2022 Patient encounter procedure Gillian Nolen APRN.CONFIGURATION CONSULTANT Work Phone: Kidney [facility] Comment on above: Stage 3 chronic kidn ey disease, unspecified whether stage 3a or 3b CKD (HCC) (Primary Dx); Hyperuricemia; Chronic gout due to renal impairment of multiple sites without tophus; Liver replaced by transplant (HCC); Essential hypertension; Chronic kidney disease, stage 3b (HCC) Start: 03-21-2022 ambulatory Gillian elizabeth APRN.CONFIGURATION CONSULTANT Work Phone: Kidney [facility] Start: 03-20-2022 End: 03-20-2022 ambulatory MD Susy Brizuela Work Phone: [facility] Work Phone: Start: 03-20-2022 End: 03-20-2022 Patient encounter procedure MD Susy Brizuela Work Phone: [facility] Work Phone: Comment on above: Disorder of liver; Liver replaced by transplant (HCC) Start: 03-10-2022 Telephone encounter Liver Txp Coordinator Work Phone: Transplant Center Comment on above: Discussion Start: 03-03-2022 End: 03-04-2022 ambulatory STEFANO MERRILL Facility:[facility] Start: 02-20-2022 End: 02-20-2022 ambulatory MD Susy Brizuela Work Phone: [facility] Work Phone: Start: 02-20-2022 End: 02-20-2022 Patient encounter procedure MD Susy Brizuela Work Phone: [facility] Start: 02-10-2022 Telephone encounter Gillian Nolen DRUGLESS PHYSICIAN.CONFIGURATION CONSULTANT Work Phone: Kidney Medicine Comment on above: Patient Update Start: 02-02-2022 Refill Timoteo Drummond MD, PhD Work Phone: Transplant Center Comment on above: Refill Request Start: 01-05-2022 End: 01-06-[address] ROWDY PEREZ Facility:[facility] Start: 12-26-2021 End: 12-26-2021 ambulatory PHYSICIAN NO [facility] Work Phone: Start: 12-26-2021 End: 12-26-2021 Patient encounter procedure PHYSICIAN NO [facility]-Respiratory Therapy Comment on above: Liver replaced by tr ansplant (HCC); Disorder of liver Start: 12-20-2021 End: 12-20-[address] ROWDY PEREZ Facility:[facility] Start: 12-13-2021 End: 12-14-[address] ROWDY PEREZ Facility:[facility] Start: 12-05-2021 End: 12-06-2021 Emergency department patient visit PHYSICIAN NO [facility]-Emergency Room Start: 11-21-2021 End: 11-21-2021 Orders Only Lizzie Gilbert APRN.CONFIGURATION CONSULTANT Work Phone: Transplant Center Comment on above: Disorder of liver (P rimary Dx); Liver replaced by transplant (HCC) Liver replaced by tr ansplant (HCC); Disorder of liver Start: 11-21-2021 End: 11-21-2021 Patient encounter procedure DO Sreekanth James Jr Work Phone: [facility] Start: 11-03-2021 End: 11-03-2021 ambulatory Shelli Nieto Other Outline Other Start: 11-03-2021 Office outpatient vi sit 15 minutes Shelli Nieto [facility] Vascular Surgery Start: 11-03-2021 End: 11-03-2021 Patient encounter procedure DO Sreekanth James Work Phone: [facility]Ul[facility]ound [facility] Start: 10-24-2021 End: 10-24-2021 Patient encounter procedure MD Susy Brizuela Work Phone: [facility] Start: 10-18-2021 Refill Ivanna Сергей ick [facility] Work Phone: [facility] Comment on above: Refill Request Start: 10-17-2021 Refill Liver Txp Coor dinator Work Phone: Transplant Center Start: 09-29-2021 End: 09-29-2021 ambulatory Yana Parks Other [facility] Other Start: 09-29-2021 FQHC visit new patient Yana cardenas [facility] Vascular Surgery Start: 09-19-2021 End: 09-19-2021 Patient encounter procedure Lab Andrew Aguilar Work Phone: Laboratory Medicine Comment on above: Liver replaced by tr ansplant (HCC) Start: 09-09-2021 Encounter for preprocedural cardiovascular examination DR SHELLI ANDRE [facility] Start: 09-09-2021 Encounter for preprocedural laboratory examination DR SHELLI ANDRE [facility] Start: 09-08-2021 End: 09-08-2021 Departed Referred MD Susy Brizuela Work Phone: [facility] [place] Start: 09-06-2021 End: 09-07-[address] Kamron RICE Facility: Start: 09-06-2021 End: 09-07-2021 Encounter for preprocedural cardiovascular examination DR Kamron RICE Facility:[facility] Start: 08-22-2021 End: 08-22-2021 Patient encounter procedure MD Susy Brizuela Work Phone: [facility] Start: 06-15-2021 ambulatory Cyndi Hylton RN [facility] [place] Start: 01-19-2021 End: 01-19-2021 ambulatory Zora Martinez Other [facility] Other Start: 01-19-2021 Office outpatient vi sit 15 minutes Zora Martinez [facility] [place] Start: 11-17-2019 Patient encounter status Zora cedillo RN [facility] [employer] [facility] Start: 11-18-2018 End: 11-19-2018 Patient encounter procedure [facility] Start: 11-18-2018 End: 11-18-2018 Subsequent hospital visit by physician Richard [facility] Comment on above: RLS (restless legs s yndrome) Start: 02-01-2018 End: 02-01-2018 Patient encounter procedure [facility] Start: 09-18-2017 End: 09-19-2017 Patient encounter [facility] Start: 08-28-2017 End: 08-29-2017 Patient encounter [facility] Start: 07-24-2017 End: 07-27-2017 Ambulatory [facility] Start: 07-21-2017 End: 07-22-2017 Evaluation and management of inpatient JANET GAMBLE [facility] Start: 07-12-2017 End: 07-13-2017 Patient encounter [facility] Start: 07-05-2017 End: 07-08-2017 Ambulatory [facility] Start: 07-03-2017 End: 07-03-2017 Emergency department patient visit DAVID PENNINGTON [facility] Start: 03-15-2017 Ambulatory [facility] Procedures Date Procedure Procedure Detail Performing Clinician Start: 11-22-2023 Follow-up visit Follow-up ABELINO Alverto JARVIS Start: 08-24-2023 Lipid 1996 panel - Serum or Plasma Gillian Nolen APRN.CONFIGURATION CONSULTANT Work Phone: Start: 07-19-2023 Urnls dip stick/tablet rgnt auto w/o microscopy Bulk Order Provider Start: 07-02-2023 Ct abdomen & pelvis w/o contrast material Lizzie Gilbert APRN.CONFIGURATION CONSULTANT Work Phone: Start: 04-19-2023 [facility] CBC W AUTO DIFF BLD Generic External Data Provider Start: 02-15-2023 Urnls dip stick/tablet rgnt auto w/o microscopy Bulk Order Provider Start: 02-15-2023 Follow-up visit Follow Up GILLIAN NOLEN Start: 10-26-2022 Urnls dip stick/tablet rgnt auto w/o microscopy Bulk Order Provider Start: 09-25-2022 End: 09-25-2022 Mammography of left breast MD Susy pugh Work Phone: Start: 09-25-2022 Core needle biopsy of breast using ultrasound guidance MD Susy Brizuela Work Phone: Start: 09-20-2022 H/O: liver recipient History of liver transplant Susy Brizuela MD Work Phone: Start: 08-31-2022 Mammography Ryan moran MD Work Phone: Start: 08-28-2022 Lipid 1996 panel - Serum or Plasma Gillian Nolen APRN.CONFIGURATION CONSULTANT Work Phone: Start: 08-13-2022 CT of head without contrast MD Susy Brizuela Work Phone: Start: 08-13-2022 CT cervical spine without contrast MD Susy Brizuela Work Phone: Start: 04-24-2022 Blood count complete auto&auto difrntl wbc Lizzie Gilbert DRUGLESS PHYSICIAN.CONFIGURATION CONSULTANT Work Phone: Start: 04-24-2022 Drug screen quantitative tacrolimus Lizzie Gilbert DRUGLESS PHYSICIAN.CONFIGURATION CONSULTANT Work Phone: Start: 03-23-2022 Cell count misc body fluids w/differential count Ryan Bansal MD Work Phone: Start: 03-23-2022 SYNOVIAL FLUID MANUAL DIFF Ryan cerda MD Work Phone: Start: 03-23-2022 End: 03-23-2022 Cul bact xcpt urine blood/stool aerobic isol Ryan Bansal MD Work Phone: Start: 03-23-2022 Arthrocentesis aspir&/inj interm jt/burs w/o us Ryan Bansal MD Work Phone: Start: 03-21-2022 Urnls dip stick/tablet rgnt auto w/o microscopy Bulk Order Provider Start: 03-20-2022 Blood count complete auto&auto difrntl wbc Lizzie Gilbert DRUGLESS PHYSICIAN.CONFIGURATION CONSULTANT Work Phone: Start: 02-21-2022 Adult depression screening assessment Zora Brady RN Start: 12-26-2021 Blood count complete auto&auto difrntl wbc Lizzie Gilbert DRUGLESS PHYSICIAN.CONFIGURATION CONSULTANT Work Phone: Start: 12-26-2021 Drug screen quantitative tacrolimus Lizzie Gilbert DRUGLESS PHYSICIAN.CONFIGURATION CONSULTANT Work Phone: Start: 11-21-2021 Blood count complete auto&auto difrntl wbc Lizzie Gilbert DRUGLESS PHYSICIAN.CONFIGURATION CONSULTANT Work Phone: Start: 11-21-2021 Lipid panel Lizzie Gilbert DRUGLESS PHYSICIAN.CONFIGURATION CONSULTANT Work Phone: Start: 11-03-2021 Duplex scan of lower limb veins DO Sreekanth James Jr Work Phone: Start: 09-19-2021 Blood count complete auto&auto difrntl wbc Lizzie Gilbert DRUGLESS PHYSICIAN.CONFIGURATION CONSULTANT Work Phone: Start: 09-19-2021 Drug screen quantitative tacrolimus Lizzie Gilbert DRUGLESS PHYSICIAN.CONFIGURATION CONSULTANT Work Phone: Start: 07-18-2021 Colonoscopy Lab Work Phone: Start: 05-31-2021 Mammography Lizzie Gilbert DRUGLESS PHYSICIAN.CONFIGURATION CONSULTANT Work Phone: Start: 08-07-2019 Mammography Cyndi Hylton RN Start: 07-07-2019 Colonoscopy Cyndi Hylton RN Start: 11-18-2018 Creatine kinase total RICHARD ALEXEY Start: 11-18-2018 Creatine kinase total Richard R Alexey Work Phone: Start: 02-12-2018 H/O: liver recipient Liver transplant recipient Cyndi Hylton RN Start: 09-18-2017 ELECTROLYTE PANEL ISAM DABOUL Start: 09-18-2017 Hepatic function panel ISAM DABOUL Start: 09-18-2017 Prothrombin time ISAM DABOUL Start: 07-27-2017 DISCHARGE PATIENT DAVID PENNINGTON Start: 07-27-2017 INITIATE OXYGEN THERAPY PROTOCOL DAVID PENNINGTON Start: 07-27-2017 AMMONIA DAVID PENNINGTON Start: 07-27-2017 Bilirubin direct DAVID PENNINGTON Start: 07-27-2017 Blood count complete automated DAVID PENNINGTON Start: 07-27-2017 COMPREHENSIVE METABOLIC PANEL W/ REFLEX TO MG FOR LOW K DAVID PENNINGTON Start: 07-27-2017 INTAKE AND OUTPUT DAVID PENNINGTON Start: 07-26-2017 REASON FOR NO CHEMICAL VTE PROPHYLAXIS DAVID PENNINGTON Start: 07-26-2017 INITIATE OXYGEN THERAPY PROTOCOL DAVID PENNINGTON Start: 07-26-2017 AMMONIA DAVID PENNINGTON Start: 07-26-2017 Blood count complete automated DAVID PENNINGTON Start: 07-26-2017 COMPREHENSIVE METABOLIC PANEL W/ REFLEX TO MG FOR LOW K DAVID PENNINGTON Start: 07-26-2017 INTAKE AND OUTPUT DAVID PENNINGTON Start: 07-25-2017 Us abdominal real time w/image limited DAVID PENNINGTON Start: 07-25-2017 DIET LOW SODIUM 2 GM DAVID PENNINGTON Start: 07-25-2017 INITIATE OXYGEN THERAPY PROTOCOL DAVID PENNINGTON Start: 07-25-2017 AMMONIA DAVID PENNINGTON Start: 07-25-2017 Blood count complete automated DAVID PENNINGTON Start: 07-25-2017 COMPREHENSIVE METABOLIC PANEL W/ REFLEX TO MG FOR LOW K DAVID PENNINGTON Start: 07-25-2017 Prothrombin time DAVID PENNINGTON Start: 07-25-2017 DAILY WEIGHTS DAVID PENNINGTON Start: 07-25-2017 URINE RT REFLEX TO CULTURE DAVID MARCH Start: 07-25-2017 FULL CODE DAVID PENNINGTON Start: 07-25-2017 INITIATE OXYGEN THERAPY PROTOCOL DAVID PENNINGTON Start: 07-25-2017 INTAKE AND OUTPUT DAVID PENNINGTON Start: 07-25-2017 NOTIFY PHYSICIAN (SPECIFY) DAVID URENA TT Start: 07-25-2017 PLACE INTERMITTENT PNEUMATIC COMPRESSION DEVICE DAVID PENNINGTON Start: 07-25-2017 TOBACCO CESSATION EDUCATION DAVID JORDAN Start: 07-25-2017 VITAL SIGNS DAVID PENNINGTON Start: 07-25-2017 ORTHOSTATIC BLOOD PRESSURE AND PULSE DAVID PENNINGTON Start: 07-24-2017 AMMONIA DAVID PENNINGTON Start: 07-24-2017 Basic metabolic panel calcium total DAVID PENNINGTON Start: 07-24-2017 Blood count complete automated DVAID PENNINGTON Start: 07-24-2017 Hepatic function panel DAVID PENNINGTON Start: 07-24-2017 IP CONSULT TO GI DAVID PENNINGTON Start: 07-24-2017 MISCELLANEOUS NURSING CARE ORDER (SPECIFY) DAVID PENNINGTON Start: 07-24-2017 OT EVAL AND TREAT DAVID PENNINGTON Start: 07-24-2017 PT EVAL AND TREAT DAVID PENNINGTON Start: 07-24-2017 PATIENT STATUS (DIRECT) DAVDI PENNINGTON Start: 07-22-2017 DISCHARGE PATIENT DAVID PENNINGTON Start: 07-22-2017 DIET GENERAL DAVID PENNINGTON Start: 07-22-2017 PATIENT STATUS (DIRECT) DAVID PENNINGTON Start: 07-21-2017 IP CONSULT TO SPIRITUAL SERVICES DAVID PENNINGTON Start: 07-21-2017 FULL CODE DAVID PENNINGTON Start: 07-21-2017 NOTIFY PHYSICIAN (SPECIFY) DAVID MARCH Start: 07-21-2017 PLACE INTERMITTENT PNEUMATIC COMPRESSION DEVICE DAVID PENNINGTON Start: 07-21-2017 REASON FOR NO CHEMICAL VTE PROPHYLAXIS DAVID PENNINGTON Start: 07-21-2017 TELEMETRY MONITORING DAVID PENNINGTON Start: 07-21-2017 VITAL SIGNS DAVID PENNINGTON Start: 07-21-2017 PATIENT STATUS (FROM ED OR OR/PROCEDURAL) DAVID PENNINGTON Start: 07-21-2017 AMMONIA DAVID PENNINGTON Start: 07-21-2017 Assay of lipase DAVID PENNINGTON Start: 07-21-2017 Basic metabolic panel calcium total DAVID PENNINGTON Start: 07-21-2017 Blood count complete auto&auto difrntl wbc DAVID PENNINGTON Start: 07-21-2017 Hepatic function panel DAVID PENNINGTON Start: 07-21-2017 INSERT PERIPHERAL IV DAVID PENNINGTON Start: 07-21-2017 IP CONSULT TO INTERNAL MEDICINE DAVID PENNINGTON Start: 07-12-2017 ANTIMITOCHONDRIAL ANTIBODY ISAM DABOUL Start: 07-12-2017 DONALD ISAM DABOUL Start: 07-12-2017 ANTI-SMOOTH MUSCLE ANTIBODY ISAM DABOUL Start: 07-12-2017 MITOCHONDRIAL ANTIBODIES, M2, IGG ISAM DABOUL Start: 07-05-2017 Hepatobiliary syst imaging including gallbladder DAVID PENNINGTON Start: 07-03-2017 Microscopic urinalysis DAVID PENNINGTON Start: 07-03-2017 URINE RT REFLEX TO CULTURE DAVID URENA TT Start: 07-03-2017 STRAIGHT CATH DAVID PENNINGTON Start: 07-03-2017 URINE CULTURE CLEAN CATCH DAVID LACEY T Start: 07-03-2017 Ct head/brain w/o contrast material DAVID PENNINGTON Start: 07-03-2017 Microscopic urinalysis DAVID PENNINGTON Start: 07-03-2017 Urinalysis DAVID PENNINGTON Start: 07-03-2017 URINE DRUG SCREEN DAVID PENNINGTON Start: 07-03-2017 AMMONIA DAVID PENNINGTON Start: 07-03-2017 BASIC METABOLIC PANEL DAVID PENNINGTON Start: 07-03-2017 CBC WITH AUTO DIFFERENTIAL DAVID MARCH Start: 07-03-2017 HEPATIC FUNCTION PANEL DAVID PENNINGTON Start: 07-03-2017 LIPASE DAVID PENNINGTON Start: 07-03-2017 TROPONIN DAVID PENNINGTON Start: 07-03-2017 EKG 12-LEAD DAVID PENNINGTON Start: 07-03-2017 INSERT PERIPHERAL IV DAVID PENNINGTON Start: 07-03-2017 TELEMETRY MONITORING DAVID EPNNINGTON H/O: liver recipient Liver repla carmen by transplant (HCC) Lab Work Phone: H/O: liver recipient Liver repla carmen by transplant (HCC) Lizzie Gilbert APRN.[facility] Work Phone: H/O: liver recipient Liver repla carmen by transplant (HCC) Lab Work Phone: H/O: liver recipient Liver repla carmen by transplant (HCC) Timoteo Drummond MD, PhD Work Phone: H/O: liver recipient Liver repla carmen by transplant (HCC) Lab Work Phone: H/O: liver recipient Liver trans plant recipient (HCC) Ryan Bansal MD Work Phone: H/O: liver recipient Liver repla carmen by transplant (HCC) Gillian Nolen DRUGLESS PHYSICIAN.CONFIGURATION CONSULTANT Work Phone: H/O: liver recipient Liver trans plant recipient (HCC) Ryan Bansal MD Work Phone: H/O: liver recipient Liver repla carmen by transplant (HCC) Lab Work Phone: H/O: liver recipient Liver repla carmen by transplant (HCC) Audi Ferrer RN H/O: liver recipient Liver repla carmen by transplant (HCC) Liver Txp Coordinator Work Phone: H/O: liver recipient Encounter f or aftercare following liver transplant (HCC) Timoteo Drummond MD, PhD Work Phone: H/O: liver recipient Liver repla carmen by transplant (HCC) Gillian Nolen DRUGLESS PHYSICIAN.CONFIGURATION CONSULTANT Work Phone: H/O: liver recipient Liver trans plant recipient (HCC) Ryan Bansal MD Work Phone: H/O: liver recipient Liver repla carmen by transplant (HCC) Lizzie Gilbert DRUGLESS PHYSICIAN.CONFIGURATION CONSULTANT Work Phone: H/O: liver recipient Liver repla carmen by transplant (HCC) Liver Txp Coordinator Work Phone: H/O: liver recipient Liver repla carmen by transplant (HCC) Lizzie Gilbert DRUGLESS PHYSICIAN.CONFIGURATION CONSULTANT Work Phone: H/O: liver recipient Liver repla carmen by transplant (HCC) Gillian Nolen DRUGLESS PHYSICIAN.CONFIGURATION CONSULTANT Work Phone: H/O: liver recipient Liver trans plant recipient MD Susy Brizuela Work Phone: H/O: liver recipient Liver repla carmen by transplant (HCC) Audi Ferrer RN Plan of Treatment Date Care Activity Detail Author Start: 07-19-2031 Screening for malign ant neoplasm of colon [facility] Start: 08-23-2028 Lipid panel Lipid Screening [facility] Start: 11-09-2027 DTaP,Tdap and Td Vac cines (3 - Td or Tdap) DTaP,Tdap and Td Vaccines (3 - Td or Tdap) [facility] Start: 11-09-2027 DTaP/Tdap/Td vaccine (3 - Td) DTaP/Tdap/Td vaccine (3 - Td) [place], [place] Start: 11-09-2027 Urine microalbumin profile [facility] Start: 08-29-2027 Lipid 1996 panel - S emilee or Plasma Lipid Screening [facility] Start: 08-29-2027 Lipid panel Lipid Screening [facility] Start: 08-29-2027 LIPID SCREEN LIPID SCREEN [facility] Start: 05-23-2027 LIPID SCREEN LIPID SCREEN [facility] Start: 03-30-2027 Colon cancer screen colonoscopy Colon cancer screen colonoscopy [place], [place] Start: 02-20-2027 LIPID SCREEN LIPID SCREEN [facility] Start: 11-22-2026 Diabetes Screening Diabetes Screenin [facility] Start: 11-21-2026 LIPID SCREEN LIPID SCREEN [facility] Start: 09-12-2026 Diabetes Screening Diabetes Screenin [facility] Start: 08-22-2026 LIPID SCREEN LIPID SCREEN [facility] Start: 07-18-2026 Diabetes Screening Diabetes Screenin g [facility] Start: 07-01-2026 Diabetes Screening Diabetes Screenin [facility] Start: 05-30-2026 LIPID SCREEN LIPID SCREEN [facility] Start: 05-23-2026 Diabetes Screening Diabetes Screenin g [facility] Start: 04-19-2026 Diabetes Screening Diabetes Screenin [facility] Start: 02-12-2026 Diabetes Screening Diabetes Screenin g [facility] Start: 01-08-2026 Diabetes Screening Diabetes Screenin g [facility] Start: 11-07-2025 Diabetes Screening Diabetes Screenin g [facility] Start: 10-23-2025 DIABETES SCREEN DIABETES SCREEN [facility] Start: 08-14-2025 DIABETES SCREEN DIABETES SCREEN [facility] Start: 08-01-2025 DIABETES SCREEN DIABETES SCREEN [facility] Start: 07-17-2025 DIABETES SCREEN DIABETES SCREEN [facility] Start: 07-03-2025 DIABETES SCREEN DIABETES SCREEN [facility] Start: 05-22-2025 DIABETES SCREEN DIABETES SCREEN [facility] Start: 05-08-2025 DIABETES SCREEN DIABETES SCREEN [facility] Start: 04-24-2025 DIABETES SCREEN DIABETES SCREEN [facility] Start: 04-10-2025 DIABETES SCREEN DIABETES SCREEN [facility] Start: 03-20-2025 DIABETES SCREEN DIABETES SCREEN [facility] Start: 02-20-2025 DIABETES SCREEN DIABETES SCREEN [facility] Start: 12-26-2024 DIABETES SCREEN DIABETES SCREEN [facility] Start: 11-22-2024 Complete blood count Hemoglobin/Mina tocrit [facility] Start: 11-22-2024 Creatinine measurement Serum Creatin ine [facility] Start: 11-21-2024 DIABETES SCREEN DIABETES SCREEN [facility] Start: 10-24-2024 DIABETES SCREEN DIABETES SCREEN [facility] Start: 09-19-2024 DIABETES SCREEN DIABETES SCREEN [facility] Start: 09-12-2024 Complete blood count [facility] Start: 09-12-2024 Creatinine measurement Serum Creatin ine [facility] Start: 07-18-2024 BP Controlled (<130/80) BP Controlle d (<130/80) [facility] Start: 07-18-2024 Colonoscopy COLONOSCOPY [facility] Start: 07-18-2024 COLORECTAL CANCER SCREENING COLORECTAL CANCER SCREENING [facility] Start: 07-18-2024 Complete blood count Hemoglobin/[facility] Start: 07-18-2024 Creatinine measurement Serum Creatin ine [facility] Start: 07-18-2024 Screening for malign ant neoplasm of colon [facility] Start: 07-09-2024 End: 07-09-2024 Patient encounter procedure 07/09/2024 8:30 AM EDT Office Visit Transplant Center [address] [address] [facility] Liver [address] [place] [address] F/UP Transplant Center Comment on above: F/UP Start: 07-01-2024 Complete blood count Hemoglobin/Mina tocrit [facility] Start: 07-01-2024 Creatinine measurement Serum Creatin ine [facility] Start: 05-30-2024 DIABETES SCREEN DIABETES SCREEN [facility] Start: 05-23-2024 Complete blood count Hemoglobin/Mina tocrit [facility] Start: 05-23-2024 Creatinine measurement Serum Creatin ine [facility] Start: 04-19-2024 Complete blood count Hemoglobin/Mina [facility] Start: 04-19-2024 Creatinine measurement Serum Creatin ine [facility] Start: 02-13-2024 Complete blood count Hemoglobin/Mina [facility] Start: 02-13-2024 Creatinine measurement Serum Creatin ine [facility] Start: 01-20-2024 Adult BMI Screening Adult BMI Screen ing [facility] Start: 01-09-2024 Hemoglobin/Hematocrit Hemoglobin/Hem [facility] Start: 01-09-2024 Serum Creatinine Serum Creatinine [facility] Start: 11-25-2023 Tobacco Screening Tobacco Screening [facility] Start: 11-21-2023 Hemoglobin/Hematocrit Hemoglobin/Hem [facility] Start: 11-08-2023 Serum Creatinine Serum Creatinine [facility] Start: 11-04-2023 Influenza vaccination Influenza Vacc ine (#1) [facility] Start: 10-27-2023 BP CONTROLLED (<130/80) BP CONTROLLE D (<130/80) [facility] Start: 10-24-2023 HEMOGLOBIN/HEMATOCRIT HEMOGLOBIN/HEM [facility] Start: 10-24-2023 SERUM CREATININE SERUM CREATININE [facility] Start: 10-13-2023 Bacteria identified in Urine by Culture [facility] Start: 10-13-2023 CT Abdomen and Pelvi s WO contrast [facility] Start: 10-13-2023 CT of abdomen and pe lvis without contrast CT abdomen pelvis wo con [facility] Start: 09-30-2023 End: 12-30-2023 Renal function 2000 panel - Serum or Plasma RENAL FUNCTION PANEL Lab Routine CKD (chronic kidney disease), stage IV (HCC) Expected: 09/30/2023 (Approximate), Expires: 12/30/2023 [facility] Work Phone: Comment on above: Expected: 09/30/2023 (Approximate), Expires: 12/30/2023 Start: 09-26-2023 Screening for malign ant neoplasm of breast Mammogram [facility] Start: 09-13-2023 End: 12-13-2023 Renal function 2000 panel - Serum or Plasma RENAL FUNCTION PANEL Lab Routine CKD (chronic kidney disease), stage IV (HCC) Expected: 09/13/2023 (Approximate), Expires: 12/13/2023 [facility] Work Phone: Comment on above: Expected: 09/13/2023 (Approximate), Expires: 12/13/2023 Start: 09-13-2023 End: 09-13-2023 ambulatory 09/13/2023 8:30 AM EDT Results Only [facility] [address] [place] [address] [place] [address] [facility] Start: 09-01-2023 Mammography [facility] Start: 09-01-2023 Screening for malign ant neoplasm of breast Mammogram Screening [facility] Start: 08-18-2023 Medicare Annual Well ness (AWV) Medicare Annual Wellness (AWV) [facility] Start: 08-15-2023 HEMOGLOBIN/HEMATOCRIT HEMOGLOBIN/HEM [facility] Start: 08-15-2023 SERUM CREATININE SERUM CREATININE [facility] Start: 08-02-2023 HEMOGLOBIN/HEMATOCRIT HEMOGLOBIN/HEM [facility] Start: 08-02-2023 SERUM CREATININE SERUM CREATININE [facility] Start: 07-25-2023 BP CONTROLLED (<130/80) BP CONTROLLE D (<130/80) [facility] Start: 07-19-2023 End: 07-19-2023 Patient encounter procedure 07/19/2023 11:30 AM EDT Office Visit Kidney [facility] [address] [address] Gillian Nolen, DRUGLESS PHYSICIAN.CONFIGURATION CONSULTANT [address] [place] [address] Follow up Kidney Medicine [facility] Comment on above: Follow up Start: 07-19-2023 End: 07-19-2023 Patient encounter procedure [facility] Comment on above: Liver replaced by tr ansplant (HCC) [Z94.4] 4-5m fu per cheem Start: 07-18-2023 HEMOGLOBIN/HEMATOCRIT HEMOGLOBIN/HEM [facility] Start: 07-18-2023 SERUM CREATININE SERUM CREATININE Cl [facility] Start: 07-04-2023 [facility] Start: 07-04-2023 SERUM CREATININE SERUM CREATININE [facility] Start: 07-02-2023 End: 07-17-2024 CT Abdomen and Pelvis WO contrast CT ABD/PEL WO IVCON Radiology Routine Liver replaced by transplant (HCC) Incisional hernia, without obstruction or gangrene Expected: 07/02/2023 (Approximate), Expires: 07/17/2024 [facility] Work Phone: Comment on above: Expected: 07/02/2023 (Approximate), Expires: 07/17/2024 Start: 05-24-2023 End: 05-24-2023 Patient encounter procedure 05/24/2023 8:30 AM EDT Office Visit [facility] [address] [place] [address] An Urias MD [address] [place] [address] [facility] Start: 05-23-2023 HEMOGLOBIN/HEMATOCRIT HEMOGLOBIN/HEM [facility] Start: 05-23-2023 SERUM CREATININE SERUM CREATININE [facility] Start: 05-14-2023 Hemoglobin A1c measurement Diabetes: Hemoglobin A1C [facility] Start: 05-09-2023 HEMOGLOBIN/HEMATOCRIT HEMOGLOBIN/HEM [facility] Start: 05-09-2023 SERUM CREATININE SERUM CREATININE [facility] Start: 04-24-2023 HEMOGLOBIN/HEMATOCRIT HEMOGLOBIN/HEM [facility] Start: 04-24-2023 SERUM CREATININE SERUM CREATININE [facility] Start: 04-10-2023 HEMOGLOBIN/HEMATOCRIT HEMOGLOBIN/HEM [facility] Start: 04-10-2023 SERUM CREATININE SERUM CREATININE [facility] Start: 03-20-2023 HEMOGLOBIN/HEMATOCRIT HEMOGLOBIN/HEM [facility] Start: 03-20-2023 SERUM CREATININE SERUM CREATININE [facility] Start: 03-05-2023 Advance Directive Discussion Advance Directive Discussion [facility] Start: 03-05-2023 Behavioral Health Screening Behavioral Health Screening [facility] Start: 03-05-2023 Depression Assessment Depression Ass essment [facility] Start: 02-21-2023 Depression Screening Depression Scre [facility] Start: 02-20-2023 HEMOGLOBIN/HEMATOCRIT HEMOGLOBIN/HEM [facility] Start: 02-20-2023 SERUM CREATININE SERUM CREATININE [facility] Start: 12-26-2022 HEMOGLOBIN/HEMATOCRIT HEMOGLOBIN/HEM [facility] Start: 12-26-2022 SERUM CREATININE SERUM CREATININE [facility] Start: 11-21-2022 HEMOGLOBIN/HEMATOCRIT HEMOGLOBIN/HEM [facility] Start: 11-21-2022 SERUM CREATININE SERUM CREATININE [facility] Start: 11-03-2022 Influenza vaccination [facility] Start: 10-26-2022 End: 12-26-2022 ANTI HMGCR AUTOANTIBODIES [facility] Work Phone: Comment on above: Expected: 10/26/2022 , Expires: 12/26/2022 Start: 10-26-2022 End: 12-26-2022 Extractable nuclear Ab panel - Serum [facility] Work Phone: Comment on above: Expected: 10/26/2022 , Expires: 12/26/2022 Start: 10-26-2022 End: 12-26-2022 POLYMYOSITIS AND DERMATOMYOSITIS PANEL [facility] Work Phone: Comment on above: Expected: 10/26/2022 , Expires: 12/26/2022 Start: 10-26-2022 End: 12-26-2022 Thyrotropin [Units/volume] in Serum or Plasma [facility] Work Phone: Comment on above: Expected: 10/26/2022 , Expires: 12/26/2022 Start: 10-24-2022 SERUM CREATININE SERUM CREATININE [facility] Start: 09-19-2022 HEMOGLOBIN/HEMATOCRIT HEMOGLOBIN/HEM [facility] Start: 09-19-2022 SERUM CREATININE SERUM CREATININE [facility] Start: 07-14-2022 End: 09-13-2022 FACTOR V LEIDEN/PCR FACTOR V LEIDEN/PCR Lab Routine Other pulmonary embolism without acute cor pulmonale, unspecified chronicity (HCC) Recurrent deep venous thrombosis (HCC) Expected: 07/14/2022, Expires: 09/13/2022 [facility] Work Phone: Comment on above: Expected: 07/14/2022 , Expires: 09/13/2022 Start: 07-06-2022 Colonoscopy COLONOSCOPY [facility] Start: 07-06-2022 COLORECTAL CANCER SCREENING COLORECTAL CANCER SCREENING [facility] Start: 05-31-2022 Mammography MAMMOGRAM [facility] Start: 05-30-2022 HEMOGLOBIN/HEMATOCRIT HEMOGLOBIN/HEM ATOCRIT [facility] Start: 05-30-2022 SERUM CREATININE SERUM CREATININE Cl [facility] Start: 03-05-2022 ADVANCE DIRECTIVE DISCUSSION ADVANCE DIRECTIVE DISCUSSION [facility] Start: 03-05-2022 DEPRESSION ASSESSMENT DEPRESSION ASS ESSMENT [facility] Start: 11-03-2021 Influenza vaccination INFLUENZA (#1) [facility] Start: 11-03-2021 End: 11-03-2021 Patient encounter procedure Departed Clinical [facility] Start: 11-03-2021 Duplex scan of lower limb veins US venous duplex [facility] Start: 03-05-2021 ADVANCE DIRECTIVE DISCUSSION ADVANCE DIRECTIVE DISCUSSION [facility] Start: 03-05-2021 DEPRESSION ASSESSMENT DEPRESSION ASS ESSMENT [facility] Start: 08-06-2020 Mammography MAMMOGRAM [facility] Start: 03-20-2019 End: 03-20-2019 Office Visit 03/20/2019 Office Visit Internal Medicine Francy Benton MD [address] [place] [address] [phone] [facility] Start: 02-27-2019 Meningococcal B Vacc ine: Consider Based On Risk (3 of 4 - Increased Risk Bexsero 2-dose series) Meningococcal B Vaccine: Consider Based On Risk (3 of 4 - Increased Risk Bexsero 2-dose series) [facility] Start: 02-27-2019 MENINGOCOCCAL B: 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 based on risk (3 of 4 - Increased Risk Bexsero 2-dose series) MENINGOCOCCAL B: Consider based on risk (3 of 4 - Increased Risk Bexsero 2-dose series) [facility] Start: 01-07-2019 End: 01-07-2019 Office Visit 01/07/2019 Office Visit Internal Medicine Richard Blackburn MD [address] [place] [address] [phone] [facility] Start: 01-07-2019 End: 01-07-2019 Office Visit 01/07/2019 Office Visit Internal Medicine Richard Blackburn MD [address] [place] [address] [phone] [facility] Start: 11-03-2018 Influenza vaccination Flu vaccine (# 1) [place], [place] Start: 09-18-2018 Potassium monitoring Potassium monit oring [place] Start: 07-31-2018 Annual Wellness Visi t (AWV) Annual Wellness Visit (AWV) [place], [place] Start: 07-27-2018 Creatinine monitoring Creatinine mon itoring [place], [place] Start: 04-10-2018 Hepatitis A vaccine (3 of 3 - Hep A Twinrix risk 3-dose series) Hepatitis A vaccine (3 of 3 - Hep A Twinrix risk 3-dose series) [place] Start: 04-10-2018 Hepatitis B Vaccine (3 of 3 - Hep B Twinrix risk 3-dose series) Hepatitis B Vaccine (3 of 3 - Hep B Twinrix risk 3-dose series) [place] Start: 01-10-2018 Administration of varicella zoster vaccine Zoster (Shingles) Vaccine (2 of 2) [facility] Start: 01-10-2018 Shingles Vaccine (2 of 2) Wells gles Vaccine (2 of 2) [place] Start: 01-10-2018 SHINGRIX VACCINE (2 of 2) WELLS GRIX VACCINE (2 of 2) [facility] Start: 2013 DEXA (modify frequen cy per FRAX score) DEXA (modify frequency per FRAX score) [place], [place] Start: 2013 Fall Risk Screening Fall Risk Screen ing [facility] Start: 2008 RSV Vaccine (1 - 1-d ose 60+ series) RSV Vaccine (1 - 1-dose 60+ series) [facility] Start: 1998 Breast cancer screen Breast cancer s creen [place], [place] Start: 1993 COLOGUARD (FIT-DNA) COLOGUARD (FIT-D NA) [facility] Start: [address] COLONOGRAPHY [facility] Start: 1993 FECAL OCCULT BLOOD FECAL OCCULT BLOO D [facility] Start: 1993 Screening for malign ant neoplasm of colon [facility] Start: 1993 SIGMOIDOSCOPY SIGMOIDOSCOPY [facility] Start: 1988 Diabetes screen Diabetes screen [place], [place] Start: 1988 Lipid screen Lipid screen [place], [place] Start: 10-31-1967 Urine screening for protein Diabetes: Urine Protein Screening [facility] Start: 1966 Adult BMI Follow Up Plan Adult BMI Follow Up Plan [facility] Start: 1966 ANNUAL PCP TEAM PROSPECT MANAGER ASHLY DISEASE VISIT ANNUAL PCP TEAM CHRONIC DISEASE VISIT [facility] Start: 1966 Anxiety Screening Anxiety Screening [facility] Start: 1966 BP CONTROLLED (<130/80) BP CONTROLLE D (<130/80) [facility] Start: 1966 Depression Screening Depression Scre ening [facility] Start: 1960 Adult depression screening assessment DEPRESSION SCREENING [facility] Start: 1960 COVID-19 VACCINE (1) COVID-19 VACCIN E (1) [facility] Start: 10-31-1959 Screening for malign ant neoplasm of cervix Cervical Cancer Screening [facility] Start: 1958 Glaucoma screening Diabetes: R etinopathy Screening [facility] Start: 1953 COVID-19 VACCINE (#1) COVID-19 VACCI NE (#1) [facility] Start: 05-02-1949 COVID-19 VACCINE (#1) COVID-19 VACCI NE (#1) [facility] Start: 1948 Hepatitis C screen Hepatitis C scree n [place], [place] Start: 1948 Medicare Annual Well ness Visit Medicare Annual Wellness Visit [facility] Start: 1948 Screening for malign ant neoplasm of colon [facility] Bacteria identified in Body fluid by Culture BODY FLUID CULTURE AND GRAM STAIN Microbiology Routine Chronic gout due to renal impairment without tophus, unspecified site 03/23/2022 1:05 PM EST [facility] Work Phone: End: 11-14-2022 CBC W Auto Differential panel - Blood CBC + DIFF Lab Routine Disorder of liver Liver replaced by transplant (HCC) Every other week for 100 Occurrences starting 11/21/2021 until 11/14/2022 [facility] Work Phone: Comment on above: Every other week for 100 Occurrences starting 11/21/2021 until 11/14/2022 End: 03-23-2023 CBC W Auto Differential panel - Blood CBC + DIFF Lab Routine Chronic gout due to renal impairment without tophus, unspecified site Once per month for 12 Occurrences starting 03/23/2022 until 03/23/2023 [facility] Work Phone: Comment on above: Once per month for 1 2 Occurrences starting 03/23/2022 until 03/23/2023 End: 11-22-2024 CBC W Auto Differential panel - Blood COMPLETE BLOOD COUNT AND DIFFERENTIAL Lab Routine Liver replaced by transplant (HCC) Once per month for 11 Occurrences starting 11/23/2023 until 11/22/2024, 1 completed [facility] Work Phone: Comment on above: Once per month for 1 1 Occurrences starting 11/23/2023 until 11/22/2024, 1 completed End: 11-14-2022 Comprehensive metabolic 2000 panel - Serum or Plasma COMP METABOLIC PANEL Lab Routine Disorder of liver Liver replaced by transplant (HCC) Every other week for 100 Occurrences starting 11/21/2021 until 11/14/2022 [facility] Work Phone: Comment on above: Every other week for 100 Occurrences starting 11/21/2021 until 11/14/2022 End: 11-22-2024 Comprehensive metabolic 2000 panel - Serum or Plasma COMPREHENSIVE METABOLIC PANEL Lab Routine Liver replaced by transplant (HCC) Once per month for 11 Occurrences starting 11/23/2023 until 11/22/2024, 1 completed [facility] Comment on above: Once per month for 1 1 Occurrences starting 11/23/2023 until 11/22/2024, 1 completed End: 03-23-2023 Creatine kinase [Enzymatic activity/volume] in Serum or Plasma CK CREATINE KINASE Lab Routine Chronic gout due to renal impairment without tophus, unspecified site Once per month for 12 Occurrences starting 03/23/2022 until 03/23/2023 [facility] Work Phone: Comment on above: Once per month for 1 2 Occurrences starting 03/23/2022 until 03/23/2023 End: 07-14-2023 Fibrin D-dimer FEU [Mass/volume] in Platelet poor plasma D-DIMER Lab Routine Other pulmonary embolism without acute cor pulmonale, unspecified chronicity (HCC) Recurrent deep venous thrombosis (HCC) Once per month for 12 Occurrences starting 07/14/2022 until 07/14/2023 [facility] Work Phone: Comment on above: Once per month for 1 2 Occurrences starting 07/14/2022 until 07/14/2023 End: 11-14-2022 Gamma glutamyl transferase [Enzymatic activity/volume] in Serum or Plasma GGT BLD Lab Routine Disorder of liver Liver replaced by transplant (HCC) Every other week for 100 Occurrences starting 11/21/2021 until 11/14/2022 [facility] Work Phone: Comment on above: Every other week for 100 Occurrences starting 11/21/2021 until 11/14/2022 Gamma glutamyl transferase [Enzymatic activity/volume] in Serum or Plasma GGT BLD Lab Routine Disorder of liver Liver replaced by transplant (HCC) 11/21/2021 8:45 AM T [facility] Work Phone: End: 11-22-2024 Gamma glutamyl transferase [Enzymatic activity/volume] in Serum or Plasma GGT Lab Routine Liver replaced by transplant (HCC) Once per month for 11 Occurrences starting 11/23/2023 until 11/22/2024 [facility] Comment on above: Once per month for 1 1 Occurrences starting 11/23/2023 until 11/22/2024 Gamma glutamyl transferase [Enzymatic activity/volume] in Serum or Plasma GGT Lab Routine Liver replaced by transplant (HCC) 11/23/2023 9:39 AM [facility] End: 11-14-2022 Lipid 1996 panel - Serum or Plasma LIPID PANEL BASIC Lab Routine Disorder of liver Liver replaced by transplant (HCC) Every 3 months for 12 Occurrences starting 11/21/2021 until 11/14/2022, 1 completed [facility] Work Phone: Comment on above: Every 3 months for 1 2 Occurrences starting 11/21/2021 until 11/14/2022, 1 completed Lipid 1996 panel - S emilee or Plasma LIPID PANEL BASIC Lab Routine Disorder of liver Liver replaced by transplant (HCC) 11/21/2021 8:45 AM EDT [facility] Work Phone: End: 11-14-2022 Magnesium [Mass/volume] in Serum or Plasma MAGNESIUM BLD Lab Routine Disorder of liver Liver replaced by transplant (HCC) Every other week for 100 Occurrences starting 11/21/2021 until 11/14/2022, 1 completed [facility] Work Phone: Comment on above: Every other week for 100 Occurrences starting 11/21/2021 until 11/14/2022, 1 completed Patient Education [facility] Work Phone: Patient referral [facility] Work Phone: End: 11-14-2022 Phosphate [Mass/volume] in Serum or Plasma PHOSPHORUS INORGANIC Lab Routine Disorder of liver Liver replaced by transplant (HCC) Every other week for 100 Occurrences starting 11/21/2021 until 11/14/2022 [facility] Work Phone: Comment on above: Every other week for 100 Occurrences starting 11/21/2021 until 11/14/2022 End: 11-22-2024 Phosphate [Mass/volume] in Serum or Plasma PHOSPHORUS INORGANIC Lab Routine Liver replaced by transplant (HCC) Once per month for 11 Occurrences starting 11/23/2023 until 11/22/2024, 1 completed [facility] Comment on above: Once per month for 1 1 Occurrences starting 11/23/2023 until 11/22/2024, 1 completed End: 11-14-2022 Tacrolimus [Mass/volume] in Blood TACROLIMUS/FK-506 BL Lab Routine Disorder of liver Liver replaced by transplant (HCC) Every other week for 100 Occurrences starting 11/21/2021 until 11/14/2022 [facility] Work Phone: Comment on above: Every other week for 100 Occurrences starting 11/21/2021 until 11/14/2022 Tacrolimus [Mass/vol ume] in Blood TACROLIMUS/FK-506 BL Lab Routine Disorder of liver Liver replaced by transplant (HCC) 11/21/2021 8:45 AM EDT [facility] Work Phone: End: 11-22-2024 Tacrolimus [Mass/volume] in Blood TACROLIMUS/FK-506 BL Lab Routine Liver replaced by transplant (HCC) Once per month for 11 Occurrences starting 11/23/2023 until 11/22/2024 [facility] Comment on above: Once per month for 1 1 Occurrences starting 11/23/2023 until 11/22/2024 Tacrolimus [Mass/vol ume] in Blood TACROLIMUS/FK-506 BL Lab Routine Liver replaced by transplant (HCC) 11/23/2023 9:39 AM T [facility] End: 03-23-2023 Urate [Mass/volume] in Serum or Plasma URIC ACID BLOOD Lab Routine Chronic gout due to renal impairment without tophus, unspecified site Once per month for 12 Occurrences starting 03/23/2022 until 03/23/2023 [facility] Work Phone: Comment on above: Once per month for 1 2 Occurrences starting 03/23/2022 until 03/23/2023 End: 02-15-2024 Urate [Mass/volume] in Serum or Plasma URIC ACID BLOOD Lab Routine Chronic gout due to renal impairment without tophus, unspecified site Every 3 months for 12 Occurrences starting 02/15/2023 until 02/15/2024 [facility] Work Phone: Comment on above: Every 3 months for 1 2 Occurrences starting 02/15/2023 until 02/15/2024 [facility] Immunizations Immunization Date Immunization Notes Care Provider Fa cili 12-01-2022 influenza, high dose seasonal, preservative-free Susy Brizuela MD Work Phone: [facility] 12-01-2022 influenza virus vaccine, unspecified formulation Susy Brizuela Work Phone: [facility] 01-17-2022 influenza, high-dose , quadrivalent vaccine (FLUZONE HIGH DOSE QUADRIVALENT) Audi Ferrer RN [facility] 01-17-2022 influenza virus vaccine, unspecified formulation Gillian Nolen APRN.CONFIGURATION CONSULTANT Work Phone: [facility] 01-25-2021 influenza, injectabl e, quadrivalent, preservative free Audi Ferrer RN [facility] 01-24-2021 influenza, injectabl e, quadrivalent, preservative free Susy Brizuela MD Work Phone: [facility] 12-09-2019 influenza, injectabl e, quadrivalent, preservative free Audi Ferrer RN [facility] 01-14-2019 influenza, high dose seasonal, preservative-free Ryan Bansal MD Work Phone: [facility] 02-27-2018 meningococcal ACWY vaccine, unspecified formulation [facility] 02-27-2018 meningococcal B vaccine, fully recombinant [facility] 02-27-2018 meningococcal B vaccine, recombinant, OMV, adjuvanted Cyndi Hylton RN [facility] 01-29-2018 haemophilus influenz ae type b vaccine, PRP-OMP conjugate [facility] 01-29-2018 meningococcal ACWY vaccine, unspecified formulation [facility] 01-29-2018 meningococcal B vaccine, recombinant, OMV, adjuvanted Cyndi Hylton RN [facility] 11-15-2017 pneumococcal conjuga te vaccine, 13 valent [facility] 11-15-2017 zoster vaccine recombinant [facility] 11-15-2017 zoster vaccine, unspecified formulation Zora Brady RN [facility] 11-14-2017 pneumococcal conjuga te vaccine, 13 valent Susy Brizuela MD Work Phone: [facility] 11-14-2017 zoster vaccine recombinant Susy Brizuela MD Work Phone: [facility] 11-08-2017 hepatitis A and hepatitis B vaccine [facility] 11-08-2017 influenza virus vaccine, unspecified formulation [facility] 11-08-2017 influenza, injectabl e, quadrivalent, contains preservative Cyndi Hylton RN [facility] 11-08-2017 tetanus toxoid, redu carmen diphtheria toxoid, and acellular pertussis vaccine, adsorbed [facility] 11-07-2017 tetanus toxoid, redu carmen diphtheria toxoid, and acellular pertussis vaccine, adsorbed Susy Brizuela MD Work Phone: [facility] 01-03-2017 pneumococcal polysaccharide vaccine, 23 valent [facility] 05-01-2016 hepatitis A and hepatitis B vaccine [facility] 11-24-2013 pneumococcal conjuga te vaccine, 13 valent [facility] 11-23-2013 pneumococcal conjuga te vaccine, 13 valent Susy Brizuela MD Work Phone: [facility] 10-09-2013 tetanus toxoid, redu carmen diphtheria toxoid, and acellular pertussis vaccine, adsorbed [facility] Payers Date Payer Category Payer Self-pay [id number] 2020 Unknown MMO MMO MEDICARE SUPPLEMENT [id number] 2020-Present [phone] [address] [place] [address] Indemnity [id number] 2020 Unknown [id number] [id number] 2019 Medicare MEDICARE MEDICAR E A AND B [id number] 2019-Present [phone] [address] [address] [place] [address] Medicare [id number] 2018 Unknown [employer]ICAL [employer] M [employer] M[employer]UAL [address] xxxxxxxxxxxx 2018-Present [phone] [address] [place] [address] xxxxxxxxxxxx [id number] 2014 Medicare [id number] 2014 Medicare MEDICARE MEDICAR E PART A AND B xxxxxxxxxxx 2014-Present [phone] [address] [address] [place] [address] xxxxxxxxxxx [id number] [id number] 2013 Medicare [id number] .[id number] 2013 Medicare [id number] 1959 Medicare [id number] 1959 Unknown [id number] 1948 Unknown [id number] 2.16.840.1.166557.3.579.2.175 1948 Unknown [id number] 2.16840.1.620631.3.579.2.593 1948 Unknown [id number] 2.16840.1.060672.3.579.2.593 1948 Unknown [id number] 2.16.840.1.002411.3.579.2.593 1948 Unknown [id number] 2.16.840.1.928416.3.579.2.593 1948 Unknown [id number] 2.16.840.1.244214.3.579.2.593 1948 Unknown [id number] 2.16.840.1.169474.3.579.2.593 1948 Unknown [id number] 2.16.840.1.204296.3.579.2.593 1948 Unknown [id number] 2.16840.1.350655.3.579.2.196 1948 Unknown [id number] 2.16840.1.149007.3.579.2.196 1948 Unknown [id number] 2.16840.1.710042.3.579.2.196 1948 Unknown [id number] 2.16840.1.315652.3.579.2.125 9 1948 Unknown [id number] 2.16840.1.367438.3.579.2.125 9 1948 Unknown [id number] 2.0.1.798287.3.579.2.125 9 1948 Unknown [id number] 2.16840.1.488847.3.579.2.125 9 1948 Unknown [id number] 2.16840.1.181703.3.579.2.125 9 1948 Unknown [id number] 2.16840.1.752988.3.579.2.125 9 1948 Unknown [id number] 2.0.1.097827.3.579.2.125 9 1948 Unknown [id number] 2.16840.1.493363.3.579.2.125 9 1948 Unknown [id number] 2.16840.1.380902.3.579.2.125 9 1948 Unknown [id number] 2.16840.1.950037.3.579.2.125 9 1948 Unknown [id number] 2.16840.1.425058.3.579.2.125 9 1948 Unknown [id number] 2.16840.1.932419.3.579.2.125 9 1948 Unknown [id number] 2.16.840.1.147568.3.579.2.125 9 1948 Unknown [id number] 2.16.840.1.708650.3.579.2.128 6 1948 Unknown [id number] 2.16.840.1.291187.3.579.2.128 6 1948 Unknown [id number] 2.16.840.1.740676.3.579.2.128 6 1948 Unknown [id number] 2.16.840.1.534280.3.579.2.128 6 Medicare [employer] [facility] [id number] Unknown Regular Insurance [id number] Unknown [id number] [id number]1 Social History Date Type Detail Facility Start: 11-18-2018 End: 03-21-2022 Tobacco smoking status NHIS Never smoker [facility] Start: 11-18-2018 End: 07-24-2022 Alcohol intake No [facility] Start: 1950 Sex Assigned At Not on file [place], [place] Start: 12-08-2013 End: 03-21-2022 Tobacco use and exposure Smokeless tobacco non-user [facility] Start: 01-20-2021 End: 07-19-2023 Alcohol intake Current non-drinker of alcohol (finding) [facility] Start: 1950 Sex Assigned At Female [facility] Start: 05-20-2021 End: 12-26-2021 Exposure to SARS-CoV-2 (event) Not sure [facility] Start: 07-24-2022 End: 10-26-2022 History of Social function [facility] Adult Depression Screening Assessment 1 [facility] Start: 07-02-2019 Gender identity Identifies as female gender (finding) [facility] Start: 11-24-2022 End: 03-30-2023 Alcohol intake Lifetime non-drinker (finding) [facility] Do you belong to any clubs or organizations such as mandaen groups, unions, fraternal or athletic groups, or school groups? Yes [facility] Are you now , , , , never or living with a partner? [facility] How often to you hav e a drink containing alcohol? Never [facility] Do you feel stress - tense, restless, nervous, or anxious, or unable to sleep at night because your mind is troubled all the time - these days [OSQ] Not at all [facility] Start: 01-08-2019 Education 15 [facility] Start: 08-22-2022 Alcohol Comment caffeine more than 4 cups/day [facility] Medical Equipment Procedure Code Equipment Code Equipment Original Text Equipment Identifier Dates Cement Simplex P Tobramycin Bone Full Dose Radiopaque Preblend Sterile - [id number] Start: 07-26-2015 Component Person a Triathlon 6 Standard Cocr Femoral Cruciate Retain - [id number] Start: 07-26-2015 Baseplate Person a 5d E Tivanium Tibial Cemented Stem Knee Right - [id number] Start: 07-26-2015 Component 32mm A ll Poly Patellar Psn - [id number] Start: 07-26-2015 Insert Persona 4 -11 E-F Polyethylene 11mm Articular Ultracongruent Knee - [id number] Start: 07-26-2015 Goals Date Patient Goal Desired Activity /State Personal health goal Comment on above: Formatting of this n ote might be different from the original. Evaluation of progress towards goal: safe transition from hospital to home with family support. Clinical Notes 02-12-2018 to 09-20-2023 Telephone Encounter - Gillian Nolen APRN.GLENNA - 09/20/2023 4:51 PM EDTTelephone Encounter - Gillian Nolen APRN.CNP - 09/20/2023 4:51 PM EDT Note Date & Type Note Facility 09-20-2023 Telephone encount er Note Attempted to call [facility], the office is closed. I am not aware of the details regarding what surgery this pt is having. I will need more information. I also called and left a message for the pt explaining this as well. I requested she return call tomorrow. Gillian Nolen APRN.CNP [facility] 09-20-2023 Telephone encount er Note ----- Message from Anuja Norton sent at 09/20/2023 3:24 PM EDT ----- Regarding: [facility] states they need clearance for pt upcoming surgery. They received one part but need the clearance [phone] fax [phone] [facility] 09-20-2023 Miscellaneous Notes Formattin g of this note might be different from the original. Attempted to call [facility], the office is closed. I am not aware of the details regarding what surgery this pt is having. I will need more information. I also called and left a message for the pt explaining this as well. I requested she return call tomorrow. Gillian Nolen APRN.GLENNA ----- Message from Anuja Norton sent at 09/20/2023 3:24 PM EDT ----- Regarding: clearance [facility] D Gan [facility] states they need clearance for pt upcoming surgery. They received one part but need the clearance [phone] fax [phone] documented in this encounter [facility] 09-12-2023 Telephone encount er Note Pt returned call, planned CTA of coronaries is to evaluate episodes of chest pressure that she has been experiencing. Discussed recommendation for pre and post IV hydration to minimize contrast burden. Discussed the risk of contrast induced RAMIRO with the expectation that there would be recovery of renal function back to baseline CKD, however, in some cases worsening renal function is noted possibly to the extent of warranting CORE SETTER. Despite this, would hope for recovery. Given her symptoms, benefits of planned test likely outweighs risk. Will update renal panel tomorrow, should have repeat renal panel 1-2 days post CTA to re-evaluate scr. She understands. Gillian Nolen APRN.CNP [facility] 09-12-2023 Miscellaneous Notes Formattin g of this note might be different from the original. Pt returned call, planned CTA of coronaries is to evaluate episodes of chest pressure that she has been experiencing. Discussed recommendation for pre and post IV hydration to minimize contrast burden. Discussed the risk of contrast induced RAMIRO with the expectation that there would be recovery of renal function back to baseline CKD, however, in some cases worsening renal function is noted possibly to the extent of warranting CORE SETTER. Despite this, would hope for recovery. Given her symptoms, benefits of planned test likely outweighs risk. Will update renal panel tomorrow, should have repeat renal panel 1-2 days post CTA to re-evaluate scr. She understands. Gillian Nolen APRN.CNP Left msg for pt requesting return call to discuss planned CTA of coronary arteries to be done at [facility] in [place]. Requested pt to have updated renal panel done to update scr. Gillian Nolen APRN.CNP documented in this encounter [facility] 09-12-2023 Telephone encount er Note Left msg for pt requesting return call to discuss planned CTA of coronary arteries to be done at [facility] in [place]. Requested pt to have updated renal panel done to update scr. Gillian Nolen APRN.GLENNA [facility] 09-11-2023 Telephone encount er Note Returned call and spoke with her regarding her questions to get in touch with kidney for clearance for a nerve block locally. Message sent to Luan Nolen Nephrology GLENNA. Audi Ferrer RN [facility] 09-11-2023 Miscellaneous Notes Formattin g of this note might be different from the original. Returned call and spoke with her regarding her questions to get in touch with kidney for clearance for a nerve block locally. Message sent to Luan Nolen Nephrology GLENNA. Audi Ferrer RN The patient called and asked that Jose Ferrer please call her. [facility] documented in this encounter [facility] 09-11-2023 Telephone encount er Note The patient called and asked that Jose Owensiskmai please call her. 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 Changes were made to accurately reflect updated history, physical exam, and medical decision making. 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 Maintenance IS with Tacrolimus. HTN diagnosed ~age 63, has been controlled with medications. Has never been seen by a Nailhead Puncher.She does not recall any renal issues prior to OLT. -From June 2018-present scr. 1.4-1.7mg/dl, [id number] scr. 0.9-1.4; no proteinuria until tx per pt. No hx of kidney stones Isolated UTIs, often signal has been flank pain. Hx of C.diff for >1 yr prior to OLT,s/p fecal tx with success Recalls that she took PPI for ~ 1 year during recurrent C.diff episodes Hx of NSAID daily for years in view of arthritic issues; has not taken any NSAIDS for ~ 3.5-4yrs. 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 Hx of TKR; hx of spinal spurs PAST MEDICAL HISTORY Diagnosis Date Biliary dyskinesia Cirrhosis of liver with ascites (HCC) (HCC) Hepatitis possible HTN (hypertension) Morbid obesity (HCC) YOVANNY (obstructive sleep apnea) no tx, being tx for RLS Platelet dysfunction (HCC) RLS (restless legs syndrome) Thrombocytopenia (HCC) PAST SURGICAL HISTORY Procedure Laterality Date SECTION HX x3 COLONOSCOPY x3 EGD 07/2016 HEART CATHETERIZATION early 1989' nl per pt HYSTERECTOMY HX PAST SURGICAL HISTORY OF mult D&C's PAST SURGICAL HISTORY OF Right eye surg PAST SURGICAL HISTORY OF Right 2015 total knee arthroplasty- Dr. Alfonso 02/15/23 Office visit with de lasix dose increased with parameters as needed 07/02/23 CT ABD/PEL RESULT: Abdomen / Pelvis: Liver: * Right lobe transplant. Geographic areas of low attenuation throughout. * Vascular coil material is seen in the inferior right hepatic lobe. Biliary: Cholecystectomy. Spleen: Splenectomy. Pancreas: Unremarkable. Adrenals: No mass. Kidneys: No calculus, hydronephrosis or finding to suggest a cyst or mass in the unenhanced kidney. GI Tract: No bowel dilation. Lymph Nodes: No lymphadenopathy. Mesentery/peritoneum: * Small epigastric abdominal wall fat-containing hernias, one at midline and one to the left of midline (3:54, 56; 5:59). * Small fat-containing periumbilical hernia (5:59). * Left rectus musculature atrophy superiorly. * No ascites or fluid collection. Retroperitoneum: No mass. Vasculature: Arterial atherosclerotic disease without no abdominal aortic aneurysm. Pelvis: No mass or ascites. Bones/Soft Tissues: Degenerative changes. Osteopenia. Lower thorax: Unremarkable. Localizer images: Unremarkable. Seen by Rheum earlier, plan is to continue same dose of Allopurinol Also, saw Gen Sgy, pain will be the determining factor as to whether or not hernia needs to replaced Presents today for follow up, feeling tired. Does not sleep well but relates to her foot discomfortfrom neuropathy, taking Lyrica daily. No fevers; she frequently has chills; not new, present ever since her knee replacement. Appetite is fine. No nausea, vomiting, no diarrhea, (+) constipation. Not currently taking anything for it. Intermittent brock ROBERTO, she does not feel she responds to Lasix with regard to urine output. Although after AM dose, she feels very dry. Occasionally takes afternoon dose of 20mg. She does watch dietary intake of sodium. No cough, (+) shortness of breath with exertion--stair climbing, yardwork. No chest pain or palpitations. (+) intermittent lightheadedness. Sometimes her balance feels off. No recent gout flares. Latest TAC level 9.5, dose reduced. BP - standardized method Pulse 1 BP #1: 131/71 Pulse #1: 59 beats/min 2 BP #2 : 124/75 Pulse #2 : 59 beats/min 3 BP #3 : 124/76 Pulse #3 : 60 beats/min Average Average BP: 126/74 Average Pulse: 59 beats/min Orthostatic vitals Supine Sitting Standing Standing BP : 111/64 Standing pulse : 79 BP cuff location BP cuff location: Left upper arm BP cuff size BP cuff size: large adult Comments for BP values First BP (right) First BP (left) Last 3 Encounter BP Readings: Date: BP: 07/19/2023 146/72 07/19/2023 126/74 07/19/2023 135/71 Kidney function: Invalid input(s): SPRG , NITRATES eGFR-All Other Races (.) Date Value 03/30/2021 28 02/21/2021 28 01/24/2021 31 01/11/2021 37 01/04/2021 34 Estimated Glomerular Filtration Rate (mL/min/1.73m ) Date Value 07/02/2023 29 05/24/2023 29 04/19/2023 31 03/19/2023 30 02/12/2023 33 Creatinine Date Value Ref Range Status 07/02/2023 1.79 (H) 0.58 - 0.96 mg/dL Final 05/24/2023 1.83 (H) 0.58 - 0.96 mg/dL Final 04/19/2023 1.71 (H) 0.58 - 0.96 mg/dL Final 03/19/2023 1.74 (H) 0.58 - 0.96 mg/dL Final 02/12/2023 1.61 (H) 0.58 - 0.96 mg/dL Final BUN (mg/dL) Date Value 07/02/2023 32 05/24/2023 39 04/19/2023 33 03/30/2021 43 02/21/2021 53 01/24/2021 46 Amylase (U/L) Date Value 05/18/2018 42 Lipase (U/L) Date Value 05/18/2018 20 No results found for: PCRAT Immunosuppression: Tacrolimus/FK506 (ng/mL) Date Value 07/02/2023 9.5 05/24/2023 8.8 04/19/2023 8.6 03/19/2023 6.4 03/30/2021 9.9 02/21/2021 9.4 01/24/2021 7.9 01/11/2021 2.3 Everolimus (ng/mL) Date Value 04/28/2019 <1.0 04/11/2019 <1.0 04/01/2019 <1.0 No results found for: RAPA No results found for: CSA Hematology: WBC (k/uL) Date Value 07/19/2023 9.20 07/02/2023 8.98 05/24/2023 9.55 03/30/2021 8.47 02/21/2021 9.11 01/24/2021 8.80 Hemoglobin (g/dL) Date Value 07/19/2023 12.3 07/02/2023 12.0 05/24/2023 12.1 03/30/2021 11.5 02/21/2021 12.0 01/24/2021 11.7 Hematocrit (%) Date Value 07/19/2023 37.9 07/02/2023 36.0 05/24/2023 35.8 03/30/2021 35.5 02/21/2021 36.3 01/24/2021 35.4 Platelet Count (k/uL) Date Value 07/19/2023 391 07/02/2023 414 05/24/2023 396 03/30/2021 402 02/21/2021 404 01/24/2021 400 Calcium (mg/dL) Date Value 03/30/2021 9.8 02/21/2021 9.7 01/24/2021 10.2 Calcium, Total (mg/dL) Date Value 07/02/2023 10.2 05/24/2023 10.4 04/19/2023 10.2 Phosphorus (mg/dL) Date Value 11/07/2022 3.7 10/23/2022 4.0 10/09/2022 3.6 03/30/2021 3.4 02/21/2021 4.0 01/24/2021 3.6 PTH, Intact (pg/mL) Date Value 11/07/2017 48 Bone and mineral metabolism: Vitamin D 25 Hydroxy (ng/mL) Date Value 11/07/2017 12.5 01/07/2014 23.7 Calcium (mg/dL) Date Value 03/30/2021 9.8 02/21/2021 9.7 01/24/2021 10.2 Calcium, Total (mg/dL) Date Value 07/02/2023 10.2 05/24/2023 10.4 04/19/2023 10.2 Magnesium (mg/dL) Date Value 11/07/2022 2.1 10/23/2022 2.1 10/09/2022 2.0 03/30/2021 2.2 02/21/2021 2.0 01/24/2021 2.1 Phosphorus (mg/dL) Date Value 11/07/2022 3.7 10/23/2022 4.0 10/09/2022 3.6 03/30/2021 3.4 02/21/2021 4.0 01/24/2021 3.6 PTH, Intact (pg/mL) Date Value 11/07/2017 48 Electrolytes and Acid-base: Sodium (mmol/L) Date Value 07/02/2023 139 05/24/2023 140 04/19/2023 143 03/30/2021 141 02/21/2021 139 01/24/2021 142 Potassium (mmol/L) Date Value 07/02/2023 4.2 05/24/2023 4.4 04/19/2023 4.5 03/30/2021 4.8 02/21/2021 4.7 01/24/2021 4.8 Chloride (mmol/L) Date Value 07/02/2023 99 05/24/2023 103 04/19/2023 105 03/30/2021 106 02/21/2021 102 01/24/2021 102 CO2 (mmol/L) Date Value 07/02/2023 27 05/24/2023 27 04/19/2023 29 03/30/2021 26 02/21/2021 26 01/24/2021 28 Viral screening: No results found for: BKVDNA CMV DNA (IU/mL) (IU/mL) Date Value 03/10/2019 CMV DNA not detected by PCR. 02/03/2019 CMV DNA not detected by PCR. 01/28/2019 CMV DNA not detected by PCR. No results found for: EBVDNA PHYSICAL EXAM: BP 126/74 (BP Site: Left Arm, BP Position: Sitting, BP Cuff Size: Large Adult) Pulse (!) 59 Temp 36.3 C (97.4 F) (Oral) Ht 160 cm (5' 3 ) Wt 89.4 kg (197 lb) BMI 34.90 kg/m General no acute distress EYES Sclerae anicteric NECK supple, no lymphadenopathy or jVD HEART: RRR, Grade II/ MARY ELLEN @ [facility] LUNGS CTA ABD soft non tender bowel sounds x 4 quads EXT mild brock ROBERTO SKIN no rash or ulceration PSYCH alert and oriented x 3 IMPRESSION CKD III non proteinuric in the setting CNI therapy following OLT 02/11/18 scr ~ 1.5-1.8 HTN acceptable control on current rx DM2 not on medication rx, A1c 7.3 Hyperuricemia on OUMOU--uric acid level wnl and no recent flares, followed by Rheum PLAN Await pending labs and today's UA Continue present diuretics Continue exercise and dietary modification to optimize blood sugar control Avoid NSAIDS and iodinated contrast exposure Medications should be adjusted for renal function Recommend keeping TAC dose as low as it is safe RTC 6 months, will coord with Rheum follow up care Gillian Nolen APRN.CNP I spent a total of 40 minutes on the date of the service which included preparing to see the patient, uaaf-ry-oial patient care, completing clinical documentation, performing a medically appropriate examination, counseling and educating the patient/family/caregiver, ordering medications, tests, or p rocedures, and communicating with other HCPs (not separately reported). [facility] History of Present illness Narrative* Ryan Bansal MD - 07/19/2023 10:03 AM EDT Images from the original note were not included. Rheumatology Clinic Date of Service: 07/19/2023 Patient: Farnaz Ruffin Medical Record: [id number] Primary Care Physician: Susy Brizuela MD Last Rheumatology visit: 02/15/2023 (with Ryan Bansal) History of Present Illness Farnaz Ruffin is a 72 year old White female who presents on 07/19/2023 for in person visit for evaluation of Gout. Farnaz is both RF - 9 (12/08/2013) and CCP - 13.5 (12/08/2013) negative. Her most recent DONALD was negative (05/01/2016). HISTORY OF PRESENT ILLNESS Consultation requested by Gillian Nolen APRN.CNP for an opinion regarding gout. My final recommendations will be communicated back to the requesting physician by way of shared Medical record or letter to requesting physician via US mail. This is a patient who presents for gout. Many years ago she had a history of intermittent flares oftoe or knee pain and swelling that was consistent with a gout flare, for which she took prednisone and cleared up the symptoms. However, over the last 6 months she has had recurrent flares with a very short inter- flare period. Reports joint pain started in September, did have a couple of bouts of swollen joints with pain in remote past treated quickly with steroids. Affecting R knee and R ankle and R toes primarily, L toe and ankle as well typically at different times. Patient describes flare as 1-3 red, swollen joints with decreased range of motion. Has been on prednisone 5-6 times within the last 6 months with only minimal relief after a few days of finishing a taper and then pain returns. Started on allopurinol at 50 mg in February with minimal improvement. Tylenol with no pain relief, no other medications for pain. Struggling to bear weight. No joints aspirated in the past. Currently on pred [address] some relief currently, 3/10 on pain scale in R foot and ankle. Has been on lasix since transplant, no other recent medication changes. Family history: mother with arthritis, possible gout No tobacco use, alcohol use, illicit drug use. 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 No flares since last visit. Continues on allopurinol 400 mg daily. Still has chronic degenerative disease in the spine. Is on pregabalin and tramadol which maintains it. 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 Is due for a bone density scan this year. Patient-Entered Data PROMIS Assessments 03/21/2022 08/14/2022 02/13/2023 PROMIS Global Health - (T-Scores - the mean of general population = 50. Five points is a clinicallymeaningful difference.) Physical T-Score 37.4 39.8 39.8 Mental T-Score 45.8 41.1 45.8 08/14/2022 10/20/2022 02/13/2023 PROMIS CAT Pain Interference PROMIS Pain Interference T-Score (range: 10 - 90) 62 (moderate) 62 (moderate) PROMIS Pain Interference Percentile 12 12 PROMIS Adult Short Form-Global Health Score (Mental) 41.1 (Good) 45.8 (Good) 03/21/2022 10/20/2022 02/13/2023 PROMIS CAT Fatigue PROMIS Fatigue T-Score 67 (moderate) 63 (moderate) 64 (moderate) PROMIS Fatigue Percentile 4 10 8 03/21/2022 10/20/2022 02/13/2023 PROMIS PHYSICAL FUNCTION T-SCORE PROMIS Physical Function T-Score 39 (moderate dysfunction) 39 (moderate dysfunction) 41 (mild dysfunction) Physical Function Percentile 14 14 18 RAPID 3 Ken Activities of Daily Living 02/13/2023 8:40 PM 10/20/2022 6:09 AM 08/14/2022 3:31 PM Firstanswer obtained - 03/21/2022 5:30 PM Dress self? With SOME difficulty With SOME difficulty With SOME difficulty With SOME difficulty Get in and out of bed? Without ANY difficulty Without ANY difficulty With SOME difficulty With SOMEdifficulty Walk outdoors? With SOME difficulty With SOME difficulty Without ANY difficulty With SOME difficulty Wash and dry body? With SOME difficulty Without ANY difficulty Without ANY difficulty With SOME difficulty Get in and out of car? With SOME difficulty With SOME difficulty With SOME difficulty With SOME difficulty RAPID 3 Disease Activity Weighed Score Levels: 0 - 1: Near Remission 1.3 - 2.0: Low Severity 2.3 - 4.0: Moderate Severity 4.3 - 10.0: High Severity 08/14/2022 10/20/2022 02/13/2023 RAPID-3 Weighed Score RAPID 3 Weighed Score 3.56 (Moderate severity ) 4.33 (High severity ) 3.44 (Moderate severity ) Patient Health Questionnaire (PHQ-9) No data to display (0-4) minimal depression, (5-9) mild depression, (10-14) moderate depression, (15-19) moderately severe depression, (20-27) severe depression Review of Systems ROS RHEUMATOLOGYAll other reviewed and negative other than HPI. Current Medications Current Outpatient Medications on File Prior to Visit Medication Sig pregabalin (LYRICA) 50 mg capsule TAKE 1 CAPSULE BY MOUTH 1-2 times DAILY as tolerated pravastatin (PRAVACHOL) 40 mg tablet Take 1 tablet by mouth daily at bedtime. tacrolimus ER (ENVARSUS XR) 0.75 mg tablet Take 1 tablet by mouth daily at 6 am. furosemide (LASIX) 20 mg tablet Take 2 tablets by mouth every morning and 1 tablet in the afternoon, 6 hours after the morning dose. carvedilol (COREG) 25 mg tablet Take 1 tablet by mouth twice daily. XARELTO 20 mg tablet Take 20 mg by mouth daily with dinner. Cholecalciferol, Vitamin D3, 125 mcg (5,000 unit) cap Take 2 capsules by mouth once daily. CO Q-10 100 mg cap capsule Take 100 mg by mouth once daily. albuterol (PROVENTIL) 2.5 mg /3 mL (0.083 %) nebulizer solution Use 3 mL via nebulizer once every month. to be given before pentamidine dose rOPINIRole (REQUIP) 4 mg tablet TAKE 1 TABLET BY MOUTH NIGHTLY rOPINIRole (REQUIP) 2 mg tablet Take 2 mg by mouth every morning. No current facility-administered medications on file prior to visit. Labs See HPI Imaging Last XR Hand/Finger - Impression Only XR HAND 3VIEW BREWERTON BROCK Collected: 12/08/2013 1:47 PM (Final result) Last XR Shoulder - Impression Only XR SHOULDER LIMITED 2V AP/TRUE AP LEFT Exam End: 03/16/2023 8:38 AM (Final result) Last MRI Lumbar Spine - Impression Only MRI LUMBAR SPINE WO IVCON Collected: 08/09/2021 (Final result) Impression: Moderate to severe left L5/S1 mid and exit neural foraminal stenosis from chronic spondylolysis and facet arthropathy. 2. Moderate left L4/5 mid/exit neural foraminal stenosis. 3. No spinal canal stenosis. 4. Mild increased signal intensity within the end plates of L2/3 likely reflecting subacute Schmorl node formation (nonaggressive appearance). Report reported and signed by Migel Basilio on 08/22/2021 0952 Last XR Hip/Pelvis - Impression Only XR HIP AP/FROG W/PELV BROCK Collected: 12/08/2013 1:47 PM (Final result) Last XR Foot / Toe - Impression Only XR FOOT GENERAL 3V AP/LAT/OBL RIGHT Collected: 03/02/2022 (Final result) Impression: NO DISPLACED FRACTURE OR ACUTE OSSEOUS PROCESS IDENTIFIED. Report reported and signed by Martha Tobias on 03/03/2022 0955 Physical Exam BP 135/71 Pulse 63 Temp (Src) 97.6 (Oral) Ht 5' 3 (1.60m) Wt 197 lb (89.4kg) BMI 34.91 kg/(m^2). Exam: GENERAL: Well appearing, NAD HEENT: NCAT, PERRLA, EOMI, no scleral icterus, oropharynx clear and without lesions/ulcers. CV: Normal rate, regular rhythm. No appreciable murmur/rub/gallop. PULM: Normal WOB and RR on RA. Lung albright CTA bilaterally without appreciable wheezes or crackles. EXT: 2+ radial and DP/PT pulses. No edema. SKIN: Warm, dry, no significant rashes, no significant bruising. NEURO: A&Ox3. Mental status and speech normal. MSK: Bony hypertrophy in the hands and knees. No synovitis of the examined joints Impression and Plan Diagnoses: (M1A.30X0) Chronic gout due to renal impairment without tophus, unspecified site (primary encounterdiagnosis) (Z79.899) On allopurinol therapy (M15.9) Generalized osteoarthritis (G89.29) Other chronic pain Yokasta Ruffin is a 72 year old female with chronic gout. Chronic gout based on crystal proven diagnosis. Worsened after liver transplant. Currently on allopurinol 400 mg with serum urate < 5.0 and no flares in the last 6 months. Off colchicine since last visit in 10/2022. Post-herpetic neuralgia over the occiptal left scalp and neck. Avoiding gabapentin due to risk of central side effects especially in light of her CKD. Did not benefit from topical lidocaine. Will trial a course of topical capsaicin at a low-medium dose as below. Generalized osteoarthritis is present, especially in the back and hands. There is no oral pharmacologic treatment that would be appropriate at this time. She will consider alternative therapies such as acupuncture and wellness medicine referral. Plan: - Continue allopurinol 400 mg daily - Uric acid check every 6 months - Continue follow-up for CKD with nephrology, post-liver transplant with hepatology - Consider referral to wellness/integrative medicine - She will let me know about the results of her upcoming bone density scan Orders this visit: Office Visit on 07/19/23 pregabalin (LYRICA) 50 mg capsule pravastatin (PRAVACHOL) 40 mg tablet allopurinol (ZYLOPRIM) 100 mg tablet Return in about 6 months (around 01/19/2024). CC: PCP: Susy Brizuela MD [address] [facility] [address] Phone #: [phone] I spent a total of 35 minutes on the date of the service which included preparing to see the patient, thbo-da-plug patient care, completing clinical documentation, obtaining and/or reviewing separately obtained history, performing a medically appropriate examination, counseling and educating the pat ient/family/caregiver, and ordering medications, tests, or procedures. Ryan Bansal MD Rheumatology Date: July 19, 2023 Time: 10:03 AM documented in this [facility] History of Present illness Narrative* Raffaele Suarez MD - 07/19/2023 9:20 AM EDT Consultation requested by Dr. Lizzie Gilbert for an opinion regarding incisional hernia. My final recommendations will be communicated back to the requesting physician by way of shared medical record or letter via US mail. Farnaz Ruffin is a 72 year old female who presents with incisional hernia at the junction of theMercedes incision for liver transplant, actually just superior to that. She has a small hernia, painful, reducible. She also has some right sided pain above the transverse incision that I explained would not improve with hernia repair. Given size of defect, would plan on lap ventral. She wishes to think about it prior to consenting. She will call if she wants it done. I have seen and evaluated the patient and discussed the case with the resident physician. I agree with the assessment and plan as documented in the resident s note including a ROS that was reviewed and negative other than what was indicated in our notes. Patient consented for study? Not applicable * Colt Cunningham - 07/19/2023 8:34 AM EDT [facility] - HISTORY AND PHYSICAL Chief Complaint: Incisional hernia HPI: Farnaz Ruffin is a 72 year old female who presents with ventral incisional hernia followingLDLT for STANTON in 2018. Hernia occurred 6-7 months. The hernia causes a baseline 2/10 pain and some discomfort when she bends down to pick something up. She also has a PMH of CKD (Baseline sCr 1.7) and HTN on coreg 25 mg BID Relevant previous operations include: LDLT 02/10/2018 3x Section Open DOMENICA in 1985 No history of Psychiatric Disorders or Opioid Use Independent No employment Sporadic (once/month) Hepatic insufficiency or liver failure (STANTON now s/p LDLT) History of open abdomen, History of a previous organ transplant (donor or recipient) PAST MEDICAL HISTORY Diagnosis Date Biliary dyskinesia Cirrhosis of liver with ascites (HCC) Hepatitis possible HTN (hypertension) Morbid obesity (HCC) YOVANNY (obstructive sleep apnea) no tx, being tx for RLS Platelet dysfunction (HCC) RLS (restless legs syndrome) Thrombocytopenia (HCC) PAST SURGICAL HISTORY Procedure Laterality Date SECTION HX x3 COLONOSCOPY x3 EGD 07/2016 HEART CATHETERIZATION early 1989' nl per pt HYSTERECTOMY HX PAST SURGICAL HISTORY OF mult D&C's PAST SURGICAL HISTORY OF Right eye surg PAST SURGICAL HISTORY OF Right 2015 total knee arthroplasty- Dr. Alfonso Social History Tobacco Use Smoking status: Never Smokeless tobacco: Never Substance Use Topics Alcohol use: No Drug use: No Additional social history not relevant to the patient's HPI FAMILY HISTORY Problem Relation Age of Onset COPD Mother Heart Mother Ischemic Heart Disease Father 56 Additional family history not relevant to the patient's HPI ALLERGIES Allergen Reactions Ibuprofen Other: See Comments [id number] Red* Other: See Comments Muscle deterioration Sulfa (Sulfonamide * Rash Sulfasalazine Unknown Current Outpatient Medications Medication Sig Dispense Refill tacrolimus ER (ENVARSUS XR) 0.75 mg tablet Take 1 tablet by mouth daily at 6 am. 30 tablet 11 furosemide (LASIX) 20 mg tablet Take 2 tablets by mouth every morning and 1 tablet in the afternoon, 6 hours after the morning dose. 270 tablet 2 carvedilol (COREG) 25 mg tablet Take 1 tablet by mouth twice daily. XARELTO 20 mg tablet Take 20 mg by mouth daily with dinner. rOPINIRole (REQUIP) 4 mg tablet TAKE 1 TABLET BY MOUTH NIGHTLY rOPINIRole (REQUIP) 2 mg tablet Take 2 mg by mouth every morning. Cholecalciferol, Vitamin D3, 125 mcg (5,000 unit) cap Take 2 capsules by mouth once daily. 60 capsule 1 CO Q-10 100 mg cap capsule Take 100 mg by mouth once daily. 0 albuterol (PROVENTIL) 2.5 mg /3 mL (0.083 %) nebulizer solution Use 3 mL via nebulizer once every month. to be given before pentamidine dose No current facility-administered medications for this visit. REVIEW OF SYSTEMS PAIN ASSESSMENT: Negative for pain, history of chronic pain, or current treatment for a chronic pain condition. The remainder of the 12 review of systems is negative other than what was mentioned in the HPI and above. BP 146/72 Pulse 64 Temp (!) 35.9 C (96.7 F) (Temporal) Resp 12 Ht 157.5 cm (5' 2 ) Wt 89.4 kg (197 lb) BMI 36.03 kg/m Physical Exam Constitutional: Sitting comfortably in room. Abdominal: Soft. Transverse incision with midline extension to xiphoid process Relevant Hernia Findings - Reducible incisional hernia tender on redcution LABS: Hemoglobin A1C (%) Date Value 07/04/2023 7.5 12/04/2022 6.4 05/09/2018 6.0 IMAGING - Reviewed with staff CT - 07/02/2023 Assessment: Farnaz Ruffin is a 72 year old female who presents with incisional ventral hernia s/p LDLT in 2018. Plan: TAR for incisional hernia documented in this encounterPrem[facility]05-16-[facility] Nurse Note* Missael Canales MA - 07/19/2023 8:29 AM EDT What is the reason for your visit today? Consult Who is your referring physician? self Are you having poor oral intake? NO Have you had unintentional weight loss of 15 lbs/7 Kg in the last 3-6 months? NO Bowels: constipated Wound: clean & dry Temperature: No Drains: No [facility]05-[facility] Nurse Note* Missael Canales MA - 07/19/2023 8:29 AM EDT What is the reason for your visit today? Consult Who is your referring physician? self Are you having poor oral intake? NO Have you had unintentional weight loss of 15 lbs/7 Kg in the last 3-6 months? NO Bowels: constipated Wound: clean & dry Temperature: No Drains: No documented in this encounterPremier [facility]04-29-2024 History of Present illness Narrative* Lizzie Gilbert APRN.CONFIGURATION CONSULTANT - 07/02/2023 2:39 PM EDT Audi Ferrer RN LIVER TRANSPLANT - POST OP FOLLOW UP July 02, 2023 Farnaz Ruffin Farnaz Ruffin is here for a follow up from her Living Liver Transplant on February 2018, secondary to a diagnosis of STANTON. Patient is currently 5.5 yrs from transplant. Has the patient been hospitalized since last follow up? Yes, DVT LLE and PE Functional Status / Karnofsky Score: 50 Karnofsky Score Choices: 100% - Normal, no complaints, no evidence of disease 90% - Able to carry on normal activity: minor symptoms of disease 80% - Normal activity with effort: some symptoms of disease 70% - Cares for self: unable to carry on normal activity or active work 60% - Requires occasional assistance but is able to care for needs 50% - Requires considerable assistance and frequent medical care 40% - Disabled: requires special care and assistance 30% -Severely disabled: hospitalization is indicated, not imminent 20% - Very sick, hospitalization necessary: active treatment necessary 10% - Moribund, fatal processes progressing rapidly Is patient working? No Is patient Newly Diabetic? Yes, after transplant Any acute rejection during follow up period? Yes Any new post transplant malignancies? No, if yes, when? NA. What type of new malignancy is noted orreported: NA Dialysis since last follow-up: No Current Outpatient Medications Medication Sig Dispense Refill tacrolimus ER (ENVARSUS XR) 1 mg tablet Take 1 tablet by mouth once daily. 30 tablet 11 furosemide (LASIX) 20 mg tablet Take 2 tablets by mouth every morning and 1 tablet in the afternoon, 6 hours after the morning dose. 270 tablet 2 carvedilol (COREG) 25 mg tablet Take 1 tablet by mouth twice daily. XARELTO 20 mg tablet Take 20 mg by mouth daily with dinner. rOPINIRole (REQUIP) 4 mg tablet TAKE 1 TABLET BY MOUTH NIGHTLY rOPINIRole (REQUIP) 2 mg tablet Take 2 mg by mouth every morning. Cholecalciferol, Vitamin D3, 125 mcg (5,000 unit) cap Take 2 capsules by mouth once daily. 60 capsule 1 CO Q-10 100 mg cap capsule Take 100 mg by mouth once daily. 0 albuterol (PROVENTIL) 2.5 mg /3 mL (0.083 %) nebulizer solution Use 3 mL via nebulizer once every month. to be given before pentamidine dose No current facility-administered medications for this visit. ALLERGIES Allergen Reactions Ibuprofen Other: See Comments Bnwhiir-Eoz-Dfm Red* Other: See Comments Muscle deterioration Sulfa (Sulfonamide * Rash Sulfasalazine Unknown Wound / Incision: Well healed , possible ventral hernia and more to the right side Abdominal Pain: aching, sharp, and dull, location: RLQ along incisionRLQ and RUQ N/V: No Heartburn: Yes Bowel Movements: thin and short, soft to loose and fragmented Number of Times per Day: 1 Abdominal Exam: tender to right side mostly Abdominal Swelling / Distention: bloated Hernia Present: Yes Immune Suppression: 1 mg Envarsis CMP: Glucose 134 05/24/2023 BUN 39 05/24/2023 Creatinine 1.83 05/24/2023 Sodium 140 05/24/2023 Potassium 4.4 05/24/2023 Chloride 103 05/24/2023 CO2 Content, Venous 27 05/24/2023 Protein, Total 7.6 05/24/2023 Albumin 4.4 05/24/2023 Calcium 10.4 05/24/2023 Alkaline Phosphatase 72 05/24/2023 Bilirubin, Total 0.3 05/24/2023 AST 19 05/24/2023 ALT 22 05/24/2023 Hemoglobin (g/dL) Date Value 07/02/2023 12.0 03/30/2021 11.5 Hematocrit (%) Date Value 07/02/2023 36.0 03/30/2021 35.5 WBC (k/uL) Date Value 07/02/2023 8.98 03/30/2021 8.47 Platelet Count (k/uL) Date Value 07/02/2023 414 03/30/2021 402 REVIEW OF SYSTEMS: GENERAL: No weight loss, malaise or fevers RESPIRATORY: Dyspnea, Shortness of breath CARDIOVASCULAR: Negative for chest pain, leg swelling, hypertension, CHF or palpitations GI: No nausea, vomiting, or diarrhea : No history of dysuria, frequency or incontinence SKIN: Negative for lesions, rash, and itching PSYCH: sleep fragmented, restless, secondary to pain NEURO: No history of headaches, syncope, paralysis, seizures or tremors Audi Ferrer, RN Mrs. Ruffin is a 72 y/o female s/p R lobe LDLT 5.5. yrs ago (dtr was donor) she presents to clinic today for her annual post txp follow up. From a liver txp standpoint she is doing well overall. She has CKD and follows with Nephrology and will see Dr. Shamar silvestre and gen surgery for a hernia consult. She is also struggling with neuropathy and RLS but is being treated for both. - Labs reviewed, liver function remains stable- Kidney CKD 3b - IS Envarsus 1 mg daily--> decrease to 0.75 mg daily- running high recently, goal should be 4-7 - CT abdomen wo IV con today to r/o hernia- - Up to date on GH per PCP - Hernia noted on exam today- Gen surg referral - Next annual follow up should be with Hepatology ( Dr.Saul Cortez) *Agree with above documentation by Cayetano documented in this encounterPrem[facility]04-29-2024 History of Present illness Narrative* Karo Monroy, RT(R) - 07/02/2023 1:30 PM EDT Radiology Service Progress Note PATIENT NAME: Farnaz Ruffin DATE OF SERVICE: July 02, 2023 TIME: 1:30 PM PATIENT IDENTITY VERIFICATION COMPLETED USING TWO (2) IDENTIFIERS: Name and Date of confirmedby patient verbally. FALL SCREENING: Has the patient had 2 falls in the last year or 1 fall with injury or currently using an Ambulatory Assistive Device (Walker, Cane, Wheelchair, Crutches, etc.)? No PATIENT GENDER DATA: Female. status: : No status: NO. PATIENT RELEVANT IMPLANT DATA REVIEWED: Yes PATIENT PRESENTS WITH AN IMPLANTABLE OR ATTACHED MARK[employer] GARD[employer] WORKER: No RADIOLOGY DEPARTMENT: CT; Exam(s) Completed: Abdomen/Pelvis PERIPHERAL IV DATA: Not applicable SIGNED BY: RT Eugenia(Heath) July 02, 2023 1:30 PM documented in this encounterPrem[facility]04-15-2024 History of Present illness Narrative* uAdi Ferrer RN - 06/18/2023 10:32 AM EDT Patient called with concerns for possible hernia. Sent request to be seen by General surgery and will also obtain a CT abd and follow up with liver transplant same day. documented in this encounterPrem[facility]03-20-2024 Miscellaneous Notes* Telephone Encounter - Roopa Owen CMA - 05/23/2023 10:38 AM EDT Called patient to remind them to bring their most current copy of their medication list with them to their appt. Patient verbalizes understanding. [facility] in [facility]South[facility]03-[facility]-2024 Telephone encounter Note* Telephone Encounter - Roopa Owen CMA - 05/23/2023 10:38 AM EDT Called patient to remind them to bring their most current copy of their medication list with them to their appt. Patient verbalizes understanding. [facility]03-04-[facility] Miscellaneous Notes* Telephone Encounter - Audi Ferrer RN - 05/07/2023 9:15 AM EST Patient's request for medication is as follows: Requested Prescriptions Pending Prescriptions Disp Refills tacrolimus ER (ENVARSUS XR) 1 mg tablet 30 tablet 11 Sig: Take 1 tablet by mouth once daily. Please approve the above prescription(s) to electronically send to pharmacy. Audi Ferrer RN * Telephone Encounter - Eveline Rosario [facility] - 05/07/2023 8:48 AM EST Patient requests refill of: Requested Prescriptions Pending Prescriptions Disp Refills tacrolimus ER (ENVARSUS XR) 1 mg tablet 30 tablet 11 Sig: Take 1 tablet by mouth once daily. If approved, please e-script the attached order to [facility]. Thank you, [facility]ine [facility] [phone] documented in this encounterPremier Health [facility]02-13-2024 Telephone encounter Note * Telephone Encounter - Susy Brizuela MD - 04/17/2023 7:43 PM EST Refills sent. [id number] Miscellaneous Notes* Telephone Encounter - Susy Brizuela MD - 04/17/2023 7:43 PM EST Refills sent. documented in this encounterHermann [facility] [id number] Miscellaneous Notes* Telephone Encounter - Zora Brady RN - 04/16/2023 2:37 PM EST Received p/c from pt. Requesting appt for increase in skipped beats over past couple weeks. Pt denies chest pain,increased SOB, increased edema. Relates highest HR has been 80's BPM. Verified that is still on Xarelto 20 mg QD for Hx PE. Next available appt given 05/24/23. documented in this encounterSouth[facility]02-12-2024 Telephone encounter Note* Telephone Encounter - Zora Brady RN - 04/16/2023 2:37 PM EST Received p/c from pt. Requesting appt for increase in skipped beats over past couple weeks. Pt denies chest pain,increased SOB, increased edema. Relates highest HR has been 80's BPM. Verified that is still on Xarelto 20 mg QD for Hx PE. Next available appt given 05/24/23. [facility]12[facility]14[facility] Instructions* Patient Instructions* Ryan Bansal MD - 02/15/2023 9:05 AM EST You can try capsaicin cream for the neck/shingles pain - rub it into the area up to 3 times per day You can reduce the frequency of uric acid checks to once every 3 months Continue allopurinol 400 mg daily (4 pills per day) documented in this encounterPremier Health [facility]12-14-2023 History of Present illness Narrative* Ryan Bansal MD - 02/15/2023 8:31 AM EST Images from the original note were not included. Rheumatology Clinic Date of Service: 02/15/2023 Patient: Farnaz Ruffin Medical Record: [id number] Primary Care Physician: Susy Brizuela MD Last Rheumatology visit: 02/15/2023 (with Ryan Bansal) History of Present Illness Farnaz Ruffin is a 72 year old White female who presents on 02/15/2023 for in person visit for evaluation of Gout. Farnaz is both RF - 9 (12/08/2013) and CCP - 13.5 (12/08/2013) negative. Her most recent DONALD was negative (05/01/2016). HISTORY OF PRESENT ILLNESS Consultation requested by Gillian Nolen APRN.CNP for an opinion regarding gout. My final recommendations will be communicated back to the requesting physician by way of shared Medical record or letter to requesting physician via US mail. This is a patient who presents for gout. Many years ago she had a history of intermittent flares oftoe or knee pain and swelling that was consistent with a gout flare, for which she took prednisone and cleared up the symptoms. However, over the last 6 months she has had recurrent flares with a very short inter- flare period. Reports joint pain started in September, did have a couple of bouts of swollen joints with pain in remote past treated quickly with steroids. Affecting R knee and R ankle and R toes primarily, L toe and ankle as well typically at different times. Patient describes flare as 1-3 red, swollen joints with decreased range of motion. Has been on prednisone 5-6 times within the last 6 months with only minimal relief after a few days of finishing a taper and then pain returns. Started on allopurinol at 50 mg in February with minimal improvement. Tylenol with no pain relief, no other medications for pain. Struggling to bear weight. No joints aspirated in the past. Currently on pred [address]with some relief currently, 3/10 on pain scale in R foot and ankle. Has been on lasix since transplant, no other recent medication changes. Family history: mother with arthritis, possible gout No tobacco use, alcohol use, illicit drug use. 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 Currently suffering from chronic post-herpetic neuralgia related to prior shingles outbreak in August 2022. She continues to have pain over the left side of her scalp to her occipital scalp/neck. Has not successfully improved with lidocaine patches. Not taking gabapentin due to the concern for cognitive side effects. 2. No gout flares since last visit. Continues on allopurinol 400 mg daily without issue. No longer on colchicine. 3. CK normalized since last visit. PM/DM panel negative, aldolase normal. Likely not myositis. 4. Has generalized osteoarthritis, especially in the hands, back, shoulders. Patient-Entered Data PROMIS Assessments PROMIS Global Health - (T-Scores - the mean of general population = 50. Five points is a clinicallymeaningful difference.) 03/21/2022 08/14/2022 02/13/2023 Physical T-Score 37.4 39.8 39.8 Mental T-Score 45.8 41.1 45.8 PROMIS CAT Pain Interference 03/21/2022 10/20/2022 02/13/2023 PROMIS Pain Interference T-Score (range: 10 - 90) 67 (moderate) 62 (moderate) 62 (moderate) PROMIS Pain Interference Percentile 4% 12% 12% PROMIS CAT Fatigue 03/21/2022 10/20/2022 02/13/2023 PROMIS Fatigue T-Score 67 (moderate) 63 (moderate) 64 (moderate) PROMIS Fatigue Percentile 4% 10% 8% PROMIS PHYSICAL FUNCTION T-SCORE 03/21/2022 10/20/2022 02/13/2023 PROMIS Physical Function T-Score 39 (moderate dysfunction) 39 (moderate dysfunction) 41 (mild dysfunction) Physical Function Percentile 14% 14% 18% RAPID 3 Ken Activities of Daily Living 02/13/2023 8:40 PM 10/20/2022 6:09 AM 08/14/2022 3:31 PM Firstanswer obtained - 03/21/2022 5:30 PM Dress self? With SOME difficulty With SOME difficulty With SOME difficulty With SOME difficulty Get in and out of bed? Without ANY difficulty Without ANY difficulty With SOME difficulty With SOMEdifficulty Walk outdoors? With SOME difficulty With SOME difficulty Without ANY difficulty With SOME difficulty Wash and dry body? With SOME difficulty Without ANY difficulty Without ANY difficulty With SOME difficulty Get in and out of car? With SOME difficulty With SOME difficulty With SOME difficulty With SOME difficulty RAPID 3 Disease Activity Weighed Score Levels: 0 - 1: Near Remission 1.3 - 2.0: Low Severity 2.3 - 4.0: Moderate Severity 4.3 - 10.0: High Severity RAPID-3 Weighed Score 08/14/2022 10/20/2022 02/13/2023 RAPID 3 Weighed Score 3.56 (Moderate Severity (MS)) 4.33 (High Severity (HS)) 3.44 (Moderate Severity (MS)) Patient Health Questionnaire (PHQ-9) No flowsheet data found.(0-4) minimal depression, (5-9) mild depression, (10-14) moderate depression, (15-19) moderately severe depression, (20-27) severe depression Review of Systems Review of Systems CONSTITUTION: Positive for: Recent weight change Negative for: Fever HEENT: Positive for: Dry mouth Negative for: Nosebleeds, Mouth sores and Trouble swallowing RESPIRATORY: Positive for: Cough and Shortness of breath Negative for: Pain with breathing and Coughing up blood GASTROINTESTINAL: Negative for: Melena, Diarrhea, Heartburn and Abdominal pain MUSCULOSKELETAL: Positive for: Arthralgias, Myalgias, Muscle weakness, Joint swelling and Morning Joint Stiffness NEUROLOGICAL: Positive for: Headaches and Numbness Negative for: Memory loss SKIN: Positive for: Hair loss and Nail changes Negative for: Rash and Skin changes EYES: Positive for: Eye redness, Eye dryness and Visual disturbance CARDIOVASCULAR: Positive for: Leg swelling Negative for: Chest pain GENITOURINARY: Negative for: Dysuria and Hematuria HEMATOLOGIC/LYMPHATIC: Negative for: Swollen glands All other reviewed and negative other than HPI. Current Medications Current Outpatient Medications on File Prior to Visit Medication Sig allopurinol (ZYLOPRIM) 100 mg tablet Take 4 tablets by mouth once daily. carvedilol (COREG) 25 mg tablet Take 1 tablet by mouth twice daily. furosemide (LASIX) 20 mg tablet Take 2 tablets by mouth every morning and 1 tablet in the afternoon, 6 hours after the morning dose. tacrolimus ER (ENVARSUS XR) 1 mg tablet Take 1 tablet by mouth once daily. XARELTO 20 mg tablet Take 20 mg by mouth daily with dinner. rOPINIRole (REQUIP) 4 mg tablet TAKE 1 TABLET BY MOUTH NIGHTLY rOPINIRole (REQUIP) 2 mg tablet Take 2 mg by mouth every morning. Cholecalciferol, Vitamin D3, 125 mcg (5,000 unit) cap Take 2 capsules by mouth once daily. CO Q-10 100 mg cap capsule Take 100 mg by mouth once daily. albuterol (PROVENTIL) 2.5 mg /3 mL (0.083 %) nebulizer solution Use 3 mL via nebulizer once every month. to be given before pentamidine dose PRALUENT PEN 150 mg/mL INJECT 1 (ONE) syringe SUBCUTANEOUSLY EVERY 14 days mirtazapine (REMERON) 15 mg tablet Take 15 mg by mouth daily at bedtime. denosumab (PROLIA) 60 mg/mL Inject 60 mg subcutaneously every other week. colchicine 0.6 mg tablet Take 0.5 tablets by mouth every other day. predniSONE (DELTASONE) 10 mg tablet Take (4) tabs PO x 3 days, then (3) tabs x 3 days, then (2) tabs x 3 days, then 1 tab PO x 3 days and stop as directed, in the morning with food aspirin 325 mg tablet Take 1 tablet by mouth once daily. No current facility-administered medications on file prior to visit. Labs Component Latest Ref Rng & Units 02/12/2023 WBC 3.70 - 11.00 k/uL 13.25 (H) RBC 3.90 - 5.20 m/uL 3.49 (L) Hemoglobin 11.5 - 15.5 g/dL 11.9 Hematocrit 36.0 - 46.0 % 35.8 (L) MCV 80.0 - 100.0 fL 102.6 (H) MCH 26.0 - 34.0 pg 34.1 (H) MCHC 30.5 - 36.0 g/dL 33.2 RDW-CV 11.5 - 15.0 % 15.9 (H) Platelet Count 150 - 400 k/uL 383 MPV 9.0 - 12.7 fL 10.8 Neut% % 64.6 Abs Neut (ANC) 1.45 - 7.50 k/uL 8.57 (H) Lymph% % 20.5 Abs Lymph 1.00 - 4.00 k/uL 2.72 [place]% % 10.0 Abs [place] <0.87 k/uL 1.32 (H) Eosin% % 3.8 Abs Eosin <0.46 k/uL 0.50 (H) Baso% % 0.6 Abs Baso <0.11 k/uL 0.08 Immature Gran % % 0.5 IMMATURE GRANS (ABS) <0.10 k/uL 0.06 NRBC /100 WBC 0.2 Absolute nRBC <0.01 k/uL 0.02 (H) DTYPE Auto Protein, Total 6.3 - 8.0 g/dL 7.4 Albumin 3.9 - 4.9 g/dL 4.3 Calcium 8.5 - 10.2 mg/dL 10.2 Bilirubin, Total 0.2 - 1.3 mg/dL 0.3 Alkaline Phosphatase 34 - 123 U/L 82 AST 13 - 35 U/L 18 ALT 7 - 38 U/L 20 Glucose 74 - 99 mg/dL 126 (H) BUN 7 - 21 mg/dL 37 (H) Creatinine 0.58 - 0.96 mg/dL 1.61 (H) Sodium 136 - 144 mmol/L 145 (H) Potassium 3.7 - 5.1 mmol/L 4.3 Chloride 97 - 105 mmol/L 104 CO2 22 - 30 mmol/L 28 Anion Gap 9 - 18 mmol/L 13 eGFR >=60 mL/min/1.73m 33 (L) d Dimer <500 ng/mL FEU 230 D Dimer Age-related Cutoff ng/mL FEU 740 Uric Acid 2.5 - 6.6 mg/dL 4.7 CK 42 - 196 U/L 174 GGT 6 - 46 U/L 36 Imaging None relevant Physical Exam BP 138/62 Pulse 66 Temp (Src) 98 (Temporal) Ht 5' 1.811 (1.57m) Wt 194 lb 7.1 oz (88.2kg) BMI 35.78 kg/(m^2). Exam: GENERAL: NAD HEENT: NCAT, PERRLA, EOMI, no scleral icterus, oropharynx clear and without lesions/ulcers. No temporal tenderness CV: Normal rate, regular rhythm. No appreciable murmur/rub/gallop. PULM: Normal WOB and RR on RA. Lung albright CTA bilaterally without appreciable wheezes or crackles. EXT: 2+ radial and DP/PT pulses. No edema. SKIN: Warm, dry, no significant rashes, no significant bruising. NEURO: A&Ox3. Mental status and speech normal. MSK: Spine: Limited ROM in the lumbar spine and cervical spine Shoulders: Limited active range of motion in both shoulders R>L due to pain. Passive ROM is normal in the left, limited in the right. Elbows: No flexion contractures. No appreciable swelling, deformities, or tenderness with palpation. Wrists: No limitation of flexion or extension. No appreciable swelling or tenderness with palpation. Hands: Heberdens and Bouchards nodes bilaterally scattered. Hips: Intact ROM. No tenderness with palpation. Knees: No gross deformity. No appreciable effusion. No tenderness with palpation of joint lines. Nojoint laxity and intact ROM. Ankles: No limitation of plantarflexion or dorsiflexion. No appreciable effusion. + soft tissue non-articular non-pitting edema. Feet: No evidence of synovitis or tenderness with palpation. Impression and Plan Diagnoses: (B02.29) Post herpetic neuralgia (primary encounter diagnosis) (M1A.30X0) Chronic gout due to renal impairment without tophus, unspecified site (N18.32) Stage 3b chronic kidney disease (HCC) (M15.9) Generalized osteoarthritis (Z79.899) On allopurinol therapy (Z94.4) Liver transplant recipient (HCC) Yokasta Ruffin is a 72 year old female with chronic gout. Chronic gout based on crystal proven diagnosis. Worsened after liver transplant. Currently on allopurinol 400 mg with serum urate < 5.0 and no flares in the last 6 months. Off colchicine since last visit in 10/2022. Post-herpetic neuralgia over the occiptal left scalp and neck. Avoiding gabapentin due to risk of central side effects especially in light of her CKD. Did not benefit from topical lidocaine. Will trial a course of topical capsaicin at a low-medium dose as below. Generalized osteoarthritis is present, especially in the back and hands. There is no oral pharmacologic treatment that would be appropriate at this time. She will consider alternative therapies such as acupuncture. Plan: - Topical capsaicin 0.033% cream up to 3 times per day for PHN - Continue allopurinol 400 mg daily - OFF colchicine - Uric acid check every 3 months - Continue follow-up for CKD with nephrology, post-liver transplant with hepatology - Follow-up in 3-4 months Orders this visit: Office Visit on 02/15/23 URIC ACID BLOOD capsaicin 0.033 % crea No follow-ups on file. CC: PCP: Susy Brizuela MD [address] [place] [address] Phone #: [phone] I spent a total of 45 minutes on the date of the service which included preparing to see the patient, [id number] patient care, completing clinical documentation, obtaining and/or reviewing separately obtained history, performing a medically appropriate examination, counseling and educating the pat ient/family/caregiver, and ordering medications, tests, or procedures. Ryan Bansal MD Rheumatology Date: February 15, 2023 Time: 8:31 AM documented in this encounterPremier Health [facility]11-13-2023 History of Present illness Narrative* Audi Ferrer, MADDY - 01/15/2023 1:26 PM EST Farnaz Ruffin is now 5 years from transplant for dx of STANTON. Has bee doing well form liver pointof view. Has been being seen by nephrology for renal insufficiency. S Cr is rising. Also having complaints of pain to her legs. Has been being seen by cardiology for elevated cholesterol. Had episodeof PE and DVT in November 25. Have you been hospitalized in the past year? Is your liver disease causing limitations to your normal activities? If yes, please describe. No Are you currently employed? No, retired. Have you been diagnosed in the last year with Diabetes or Cancer? No Audi Ferrer RN documented in this encounterPremier Health [facility] Center08-24-2023 History of Present illness Narrative* Gillian Nolen APRN.CONFIGURATION CONSULTANT - 10/26/2022 11:31 AM EDT Patient presents for CKD and HTN follow up care The HPI and Assessment was copied from my previous note dated 03/21/22 with changes as noted Farnaz Ruffin is a 72yr patient s/p living donor liver tx (right lobe) 02/11/18 in the setting of ESLD d/t STANTON. Maintenance IS with Tacrolimus. HTN diagnosed ~age 63, has been controlled with medications. Has never been seen by a [employer]ail[employer] Puncher.She does not recall any renal issues prior to OLT. -From June 2018-present scr. 1.4-1.7mg/dl, [id number] scr. 0.9-1.4; no proteinuria until tx per pt. No hx of kidney stones Isolated UTIs, often signal has been flank pain. Hx of C.diff for >1 yr prior to OLT,s/p fecal tx with success Recalls that she took PPI for ~ 1 year during recurrent C.diff episodes Hx of NSAID daily for years in view of arthritic issues; has not taken any NSAIDS for ~ 3.5-4yrs. 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 Hx of TKR; hx of spinal spurs PAST MEDICAL HISTORY Diagnosis Date Biliary dyskinesia Cirrhosis of liver with ascites (HCC) Hepatitis possible HTN (hypertension) Morbid obesity (HCC) YOVANNY (obstructive sleep apnea) no tx, being tx for RLS Platelet dysfunction (HCC) RLS (restless legs syndrome) Thrombocytopenia (HCC) PAST SURGICAL HISTORY Procedure Laterality Date SECTION HX x3 COLONOSCOPY x3 EGD 07/2016 HEART CATHETERIZATION early 1989's nl per pt HYSTERECTOMY HX PAST SURGICAL HISTORY OF mult D&C's PAST SURGICAL HISTORY OF Right eye surg PAST SURGICAL HISTORY OF Right 2015 total knee arthroplasty- Dr. Alfonso 07/24/[address] Ibanez Nifedipine discontinued and ROBERTO improved She is now off Remeron It was noted that if her bp became an issue, would recommend increase in Coreg and then add a different agent; the former has since been increased to 25mg BID Presents today for follow up, feeling fine. (+) persistent tiredness, but dealing with it. Wt is down but she believes combination of watching sweets in view of DM dx and also less edema. Appetite isok. No nausea, vomiting, diarrhea; occasional constipation. (+) urinary incontinence--worsening leakage during the day. She prefers to hold off on any further evaluation/treatment at this time. Intermittent dry cough,(+) shortness of breath with exertion, stair climbing. No chest pain or palpitations. (+) lightheadedness/dizziness, with head movements., she is cognizant and moves slower. She adjusts lasix dose based upon the status of ROBERTO. Mild intermittent gout flares but significantly improved from what it was. BP - standardized method Pulse 1 BP #1: 126/76 Pulse #1: 68 beats/min 2 BP #2 : 109/66 Pulse #2 : 86 beats/min 3 BP #3 : 123/77 Pulse #3 : 64 beats/min Average Average BP: 119/73 Average Pulse: 72 beats/min Orthostatic vitals Supine Sitting Standing Standing BP : 111/70 Standing pulse : 71 BP cuff location BP cuff location: Left upper arm BP cuff size BP cuff size: large adult Comments for BP values First BP (right) First BP (left) Last 3 Encounter BP Readings: Date: BP: 10/26/2022 126/66 10/26/2022 119/73 07/24/2022 127/79 Creatinine Date Value Ref Range Status 10/23/2022 1.80 (H) 0.58 - 0.96 mg/dL Final 10/09/2022 1.62 (H) 0.58 - 0.96 mg/dL Final 09/22/2022 1.91 (H) 0.58 - 0.96 mg/dL Final 09/11/2022 1.97 (H) 0.58 - 0.96 mg/dL Final 08/28/2022 1.67 (H) 0.58 - 0.96 mg/dL Final 08/14/2022 1.70 (H) 0.58 - 0.96 mg/dL Final BUN Date Value Ref Range Status 10/23/2022 49 (H) 7 - 21 mg/dL Final 10/09/2022 39 (H) 7 - 21 mg/dL Final 09/22/2022 51 (H) 7 - 21 mg/dL Final 09/11/2022 40 (H) 7 - 21 mg/dL Final 08/28/2022 35 (H) 7 - 21 mg/dL Final 08/14/2022 37 (H) 7 - 21 mg/dL Final eGFR- Date Value Ref Range Status 03/30/2021 34 Final 02/21/2021 33 Final 01/24/2021 37 Final Comment: Note: On 04/30/2021, the eGFR calculation will be updated to the NKF-ASN Task Force recommended 2020 CKD-EPI creatinine equation which does not include a race variable. For more information or to access a 2020 CKD-EPI calculator, visit the [employer] website at kidney.org/professionals/kdoqi/gfr_calculator. 01/11/2021 44 Final 01/04/2021 41 Final 12/22/2020 32 Final Estimated Glomerular Filtration Rate Date Value Ref Range Status 10/23/2022 29 (L) >=60 mL/min/1.73m Final Comment: Estimated Glomerular Filtration Rate (eGFR) is calculated using the 2020 CKD-EPI creatinine equation. This equation utilizes serum creatinine, sex, and age as parameters. The creatinine assay has traceable calibration to isotope dilution- mass spectrometry. Refer to KDIGO guidelines for clinical interpretation. In patients with unstable renal function, e.g. those with acute kidney injury, the eGFRmay not accurately reflect actual GFR. 10/09/2022 33 (L) >=60 mL/min/1.73m Final Comment: Estimated Glomerular Filtration Rate (eGFR) is calculated using the 2020 CKD-EPI creatinine equation. This equation utilizes serum creatinine, sex, and age as parameters. The creatinine assay has traceable calibration to isotope dilution- mass spectrometry. Refer to KDIGO guidelines for clinical interpretation. In patients with unstable renal function, e.g. those with acute kidney injury, the eGFRmay not accurately reflect actual GFR. 09/22/2022 27 (L) >=60 mL/min/1.73m Final Comment: Estimated Glomerular Filtration Rate (eGFR) is calculated using the 2020 CKD-EPI creatinine equation. This equation utilizes serum creatinine, sex, and age as parameters. The creatinine assay has traceable calibration to isotope dilution- mass spectrometry. Refer to KDIGO guidelines for clinical interpretation. In patients with unstable renal function, e.g. those with acute kidney injury, the eGFRmay not accurately reflect actual GFR. 09/11/2022 26 (L) >=60 mL/min/1.73m Final Comment: Estimated Glomerular Filtration Rate (eGFR) is calculated using the 2020 CKD-EPI creatinine equation. This equation utilizes serum creatinine, sex, and age as parameters. The creatinine assay has traceable calibration to isotope dilution- mass spectrometry. Refer to KDIGO guidelines for clinical interpretation. In patients with unstable renal function, e.g. those with acute kidney injury, the eGFRmay not accurately reflect actual GFR. 08/28/2022 32 (L) >=60 mL/min/1.73m Final Comment: Estimated Glomerular Filtration Rate (eGFR) is calculated using the 2020 CKD-EPI creatinine equation. This equation utilizes serum creatinine, sex, and age as parameters. The creatinine assay has traceable calibration to isotope dilution- mass spectrometry. Refer to KDIGO guidelines for clinical interpretation. In patients with unstable renal function, e.g. those with acute kidney injury, the eGFRmay not accurately reflect actual GFR. 08/14/2022 32 (L) >=60 mL/min/1.73m Final Comment: Estimated Glomerular Filtration Rate (eGFR) is calculated using the 2020 CKD-EPI creatinine equation. This equation utilizes serum creatinine, sex, and age as parameters. The creatinine assay has traceable calibration to isotope dilution- mass spectrometry. Refer to KDIGO guidelines for clinical interpretation. In patients with unstable renal function, e.g. those with acute kidney injury, the eGFRmay not accurately reflect actual GFR. CO2 Date Value Ref Range Status 10/23/2022 27 22 - 30 mmol/L Final 10/09/2022 26 22 - 30 mmol/L Final 09/22/2022 28 22 - 30 mmol/L Final 09/11/2022 28 22 - 30 mmol/L Final 08/28/2022 29 22 - 30 mmol/L Final 08/14/2022 24 22 - 30 mmol/L Final Potassium Date Value Ref Range Status 10/23/2022 4.1 3.7 - 5.1 mmol/L Final 10/09/2022 4.4 3.7 - 5.1 mmol/L Final 09/22/2022 4.7 3.7 - 5.1 mmol/L Final 09/11/2022 4.0 3.7 - 5.1 mmol/L Final 08/28/2022 4.5 3.7 - 5.1 mmol/L Final 08/14/2022 4.6 3.7 - 5.1 mmol/L Final Amylase Date Value Ref Range Status 05/18/2018 42 30 - 104 U/L Final Lipase Date Value Ref Range Status 05/18/2018 20 16 - 61 U/L Final Tacrolimus/FK506 Date Value Ref Range Status 10/23/2022 8.4 5.0 - 20.0 ng/mL Final Comment: Individualized target levels for a given patient will depend on many factors (including the type oforgan transplant, time since transplantation, concurrent medications, and other clinical factors), and should be assessed by those health care providers experienced in the management of immunosuppression. Reference ranges and high/low indicator flags are provided as general guidelines only. The treating physician must determine appropriate target levels/dosing based on the specific clinical situation. Test performed by chemiluminescent immunoassay using [employer] i. 10/09/2022 7.7 5.0 - 20.0 ng/mL Final Comment: Individualized target levels for a given patient will depend on many factors (including the type oforgan transplant, time since transplantation, concurrent medications, and other clinical factors), and should be assessed by those health care providers experienced in the management of immunosuppression. Reference ranges and high/low indicator flags are provided as general guidelines only. The treating physician must determine appropriate target levels/dosing based on the specific clinical situation. Test performed by chemiluminescent immunoassay using [employer] i. 09/22/2022 8.4 5.0 - 20.0 ng/mL Final Comment: Individualized target levels for a given patient will depend on many factors (including the type oforgan transplant, time since transplantation, concurrent medications, and other clinical factors), and should be assessed by those health care providers experienced in the management of immunosuppression. Reference ranges and high/low indicator flags are provided as general guidelines only. The treating physician must determine appropriate target levels/dosing based on the specific clinical situation. Test performed by chemiluminescent immunoassay using [employer] i. 09/11/2022 9.3 5.0 - 20.0 ng/mL Final Comment: Individualized target levels for a given patient will depend on many factors (including the type oforgan transplant, time since transplantation, concurrent medications, and other clinical factors), and should be assessed by those health care providers experienced in the management of immunosuppression. Reference ranges and high/low indicator flags are provided as general guidelines only. The treating physician must determine appropriate target levels/dosing based on the specific clinical situation. Test performed by chemiluminescent immunoassay using [employer] i. 08/28/2022 10.7 5.0 - 20.0 ng/mL Final Comment: Individualized target levels for a given patient will depend on many factors (including the type oforgan transplant, time since transplantation, concurrent medications, and other clinical factors), and should be assessed by those health care providers experienced in the management of immunosuppression. Reference ranges and high/low indicator flags are provided as general guidelines only. The treating physician must determine appropriate target levels/dosing based on the specific clinical situation. Test performed by chemiluminescent immunoassay using [employer] i. 08/01/2022 4.6 (L) 5.0 - 20.0 ng/mL Final Comment: Individualized target levels for a given patient will depend on many factors (including the type oforgan transplant, time since transplantation, concurrent medications, and other clinical factors), and should be assessed by those health care providers experienced in the management of immunosuppression. Reference ranges and high/low indicator flags are provided as general guidelines only. The treating physician must determine appropriate target levels/dosing based on the specific clinical situation. Test performed by chemiluminescent immunoassay using [employer] i. Hemoglobin Date Value Ref Range Status 10/23/2022 11.8 11.5 - 15.5 g/dL Final 10/09/2022 11.6 11.5 - 15.5 g/dL Final 09/22/2022 12.0 11.5 - 15.5 g/dL Final 09/11/2022 11.5 11.5 - 15.5 g/dL Final 08/28/2022 12.0 11.5 - 15.5 g/dL Final 08/14/2022 12.7 11.5 - 15.5 g/dL Final Platelet Count Date Value Ref Range Status 10/23/2022 322 150 - 400 k/uL Final 10/09/2022 415 (H) 150 - 400 k/uL Final 09/22/2022 376 150 - 400 k/uL Final 09/11/2022 419 (H) 150 - 400 k/uL Final 08/28/2022 418 (H) 150 - 400 k/uL Final 08/14/2022 426 (H) 150 - 400 k/uL Final WBC Date Value Ref Range Status 10/23/2022 7.98 3.70 - 11.00 k/uL Final 10/09/2022 7.76 3.70 - 11.00 k/uL Final 09/22/2022 9.48 3.70 - 11.00 k/uL Final 09/11/2022 7.48 3.70 - 11.00 k/uL Final 08/28/2022 9.56 3.70 - 11.00 k/uL Final 08/14/2022 8.25 3.70 - 11.00 k/uL Final Albumin Date Value Ref Range Status 10/23/2022 4.4 3.9 - 4.9 g/dL Final 10/09/2022 4.1 3.9 - 4.9 g/dL Final 09/22/2022 4.3 3.9 - 4.9 g/dL Final 09/11/2022 4.1 3.9 - 4.9 g/dL Final 08/28/2022 4.1 3.9 - 4.9 g/dL Final 08/14/2022 4.4 3.9 - 4.9 g/dL Final Phosphorus Date Value Ref Range Status 10/23/2022 4.0 2.7 - 4.8 mg/dL Final 10/09/2022 3.6 2.7 - 4.8 mg/dL Final 09/22/2022 4.2 2.7 - 4.8 mg/dL Final 09/11/2022 3.6 2.7 - 4.8 mg/dL Final 08/28/2022 3.7 2.7 - 4.8 mg/dL Final 08/01/2022 3.3 2.7 - 4.8 mg/dL Final PHYSICAL EXAM: BP 119/73 (BP Site: Left Arm, BP Position: Sitting, BP Cuff Size: Large Adult) Pulse 72 Temp 36.3 C (97.3 F) (Oral) Ht 157.5 cm (5' 2 ) Wt 87.2 kg (192 lb 3.2 oz) BMI 35.15 kg/m General no acute distress, accompanied by her EYES Sclerae anicteric NECK Supple, no lymphadenopathy or JVD HEART :RRR LUGNS CTA ABD Sof tnon tender EXT minimal edema, tender to touch SKIN no rash or ulceration PSYCH alert and oriented x 3 IMPRESSION 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 CNI therapy following OLT 02/11/18 scr 1.8,baseline and stable, negative proteinuria HTN controlled on current rx DM diet controlled Anemia of CKD-hgb 11.8 stable Hyperuricemia/gout-followed by Rheum, on urate lowering agent, mild intermittent flares but improved uric acid 4.9 PLAN Same meds Ok to continue adjustments in lasix as she is doing She is watching dietary of sodium Avoid NSAIDs and iodinated contrast exposure Medications should be adjusted for renal function Recommend keeping TAC as low as it is safe from a Liver Tx standpoint RTC 3 months Gillian Nolen APRN.CNP [facility] of Present illness Narrative* Ryan Bansal MD - 10/26/2022 10:28 AM EDT Images from the original note were not included. Rheumatology Clinic Date of Service: 10/26/2022 Patient: Farnaz Ruffin Medical Record: [id number] Primary Care Physician: Susy Brizuela MD Last Rheumatology visit: 08/18/2022 (with Ryan Bansal) History of Present Illness Farnaz Ruffin is a 71 year old White female who presents on 10/26/2022 for an in-person visit for evaluation of Gout. She is currently taking prednisone. Farnaz is both RF - 9 (12/08/2013) and CCP - 13.5 (12/08/2013) negative. Her most recent DONALD was negative (05/01/2016). HISTORY OF PRESENT ILLNESS Consultation requested by Gillian Nolen APRN.CNP for an opinion regarding gout. My final recommendations will be communicated back to the requesting physician by way of shared Medical record or letter to requesting physician via US mail. This is a patient who presents for gout. Many years ago she had a history of intermittent flares oftoe or knee pain and swelling that was consistent with a gout flare, for which she took prednisone and cleared up the symptoms. However, over the last 6 months she has had recurrent flares with a very short inter- flare period. Reports joint pain started in September, did have a couple of bouts of swollen joints with pain in remote past treated quickly with steroids. Affecting R knee and R ankle and R toes primarily, L toe and ankle as well typically at different times. Patient describes flare as 1-3 red, swollen joints with decreased range of motion. Has been on prednisone 5-6 times within the last 6 months with only minimal relief after a few days of finishing a taper and then pain returns. Started on allopurinol at 50 mg in February with minimal improvement. Tylenol with no pain relief, no other medications for pain. Struggling to bear weight. No joints aspirated in the past. Currently on pred [address] some relief currently, 3/10 on pain scale in R foot and ankle. Has been on lasix since transplant, no other recent medication changes. Family history: mother with arthritis, possible gout No tobacco use, alcohol use, illicit drug use. 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 Does note some left great toe pain that is relatively chronic. She notes more chronic pain in the left shoulder, low back and hips. She notes generalized weaknessthat has been present since her kidney transplant. Noted a mild elevation in CK for several months,but her weakness has not become worse in that time period. Initially we thought her CK elevation may be related to colchicine therapy (or interaction with other medications), but since stopping colchicine, her CK has not improved. Patient-Entered Data PROMIS Assessments PROMIS Global Health - (T-Scores - the mean of general population = 50. Five points is a clinicallymeaningful difference.) 07/13/2016 03/21/2022 08/14/2022 Physical T-Score 37.4 37.4 39.8 Mental T-Score 45.8 45.8 41.1 PROMIS CAT Pain Interference 03/21/2022 10/20/2022 PROMIS Pain Interference T-Score (range: 10 - 90) 67 (moderate) 62 (moderate) PROMIS Pain Interference Percentile 4 % 12 % PROMIS CAT Fatigue 03/21/2022 10/20/2022 PROMIS Fatigue T-Score 67 (moderate) 63 (moderate) PROMIS Fatigue Percentile 4 % 10 % PROMIS PHYSICAL FUNCTION T-SCORE 03/21/2022 10/20/2022 PROMIS Physical Function T-Score 39 (moderate dysfunction) 39 (moderate dysfunction) Physical Function Percentile 14 % 14 % RAPID 3 Ken Activities of Daily Living 10/20/2022 6:09 AM 08/14/2022 3:31 PM 04/20/2022 9:10 AM First answer obtained - 03/21/2022 5:30 PM Dress self? With SOME difficulty With SOME difficulty With SOME difficulty With SOME difficulty Get in and out of bed? Without ANY difficulty With SOME difficulty Without ANY difficulty With SOMEdifficulty Walk outdoors? With SOME difficulty Without ANY difficulty With SOME difficulty With SOME difficulty Wash and dry body? Without ANY difficulty Without ANY difficulty Without ANY difficulty With SOME difficulty Get in and out of car? With SOME difficulty With SOME difficulty With SOME difficulty With SOME difficulty RAPID 3 Disease Activity Weighed Score Levels: 0 - 1: Near Remission 1.3 - 2.0: Low Severity 2.3 - 4.0: Moderate Severity 4.3 - 10.0: High Severity RAPID-3 Weighed Score 04/20/2022 08/14/2022 10/20/2022 RAPID 3 Weighed Score 3.44 (Moderate Severity (MS)) 3.56 (Moderate Severity (MS)) 4.33 (High Severity (HS)) Patient Health Questionnaire (PHQ-9) No flowsheet data found.(0-4) minimal depression, (5-9) mild depression, (10-14) moderate depression, (15-19) moderately severe depression, (20-27) severe depression Review of Systems Review of Systems CONSTITUTION: Negative for: Fever and Recent weight change HEENT: Positive for: Dry mouth Negative for: Nosebleeds, Mouth sores and Trouble swallowing RESPIRATORY: Positive for: Shortness of breath Negative for: Cough and Pain with breathing GASTROINTESTINAL: Negative for: Melena, Diarrhea, Heartburn and Abdominal pain MUSCULOSKELETAL: Positive for: Arthralgias, Myalgias, Muscle weakness, Joint swelling and Morning Joint Stiffness NEUROLOGICAL: Positive for: Headaches and Numbness Negative for: Memory loss SKIN: Positive for: Hair loss and Nail changes Negative for: Rash and Skin changes EYES: Positive for: Eye dryness and Visual disturbance Negative for: Eye pain and Eye redness CARDIOVASCULAR: Positive for: Leg swelling Negative for: Chest pain GENITOURINARY: Negative for: Dysuria and Hematuria HEMATOLOGIC/LYMPHATIC: Negative for: Swollen glands All other reviewed and negative other than HPI. Current Medications Current Outpatient Medications on File Prior to Visit Medication Sig allopurinol (ZYLOPRIM) 100 mg tablet Take 4 tablets by mouth once daily. furosemide (LASIX) 20 mg tablet Take 2 tablets by mouth every morning and 1 tablet in the afternoon, 6 hours after the morning dose. tacrolimus ER (ENVARSUS XR) 1 mg tablet Take 1 tablet by mouth once daily. XARELTO 20 mg tablet Take 20 mg by mouth daily with dinner. rOPINIRole (REQUIP) 4 mg tablet TAKE 1 TABLET BY MOUTH NIGHTLY rOPINIRole (REQUIP) 2 mg tablet Take 2 mg by mouth every morning. Cholecalciferol, Vitamin D3, 125 mcg (5,000 unit) cap Take 2 capsules by mouth once daily. carvedilol (COREG) 12.5 mg tablet Take 1 tablet by mouth twice daily with meals. (Patient taking differently: Take 25 mg by mouth twice daily with meals.) CO Q-10 100 mg cap capsule Take 100 mg by mouth once daily. albuterol (PROVENTIL) 2.5 mg /3 mL (0.083 %) nebulizer solution Use 3 mL via nebulizer once every month. to be given before pentamidine dose PRALUENT PEN 150 mg/mL INJECT 1 (ONE) syringe SUBCUTANEOUSLY EVERY 14 days mirtazapine (REMERON) 15 mg tablet Take 15 mg by mouth daily at bedtime. denosumab (PROLIA) 60 mg/mL Inject 60 mg subcutaneously every other week. colchicine 0.6 mg tablet Take 0.5 tablets by mouth every other day. predniSONE (DELTASONE) 10 mg tablet Take (4) tabs PO x 3 days, then (3) tabs x 3 days, then (2) tabs x 3 days, then 1 tab PO x 3 days and stop as directed, in the morning with food aspirin 325 mg tablet Take 1 tablet by mouth once daily. No current facility-administered medications on file prior to visit. Labs See HPI CK Date Value Ref Range Status 10/23/2022 479 (H) 42 - 196 U/L Final Imaging Last XR Hand/Finger - Impression Only XR HAND 3VIEW [place] BROCK Collected: 12/08/2013 1:47 PM (Final result) Last XR Hip/Pelvis - Impression Only XR HIP AP/FROG W/PELV BROCK Collected: 12/08/2013 1:47 PM (Final result) Last XR Knee - Impression Only XR KNEE AP/LAT/MERCHANT/WT RT Collected: 08/10/2015 9:17 AM (Final result) Impression: IMPRESSION: INTERVAL RIGHT TOTAL KNEE ARTHROPLASTY NORMAL POSTOPERATIVE APPEARANCE. Habilitation Assistant: MADDISON Transcribe Date/Time: Aug 10 2015 9:24A... Physical Exam BP 126/66 Pulse 63 Wt 192 lb 12.8 oz (87.5kg) Exam: GENERAL: NAD HEENT: NCAT, PERRLA, EOMI, no scleral icterus, oropharynx clear and without lesions/ulcers. CV: Normal rate, regular rhythm. No appreciable murmur/rub/gallop. PULM: Normal WOB and RR on RA. Lung albright CTA bilaterally without appreciable wheezes or crackles. EXT: 2+ radial and DP/PT pulses. No edema. SKIN: Warm, dry, no significant rashes, no significant bruising. NEURO: A&Ox3. Mental status and speech normal. Strength in the proximal upper and lower extremities is 5/5 and symmetric. There is slight give way weakness with the right hip flexion due to pain. MSK: Left shoulder with positive empty can signs and pain with internal range of motion. There are adarsh's and heberden's nodes in both hands. Pain in the right hip with external rotation. Tenderness without exquisite pain in the left 1st MTP Impression and Plan Diagnoses: (R74.8) Elevated CK (primary encounter diagnosis) (M25.512, G89.29) Chronic left shoulder pain (M25.551) Pain in right hip (M1A.30X0) Chronic gout due to renal impairment without tophus, unspecified site (N18.32) Stage 3b chronic kidney disease (HCC) (R53.81, R53.83) Malaise and fatigue Farnaz Ruffin is a 71 year old female who presents for evaluation of gout. This is a patient with a crystal proven gout, without erosions. She is currently on allopurinol 400mg daily and last two uric acid levels have been < 5.0. She has not had significant flares requiring steroids, but she does have ongoing chronic left 1st MTP pain. If her toe pain continues despite ~6 months of uric acid < 5.0, we may need to increase allopurinol to lower the serum urate furth er. Would have to increase the dose slowly due to CKD. She has had mild chronic elevation in CK for the last several months. She notes generalized weakness that has been present for many years (since her transplant) but not worse since CK has been elevated. She does not have significant proximal muscle weakness on exam today, though she does have some give-way weakness due to pain in the left shoulder and right hip. Will still check aldolase and PM/DM panel, determine if there is any evidence of a myopathy. Due to chronic fatigue, will also check TSH, as hypothyroidism can be associated with elevated CK. Her left shoulder pain is consistent with rotator cuff injury. We discussed potential use of subacromial bursa steroid injections, which she will consider in the future. She has osteoarthritis of the hands bilaterally. She can continue to follow-up with her local hand specialist. Plan: - Continue allopurinol 400 mg daily - Check uric acid, Cr, and CK monthly - check aldolase and pm/dm panel - if abnormal, may consider further workup for myopathy - consider shoulder subacromial bursa injection in the future - follow-up with local hand specialist as needed Follow-up in 3 months Orders this visit: Office Visit on 10/26/22 ANTI HMGCR AUTOANTIBODIES ALDOLASE BLD POLYMYOSITIS AND DERMATOMYOSITIS PANEL ANTI KRYSTAL ID TSH BLD No follow-ups on file. CC: PCP: Ssuy Brizuela MD [address] [facility] [address] Phone #: [phone] I spent a total of 42 minutes on the date of the service which included preparing to see the patient, [id number] patient care, completing clinical documentation, obtaining and/or reviewing separately obtained history, performing a medically appropriate examination, counseling and educating the pat ient/family/caregiver, and ordering medications, tests, or procedures. Ryan Bansal MD Rheumatology Date: October 26, 2022 Time: 10:28 AM documented in this encounterPremier Health [facility]06-23-2023 Miscellaneous Notes* Telephone Encounter - Rossi Reyes RN - 08/25/2022 12:50 PM EDT Called pt PCP, reviewed an additonal rx for shingles is needed RC to pt and updated her as this will be sent to her local pharmacy Rossi Reyes RN, BSN [employer] * Telephone Encounter - Rossi Reyes RN - 08/25/2022 12:34 PM EDT RC to pt, reviewed that the pharmacist stated she will need an extended treatment for shingles. Will call her PCP to discuss and call the pt to review Rossi Reyes RN, BSN [employer] * Telephone Encounter - Padmini Galindo - 08/25/2022 8:44 AM EDT Patient calling back to speak to coordinator regarding the msg that was left on her vm yesterday. 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 tophus, unspecified site Rheumatology Ryan Bansal MD 04/21/2022 Chronic gout due to renal impairment without tophus, unspecified site Rheumatology Ryan Bansal MD 03/23/2022 Chronic gout due to renal impairment without tophus, unspecified site Rheumatology Ryan Bansal MD Upcoming Rheumatology Appointments - Next 365 Days Visit Type Date Time Department [facility] 10/26/2022 10:00 AM [facility] CBC: CBC Latest Ref Rng & Units 08/01/2022 08/14/2022 WBC 3.70 - 11.00 k/uL 8.49 8.25 HEMOGLOBIN 11.5 - 15.5 g/dL 12.5 12.7 HEMOGLOBIN TOTAL, WHOLE BLOOD 11.5 - 15.5 g/dL - - HEMATOCRIT 36.0 - 46.0 % 37.3 38.6 PLATELETS 150 - 400 k/uL 446(H) 426(H) ABS NEUT (ANC) 1.45 - 7.50 k/uL 3.99 5.81 ABS LYM 1.00 - 4.00 K/uL - - ABS LYMPH 1.00 - 4.00 k/uL 2.89 1.22 Vitamin D: None on file in the last 6 months LFT: CMP Latest Ref Rng & Units 08/01/2022 08/14/2022 SODIUM 136 - 144 mmol/L 142 139 POTASSIUM 3.7 - 5.1 mmol/L 4.0 4.6 CHLORIDE 97 - 105 mmol/L 106(H) 102 CO2 22 - 30 mmol/L 23 24 GLUCOSE 74 - 99 mg/dL 118(H) 116(H) BUN 7 - 21 mg/dL 33(H) 37(H) CREATININE 0.58 - 0.96 mg/dL 1.45(H) 1.70(H) CALCIUM, TOTAL 8.5 - 10.2 mg/dL 10.3(H) 10.0 AST 13 - 35 U/L 36(H) 28 ALT 7 - 38 U/L 31 27 ALKALINE PHOSPHATASE 34 - 123 U/L 85 90 Hepatic Function: Creatinine: Creatinine Latest Ref Rng & Units 08/01/2022 08/14/2022 CREAT 0.58 - 0.96 mg/dL 1.45(H) 1.70(H) ESR/CRP: None on file in the last 6 months Uric Acid: Uric Acid Latest Ref Rng & Units 07/03/2022 08/01/2022 URIC ACID 2.5 - 6.6 mg/dL 5.9 5.2 Open Standing (Multiple Instance) Lab Orders Remain Interval Expires Ordered Last Rel. CBC + DIFF [SQCBCDIF] 88/100 Every other week 11/14/22 11/21/21 08/14/22 Auth. provider: Lizzie Gilbert APRN.GLENNA Assoc. diagnoses: Disorder of liver, Liver replaced by transplant (HCC) COMP METABOLIC PANEL [SQCMP] 87/100 Every other week 11/14/22 11/21/21 08/14/22 Auth. provider: Lizzie Gilbert APRN.GLENNA Assoc. diagnoses: Disorder of liver, Liver replaced by transplant (HCC) GGT BLD [SQGGT] 87/100 Every other week 11/14/22 11/21/21 08/14/22 Auth. provider: Lizzie Gilbert APRN.GLENNA Assoc. diagnoses: Disorder of liver, Liver replaced by transplant (HCC) LIPID PANEL BASIC [SQLIPB] 11/14 Every 3 months 11/14/22 11/21/21 05/22/22 Auth. provider: Lizzie Gilbert APRN.CNP Assoc. diagnoses: Disorder of liver, Liver replaced by transplant (HCC) MAGNESIUM BLD [SQMG1] 87/100 Every other week 11/14/22 11/21/21 08/01/22 Auth. provider: iLzzie Gilbert APRN.CNP Assoc. diagnoses: Disorder of liver, Liver replaced by transplant (HCC) PHOSPHORUS INORGANIC [SQPHOS] 88/100 Every other week 11/14/22 11/21/21 08/01/22 Auth. provider: Lizzie Gilbert APRN.CNP Assoc. diagnoses: Disorder of liver, Liver replaced by transplant (HCC) TACROLIMUS/FK-506 BL [BBVZ281] 87/100 Every other week 11/14/22 11/21/21 08/01/22 Auth. provider: Lizzie Gilbert APRN.GLENNA Assoc. diagnoses: Disorder of liver, Liver replaced by transplant (HCC) URIC ACID BLOOD [SQURIC] 09/13 Once per month 03/23/23 03/23/22 08/01/22 Auth. provider: Ryan Bansal MD Assoc. diagnoses: Chronic gout due to renal impairment without tophus, unspecified site CBC + DIFF [SQCBCDIF] 09/13 Once per month 03/23/23 03/23/22 08/01/22 Auth. provider: Ryan Bansal MD Assoc. diagnoses: Chronic gout due to renal impairment without tophus, unspecified site CK CREATINE KINASE [SQCK] 09/13 Once per month 03/23/23 03/23/22 08/01/22 Auth. provider: Ryan Bansal MD Assoc. diagnoses: Chronic gout due to renal impairment without tophus, unspecified site D-DIMER [SQDDMER] 12/14 Once per month 07/14/23 07/14/22 08/01/22 Auth. provider: Gillian Nolen APRN.CONFIGURATION CONSULTANT Assoc. diagnoses: Other pulmonary embolism without acute cor pulmonale, unspecified chronicity (HCC), Recurrent deep venous thrombosis (HCC) Open Future (Single Instance) Lab Orders None * Telephone Encounter - Marylu Liu MA - 08/25/2022 11:10 AM EDT Pharmacy accidentally sent patient refill request to PCP and Patient would like for Provider to continue prescribing her medication allopurinol 400mg everyday She has been trying to continue Her Pcp to cancel script but provider is on Vacation documented in this encounterPremier Health [facility]06-22-2023 Miscellaneous Notes* Telephone Encounter - Rossi Reyes RN - 08/24/2022 11:15 AM EDT RC to pt to review pharmacy recommendations. LM on VM that the pt should reach out to PCP as she may need longer on antiviral since she is taking IS meds per Pharmacist Rossi Reyes RN, BSN [employer] * Telephone Encounter - Rossi Reyes RN - 08/23/2022 10:55 AM EDT RC to pt she stated she was on an antiviral Valacyclovir for 7 days, she was also on prednisone forshingles and they never went away She called her PCP and sent a message and wanted the liver team to evaluate this to see if there was any other tx Rossi Reyes RN, BSN Post [employer]eper [employer] * Telephone Encounter - Padmini Galindo - 08/23/2022 9:12 AM EDT Patient developed shingles rash, she would like to discuss with nurse coordinator. Call back number: [phone] documented in this encounterPremier Health [facility]06-16-2023 Miscellaneous Notes* Telephone Encounter - Ryan Bansal MD - 08/18/2022 8:09 AM EDT Called patient for our phone visit this AM. No response, left VM for a call back. Ryan Bansal MD Department of Immunologic and Rheumatic Diseases documented in this encounterPremier Health [facility]06-16-2023 History of Present illness Narrative* Ryan Bansal MD - 08/18/2022 8:00 AM EDT Images from the original note were not included. Rheumatology Clinic Date of Service: 08/18/2022 Patient: Farnaz Ruffin Medical Record: [id number] Primary Care Physician: Susy Brizuela RN (Inactive) Last Rheumatology visit: 08/18/2022 (with Ryan Bansal) Patient consented to this phone visit. History of Present Illness Farnaz Ruffin is a 71 year old White female who presents on 08/18/2022 for a phone visit for evaluation of No chief complaint on file.. She is currently taking prednisone. Farnaz is both RF - 9 (12/08/2013) and CCP - 13.5 (12/08/2013) negative. Her most recent DONALD was negative (05/01/2016). HISTORY OF PRESENT ILLNESS Consultation requested by Gillian Nolen APRN.CNP for an opinion regarding gout. My final recommendations will be communicated back to the requesting physician by way of shared Medical record or letter to requesting physician via US mail. This is a patient who presents for gout. Many years ago she had a history of intermittent flares oftoe or knee pain and swelling that was consistent with a gout flare, for which she took prednisone and cleared up the symptoms. However, over the last 6 months she has had recurrent flares with a very short inter- flare period. Reports joint pain started in September, did have a couple of bouts of swollen joints with pain in remote past treated quickly with steroids. Affecting R knee and R ankle and R toes primarily, L toe and ankle as well typically at different times. Patient describes flare as 1-3 red, swollen joints with decreased range of motion. Has been on prednisone 5-6 times within the last 6 months with only minimal relief after a few days of finishing a taper and then pain returns. Started on allopurinol at 50 mg in February with minimal improvement. Tylenol with no pain relief, no other medications for pain. Struggling to bear weight. No joints aspirated in the past. Currently on pred [address]with some relief currently, 3/10 on pain scale in R foot and ankle. Has been on lasix since transplant, no other recent medication changes. Family history: mother with arthritis, possible gout No tobacco use, alcohol use, illicit drug use. 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 Has not usedprednisone for gout flare since 3-4 months ago. She is also on colchicine 0.3 mg every other day now. She recently developed shingles on the left side of her face/neck. No eye involvement, no vesicles in other dermatomes at this time. She has been taking valacyclovir and gabapentin now with mild improvement in symptoms, though still quite painful. She had a low grade temperature on Sunday that resolved since then. Recent LFTs and CBC are relatively stable. She did have mildly elevated CK last month. Patient-Entered Data PROMIS Assessments PROMIS Global Health - (T-Scores - the mean of general population = 50. Five points is a clinicallymeaningful difference.) 07/13/2016 03/21/2022 08/14/2022 Physical T-Score 37.4 37.4 39.8 Mental T-Score 45.8 45.8 41.1 PROMIS CAT Pain Interference 03/21/2022 PROMIS Pain Interference T-Score (range: 10 - 90) 67 (moderate) PROMIS Pain Interference Percentile 4 % PROMIS CAT Fatigue 03/21/2022 PROMIS Fatigue T-Score 67 (moderate) PROMIS Fatigue Percentile 4 % PROMIS PHYSICAL FUNCTION T-SCORE 03/21/2022 PROMIS Physical Function T-Score 39 (moderate dysfunction) Physical Function Percentile 14 % RAPID 3 Ken Activities of Daily Living 08/14/2022 3:31 PM 04/20/2022 9:10 AM 03/21/2022 5:30 PM Dress self? With SOME difficulty With SOME difficulty With SOME difficulty Get in and out of bed? With SOME difficulty Without ANY difficulty With SOME difficulty Walk outdoors? Without ANY difficulty With SOME difficulty With SOME difficulty Wash and dry body? Without ANY difficulty Without ANY difficulty With SOME difficulty Get in and out of car? With SOME difficulty With SOME difficulty With SOME difficulty RAPID 3 Disease Activity Weighed Score Levels: 0 - 1: Near Remission 1.3 - 2.0: Low Severity 2.3 - 4.0: Moderate Severity 4.3 - 10.0: High Severity RAPID-3 Weighed Score 03/21/2022 04/20/2022 08/14/2022 RAPID 3 Weighed Score 5.67 (High Severity (HS)) 3.44 (Moderate Severity (MS)) 3.56 (Moderate Severity (MS)) Patient Health Questionnaire (PHQ-9) No flowsheet data found.(0-4) minimal depression, (5-9) mild depression, (10-14) moderate depression, (15-19) moderately severe depression, (20-27) severe depression Review of Systems Review of Systems CONSTITUTION: Negative for: Fever and Recent weight change HEENT: Positive for: Dry mouth Negative for: Nosebleeds, Mouth sores and Trouble swallowing RESPIRATORY: Positive for: Shortness of breath Negative for: Cough and Pain with breathing GASTROINTESTINAL: Negative for: Melena, Diarrhea, Heartburn and Abdominal pain MUSCULOSKELETAL: Positive for: Arthralgias, Myalgias, Muscle weakness, Joint swelling and Morning Joint Stiffness NEUROLOGICAL: Positive for: Headaches and Numbness Negative for: Memory loss SKIN: Positive for: Hair loss and Nail changes Negative for: Rash and Skin changes EYES: Positive for: Eye dryness Negative for: Eye pain, Eye redness and visual disturbance CARDIOVASCULAR: Positive for: Leg swelling Negative for: Chest pain GENITOURINARY: Negative for: Dysuria and Hematuria HEMATOLOGIC/LYMPHATIC: Negative for: Swollen glandsAll other reviewed and negative other than HPI. Current Medications Current Outpatient Medications on File Prior to Visit Medication Sig furosemide (LASIX) 20 mg tablet Take 2 tablets by mouth every morning and 1 tablet in the afternoon, 6 hours after the morning dose. allopurinol (ZYLOPRIM) 100 mg tablet Take 4 tablets by mouth once daily. tacrolimus ER (ENVARSUS XR) 1 mg tablet Take 1 tablet by mouth once daily. PRALUENT PEN 150 mg/mL INJECT 1 (ONE) syringe SUBCUTANEOUSLY EVERY 14 days mirtazapine (REMERON) 15 mg tablet Take 15 mg by mouth daily at bedtime. XARELTO 20 mg tablet Take 20 mg by mouth daily with dinner. rOPINIRole (REQUIP) 4 mg tablet TAKE 1 TABLET BY MOUTH NIGHTLY rOPINIRole (REQUIP) 2 mg tablet Take 2 mg by mouth every morning. denosumab (PROLIA) 60 mg/mL Inject 60 mg subcutaneously every other week. colchicine 0.6 mg tablet Take 0.5 tablets by mouth every other day. predniSONE (DELTASONE) 10 mg tablet Take (4) tabs PO x 3 days, then (3) tabs x 3 days, then (2) tabs x 3 days, then 1 tab PO x 3 days and stop as directed, in the morning with food aspirin 325 mg tablet Take 1 tablet by mouth once daily. Cholecalciferol, Vitamin D3, 125 mcg (5,000 unit) cap Take 2 capsules by mouth once daily. carvedilol (COREG) 12.5 mg tablet Take 1 tablet by mouth twice daily with meals. (Patient taking differently: Take 25 mg by mouth twice daily with meals.) CO Q-10 100 mg cap capsule Take 100 mg by mouth once daily. albuterol (PROVENTIL) 2.5 mg /3 mL (0.083 %) nebulizer solution Use 3 mL via nebulizer once every month. to be given before pentamidine dose No current facility-administered medications on file prior to visit. Labs Component Latest Ref Rng & Units 08/01/2022 08/14/2022 WBC 3.70 - 11.00 k/uL 8.25 RBC 3.90 - 5.20 m/uL 3.81 (L) Hemoglobin 11.5 - 15.5 g/dL 12.7 Hematocrit 36.0 - 46.0 % 38.6 MCV 80.0 - 100.0 fL 101.3 (H) MCH 26.0 - 34.0 pg 33.3 MCHC 30.5 - 36.0 g/dL 32.9 RDW-CV 11.5 - 15.0 % 15.9 (H) Platelet Count 150 - 400 k/uL 426 (H) MPV 9.0 - 12.7 fL 11.1 Neut% % 70.5 Abs Neut (ANC) 1.45 - 7.50 k/uL 5.81 Lymph% % 14.8 Abs Lymph 1.00 - 4.00 k/uL 1.22 [place]% % 12.8 Abs [place] <0.87 k/uL 1.06 (H) Eosin% % 0.4 Abs Eosin <0.46 k/uL 0.03 Baso% % 0.8 Abs Baso <0.11 k/uL 0.07 Immature Gran % % 0.7 IMMATURE GRANS (ABS) <0.10 k/uL 0.06 NRBC /100 WBC 0.2 Absolute nRBC <0.01 k/uL 0.02 (H) DTYPE Auto Protein, Total 6.3 - 8.0 g/dL 7.4 Albumin 3.9 - 4.9 g/dL 4.4 Calcium 8.5 - 10.2 mg/dL 10.0 Bilirubin, Total 0.2 - 1.3 mg/dL 0.2 Alkaline Phosphatase 34 - 123 U/L 90 AST 13 - 35 U/L 28 ALT 7 - 38 U/L 27 Glucose 74 - 99 mg/dL 116 (H) BUN 7 - 21 mg/dL 37 (H) Creatinine 0.58 - 0.96 mg/dL 1.70 (H) Sodium 136 - 144 mmol/L 139 Potassium 3.7 - 5.1 mmol/L 4.6 Chloride 97 - 105 mmol/L 102 CO2 22 - 30 mmol/L 24 Anion Gap 9 - 18 mmol/L 13 eGFR >=60 mL/min/1.73m 32 (L) Uric Acid 2.5 - 6.6 mg/dL 5.2 CK 42 - 196 U/L 416 (H) Imaging Physical Exam There were no vitals taken for this visit. Exam: No exam for this phone visit Impression and Plan Diagnoses: (M1A.30X0) Chronic gout due to renal impairment without tophus, unspecified site (primary encounterdiagnosis) (Z79.899) On allopurinol therapy (Z79.899) On colchicine therapy (N18.32) Stage 3b chronic kidney disease (HCC) (B02.9) Herpes zoster without complication (R74.8) Elevated CK Farnaz Ruffin is a 71 year old female who presents for evaluation of gout. This is a patient with a history of intermittent flares of podagra treatment with prednisone for presumed gout. These flares have intensified and become more frequent in the last 6 months, involving both toes, feet, ankles and knees. She was recently started on allopurinol 50 mg daily (2 weeks ago)with no side effects, and recently started 40 mg prednisone for a flare. After prior evaluation, we were able to make a crystal-proven diagnosis of gout. She is now on 400 mg allopurinol and has achieved her serum urate goal of < 6.0. She has not had a gout flare in ~ 6 weeks. She will continue allopurinol at the current dose. She has CKD and is on carvedilol with a recent dose increase. Given this and her elevated CK, I will have her stop colchicine in case this is contributing to the CK elevation. She has shingles currently, but based on her symptoms it does not appear that it is disseminated beyond a single dermatome. Her recent liver enzymes are normal which is reassuring. I discussed the signs of disseminated zoster, which she will monitor and present to a local ER if these findings occur. Plan: - Continue allopurinol 400 mg daily - STOP colchicine - Check uric acid, Cr, and CK monthly - Follow-up in October in person Orders this visit: No orders found for this visit on 08/18/22. No follow-ups on file. CC: PCP: Susy Brizuela RN (Inactive) No address on file Phone #: None Time Spent: 25 minutes Ryan Bansal MD Rheumatology Date: August 18, 2022 Time: 7:22 AM documented in this encounterPremier Health [facility]06-12-2023 Miscellaneous Notes* Telephone Encounter - Audi Ferrer RN - 08/14/2022 3:01 PM EDT Returned call to Balaji carrizales and LMOM for her stating that she may take the acyclovir as prescribed.LM at 3:01 PM and to call me back with further questions if needed. Patient notified as well. MADDY Lyle * Telephone Encounter - Debra Shea - 08/14/2022 2:40 PM EDT MATT Washburn from [facility] called asking if its okay to give the patient Acyclovir for shingles. Please contact [phone]. documented in this encounterPremier Health [facility]05-30-2023 History of Present illness Narrative* Timoteo Drummond MD, PhD - 08/01/2022 11:53 PM EDT This is a virtual visit follow-up for a 71 years old lady who underwent living donor liver transplantation using right lobe for Stanton cirrhosis. She is doing well in terms of the liver standpoint withnormal liver function test with mild elevation of her creatinine. She is on enversus and maintainedin a good level. She complained lower extremity edema which may be related to recent change of antihypertensive medication. She has hypertension managed by PCP. She was also followed by our brake repairer bus and prescribed Lasix. Otherwise she is in generally good condition. PAST MEDICAL HISTORY Diagnosis Date Biliary dyskinesia Cirrhosis of liver with ascites (HCC) Hepatitis possible HTN (hypertension) Morbid obesity (HCC) YOVANNY (obstructive sleep apnea) no tx, being tx for RLS Platelet dysfunction (HCC) RLS (restless legs syndrome) Thrombocytopenia (HCC) PAST SURGICAL HISTORY Procedure Laterality Date SECTION HX x3 COLONOSCOPY x3 EGD 07/2016 HEART CATHETERIZATION early nl per pt HYSTERECTOMY HX PAST SURGICAL HISTORY OF mult D&C's PAST SURGICAL HISTORY OF Right eye surg PAST SURGICAL HISTORY OF Right 2015 total knee arthroplasty- Dr. Alfonso FAMILY HISTORY Problem Relation Age of Onset COPD Mother Heart Mother Ischemic Heart Disease Father 56 Social History Tobacco Use Smoking status: Never Smokeless tobacco: Never Substance Use Topics Alcohol use: No Drug use: No Current Outpatient Medications Medication Sig Dispense Refill furosemide (LASIX) 20 mg tablet Take 2 tablets by mouth every morning and 1 tablet in the afternoon, 6 hours after the morning dose. 60 tablet 5 allopurinol (ZYLOPRIM) 100 mg tablet Take 4 tablets by mouth once daily. 360 tablet 0 tacrolimus ER (ENVARSUS XR) 1 mg tablet Take 1 tablet by mouth once daily. 60 tablet 11 PRALUENT PEN 150 mg/mL INJECT 1 (ONE) syringe SUBCUTANEOUSLY EVERY 14 days mirtazapine (REMERON) 15 mg tablet Take 15 mg by mouth daily at bedtime. XARELTO 20 mg tablet Take 20 mg by mouth daily with dinner. rOPINIRole (REQUIP) 4 mg tablet TAKE 1 TABLET BY MOUTH NIGHTLY rOPINIRole (REQUIP) 2 mg tablet Take 2 mg by mouth every morning. denosumab (PROLIA) 60 mg/mL Inject 60 mg subcutaneously every other week. colchicine 0.6 mg tablet Take 0.5 tablets by mouth every other day. 23 tablet 0 predniSONE (DELTASONE) 10 mg tablet Take (4) tabs PO x 3 days, then (3) tabs x 3 days, then (2) tabs x 3 days, then 1 tab PO x 3 days and stop as directed, in the morning with food 32 tablet 1 aspirin 325 mg tablet Take 1 tablet by mouth once daily. 90 tablet 1 Cholecalciferol, Vitamin D3, 125 mcg (5,000 unit) cap Take 2 capsules by mouth once daily. 60 capsule 1 carvedilol (COREG) 12.5 mg tablet Take 1 tablet by mouth twice daily with meals. (Patient taking differently: Take 25 mg by mouth twice daily with meals.) CO Q-10 100 mg cap capsule Take 100 mg by mouth once daily. 0 albuterol (PROVENTIL) 2.5 mg /3 mL (0.083 %) nebulizer solution Use 3 mL via nebulizer once every month. to be given before pentamidine dose No current facility-administered medications for this visit. ALLERGIES Allergen Reactions [id number] Red* Other: See Comments Muscle deterioration Sulfa (Sulfonamide * Rash REVIEW OF SYSTEMS: PAIN ASSESSMENT: Negative for pain, history of chronic pain, or current treatment for a chronic pain condition. GENERAL: No weight loss, malaise or fevers RESPIRATORY: Negative for cough, hemoptysis, wheezing, COPD, dyspnea or shortness of breath CARDIOVASCULAR: Negative for chest pain, leg swelling, hypertension, CHF or palpitations GI: No nausea, vomiting, or diarrhea : No history of dysuria, frequency or incontinence CIRCULAR TANK COOPER: Negative for abnormal vaginal bleeding, abnormal vaginal discharge PHYSICAL FINDINGS OF NOTE: General - Normal, healthy, cooperative, in no acute distress Able to interact verbally by video conference Psych - ORIENTATION: normal to time place, person and situation Mood/Affect: AFFECT AND MOOD: Normal Head/Neuro - Normal size and shape Facial appearance normal Pulmonary - respiratory effort normal Cardiovascular - patient describes extremities normal, warm, no cyanosis,no clubbing, and no edema Abdominal - Performed Flat, Visible protrusions or hernias: No Incisions/scars: None, Areas of pain/tenderness: denies Skin - abnormal lesions not visualized Motor - patient seen sitting with Normal appearing strength and coordination Anorectal exam - Not Performed IMPRESSION and RECOMMENDATION: This is a 71-year-old lady who underwent living donor liver transplantation with right lobe graft 5years ago. She is doing well with stable immunosuppression level and creatinine level. She is on enversus we will keep same immunosuppression. I spent more than 30 minutes [id number] with the patient and over half the time was devoted to counseling and/or coordination of care. Timoteo Drummond MD, PhD documented in this encounterPrem[facility]05-16-[facility] History of Present illness Narrative* Audi Ferrer RN - 07/18/2022 9:35 AM EDT Images from the original note were not included. Farnaz Ruffin contacted the office with concerns of persistent gout. She would like to discuss afew items when she is on for her follow up as per below: Future Appointments Date Time Provider Department Center 07/24/2022 8:00 AM [facility] 07/24/2022 1:00 PM José Miguel Ibanez MD [facility] Mn Q Bldg 07/24/2022 2:00 PM Lizzie Gilbert APRN.GLENNA TXCTMN Mn [facility] 08/01/2022 8:00 AM LAB [facility] She is currently on Xarelto as ordered by out side MD and would like to come off this. She was alsotold she has Diabetes and was prescribed an oral agent. HgA1c is report at 8. She however informed me that she was taking prednisone for gout and for the last 6 months and is coming off this as well.She does not want to start the oral agent for diabetes at this time until she is seen in follow up w brad MANZANARES. I advised that she may also want to consult with endocrine for diabetes mgmt as well and get a nutritional consult as he BMD is 38. She agreed to this and will discuss further at follow up. Still with complaints of significant LE swelling making exercise difficult. Cardiology work up reported as WNL and Dopplers reported as WNL. Audi Ferrer RN documented in this encounterPremier [facility]03-03-2023 Miscellaneous Notes* Telephone Encounter - Lizzie Gilbert APRN.CNP - 05/05/2022 4:37 PM EST The following approved medication requests have been transmitted electronically. Requested Prescriptions Pending Prescriptions Disp Refills tacrolimus ER (ENVARSUS XR) 1 mg tablet 60 tablet 11 Sig: Take 1 tablet by mouth once daily. Lizzie Gilbert APRN.GLENNA * Telephone Encounter - Audi Ferrer RN - 05/05/2022 12:39 PM EST Patient's request for medication is as follows: Requested Prescriptions Pending Prescriptions Disp Refills tacrolimus ER (ENVARSUS XR) 1 mg tablet 60 tablet 11 Sig: Take 1 tablet by mouth once daily. Medications Discontinued During This Encounter Medication Reason pentamidine (NEBUPENT) 300 mg inhalation solution Course of therapy completed Notified Farnaz Ruffin of the plan and she will do as instructed. Audi Ferrer RN * Telephone Encounter - Audi Ferrer RN - 05/05/2022 12:34 PM EST ----- Message from Bud Carr RPh sent at 05/04/2022 2:07 PM EST ----- I think this far from transplant, can decrease to Envarsus 1 mg daily, also okay to d/c pentamidine Bud ----- Message ----- From: Audi Ferrer RN Sent: 04/25/2022 2:18 PM EST To: Bud Carr RPh FK506 reviewed and noted to be high for this far from txp. Notified team for any changes. Will discuss with pharmacy to determine if dose needs adjusted. Audi Ferrer RN documented in this encounterPremier [facility]03-01-2023 Miscellaneous Notes* Telephone Encounter - Gillian Nolen APRN.CNP - 05/03/2022 10:34 AM EST Spoke with pt, brock ROBERTO has improved but not resolved. Wt is down ~ 3#. Had been up ~ 9-10#. Still with significant gout related pain to joints in her feet, followed by Rheum. Advised to continue Lasix 40mg QAM and 20mg QPM, follow daily wts. Scheduled for labs on 05/08. Advised to call with any new issues. She understands. Gillian Nolen APRN.CNP documented in this encounterPremier Health [facility]02-23-2023 Miscellaneous Notes* Telephone Encounter - Gillian Nolen APRN.CNP - 04/27/2022 2:52 PM EST Spoke with pt, doing better with gout but has developed significant brock ROBERTO, knees distally. Noted the day following increase in Allopurinol, wt is up ~ 7#. Edema improves but does not resolve completely overnight, but recurs after a couple hours of being awake. (+) shortness of breath with exertion, stair climbing and this was baseline previously. Not currently on any steroid rx. She is watchingdietary intake of sodium.She does not feel 20mg of lasix yields increased urination. Advised she can add additional 20mg of lasix today, beginning tomorrow, 40mg in QAM and 20mg 6 hours later and evaluate response. Requested she call me with an update on 05/01. Elevate legs and wear compression hoseduring the day which she is doing. She understands. TAC level 12.9, may be contributing to some extent, no changes by Liver Tx team for now. Gillian Nolen APRN.GLENNA * Telephone Encounter - Lopez Tovar - 04/27/2022 1:46 PM EST Pt phoned reporting severe swelling in both legs, starting last week. Pt requesting a call #[phone] Lopez Tovar Admin documented in this encounterPremier Health [facility]02-21-2023 Miscellaneous Notes* Result Encounter Note - Audi Ferrer RN - 04/25/2022 2:18 PM EST FK506 reviewed and noted to be high for this far from txp. Notified team for any changes. Will discuss with pharmacy to determine if dose needs adjusted. Audi Ferrer RN * Result Encounter Note - Audi Ferrer RN - 04/25/2022 10:57 AM EST Labs received and reviewed. Labs are stable and consistent with previous levels. Will continue to follow. Audi Ferrer RN * Result Encounter Note - Audi Ferrer RN - 04/24/2022 8:59 AM EST Labs received and reviewed. Labs are stable and consistent with previous levels. Will continue to follow. Audi Ferrer RN documented in this encounterPremier Health [facility]02-21-2023 Miscellaneous Notes* Telephone Encounter - Ryan Bansal MD - 04/25/2022 11:10 AM EST Spoke to patient - she notes she has had bilateral leg swelling since Sunday and diarrhea. No fevers, but felt flushed over the weekend. Denies rashes, and recent liver enzymes and CBC were normal/stable. We discussed that these symptoms seem less likely to be a hypersensitivity to allopurinol, though I would continue to monitor. Diarrhea can be related to colchicine, so we will hold this medication for now. Bilateral leg swelling can be from a number of reasons, potentially fluid retention - discussed that it may be worthwhile touching base with her nephrology team as well. Ryan Bansal MD Department of Immunologic and Rheumatic Diseases * Telephone Encounter - Eliana Hill - 04/25/2022 10:31 AM EST Merlin, The pt called and stated that since starting the allopurinol she has been experiencing extreme swelling of both of her legs and diarrhea. The pt would like to be advised what she should do. Contact number- [phone] documented in this encounterPremier Health [facility]02-17-2023 History of Present illness Narrative* Ryan Bansal MD - 04/21/2022 8:30 AM EST Images from the original note were not included. Rheumatology Clinic Date of Service: 04/21/2022 Patient: Farnaz Ruffin Medical Record: [id number] Primary Care Physician: Susy Brizuela RN (Inactive) Last Rheumatology visit: 04/21/2022 (with Ryan Bansal) History of Present Illness Farnaz Ruffin is a 71 year old White female who presents on 04/21/2022 for a phone visit for evaluation of Gout. She is currently taking prednisone. Farnaz is both RF and CCP negative. Her most recent DONALD was negative (05/01/2016). HISTORY OF PRESENT ILLNESS Consultation requested by Gillian Nolen APRN.CNP for an opinion regarding gout. My final recommendations will be communicated back to the requesting physician by way of shared Medical record or letter to requesting physician via US mail. This is a patient who presents for gout. Many years ago she had a history of intermittent flares oftoe or knee pain and swelling that was consistent with a gout flare, for which she took prednisone and cleared up the symptoms. However, over the last 6 months she has had recurrent flares with a very short inter- flare period. Reports joint pain started in September, did have a couple of bouts of swollen joints with pain in remote past treated quickly with steroids. Affecting R knee and R ankle and R toes primarily, L toe and ankle as well typically at different times. Patient describes flare as 1-3 red, swollen joints with decreased range of motion. Has been on prednisone 5-6 times within the last 6 months with only minimal relief after a few days of finishing a taper and then pain returns. Started on allopurinol at 50 mg in February with minimal improvement. Tylenol with no pain relief, no other medications for pain. Struggling to bear weight. No joints aspirated in the past. Currently on pred [address]with some relief currently, 3/10 on pain scale in R foot and ankle. Has been on lasix since transplant, no other recent medication changes. Family history: mother with arthritis, possible gout No tobacco use, alcohol use, illicit drug use. 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 She initially did well with the prior prednisone taper, but then symptoms recurred a few days later. She continues on colchicine 0.3 mg every other day (dose reduced due to CKD and concomitant use of carvedilol). Her most recent serum urate is 9.7 (down from 12.6 in 01/2022). Patient-Entered Data PROMIS Assessments PROMIS Global Health - (T-Scores - the mean of general population = 50. Five points is a clinicallymeaningful difference.) 07/13/2016 03/21/2022 Physical T-Score 37.4 37.4 Mental T-Score 45.8 45.8 PROMIS CAT Pain Interference 03/21/2022 PROMIS Pain Interference T-Score (range: 10 - 90) 67 (moderate) PROMIS Pain Interference Percentile 4 % PROMIS CAT Fatigue 03/21/2022 PROMIS Fatigue T-Score 67 (moderate) PROMIS Fatigue Percentile 4 % PROMIS PHYSICAL FUNCTION T-SCORE 03/21/2022 PROMIS Physical Function T-Score 39 (moderate dysfunction) Physical Function Percentile 14 % RAPID 3 Ken Activities of Daily Living 04/20/2022 9:10 AM 03/21/2022 5:30 PM Dress self? With SOME difficulty With SOME difficulty Get in and out of bed? Without ANY difficulty With SOME difficulty Walk outdoors? With SOME difficulty With SOME difficulty Wash and dry body? Without ANY difficulty With SOME difficulty Get in and out of car? With SOME difficulty With SOME difficulty RAPID 3 Disease Activity Weighed Score Levels: 0 - 1: Near Remission 1.3 - 2.0: Low Severity 2.3 - 4.0: Moderate Severity 4.3 - 10.0: High Severity RAPID-3 Weighed Score 03/21/2022 04/20/2022 RAPID 3 Weighed Score 5.67 (High Severity (HS)) 3.44 (Moderate Severity (MS)) Patient Health Questionnaire (PHQ-9) No flowsheet data found.(0-4) minimal depression, (5-9) mild depression, (10-14) moderate depression, (15-19) moderately severe depression, (20-27) severe depression Review of Systems Review of Systems CONSTITUTION: Positive for: Recent weight change Negative for: Fever HEENT: Positive for: Dry mouth Negative for: Nosebleeds, Mouth sores and Trouble swallowing RESPIRATORY: Positive for: Cough and Shortness of breath Negative for: Pain with breathing and Coughing up blood GASTROINTESTINAL: Positive for: Heartburn Negative for: Melena, Diarrhea and Abdominal pain MUSCULOSKELETAL: Positive for: Arthralgias, Myalgias, Muscle weakness and Morning Joint Stiffness Negative for: Joint swelling NEUROLOGICAL: Positive for: Headaches and Numbness Negative for: Memory loss SKIN: Positive for: Hair loss and Nail changes Negative for: Rash and Skin changes EYES: Positive for: Eye redness, Eye dryness and Visual disturbance Negative for: Eye pain CARDIOVASCULAR: Positive for: Leg swelling Negative for: Chest pain GENITOURINARY: Negative for: Dysuria and Hematuria HEMATOLOGIC/LYMPHATIC: Negative for: Swollen glandsAll other reviewed and negative other than HPI. Current Medications Current Outpatient Medications on File Prior to Visit Medication Sig PRALUENT PEN 150 mg/mL INJECT 1 (ONE) syringe SUBCUTANEOUSLY EVERY 14 days mirtazapine (REMERON) 15 mg tablet Take 15 mg by mouth daily at bedtime. XARELTO 20 mg tablet Take 20 mg by mouth daily with dinner. rOPINIRole (REQUIP) 4 mg tablet TAKE 1 TABLET BY MOUTH NIGHTLY rOPINIRole (REQUIP) 2 mg tablet Take 2 mg by mouth every morning. denosumab (PROLIA) 60 mg/mL Inject 60 mg subcutaneously every other week. allopurinol (ZYLOPRIM) 100 mg tablet Take 1 tablet by mouth once daily for 7 days, THEN 1.5 tabletsonce daily for 7 days, THEN 2 tablets once daily for 14 days, THEN 3 tablets once daily for 14 days. colchicine 0.6 mg tablet Take 0.5 tablets by mouth every other day. NIFEdipine ER (PROCARDIA XL) 30 mg 24 hr tablet Take 30 mg by mouth once daily. allopurinol (ZYLOPRIM) 100 mg tablet Take 0.5 tablets by mouth once daily. predniSONE (DELTASONE) 10 mg tablet Take (4) tabs PO x 3 days, then (3) tabs x 3 days, then (2) tabs x 3 days, then 1 tab PO x 3 days and stop as directed, in the morning with food tacrolimus ER (ENVARSUS XR) 1 mg tablet Take 2 tablets by mouth once daily. pentamidine (NEBUPENT) 300 mg inhalation solution Inhale 300 mg as instructed once every month. (Patient not taking: Reported on 03/23/2022) aspirin 325 mg tablet Take 1 tablet by mouth once daily. Cholecalciferol, Vitamin D3, 125 mcg (5,000 unit) cap Take 2 capsules by mouth once daily. carvedilol (COREG) 12.5 mg tablet Take 1 tablet by mouth twice daily with meals. (Patient taking differently: Take 25 mg by mouth twice daily with meals.) furosemide (LASIX) 20 mg tablet Take 1 tablet by mouth once daily. CO Q-10 100 mg cap capsule Take 100 mg by mouth once daily. (Patient not taking: Reported on 03/23/2022) albuterol (PROVENTIL) 2.5 mg /3 mL (0.083 %) nebulizer solution Use 3 mL via nebulizer once every month. to be given before pentamidine dose No current facility-administered medications on file prior to visit. Labs See HPI Imaging Last XR Hand/Finger - Impression Only XR HAND 3VIEW MANSI BROCK Collected: 12/08/2013 1:47 PM (Final result) Physical Exam There were no vitals taken for this visit. Exam: No exam for this phone visit Impression and Plan Diagnoses: (M1A.30X0) Chronic gout due to renal impairment without tophus, unspecified site (primary encounterdiagnosis) (N18.32) Stage 3b chronic kidney disease (HCC) (Z79.621) Long-term current use of tacrolimus (Z94.4) Liver transplant recipient (HCC) (Z79.899) On allopurinol therapy Farnaz Ruffin is a 71 year old female who presents for evaluation of gout. This is a patient with a history of intermittent flares of podagra treatment with prednisone for presumed gout. These flares have intensified and become more frequent in the last 6 months, involving both toes, feet, ankles and knees. She was recently started on allopurinol 50 mg daily (2 weeks ago)with no side effects, and recently started 40 mg prednisone for a flare. After prior evaluation, we were able to make a crystal-proven diagnosis of gout. She is currently on 200 mg allopurinol daily with improvement in serum urate (still not at goal). She continues on 0.3mg colchicine every other day, but has had a flare of gout since stopping her prior prednisone taper. We will still need to titrate allopurinol to get to a goal serum urate of < 6.0. however, given the limitations in the dosing of colchicine, she may also need to stay at low dose prednisone 5 mg daily until she reaches her goal serum urate. For her current gout flare, will initiate prednisone 40mg x 3 days and taper by 10 mg every 3 days. She will stay at 5 mg daily after that. Plan: - Prednisone taper as above; stay at prednisone 5 mg daily after that - Continue colchicine 0.3 mg every other day - Allopurinol 300 mg x 2 weeks then up to 400 mg daily x 1 month - Will recheck serum urate in 2 weeks - Check uric acid, CBC, Cr, and CK monthly - In reserve for urate lowering therapy - pegloticase, febuxostat - Follow-up virtual in 6-8 weeks Orders this visit: [facility] on 04/21/22 allopurinol (ZYLOPRIM) 100 mg tablet No follow-ups on file. 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 She was last seen in early January and, at that time, she was post caudal epidural. Her epidural did give her 70% relief , but the patient made it clear today that she wants no further procedures, as they were quite uncomfortable. She does have severe gout in her feet and is currently now under the care of a machine overhauler, as of last month. He has placed her on allopurinol with slow titration due to her stage 3 kidney disease. Her gout is greatly improving, but it has unmasked significant nerve pain to her feet. Current medications include ropinirole 2 mg b.i.d., allopurinol and Prolia. Her current pain today is 2/10, she describes as stinging, burning and tingling. Patient's REVIEW OF SYSTEMS / PAST MEDICAL HISTORY / ALLERGIES and IMAGES have been reviewed and noted on the chart. PHYSICAL EXAM: VITAL SIGNS: Blood pressure is 154/80. Heart rate is 79. Temperature is 96.9. She is 5'3 , weighs 95 kg. GENERAL IMPRESSION: Pleasant, appropriate, notably uncomfortable sitting in the chair with a flat affect. MUSCULOSKELETAL: Motor is 4/5 bilaterally. No overt muscle weakness noted. There is muscle atrophy diffusely from disuse. NEUROLOGICALLY: Diffuse polyneuropathy bilateral lower extremities. Blunted patellar reflexes bilaterally. Patient is cognitively intact. BACK: Range of motion is functional in lateral rotation and flexion/extension. Paravertebral muscles are non-spasmodic. No spinal axial pain upon facet compression to the lumbar area. DIAGNOSIS: Polyneuropathy and gout. PLAN: As stated, the patient declines further procedures from our clinic. She does receive tramadol 50 mg daily p.r.n. from her PCP. She does state she uses it twice weekly, and education was given on proper use to help chronically manage her pain. The patient will return to our clinic on an as needed basis and patient agrees with this plan.[facility] [id number] Instructions* Patient Instructions* Ryan Bansal MD - 03/23/2022 12:38 PM EST Increase allopurinol to 100 mg daily x 1 week; increase 150 mg x 1 week -> 200 mg x 2 weeks -> 300 mg daily Start colchicine 0.3 mg daily Finish the prednisone taper; the next time you get a twinge of a gout flare, take the prednisone that I send you immediately I added a muscle test and uric acid to be done every month to see the progress of the gout documented in this encounterPremier Health [facility]01-19-2023 History of Present illness Narrative* Ryan Bansal MD - 03/23/2022 11:00 AM ESTAssociated Order(s): Medium Joint Arthro/Inj: R ankle joint Post-Procedure Diagnose(s): Chronic gout due to renal impairment without tophus, unspecified site Images from the original note were not included. Rheumatology Clinic Date of Service: 03/23/2022 Patient: Farnaz Ruffin Medical Record: [id number] Primary Care Physician: Susy Brizuela RN (Inactive) Last Rheumatology visit: 03/23/2022 (with Ryan Bansal) History of Present Illness Farnaz Ruffin is a 71 year old White female who presents on 03/23/2022 for an in-person visit for evaluation of Gout. She is currently taking prednisone. Farnaz is both RF and CCP negative. Her most recent DONALD was negative (05/01/2016). HISTORY OF PRESENT ILLNESS Consultation requested by Gillian Nolen APRN.CNP for an opinion regarding gout. My final recommendations will be communicated back to the requesting physician by way of shared Medical record or letter to requesting physician via US mail. This is a patient who presents for gout. Many years ago she had a history of intermittent flares oftoe or knee pain and swelling that was consistent with a gout flare, for which she took prednisone and cleared up the symptoms. However, over the last 6 months she has had recurrent flares with a very short inter- flare period. Reports joint pain started in September, did have a couple of bouts of swollen joints with pain in remote past treated quickly with steroids. Affecting R knee and R ankle and R toes primarily, L toe and ankle as well typically at different times. Patient describes flare as 1-3 red, swollen joints with decreased range of motion. Has been on prednisone 5-6 times within the last 6 months with only minimal relief after a few days of finishing a taper and then pain returns. Started on allopurinol at 50 mg in February with minimal improvement. Tylenol with no pain relief, no other medications for pain. Struggling to bear weight. No joints aspirated in the past. Currently on pred [address]with some relief currently, 3/10 on pain scale in R foot and ankle. Has been on lasix since transplant, no other recent medication changes. Family history: mother with arthritis, possible gout No tobacco use, alcohol use, illicit drug use. 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 Five points is a clinicallymeaningful difference.) 07/13/2016 03/21/2022 Physical T-Score 37.4 37.4 Mental T-Score 45.8 45.8 PROMIS CAT Pain Interference 03/21/2022 PROMIS Pain Interference T-Score (range: 10 - 90) 67 (moderate) PROMIS Pain Interference Percentile 4 % PROMIS CAT Fatigue 03/21/2022 PROMIS Fatigue T-Score 67 (moderate) PROMIS Fatigue Percentile 4 % PROMIS PHYSICAL FUNCTION T-SCORE 03/21/2022 PROMIS Physical Function T-Score 39 (moderate dysfunction) Physical Function Percentile 14 % 3 Ken Activities of Daily Living 03/21/2022 5:30 PM Dress self? With SOME difficulty Get in and out of bed? With SOME difficulty Walk outdoors? With SOME difficulty Wash and dry body? With SOME difficulty Get in and out of car? With SOME difficulty RAPID 3 Disease Activity Weighed Score Levels: 0 - 1: Near Remission 1.3 - 2.0: Low Severity 2.3 - 4.0: Moderate Severity 4.3 - 10.0: High Severity RAPID-3 Weighed Score 03/21/2022 RAPID 3 Weighed Score 5.67 (High Severity (HS)) Patient Health Questionnaire (PHQ-9) No flowsheet data found.(0-4) minimal depression, (5-9) mild depression, (10-14) moderate depression, (15-19) moderately severe depression, (20-27) severe depression Review of Systems Review of Systems CONSTITUTION: Positive for: Recent weight change Negative for: Fever HEENT: Positive for: Mouth sores, Trouble swallowing and Dry mouth Negative for: Nosebleeds RESPIRATORY: Positive for: Cough Negative for: Shortness of breath, Pain with breathing and Coughing up blood GASTROINTESTINAL: Positive for: Heartburn Negative for: Melena, Diarrhea and Abdominal pain MUSCULOSKELETAL: Positive for: Arthralgias, Myalgias, Muscle weakness, Joint swelling and Morning Joint Stiffness NEUROLOGICAL: Positive for: Headaches and Numbness Negative for: Memory loss SKIN: Positive for: Hair loss and Nail changes Negative for: Rash and Skin changes EYES: Positive for: Eye dryness and Visual disturbance Negative for: Eye pain and Eye redness CARDIOVASCULAR: Positive for: Leg swelling Negative for: Chest pain GENITOURINARY: Negative for: Dysuria and Hematuria HEMATOLOGIC/LYMPHATIC: Negative for: Swollen glandsAll other reviewed and negative other than HPI. Current Medications Current Outpatient Medications on File Prior to Visit Medication Sig NIFEdipine ER (PROCARDIA XL) 30 mg 24 hr tablet Take 30 mg by mouth once daily. allopurinol (ZYLOPRIM) 100 mg tablet Take 0.5 tablets by mouth once daily. predniSONE (DELTASONE) 10 mg tablet Take (4) tabs PO x 3 days, then (3) tabs x 3 days, then (2) tabs x 3 days, then 1 tab PO x 3 days and stop as directed, in the morning with food tacrolimus ER (ENVARSUS XR) 1 mg tablet Take 2 tablets by mouth once daily. pentamidine (NEBUPENT) 300 mg inhalation solution Inhale 300 mg as instructed once every month. evolocumab (REPATHA SYRINGE SUBCUTANEOUS) Inject subcutaneously. aspirin 325 mg tablet Take 1 tablet by mouth once daily. rOPINIRole (REQUIP) 1 mg tablet Take (2) tablets by mouth every morning and (4) tablets every evening Cholecalciferol, Vitamin D3, 125 mcg (5,000 unit) cap Take 2 capsules by mouth once daily. carvedilol (COREG) 12.5 mg tablet Take 1 tablet by mouth twice daily with meals. (Patient taking differently: Take 25 mg by mouth twice daily with meals.) furosemide (LASIX) 20 mg tablet Take 1 tablet by mouth once daily. CO Q-10 100 mg cap capsule Take 100 mg by mouth once daily. albuterol (PROVENTIL) 2.5 mg /3 mL (0.083 %) nebulizer solution Use 3 mL via nebulizer once every month. to be given before pentamidine dose No current facility-administered medications on file prior to visit. Labs Uric acid 12.6 Creatinine Date Value Ref Range Status 03/20/2022 1.46 (H) 0.58 - 0.96 mg/dL Final 02/20/2022 1.41 (H) 0.58 - 0.96 mg/dL Final 12/26/2021 1.49 (H) 0.58 - 0.96 mg/dL Final 11/21/2021 1.68 (H) 0.58 - 0.96 mg/dL Final Imaging Last XR Hand/Finger - Imp[facility] Collected: 12/08/2013 1:47 PM (Final result) Physical Exam BP 143/66 Pulse 71 Ht 5' 2 (1.58m) Wt 205 lb 12.8 oz (93.4kg) BMI 37.63 kg/(m^2). Exam: GENERAL: Well appearing, NAD HEENT: NCAT, PERRLA, EOMI, no scleral icterus CV: Normal rate, regular rhythm. + holosystolic murmur PULM: Normal WOB and RR on RA. Lung albright CTA bilaterally without appreciable wheezes or crackles. EXT: 2+ radial and DP/PT pulses. No edema. SKIN: Warm, dry, no significant rashes, no significant bruising. No tophi NEURO: A&Ox3. Mental status and speech normal. MSK: Shoulders: Intact ROM without reported pain. No appreciable swelling or tenderness with palpation. Elbows: No flexion contractures. No appreciable swelling, deformities, or tenderness with palpation. Wrists: No limitation of flexion or extension. No appreciable swelling or tenderness with palpation. Hands: No evidence of synovitis or tenderness with palpation. Able to make full fist bilaterally. Hips: Intact ROM. No tenderness with palpation. Knees: No gross deformity. No appreciable effusion. Bilateral knee replacement Ankles: Palpable effusion with warmth and tenderness of the right ankle Feet: Significant tenderness and swelling of the dorsum of the right foot and the right 1st MTP. Joint Exam Data (across time) Impression and Plan Diagnoses: (M1A.30X0) Chronic gout due to renal impairment without tophus, unspecified site (primary encounterdiagnosis) (N18.32) Stage 3b chronic kidney disease (HCC) (Z94.4) Liver transplant recipient ([facility]) (Z79.621) Long-term current use of tacrolimus Farnaz Ruffin is a 71 year old female who presents for evaluation of gout. This is a patient with a history of intermittent flares of podagra treatment with prednisone for presumed gout. These flares have intensified and become more frequent in the last 6 months, involving both toes, feet, ankles and knees. She was recently started on allopurinol 50 mg daily (2 weeks ago)with no side effects, and recently started 40 mg prednisone for a flare. On exam she has clear podagra and swelling/warmth of the right ankle. Despite the suspicion for gout, given her lack of crystal diagnosis, we discussed the risks, benefits of a joint aspiration. We discussed the risk of pain, bleeding, and infection that is involved with a joint aspiration. Patient agreed to joint aspiration (see procedure note). There were monosodium urate crystals in the specimen. Will plan to titrate allopurinol (goal serum urate < 6.0) add low dose colchicine (adjusted to renal function and concomitant use of carvedilol) and finish prednisone taper. We discussed the risks/benefits/side effects of allopurinol including hypersensitivity reactions. We discussed the risks/be nefits/side effects of colchicine including gi side effects and marrow toxicity, muscle toxicity. We also gave instructions for flare treatment (use of prednisone at the first signs of a flare) and instructions for hydration and low purine diet. Plan: - Aspiration of the right ankle as in procedure note. Fluid in process for cultures, cell count, crystals - Finish prednisone taper - Increase allopurinol to 100 mg daily x 1 week -> 150 mg x 1 week -> 200 mg x 2 weeks -> 300 mg x 2 weeks - Check uric acid, CBC, Cr, and CK monthly - Start colchicine 0.3 mg every other day - In reserve for flare prevention (low dose prednisone 5 mg) - In reserve for urate lowering therapy - pegloticase, febuxostat - Follow-up virtual in 6 weeks Orders this visit: Office Visit on 03/23/22 URIC ACID BLOOD CBC + DIFF CK CREATINE KINASE SYNOVIAL FLUID, ROUTINE SYNOVIAL FLUID MANUAL DIFF SYNOVIAL FL,CRYSTAL ID/STAFF REV BODY FLUID CULTURE AND GRAM STAIN PRALUENT PEN 150 mg/mL mirtazapine (REMERON) 15 mg tablet XARELTO 20 mg tablet rOPINIRole (REQUIP) 4 mg tablet rOPINIRole (REQUIP) 2 mg tablet denosumab (PROLIA) 60 mg/mL allopurinol (ZYLOPRIM) 100 mg tablet colchicine 0.6 mg tablet predniSONE (DELTASONE) 10 mg tablet No follow-ups on file. CC: PCP: Susy Brizuela RN (Inactive) No address on file Phone #: None I spent a total of 90 minutes on the date of the service which included preparing to see the patient, [id number] patient care, completing clinical documentation, obtaining and/or reviewing separately obtained history, performing a medically appropriate examination, counseling and educating the pat ient/family/caregiver, and ordering medications, tests, or procedures. Ryan Bansal MD Rheumatology Date: March 23, 2022 Time: 7:36 AM Medium Joint Arthro/Inj: R ankle joint Informed Consent Consent Obtained: Verbal [place] Protocol A moment to CARE was completed. SIGN IN Special Equipment: Yes Patient/Surrogate Stated/Verified: Patient name, Date of , Relevant allergies and Intended procedure TIME OUT Intended patient and procedure match the source document(s). Consent documented and matches the intended procedure. Relevant labs, photos, and/or imaging studies have been reviewed. Correct side/site marked and visible. Medications required for procedure verified. No fire risk assessment and interventions applicable. No implant(s) inserted. 03/23/2022 12:15 PM The procedure site was prepped in the usual sterile fashion. Site: R ankle joint Aspirate: 1.5 mL cloudy and yellow; sent for lab analysisAnesthetics: 1 mL lidocaine (PF) 10 mg/mL (1 %) Outcome: tolerated well, no immediate complications Post-injection instructions were reviewed with the patient and the patient voiced understanding of these instructions. SIGN OUT All specimen containers correctly labeled. No instruments, equipment or retained foreign bodies applicable. Post-procedure follow-up management communicated and Plan of Care Visit completed when applicable documented in this encounterPremier Health [facility] Center01-19-2023 Miscellaneous Notes* Telephone Encounter - Audi Ferrer RN - 03/23/2022 8:00 AM EST Noted the below and advised patient to repeat labs in a few weeks for verification of the levels. Patient notified and aware. * Telephone Encounter - Audi Ferrer RN - 03/23/2022 8:00 AM EST ----- Message from Bud Carr RPh sent at 03/22/2022 3:52 PM EST ----- Levels all over the place, and Scr stable, actually better than previous, would just recheck Bud ----- Message ----- From: Audi Ferrer RN Sent: 03/21/2022 1:53 PM EST To: Bud Carr RPh Labs received and reviewed. FK level is high for this far from txp will discuss with Pharmacist andrepeat levels. Please advise if dose can be adjusted. On envarsus 2 mg daily. Audi Ferrer RN documented in this encounterPremier Health [facility] Center01-17-2023 Instructions* Patient Instructions* Gillian Nolen APRN.CNP - 03/21/2022 2:[address] Nancy Ferrell [phone] [place] [phone] [facility] available in person or virtual visit for gout documented in this encounterPremier Health [facility] Center01-17-2023 History of Present illness Narrative* Gillian Nolen APRN.GLENNA - 03/21/2022 2:18 PM EST Patient presents for CKD and HTN follow up care The HPI and Assessment was copied from my previous note dated 08/03/20 with changes as noted Farnaz Ruffin is a 71yr patient s/p living donor liver tx (right lobe) 02/11/18 in the setting of ESLD d/t [facility]. Maintenance IS with Tacrolimus. HTN diagnosed ~age 63, has been controlled with medications. Has never been seen by a Nailhead Puncher.She does not recall any renal issues prior to OLT. -From June 2018-present scr. 1.4-1.7mg/dl, [id number] scr. 0.9-1.4; no proteinuria until tx per pt. No hx of kidney stones Isolated UTIs, often signal has been flank pain. Hx of C.diff for >1 yr prior to OLT,s/p fecal tx with success Recalls that she took PPI for ~ 1 year during recurrent C.diff episodes Hx of NSAID daily for years in view of arthritic issues; has not taken any NSAIDS for ~ 3.5-4yrs. 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 Hx of TKR; hx of spinal spurs PAST MEDICAL HISTORY Diagnosis Date Biliary dyskinesia Cirrhosis of liver with ascites (HCC) Hepatitis possible HTN (hypertension) Morbid obesity (HCC) YOVANNY (obstructive sleep apnea) no tx, being tx for RLS Platelet dysfunction (HCC) RLS (restless legs syndrome) Thrombocytopenia (HCC) PAST SURGICAL HISTORY Procedure Laterality Date SECTION HX x3 COLONOSCOPY x3 EGD 07/2016 HEART CATHETERIZATION early 1989' nl per pt HYSTERECTOMY HX PAST SURGICAL HISTORY OF mult D&C's PAST SURGICAL HISTORY OF Right eye surg PAST SURGICAL HISTORY OF Right 2015 total knee arthroplasty- Dr. Alfonso last visit with me on 08/03/[address] Ibanez on 01/20/21 Recurrent gout Spoke with Dr. Brizuela her PCP on 02/10/22, advised ok to start renally adjusted allopurinol. She hashad recurrent gout flares, she has been treat with Medrol dose pack and Prednisone. Notes symptoms resolve for ~ one week and then recur. Experiences significant RLE swelling and difficulty walking as a result. Typically great toe, ankle and heel. She has made dietary adjustments and cannot seem to pinpoint if there are specific foods that may trigger. She has tried tart scott juice which has not made any difference Current flare began on 03/17/21. Otherwise she has been doing fine. No fevers; (+) chills, sensation of always feeling cold but not shaking . Appetite is normal. No nausea, vomiting; has had a change in bowels since last COVID-19 inOct 2021. Stools is thin and dark, but no evidence of blood loss in stool. (+) urinary urgency, stress incontinence. (+) cough last COVID-19, (+) shortness of breath with stair climbing. No chest pain or palpitations. (+) lightheadedness with quick position changes, this has been present since tx. No NSAID use, Tylenol PRN. BP - standardized method Pulse 1 BP #1: 133/78 Pulse #1: 80 beats/min 2 BP #2 : 135/78 Pulse #2 : 82 beats/min 3 BP #3 : 146/69 Pulse #3 : 81 beats/min Average Average BP: 138/75 Average Pulse: 81 beats/min Orthostatic vitals Supine Sitting Standing BP cuff location BP cuff location: Left upper arm BP cuff size BP cuff size: large adult Comments for BP values First BP (right) First BP (left) Component Latest Ref Rng & Units 02/20/2022 03/20/2022 WBC 3.70 - 11.00 k/uL 15.06 (H) 9.06 RBC 3.90 - 5.20 m/uL 3.16 (L) 3.18 (L) Hemoglobin 11.5 - 15.5 g/dL 10.9 (L) 10.6 (L) Hematocrit 36.0 - 46.0 % 32.3 (L) 32.6 (L) MCV 80.0 - 100.0 fL 102.2 (H) 102.5 (H) MCH 26.0 - 34.0 pg 34.5 (H) 33.3 MCHC 30.5 - 36.0 g/dL 33.7 32.5 RDW-CV 11.5 - 15.0 % 16.8 (H) 16.7 (H) Platelet Count 150 - 400 k/uL 309 501 (H) MPV 9.0 - 12.7 fL 10.9 10.6 Neut% % 71.2 55.8 Abs Neut (ANC) 1.45 - 7.50 k/uL 10.73 (H) 5.06 Lymph% % 17.7 25.6 Abs Lymph 1.00 - 4.00 k/uL 2.67 2.32 [place]% % 7.7 14.6 Abs [place] <0.87 k/uL 1.16 (H) 1.32 (H) Eosin% % 2.3 2.6 Abs Eosin <0.46 k/uL 0.34 0.24 Baso% % 0.2 0.7 Abs Baso <0.11 k/uL 0.03 0.06 Immature Gran % % 0.9 0.7 IMMATURE GRANS (ABS) <0.10 k/uL 0.13 (H) 0.06 NRBC /100 WBC 0.1 0.2 Absolute nRBC <0.01 k/uL 0.02 (H) 0.02 (H) DTYPE Auto Auto Protein, Total 6.3 - 8.0 g/dL 6.4 7.2 Albumin 3.9 - 4.9 g/dL 4.0 4.1 Calcium 8.5 - 10.2 mg/dL 9.5 9.9 Bilirubin, Total 0.2 - 1.3 mg/dL 0.5 0.2 Alkaline Phosphatase 34 - 123 U/L 60 77 AST 13 - 35 U/L 14 23 ALT 7 - 38 U/L 17 24 Glucose 74 - 99 mg/dL 118 (H) 116 (H) BUN 7 - 21 mg/dL 44 (H) 30 (H) Creatinine 0.58 - 0.96 mg/dL 1.41 (H) 1.46 (H) Sodium 136 - 144 mmol/L 138 141 Potassium 3.7 - 5.1 mmol/L 4.1 4.3 Chloride 97 - 105 mmol/L 101 103 CO2 22 - 30 mmol/L 29 26 Anion Gap 9 - 18 mmol/L 8 (L) 12 eGFR >=60 mL/min/1.73m 39 (L) 38 (L) Cholesterol, Total <200 mg/dL 166 Triglyceride <150 mg/dL 177 (H) HDL Cholesterol >39 mg/dL 71 Non HDL Cholesterol <130 mg/dL 95 Fasting Time hrs 12 VLDL Cholesterol <30 mg/dL 35 (H) TC:HDL Ratio <5.10 2.34 LDL Cholesterol <100 mg/dL 60 LDL:HDL Ratio <2.54 0.85 Tacrolimus/FK506 5.0 - 20.0 ng/mL 4.7 (L) 11.8 Magnesium 1.7 - 2.3 mg/dL 2.1 1.8 GGT 6 - 46 U/L 39 Phosphorus 2.7 - 4.8 mg/dL 3.1 3.6 PHYSICAL EXAM: BP 138/75 (BP Site: Left Arm, BP Position: Sitting, BP Cuff Size: Large Adult) Pulse 81 Temp 37.1 C (98.7 F) (Oral) Ht 157.5 cm (5' 2 ) Wt 93 kg (205 lb) BMI 37.49 kg/m General no acute distress EYES Sclerae anicteric NECK supple,no lymphadenopathy or JVD HEART: RRR, Grade I/ MARY ELLEN @ [facility] LUNGS CTA ABD soft non tender bowel sounds x 4 quads EXT brock ROBERTO, R>L, tender to touch SKIN no rash or ulceration PSYCH alert and oriented x 3 IMPRESSION CKD III non proteinuric in the setting CNI therapy following OLT scr. 1.46mg/dl, eGFR 38ml/min,this is improved from ~ 1.7 earlier in 2019 baseline since June 2018has been 1.4-1.7 -HTN acceptable on Current rx -Recurrent C.diff s/p fecal tx with resolution although change in bowel habits since COVID-19 Anemia-hgb 10.6, mild decline but fairly stable L TKR in Nov 2019, subsequent DVT, now on anticoagulation Recurrent gout/hyperuricemia--has had Pred pulse, but has sustained resolution PLAN Rheum consult--in person or virtual Continue Allopurinol, discussed, Rheumatology may recommend higher dose or alternative rx Pred taper Avoid foods that may trigger gout--discussed Add uric acid level to yesterday's labs RTC [address] Ibanez Avoid NSAIDS and iodinated contrast exposure Meds should be adjusted for kidney function. Gillian Nolen APRN.GLENNA documented in this encounterPremier Health [facility]01-16-2023 Miscellaneous Notes* Result Encounter Note - Audi Ferrer RN - 03/20/2022 5:56 PM EST Labs received and reviewed. Labs are stable and consistent with previous levels. Will continue to follow. Audi Ferrer RN documented in this encounterPremier Health [facility]01-09-2023 Miscellaneous Notes* Telephone Encounter - Audi Ferrer RN - 03/13/2022 11:52 AM EST New orders done and printed and will be sent to CONFIGURATION CONSULTANT to sign. Once signed Med Sec to send as requested. Audi Ferrer RN * Telephone Encounter - Farnaz Ordonez - 03/10/2022 2:15 PM EST Oc called/left a message from central scheduling at [facility] in [place] [phone], requesting a New order for Pentamadine Treatment for 2022, fax# [phone] . documented in this encounterPremier Health [facility] Center12-09-2022 Miscellaneous Notes* Telephone Encounter - Gillian Nolen APRN.CNP - 02/10/2022 4:33 PM EST Returned call, left msg, would be ok to start renally adjusted allopurinol. Or depending upon if she previously received Medrol, would consider longer course of Prednisone therapy. Advised to call back to discuss further if needed. Gillian Nolen APRN.CNP * Telephone Encounter - Gillian Nolen APRN.CNP - 02/10/2022 4:33 PM EST ----- Message from Mark Anthony Enriquez sent at 02/10/2022 3:27 PM EST ----- Regarding: call regarding mutual patient Jose D Dr. Susy Clarke [facility] cell: [phone] Patient is having a gout flare up, has taken steroids, GFR around 30, which med would you like her on to lower uric acid level? Also just had covid and also threw a pulmonary emboli. Please return call Mckenna Crystal documented in this encounterPremier Health [facility] Center12-01-2022 Miscellaneous Notes* Telephone Encounter - Audi Ferrer RN - 02/02/2022 4:21 PM EST Patient's request for medication is as follows: Requested Prescriptions Pending Prescriptions Disp Refills tacrolimus ER (ENVARSUS XR) 1 mg tablet 60 tablet 11 Sig: Take 2 tablets by mouth once daily. Please approve the above prescription(s) to electronically send to pharmacy. Audi Ferrer RN * Telephone Encounter - Casey Reina RPh - 02/02/2022 2:08 PM EST Patient requests refill of: Requested Prescriptions Pending Prescriptions Disp Refills tacrolimus ER (ENVARSUS XR) 1 mg tablet 60 tablet 11 Sig: Take 2 tablets by mouth once daily. If approved, please e-script the attached order to [facility]. Thank you, Casey Reina [facility] [phone] documented in this encounterPremier Health [facility] Valley [facility] Center11-03-2022 NoteCONSULTATION CONSULTATION DATE: 01/05/2022 HISTORY OF PRESENT ILLNESS: This is a pleasant, 71-year-old female returning to the clinic status post caudal epidural completed on 12/20/2021. The patient states it afforded her 70% relief and is ongoing. She does state to me that her pain is 3/10, and she does have increased tingling in her left foot. She did state that she will never plan on another procedure like that again due to the level of pain it was. Patient does have a history of a transplant for stage 3 kidney disease and is very cautious about her medications. She is on the vitamin, biotin and Extra Strength Tylenol. Patient states she did fall and trip over a doorway following the procedure. She states she did not lift her leg high enough and hit the step, falling face first. She does not use an assistive device to ambulate and she is more cautious of her awareness now. Activities that aggravate her pain are pushing, pulling, sitting in the reclining chair, stairs and bending. She does use heat and hot bath which decrease her pain. Patient's REVIEW OF SYSTEMS / PAST MEDICAL HISTORY / ALLERGIES and IMAGES have been reviewed and they are noted on the chart. PHYSICAL EXAM: VITAL SIGNS: Blood pressure 144/70, heart rate is 70. Temperature is 96.6. She weighs 91 kg. GENERAL IMPRESSION: Pleasant, appropriate, no acute distress. FOCUSED EXAM - BACK: Range of motion is functional in lateral rotation and flexion/extension. Paravertebral muscles are non-spasmodic. Mild reproduction of spinal axial pain upon compression of the L4-L5 facets that radiates outward to the hips and gluteal folds. MUSCULOSKELETAL: Motor is 4/5 bilaterally. Muscle weakness noted to bilateral anterior tibialis. Extensors are intact. NEUROLOGICAL: Diffuse polyneuropathy bilateral lower feet. +1 bilateral patellar and Achilles reflexes. DIAGNOSIS: Lumbar radiculitis, lumbar degenerative disc disease, lumbar spondylosis, polyneuropathy. PLAN: I discussed with the patient regarding her feelings of the procedures and how she would like to follow up with Pain Management. She would like to come back in three months' time for re-evaluation. No additional medications or changes at this time. She is compliant with her vitamin regimen.[facility] [id number] Miscellaneous Notes* Result Encounter Note - Audi Ferrer RN - 12/27/2021 9:39 AM EDT Labs received and reviewed. Labs are stable and consistent with previous levels. Will continue to follow. Audi Ferrer RN documented in this encounterPremier Health [facility] Center10-12-2022 NotePROCEDURE: XR FOOT RT MIN 3 VIEWS HISTORY: Pain in right foot , swelling, no known injury COMPARISON: XR right foot 12/24/2015 FINDINGS: BONES:Moderate degenerative changes of the first metatarsophalangeal joint. Mild degenerative changes of the midfoot. Large calcaneal degenerative enthesophytes. SOFT TISSUES:Mild soft tissue swelling surrounding the foot. Large calcification within the plantar aponeurosis. EFFUSION:None visible. OTHER: Negative. IMPRESSION: 1. Mild/moderate soft tissue swelling of uncertain etiology. 2. Multifocal mild to moderate degenerative changes. Electronically authenticated by: MARTHA TURNER Date: 2021-12-14 07:12The [facility] [id number] NoteCONSULTATION CONSULTATION DATE: 12/13/2021 CHIEF COMPLAINT: Right low back pain, right lower extremity pain. HISTORY OF PRESENT ILLNESS: This is a 71-year-old female who was referred to us by Susy Brizuela. The patient has had chronic right leg pain, right foot pain. The pain has been significantly worse a week and a half. The patient had been seen by Dr. Moore, a pain specialist in the [facility], who had performed the injection in her back. She did not find this helpful. The patient's history is significant for a liver donor liver transplant and the patient also has stage 3 kidney disease. Sitting mitigates the pain. Standing, walking, weight bearing aggravate the pain. Bending aggravates the pain. The patient has had a vascular study and ruled out a DVT in the right leg. The patient was seen in the ER recently and takes oxycodone to take the edge off. The patient also takes Tylenol 500 mg on a b.i.d. basis. The patient's PAST MEDICAL HISTORY / SURGICAL HISTORY / REVIEW OF SYSTEMS are noted on the chart, along with the MEDICATION LIST / ALLERGIES and the MRI which shows significant multiple level degenerative discs with narrowing along the spinal canal. However, there is also congenital component to this. PHYSICAL EXAMINATION: GENERAL: Upon physical examination, this is a pleasant, very uncomfortable, 71- year-old female, who ambulates with a walker. The patient is accompanied by her . HEAD: Atraumatic, normocephalic. NECK: No crepitus is noted. HEART: No orthopnea is present. LUNGS: Non-labored breathing. ABDOMEN: Soft. BACK: Significant paravertebral spasming is noted, right hand side compared to the left hand side. Extension, compression, direct palpation along the posterior elements aggravate the patient's pain concordant with facet arthropathy, lumbar spondylosis. EXTREMITIES: Significant edema and tautness is noted in the right lower extremity. The patient almost has autonomic dysfunction type appearance. Swelling is noted along the digit one, along the medial interphalangeal joint with erythema noted. Tonicity and vasomotor changes are present in the right lower extremity. MUSCULOSKELETAL: The patient is unable to cooperate along the L5 nerve root; however, reports having pain radiating into her leg and into the bottom of her feet on the right hand side more prominently than the left hand side. PSYCHIATRICALLY: The patient is distraught. IMPRESSION: Current working diagnosis on the patient is spasm, right lower extremity; autonomic changes noted along the right lower extremity, right gastrocs; anterior tibialis spasming, possibility of gouty arthritis, lumbar degenerative disc disease, lumbar spondylosis, chronic pain. Status post liver transplant in 2018, stage 3 kidney disease. PLAN: We will get a uric acid level on the patient. The patient will also get an x-ray of her right foot. Alpha lipoic acid will be added to the patient. The patient is to use Epsom salt soaks for her right foot. Apply a Salonpas patch along the ankle bilaterally. The patient will be scheduled for a caudal epidural steroid injection, favoring the right hand side, under fluoroscopy, given the patient's lumbosacral radiculitis. In the office today, we will perform trigger point injections to see how the patient responds, especially given the significant amount of discomfort the patient has. The patient is to perform ankle exercises on a regular basis. CC: Susy Brizuela M.D.[facility] [id number] NoteCONSULTATION PROCEDURE DATE: 12/13/2021 PREOPERATIVE DIAGNOSIS: Spasming along the right gastroc and anterior tibialis muscle on the right hand side. POSTOPERATIVE DIAGNOSIS: Spasming along the right gastroc and anterior tibialis muscle on the right hand side. PROCEDURE: Right gastroc trigger point injection x2 and right anterior tibialis trigger point injection. Subsequent to obtaining informed consent, the patient was placed in the sitting position. Alcohol prep was used to sterilize the site. A 25 gauge needle was advanced and it comes to rest along the trigger zones identified on the right hand side along the gastroc x2 and right anterior tibialis x1. Marcaine 0.125% along with Kenalog a total of 20 mg are injected in a 3 cc pattern. Negative heme. The patient tolerates the procedure well without any overt complication. Post-procedurally, reports having mitigation in her pain symptomatology and is able to weight bear.[facility] [id number] Miscellaneous Notes* Result Encounter Note - Audi Ferrer RN - 11/23/2021 9:25 AM EDT Labs received and reviewed. Labs are stable and consistent with previous levels. Will continue to follow. Audi Ferrer RN documented in this encounterPrem[facility]* Encounter Date Diagnosis Assessment Notes Treatment Notes Treatment Clinical Notes Nov, Symptomatic varicose veins, unspecified laterality (ICD-10 - I83.899) I did review the venous duplex with the results with the patient today. There is no evidence of any reflux in the deep or superficial system bilaterally. I do not believe this patient has chronic venous insufficiency of any significance. Therefore we will be treating her conservatively. I do suggest exercise with ambulation and elevation and weight loss therapy. I will see her as needed in the future. She understands agrees the plan. Outline Other 08-16-2022 Miscellaneous Notes* Telephone Encounter - Ivanna Courtney [facility] - 10/18/2021 10:59 AM EDT I believe this was sent to wrong location, should go to [facility], Thank you Dennis Courtney rPh documented in this encounterPrem[facility]08-15-2022 Miscellaneous Notes* Telephone Encounter - Audi Ferrer RN - 10/17/2021 11:37 AM EDT Patient's request for medication is as follows: Requested Prescriptions Pending Prescriptions Disp Refills pentamidine (NEBUPENT) 300 mg inhalation solution 1 Each 12 Sig: Inhale 300 mg as instructed once every month. Please approve the above prescription(s) to electronically send to pharmacy. Audi Ferrer RN documented in this encounterPrem[facility]07-28-2022 Evaluation note* Encounter Date Diagnosis Assessment Notes Treatment Notes Treatment Clinical Notes Sep, Bilateral lower extremity edema (ICD-10 - R60.0) Extensive discussion with the patient over her reported symptoms of constant achiness, heaviness, edema, and lower extremity fatigue. She has tried wearing graded compression stockings and leg elevation without much relief in symptoms. We reviewed the vein disease extensively and all of her questions were addressed. We will start by obtaining a full functional venous duplex and have her back to discuss those results as well as any additional treatment recommendations based on the studies. Until then, she will continue use of her graded compression stockings, leg elevation, and she was educated on the importance of good skin care moisturizer therapy along with benefits of exercise of walking program. She verbalizes understanding of all discussion, agrees with this plan, and denies any questions. Outline Other 07-20-2022 Miscellaneous Notes* Result QuickNote - Audi Ferrer RN - 09/21/2021 10:12 AM EDT Labs received and reviewed. Labs are stable and consistent with previous levels. Will continue to follow. Audi Ferrer RN documented in this encounterPrem[facility]06-17-2022 NoteHISTORY: Chronic low back pain, bilateral leg radiation PROCEDURE: Fast Asset Signa HDXT 1.5. Sagittal T1, T2, STIR and axial T1 and T2 contiguous and cone down images through the lumbar spine were performed without contrast administration. FINDINGS: Relatively normal lumbar vertebral body height and alignment (2 mm retrolisthesis at L1 upon L2 and L2 upon L3). No significant vertebral body or posterior element fracture. Mild increased signal intensity (T2, inversion recovery weighting) within the anterior L2 and L3 vertebral bodies contiguous with the end plates (consistent with Schmorl node formation, mild edematous signal suggesting an acute or subacute process corresponding with the convexity of a mild scoliotic curvature). No pedicle edema. No significant soft tissue inflammatory signal. Bilateral benign subcentimeter cysts. Unremarkable paravertebral soft tissues. Normal conus medullaris and filum terminale. T11/12: Normal disc volume. No disc herniation, spinal canal or neural foraminal stenosis. T12/L1: Central disc herniation with extension into both paracentral zones (4 x 16 mm) with caudate extension along the posterior aspect of the L1 vertebral body. No significant spinal canal or lateral recess stenosis. Mild facet arthropathy. L1/2: Minimal disc space loss. 2 mm retrolisthesis contributes to uncovering of bulging disc material. Mild posterior osteophyte formation. No significant spinal canal stenosis. Mild right entry neural foraminal zone stenosis. L2/3: Mild asymmetric (right) disc space loss. Mild disc bulging into both neural foraminal zones (right greater than left). Bilateral facet arthropathy. No spinal canal or neural foraminal stenosis. L3/4: Mild asymmetric right sided disc space loss. Mild disc bulging, spinal canal and both neural foraminal zones. Bilateral facet arthropathy. No significant spinal canal or neural foraminal stenosis. L4/5: Minimal disc space loss. Bilateral facet arthropathy. Small left mid/exit neural foraminal zone stenosis from disc osteophyte complex and facet arthropathy. No spinal canal stenosis. L5/S1: Normal disc volume. Broad base mild disc bulging into both neural foraminal zones. Chronic spondylolysis, ligamentum flavum hypertrophy and facet arthropathy. Minimal right neural foraminal stenosis. No spinal canal stenosis. Moderate to severe left mid and exit neural foraminal stenosis from chronic spondylolysis and disc osteophyte formation. IMPRESSION: Moderate to severe left L5/S1 mid and exit neural foraminal stenosis from chronic spondylolysis and facet arthropathy. 2. Moderate left L4/5 mid/exit neural foraminal stenosis. 3. No spinal canal stenosis. 4. Mild increased signal intensity within the end plates of L2/3 likely reflecting subacute Schmorl node formation (nonaggressive appearance). Report reported and signed by Migel Basilio on 08/22/2021 [id number] History of Present illness Narrative* Cyndi Hylton RN - 06/15/2021 6:15 PM EDT Medications updated. Coreg increased to 25mg 2x/d. Patient also to begin Repatha injections. Cyndi Hylton RN documented in this encounterPrem[facility]11-17-2021 Evaluation note* Encounter Date Diagnosis Assessment Notes Treatment Notes Treatment Clinical Notes Jan, Acute gout involving toe of right foot, unspecified cause (ICD-10 - M10.9) Outline Other 12-12-2018 History of Past illness Narrative* Problem Noted Date Diagnosed Date Resolved Date Malnutrition of mild degree 02/13/2018 10/26/2022 Acute post-operative pain 02/12/2018 Acute respiratory insufficiency 02/12/2018 02/19/2018 Acute blood loss anemia 02/12/201802/02 Lactic acidosis 02/12/2018 02/19/2018 Obesity, Class II, BMI 35-39.9 02/08/2018 02/19/2018 Platelet dysfunction 07/21/2015 023 Thrombocytopenia 07/14/2015 10/26/2022 documented as of this encounter (statuses as of 10/26/2022) [facility]12[facility] of Past illness Narrative* Problem Noted Date Diagnosed Date Resolved Date Malnutrition of mild degree 02/13/2018 10/26/2022 Acute post-operative pain 02/12/2018 Acute respiratory insufficiency 02/12/2018 02/19/2018 Acute blood loss anemia 02/12/201802/02 Lactic acidosis 02/12/2018 02/19/2018 Obesity, Class II, BMI 35-39.9 02/08/2018 02/19/2018 Platelet dysfunction 07/21/2015 023 Thrombocytopenia 07/14/2015 10/26/2022 documented as of this encounter (statuses as of 2022) [facility] Narrative* Problem Noted Date Diagnosed Date Resolved Date Malnutrition of mild degree 02/13/2018 10/26/2022 Acute post-operative pain 02/12/2018 Acute respiratory insufficiency 02/12/2018 02/19/2018 Acute blood loss anemia 02/12/201802/02 Lactic acidosis 02/12/2018 02/19/2018 Obesity, Class II, BMI 35-39.9 02/08/2018 02/19/2018 Platelet dysfunction 07/21/2015 023 Thrombocytopenia 07/14/2015 10/26/2022 documented as of this encounter (statuses as of 11/24/2022) [facility] Narrative* Problem Noted Date Diagnosed Date Resolved Date Malnutrition of mild degree 02/13/2018 10/26/2022 Acute post-operative pain 02/12/2018 Acute respiratory insufficiency 02/12/2018 02/19/2018 Acute blood loss anemia 02/12/201802/02 Lactic acidosis 02/12/2018 02/19/2018 Obesity, Class II, BMI 35-39.9 02/08/2018 02/19/2018 Platelet dysfunction 07/21/2015 023 Thrombocytopenia 07/14/2015 10/26/2022 documented as of this encounter (statuses as of 01/15/2023) [facility] Narrative* Problem Noted Date Diagnosed Date Resolved Date Malnutrition of mild degree 02/13/2018 10/26/2022 Acute post-operative pain 02/12/2018 Acute respiratory insufficiency 02/12/2018 02/19/2018 Acute blood loss anemia 02/12/201802/02 Lactic acidosis 02/12/2018 02/19/2018 Obesity, Class II, BMI 35-39.9 02/08/2018 02/19/2018 Platelet dysfunction 07/21/2015 023 Thrombocytopenia 07/14/2015 10/26/2022 documented as of this encounter (statuses as of 02/17/2023) [facility] Narrative* Problem Noted Date Diagnosed Date Resolved Date Malnutrition of mild degree 02/13/2018 10/26/2022 Acute post-operative pain 02/12/2018 Acute respiratory insufficiency 02/12/2018 02/19/2018 Acute blood loss anemia 02/12/201802/02 Lactic acidosis 02/12/2018 02/19/2018 Obesity, Class II, BMI 35-39.9 02/08/2018 02/19/2018 Platelet dysfunction 07/21/2015 023 Thrombocytopenia 07/14/2015 10/26/2022 documented as of this encounter (statuses as of 02/19/2023) [facility] Narrative* Problem Noted Date Diagnosed Date Resolved Date Malnutrition of mild degree 02/13/2018 10/26/2022 Acute post-operative pain 02/12/2018 Acute respiratory insufficiency 02/12/2018 02/19/2018 Acute blood loss anemia 02/12/201802/02 Lactic acidosis 02/12/2018 02/19/2018 Obesity, Class II, BMI 35-39.9 02/08/2018 02/19/2018 Platelet dysfunction 07/21/20152 023 Thrombocytopenia 07/14/2015 10/26/2022 documented as of this encounter (statuses as of 05/07/2023) [facility] Narrative* Problem Noted Date Diagnosed Date Resolved Date Malnutrition of mild degree 02/13/2018 10/26/2022 Acute post-operative pain 02/12/2018 Acute respiratory insufficiency 02/12/2018 02/19/2018 Acute blood loss anemia 02/12/201802/02 Lactic acidosis 02/12/2018 02/19/2018 Obesity, Class II, BMI 35-39.9 02/08/2018 02/19/2018 Platelet dysfunction 07/21/2015 08/24/2 023 Thrombocytopenia 07/14/2015 10/26/2022 documented as of this encounter (statuses as of 06/18/2023) [facility] Narrative* Problem Noted Date Resolved Date Acute post-operative pain 02/12/20182017 Acute respiratory insufficiency 02/12/2018 02/19/2018 Acute blood loss anemia 02/12/2018 02/20/20 18 Lactic acidosis 02/12/2018 02/19/2018 Obesity, Class II, BMI 35-39.9 02/08/2018 1 04/22/2017 documented as of this encounter (statuses as of 06/15/2021) [facility] N[facility]ative* Problem Noted Date Resolved Date Acute post-operative pain 02/12/20182017 Acute respiratory insufficiency 02/12/2018 02/19/2018 Acute blood loss anemia 02/12/2018 02/20/20 18 Lactic acidosis 02/12/2018 02/19/2018 Obesity, Class II, BMI 35-39.9 02/08/2018 1 04/22/2017 documented as of this encounter (statuses as of 09/22/2021) [facility]* Problem Noted Date Resolved Date Acute post-operative pain 02/12/20182017 Acute respiratory insufficiency 02/12/2018 02/19/2018 Acute blood loss anemia 02/12/2018 02/20/20 18 Lactic acidosis 02/12/2018 02/19/2018 Obesity, Class II, BMI 35-39.9 02/08/2018 1 04/22/2017 documented as of this encounter (statuses as of 10/17/2021) [facility]* Problem Noted Date Resolved Date Acute post-operative pain 02/12/20182017 Acute respiratory insufficiency 02/12/2018 02/19/2018 Acute blood loss anemia 02/12/2018 02/20/20 18 Lactic acidosis 02/12/2018 02/19/2018 Obesity, Class II, BMI 35-39.9 02/08/2018 1 04/22/2017 documented as of this encounter (statuses as of 10/18/2021) [facility]* Problem Noted Date Resolved Date Acute post-operative pain 02/12/20182017 Acute respiratory insufficiency 02/12/2018 02/19/2018 Acute blood loss anemia 02/12/2018 02/20/20 18 Lactic acidosis 02/12/2018 02/19/2018 Obesity, Class II, BMI 35-39.9 02/08/2018 1 04/22/2017 documented as of this encounter (statuses as of 11/21/2021) [facility]* Problem Noted Date Resolved Date Acute post-operative pain 02/12/20182017 Acute respiratory insufficiency 02/12/2018 02/19/2018 Acute blood loss anemia 02/12/2018 02/20/20 18 Lactic acidosis 02/12/2018 02/19/2018 Obesity, Class II, BMI 35-39.9 02/08/2018 1 04/22/2017 documented as of this encounter (statuses as of 11/24/2021) [facility]* Problem Noted Date Resolved Date Acute post-operative pain 02/12/20182017 Acute respiratory insufficiency 02/12/2018 02/19/2018 Acute blood loss anemia 02/12/2018 02/20/20 18 Lactic acidosis 02/12/2018 02/19/2018 Obesity, Class II, BMI 35-39.9 02/08/2018 1 04/22/2017 documented as of this encounter (statuses as of 12/28/2021) [facility]* Problem Noted Date Resolved Date Acute post-operative pain 02/12/20182017 Acute respiratory insufficiency 02/12/2018 02/19/2018 Acute blood loss anemia 02/12/2018 02/20/20 18 Lactic acidosis 02/12/2018 02/19/2018 Obesity, Class II, BMI 35-39.9 02/08/2018 1 04/22/2017 documented as of this encounter (statuses as of 02/03/2022) [facility]* Problem Noted Date Resolved Date Acute post-operative pain 02/12/20182017 Acute respiratory insufficiency 02/12/2018 02/19/2018 Acute blood loss anemia 02/12/2018 02/20/20 18 Lactic acidosis 02/12/2018 02/19/2018 Obesity, Class II, BMI 35-39.9 02/08/2018 1 04/22/2017 documented as of this encounter (statuses as of 02/10/2022) [facility]* Problem Noted Date Resolved Date Acute post-operative pain 02/12/20182017 Acute respiratory insufficiency 02/12/2018 02/19/2018 Acute blood loss anemia 02/12/2018 02/20/20 18 Lactic acidosis 02/12/2018 02/19/2018 Obesity, Class II, BMI 35-39.9 02/08/2018 1 04/22/2017 documented as of this encounter (statuses as of 03/13/2022) [facility]* Problem Noted Date Resolved Date Acute post-operative pain 02/12/20182017 Acute respiratory insufficiency 02/12/2018 02/19/2018 Acute blood loss anemia 02/12/2018 02/20/20 18 Lactic acidosis 02/12/2018 02/19/2018 Obesity, Class II, BMI 35-39.9 02/08/2018 1 04/22/2017 documented as of this encounter (statuses as of 03/22/2022) [facility]* Problem Noted Date Resolved Date Acute post-operative pain 02/12/20182017 Acute respiratory insufficiency 02/12/2018 02/19/2018 Acute blood loss anemia 02/12/2018 02/20/20 18 Lactic acidosis 02/12/2018 02/19/2018 Obesity, Class II, BMI 35-39.9 02/08/2018 1 04/22/2017 documented as of this encounter (statuses as of 03/23/2022) [facility]* Problem Noted Date Resolved Date Acute post-operative pain 02/12/20182017 Acute respiratory insufficiency 02/12/2018 02/19/2018 Acute blood loss anemia 02/12/2018 02/20/20 18 Lactic acidosis 02/12/2018 02/19/2018 Obesity, Class II, BMI 35-39.9 02/08/2018 1 04/22/2017 documented as of this encounter (statuses as of 03/24/2022) [facility]* Problem Noted Date Resolved Date Acute post-operative pain 02/12/20182017 Acute respiratory insufficiency 02/12/2018 02/19/2018 Acute blood loss anemia 02/12/2018 02/20/20 18 Lactic acidosis 02/12/2018 02/19/2018 Obesity, Class II, BMI 35-39.9 02/08/2018 1 04/22/2017 documented as of this encounter (statuses as of 03/25/2022) [facility]* Problem Noted Date Resolved Date Acute post-operative pain 02/12/20182017 Acute respiratory insufficiency 02/12/2018 02/19/2018 Acute blood loss anemia 02/12/2018 02/20/20 18 Lactic acidosis 02/12/2018 02/19/2018 Obesity, Class II, BMI 35-39.9 02/08/2018 1 04/22/2017 documented as of this encounter (statuses as of 04/14/2022) [facility]* Problem Noted Date Resolved Date Acute post-operative pain 02/12/20182017 Acute respiratory insufficiency 02/12/2018 02/19/2018 Acute blood loss anemia 02/12/2018 02/20/20 18 Lactic acidosis 02/12/2018 02/19/2018 Obesity, Class II, BMI 35-39.9 02/08/2018 1 04/22/2017 documented as of this encounter (statuses as of 04/23/2022) [facility]* Problem Noted Date Resolved Date Acute post-operative pain 02/12/20182017 Acute respiratory insufficiency 02/12/2018 02/19/2018 Acute blood loss anemia 02/12/2018 02/20/20 18 Lactic acidosis 02/12/2018 02/19/2018 Obesity, Class II, BMI 35-39.9 02/08/2018 1 04/22/2017 documented as of this encounter (statuses as of 04/25/2022) [facility]* Problem Noted Date Resolved Date Acute post-operative pain 02/12/20182017 Acute respiratory insufficiency 02/12/2018 02/19/2018 Acute blood loss anemia 02/12/2018 02/20/20 18 Lactic acidosis 02/12/2018 02/19/2018 Obesity, Class II, BMI 35-39.9 02/08/2018 1 04/22/2017 documented as of this encounter (statuses as of 04/25/2022) [facility]* Problem Noted Date Resolved Date Acute post-operative pain 02/12/20182017 Acute respiratory insufficiency 02/12/2018 02/19/2018 Acute blood loss anemia 02/12/2018 02/20/20 18 Lactic acidosis 02/12/2018 02/19/2018 Obesity, Class II, BMI 35-39.9 02/08/2018 1 04/22/2017 documented as of this encounter (statuses as of 04/27/2022) [facility]* Problem Noted Date Resolved Date Acute post-operative pain 02/12/20182017 Acute respiratory insufficiency 02/12/2018 02/19/2018 Acute blood loss anemia 02/12/2018 02/20/20 18 Lactic acidosis 02/12/2018 02/19/2018 Obesity, Class II, BMI 35-39.9 02/08/2018 1 04/22/2017 documented as of this encounter (statuses as of 05/03/2022) [facility]* Problem Noted Date Resolved Date Acute post-operative pain 02/12/20182017 Acute respiratory insufficiency 02/12/2018 02/19/2018 Acute blood loss anemia 02/12/2018 02/20/20 18 Lactic acidosis 02/12/2018 02/19/2018 Obesity, Class II, BMI 35-39.9 02/08/2018 1 04/22/2017 documented as of this encounter (statuses as of 05/05/2022) [facility]* Problem Noted Date Resolved Date Acute post-operative pain 02/12/20182017 Acute respiratory insufficiency 02/12/2018 02/19/2018 Acute blood loss anemia 02/12/2018 02/20/20 18 Lactic acidosis 02/12/2018 02/19/2018 Obesity, Class II, BMI 35-39.9 02/08/2018 1 04/22/2017 documented as of this encounter (statuses as of 05/12/2022) [facility]* Problem Noted Date Resolved Date Acute post-operative pain 02/12/20182017 Acute respiratory insufficiency 02/12/2018 02/19/2018 Acute blood loss anemia 02/12/2018 02/20/20 18 Lactic acidosis 02/12/2018 02/19/2018 Obesity, Class II, BMI 35-39.9 02/08/2018 1 04/22/2017 documented as of this encounter (statuses as of 05/29/2022) [facility]* Problem Noted Date Resolved Date Acute post-operative pain 02/12/20182017 Acute respiratory insufficiency 02/12/2018 02/19/2018 Acute blood loss anemia 02/12/2018 02/20/20 18 Lactic acidosis 02/12/2018 02/19/2018 Obesity, Class II, BMI 35-39.9 02/08/2018 1 04/22/2017 documented as of this encounter (statuses as of 07/14/2022) [facility]* Problem Noted Date Resolved Date Acute post-operative pain 02/12/20182017 Acute respiratory insufficiency 02/12/2018 02/19/2018 Acute blood loss anemia 02/12/2018 02/20/20 18 Lactic acidosis 02/12/2018 02/19/2018 Obesity, Class II, BMI 35-39.9 02/08/2018 1 04/22/2017 documented as of this encounter (statuses as of 07/18/2022) [facility]* Problem Noted Date Resolved Date Acute post-operative pain 02/12/20182017 Acute respiratory insufficiency 02/12/2018 02/19/2018 Acute blood loss anemia 02/12/2018 02/20/20 18 Lactic acidosis 02/12/2018 02/19/2018 Obesity, Class II, BMI 35-39.9 02/08/2018 1 04/22/2017 documented as of this encounter (statuses as of 08/02/2022) [facility] Narrative* Problem Noted Date Resolved Date Acute post-operative pain 02/12/20182017 Acute respiratory insufficiency 02/12/2018 02/19/2018 Acute blood loss anemia 02/12/2018 02/20/20 18 Lactic acidosis 02/12/2018 02/19/2018 Obesity, Class II, BMI 35-39.9 02/08/2018 1 04/22/2017 documented as of this encounter (statuses as of 08/15/2022) [facility] History of Past illness Narrative* Problem Noted Date Resolved Date Acute post-operative pain 02/12/20182017 Acute respiratory insufficiency 02/12/2018 02/19/2018 Acute blood loss anemia 02/12/2018 02/20/20 18 Lactic acidosis 02/12/2018 02/19/2018 Obesity, Class II, BMI 35-39.9 02/08/2018 1 04/22/2017 documented as of this encounter (statuses as of 08/18/2022) [facility] History of Past illness Narrative* Problem Noted Date Resolved Date Acute post-operative pain 02/12/20182017 Acute respiratory insufficiency 02/12/2018 02/19/2018 Acute blood loss anemia 02/12/2018 02/20/20 18 Lactic acidosis 02/12/2018 02/19/2018 Obesity, Class II, BMI 35-39.9 02/08/2018 1 04/22/2017 documented as of this encounter (statuses as of 08/19/2022) [facility] History of Past illness Narrative* Problem Noted Date Resolved Date Acute post-operative pain 02/12/20182017 Acute respiratory insufficiency 02/12/2018 02/19/2018 Acute blood loss anemia 02/12/2018 02/20/20 18 Lactic acidosis 02/12/2018 02/19/2018 Obesity, Class II, BMI 35-39.9 02/08/2018 1 04/22/2017 documented as of this encounter (statuses as of 08/25/2022) [facility] History of Past illness Narrative* Problem Noted Date Resolved Date Acute post-operative pain 02/12/20182017 Acute respiratory insufficiency 02/12/2018 02/19/2018 Acute blood loss anemia 02/12/2018 02/20/20 18 Lactic acidosis 02/12/2018 02/19/2018 Obesity, Class II, BMI 35-39.9 02/08/2018 1 04/22/2017 documented as of this encounter (statuses as of 08/25/2022) [facility] Diagnosis Liver replaced by transplant (HCC) Liver replaced by transplant documented [facility] this encounter [facility] noteNo assessment information available[facility] Work Phone: Evaluation note* Diagnosis Disorder of liver- Primary Unspecified disorder of liver Liver replaced by transplant (HCC) Liver replaced by transplant [facility] Diagnosis Liver replaced by transplant (HCC) Liver replaced by transplant Disorder of liver Unspecified disorder of liver [facility] Diagnosis Liver replaced by transplant (HCC) Liver replaced by transplant Disorder of liver Unspecified disorder of liver [facility] Diagnosis Liver replaced by transplant (HCC) Liver replaced by transplant [facility] Diagnosis Disorder of liver Unspecified disorder of liver Liver replaced by transplant (HCC) Liver replaced by transplant [facility] Diagnosis Screening for genitourinary condition Screening for other and unspecified genitourinary condition documented [facility]* Diagnosis Chronic gout due to renal impairment without tophus, unspecified site- Primary Stage 3b chronic kidney disease (HCC) Liver transplant recipient (HCC) Long-term current use of tacrolimus [facility] Chronic gout due to renal impairment without tophus, unspecified site- Primary Stage 3b chronic kidney disease (HCC) Long-term current use of tacrolimus Liver transplant recipient (HCC) On allopurinol therapy [facility] Diagnosis Disorder of liver Unspecified disorder of liver Liver replaced by transplant (HCC) Liver replaced by transplant [facility] Liver replaced by transplant (HCC) Liver replaced by transplant [facility] Diagnosis Liver replaced by transplant (HCC)- Primary [facility] Diagnosis Other pulmonary embolism without acute cor pulmonale, unspecified chronicity (HCC)- Primary Recurrent deep venous thrombosis (HCC) Acute venous embolism and thrombosis of unspecified deep vessels of lower extremity [facility] Diagnosis Need for prophylactic immunotherapy- Primary Encounter for aftercare following liver transplant (HCC) Aftercare following organ transplant [facility]* Diagnosis Chronic gout due to renal impairment without tophus, unspecified site- Primary On allopurinol therapy On colchicine therapy Stage 3b chronic kidney disease (HCC) Herpes zoster without complication Herpes zoster without mention of complication Elevated CK Other nonspecific abnormal serum enzyme levels [facility]* Diagnosis Elevated CK- Primary Other nonspecific abnormal serum enzyme levels Chronic left shoulder pain Pain in joint, shoulder region Pain in right hip Pain in joint, pelvic region and thigh Chronic gout due to renal impairment without tophus, unspecified site Stage 3b chronic kidney disease (HCC) Malaise and fatigue Other malaise and fatigue [facility]* Diagnosis Screening for genitourinary condition Screening for other and unspecified genitourinary condition [facility]* Diagnosis CKD (chronic kidney disease) stage 4, GFR 15-29 ml/min (HCC)- Primary Chronic kidney disease, Stage IV (severe) Liver replaced by transplant (HCC) Liver replaced by transplant Calcineurin inhibitor causing toxicity in therapeutic use Chronic gout due to renal impairment of multiple sites without tophus 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) Essential hypertension Unspecified essential hypertension [facility]* Diagnosis Post herpetic neuralgia- Primary Herpes zoster with other nervous system complications Chronic gout due to renal impairment without tophus, unspecified site Stage 3b chronic kidney disease (HCC) Generalized osteoarthritis Generalized osteoarthrosis, unspecified site On allopurinol therapy Liver transplant recipient (HCC) [facility]* Diagnosis Screening for genitourinary condition Screening for other and unspecified genitourinary condition [facility]* Diagnosis Essential hypertension (CMS/HCC) Unspecified essential hypertension [facility] Diagnosis Liver replaced by transplant (HCC) Liver replaced by transplant [facility]* Diagnosis Liver replaced by transplant (HCC)- Primary Liver replaced by transplant Incisional hernia, without obstruction or gangrene Incisional hernia without mention of obstruction or gangrene documented [facility] this [facility]* Diagnosis Ventral hernia without obstruction or gangrene- Primary Ventral hernia, unspecified, without mention of obstruction or gangrene Liver replaced by transplant (HCC) Liver replaced by transplant Immunosuppressed status (HCC) Unspecified disorder of immune mechanism documented in this encounter [facility]* Diagnosis Liver replaced by transplant (HCC) Liver replaced by transplant Incisional hernia, without obstruction or gangrene Incisional hernia without mention of obstruction or gangrene documented in this encounter [facility]* Diagnosis Incisional hernia, without obstruction or gangrene- Primary Incisional hernia without mention of obstruction or gangrene Liver failure without hepatic coma, unspecified chronicity (HCC) Hyperammonemia (HCC) Disorders of urea cycle metabolism Obesity, Class III, BMI 40-49.9 (morbid obesity) (HCC) Morbid obesity documented in this encounter [facility]* Diagnosis Chronic gout due to renal impairment without tophus, unspecified site- Primary On allopurinol therapy Generalized osteoarthritis Generalized osteoarthrosis, unspecified site Other chronic pain documented in this encounter [facility]* Diagnosis Screening for genitourinary condition Screening for other and unspecified genitourinary condition documented in this encounter [facility]* Diagnosis CKD (chronic kidney disease), stage IV (HCC)- Primary Chronic kidney disease, Stage IV (severe) documented in this encounter [facility]* Diagnosis CKD (chronic kidney disease), stage IV (HCC)- Primary Chronic kidney disease, Stage IV (severe) documented in this encounter [facility]* Diagnosis Liver replaced by transplant (HCC)- Primary Liver replaced by transplant documented in this encounter [facility] general Narrative - Reported* Type Description Date Medical History anxiety/depression Medical History HTN Medical History hyperlipidemia Medical History cirrhosis Medical History liver transplant Medical History C. Diff Medical History stage 3 kidney failure Surgical History X 3 Surgical History HYSTERECTOMY Surgical History LAPRASCOPY Surgical History liver transplant 02/2018 Surgical History knee arthroscopy- left knee Surgical History knee replacement- right Surgical History fecal transplant Hospitalization History liver rejection Outline Other History general Narrative - Reported* Type Description Date Medical History anxiety/depression Medical History HTN Medical History hyperlipidemia Medical History cirrhosis Medical History liver transplant Medical History C. Diff Medical History stage 3 kidney failure Surgical History X 3 Surgical History HYSTERECTOMY Surgical History LAPRASCOPY Surgical History liver transplant 02/2018 Surgical History knee arthroscopy- left knee Surgical History knee replacement- right Surgical History fecal transplant Surgical History triger finger left hand with gr owth removed Hospitalization History liver rejection [facility] [employer] Other History general Narrative - Reported* Type Description Date Medical History anxiety/depression Medical History HTN Medical History hyperlipidemia Medical History cirrhosis Medical History liver transplant Medical History C. Diff Medical History stage 3 kidney failure Surgical History X 3 Surgical History HYSTERECTOMY Surgical History LAPRASCOPY Surgical History liver transplant 02/2018 Surgical History knee arthroscopy- left knee Surgical History knee replacement- right Surgical History fecal transplant Surgical History trigger finger left hand with g rowth removed Hospitalization History liver rejection Outline Other Hospital Discharge instructions Additional Instructions Please be sure to follow-up with your doctor. If you do have recurrent severe pain or any other significant problems, please return here. There was no evidence of any significant injury on your CAT scan. All of your organs looked okay. Labs did not show any obvious problem. I am glad that you are feeling better. It is certainly possible that your ventral hernia may have stretched a little bit. There is no bowel involved. There is only fatty tissue in the hernia. We happy to help anytime you need us. Do not hesitate to come back if there is a problem. [facility] Work Phone: InstructionsNot on filedocumented in this encounter [facility] Summary Purpose Family History No Family History Records Found Relationship Condition Age at Onset Recorded Date/T ted brother Unknown father Unknown Heart disease Unknown Hypertension Unknown family member Unknown mother History of stroke Unknown Unknown Advance Directives No Advanced Directives Records FoundDocuments on File Type Date Recorded Patient Diagnostic Tech Expl anation Advance Directive(s) 02/10/2018 4:51 PM Date Activated Date Inactivated Comments 02/24/2018 9:06 PM 03/29/2018 5:56 PM Documents on File Type Date Recorded Patient Diagnostic Tech Expl anation Advance Directive(s) 02/10/2018 4:51 PM Latest Code Status on File Code Status Date Activated Date Inactivated Comments Full Code 02/24/2018 9:06 PM 03/29/2018 5:56 PM Documents on File Type Date Recorded Patient Diagnostic Tech Expl anation Advance Directives and Living Will Power of Irrigation Engineer Latest Code Status on File Code Status Date Activated Date Inactivated Comments Full Code 07/24/2017 11:25 PM 07/27/2017 3:30 PM Full Code 07/21/2017 8:41 PM 07/22/2017 6:03 PM Full Code 06/09/2017 8:54 PM 06/11/2017 4:25 PM Full Code 06/09/2017 8:54 PM 06/09/2017 8:54 PM Documents on File Type Date Recorded Patient Diagnostic Tech Expl anation Advance Directive(s) 05/18/2018 7:51 PM Advance Directive(s) 05/17/2018 4:51 PM Advance Directive(s) 05/07/2018 3:07 PM Advance Directive(s) 05/04/2018 12:54 PM Advance Directive(s) 03/29/2018 8:14 PM Advance Directive(s) 02/10/2018 4:55 PM Advance Directive(s) 02/10/2018 4:51 PM Advance Directive(s) 02/01/2018 11:42 AM Advance Directive(s) 06/25/2017 8:59 AM PT DOES NOT HAVE AD Advance Directive(s) 04/27/2017 11:23 AM Advance Directive(s) 02/02/2017 9:45 AM Advance Directive(s) 07/20/2016 8:45 AM Advance Directive(s) 06/23/2016 9:22 AM Advance Directive Response Recorded Date/ Time Advance Directives No January 7:26pm Advance Directive Response Recorded Date/ Time Advance Directives No January 6:26pm Latest Code Status on File Code Status Date Activated Date Inactivated Comments Full Code 02/24/2018 9:06 PM 03/29/2018 5:56 PM Latest Code Status on File Code Status Date Activated Date Inactivated Comments Full Code 02/24/2018 9:06 PM 03/29/2018 5:56 PM Latest Code Status on File Code Status Date Activated Date Inactivated Comments Full Code 01/22/2022 4:49 PM 01/23/2022 5:18 PM Date Activated Date Inactivated Comments 02/24/2018 9:06 PM 03/29/2018 5:56 PM Assessments Diagnosis RLS (restless legs syndrome) Restless legs syndrome (RLS) Chief Complaint and Reason for Visit Chief Complaint Z94.4 M65.30 M67.442 Z94.4 Z94.4 i83.813 Chief Complaint M65.30 M67.442 Z94.4 Z94.4 i83.813 Z94.4 Chief Complaint M65.30 M67.442 Z94.4 Z94.4 i83.813 Z94.4 rt ankle,foot,calf pain Chief Complaint Z94.4 i83.813 Z94.4 rt ankle,foot,calf pain Z94.4 Chief Complaint rt ankle,foot,calf p ain Z94.4 Z94.4 Chief Complaint Z94.4 Z94.4 Z94.4 Chief Complaint neck,back pain,nki Chief Complaint neck,back pain,nki left breast mass Chief Complaint pain across abdomen- fall today Medications Administered Section Inactive Administered Medications - up to 3 most recent administrations Medication Order MAR Action Action Date Dose Rate Site lidocaine (PF) 10 mg/mL (1 %) 1 mL injection (XYLOCAINE) 1 mL, Injection - FOR ORTHO USE ONLY, ONE TIME INJECTION, 1 dose, Starting on Lolly 03/23/22 at 1215, Until Lolly 03/23/22 at 1215 Given 03/23/2022 12:15 PM EST 1 mL Ankle, Right Reason for Referral Specialty Diagnoses / Procedures Referred By Portia lyons Referred To Contact General Surgery Diagnoses Ventral hernia without obstruction or gangrene Procedures CONSULT TO GENERAL SURGERY OFFICE/OUTPATIENT [facility] 60 MINUTES Lizzie Gilbert, DRUGLESS PHYSICIAN.CONFIGURATION CONSULTANT [address] [id number] Referral ID Status Reason Start Date Expiration Date Visits Requested Visits Authorized [id number] Authorized PCP Requested Referral 07/16/2023 07/01/2024 1 1 Specialty Diagnoses / Procedures Referred By Portia lyons Referred To Contact CT IMAGING Diagnoses Liver replaced by transplant (HCC) Incisional hernia, without obstruction or gangrene Procedures CT ABD/PEL WO IVCON CT ABD & PELVIS W/O CONTRAST Lizzie Gilbert, DRUGLESS PHYSICIAN.CONFIGURATION CONSULTANT [id number] [facility] [place] [address] Referral ID Status Reason Start Date Expiration Date Visits Requested Visits Authorized [id number] Authorized Auto-Generat ed Referral 07/02/2023 07/17/2024 1 1 Specialty Diagnoses / Procedures Referred By Contac t Referred To Contact General Surgery Diagnoses Liver replaced by transplant (HCC) Incisional hernia, without obstruction or gangrene Procedures CONSULT TO GENERAL SURGERY OFFICE/OUTPATIENT NEW [facility] 60 MINUTES Lizzie Gilbert, DRUGLESS PHYSICIAN.CONFIGURATION CONSULTANT [address] [place] [address] Referral ID Status Reason Start Date Expiration Date Visits Requested Visits Authorized [id number] Authorized PCP Requested Referral 07/02/2023 06/17/2024 1 1 Specialty Diagnoses / Procedures Referred By Contac t Referred To Contact MOLECULAR & FUNCTIONAL IMAGING Diagnoses Other pulmonary embolism without acute cor pulmonale, unspecified chronicity (HCC) Recurrent deep venous thrombosis (HCC) Procedures FACTOR V LEIDEN/PCR F5 COAGULATION FACTOR V ANAL LEIDEN VARIANT Gillian Nolen, DRUGLESS PHYSICIAN.CONFIGURATION CONSULTANT [address] [id number] Molecular & Functional Imaging [address] [place] [address] Referral ID Status Reason Start Date Expiration Date Visits Requested Visits Authorized [id number] Pending Review PCP Requested Referral Auto-Generate d Referral 07/14/2022 10/12/2022 1 1 Specialty Diagnoses / Procedures Referred By Contac t Referred To Contact Rheumatology Diagnoses Hyperuricemia Chronic gout due to renal impairment of multiple sites without tophus Procedures CONSULT TO RHEUM/IMMUN DISEASE OFFICE/OUTPATIENT [facility] MDM 60-74 MINUTES Gillian Nolen, DRUGLESS PHYSICIAN.CONFIGURATION CONSULTANT [address] [place] [address] Referral ID Status Reason Start Date Expiration Date Visits Requested Visits Authorized [id number] Authorized PCP Requested Referral 03/22/2022 03/21/2023 1 1 Additional Source Comments INFORMATION SOURCE (unrecogn ized section and content) DATE CREATED AUTHOR 08/22/2017 [facility] DATE CREATED AUTHOR AUTHOR'S ORGANIZ ATION 08/28/2017 [facility] DATE CREATED AUTHOR AUTHOR'S ORGANIZ ATION 09/20/2017 [facility] DATE CREATED AUTHOR AUTHOR'S ORGANIZ ATION 02/11/2018 [facility] DATE CREATED AUTHOR AUTHOR'S ORGANIZ ATION 11/19/2018 [facility] DATE CREATED AUTHOR AUTHOR'S ORGANIZ ATION 03/07/2022 [facility] DATE CREATED AUTHOR AUTHOR'S ORGANIZ ATION 04/18/2022 [facility] DATE CREATED AUTHOR AUTHOR'S ORGANIZ ATION 02/23/2023 [facility] DATE CREATED AUTHOR AUTHOR'S ORGANIZ ATION 10/28/2023 [facility] EP[facility] DATE CREATED AUTHOR AUTHOR'S ORGANIZ ATION 11/01/2023 [facility] DATE CREATED AUTHOR AUTHOR'S ORGANIZ ATION 11/08/2023 [facility] DATE CREATED AUTHOR AUTHOR'S ORGANIZ ATION 11/24/2023 [facility] DATE CREATED AUTHOR AUTHOR'S ORGANIZ ATION 11/25/2023 [facility] Source Comments (unrecognize d section and content) In the event this informatio n is protected by the Federal Confidentiality of Alcohol and Drug Abuse Patient Records regulations: The Federal rules restrict any use of the information to criminally investigate or prosecute any alcohol or drug abuse patient.[facility] the event this information is protected by the Federal Confidentiality of Alcohol and Drug Abuse Patient Records regulations: The Federal rules restrict any use of the information to criminally investigate or prosecute any alcohol or drug abuse patient.[facility] the event this information is protected by the Federal Confidentiality of Alcohol and Drug Abuse Patient Records regulations: The Federal rules restrict any use of the information to criminally investigate or prosecute any alcohol or drug abuse patient.[facility] the event this information is protected by the Federal Confidentiality of Alcohol and Drug Abuse Patient Records regulations: The Federal rules restrict any use of the information to criminally investigate or prosecute any alcohol or drug abuse patient.[facility] the event this information is protected by the Federal Confidentiality of Alcohol and Drug Abuse Patient Records regulations: The Federal rules restrict any use of the information to criminally investigate or prosecute any alcohol or drug abuse patient.[facility] the event this information is protected by the Federal Confidentiality of Alcohol and Drug Abuse Patient Records regulations: The Federal rules restrict any use of the information to criminally investigate or prosecute any alcohol or drug abuse patient.[facility] Center[facility] the event this information is protected by the Federal Confidentiality of Alcohol and Drug Abuse Patient Records regulations: The Federal rules restrict any use of the information to criminally investigate or prosecute any alcohol or drug abuse patient.[facility] Center[facility] the event this information is protected by the Federal Confidentiality of Alcohol and Drug Abuse Patient Records regulations: The Federal rules restrict any use of the information to criminally investigate or prosecute any alcohol or drug abuse patient.[facility] Center[facility] the event this information is protected by the Federal Confidentiality of Alcohol and Drug Abuse Patient Records regulations: The Federal rules restrict any use of the information to criminally investigate or prosecute any alcohol or drug abuse patient.[facility] Center[facility] the event this information is protected by the Federal Confidentiality of Alcohol and Drug Abuse Patient Records regulations: The Federal rules restrict any use of the information to criminally investigate or prosecute any alcohol or drug abuse patient.[facility] Center[facility] the event this information is protected by the Federal Confidentiality of Alcohol and Drug Abuse Patient Records regulations: The Federal rules restrict any use of the information to criminally investigate or prosecute any alcohol or drug abuse patient.[facility] Center[facility] the event this information is protected by the Federal Confidentiality of Alcohol and Drug Abuse Patient Records regulations: The Federal rules restrict any use of the information to criminally investigate or prosecute any alcohol or drug abuse patient.[facility] Center[facility] the event this information is protected by the Federal Confidentiality of Alcohol and Drug Abuse Patient Records regulations: The Federal rules restrict any use of the information to criminally investigate or prosecute any alcohol or drug abuse patient.[facility] Center[facility] the event this information is protected by the Federal Confidentiality of Alcohol and Drug Abuse Patient Records regulations: The Federal rules restrict any use of the information to criminally investigate or prosecute any alcohol or drug abuse patient.[facility] Center[facility] the event this information is protected by the Federal Confidentiality of Alcohol and Drug Abuse Patient Records regulations: The Federal rules restrict any use of the information to criminally investigate or prosecute any alcohol or drug abuse patient.[facility] CenterIn the event this information is protected by the Federal Confidentiality of Alcohol and Drug Abuse Patient Records regulations: The Federal rules restrict any use of the information to criminally investigate or prosecute any alcohol or drug abuse patient.[facility] CenterIn the event this information is protected by the Federal Confidentiality of Alcohol and Drug Abuse Patient Records regulations: The Federal rules restrict any use of the information to criminally investigate or prosecute any alcohol or drug abuse patient.[facility] CenterIn the event this information is protected by the Federal Confidentiality of Alcohol and Drug Abuse Patient Records regulations: The Federal rules restrict any use of the information to criminally investigate or prosecute any alcohol or drug abuse patient.[facility] CenterIn the event this information is protected by the Federal Confidentiality of Alcohol and Drug Abuse Patient Records regulations: The Federal rules restrict any use of the information to criminally investigate or prosecute any alcohol or drug abuse patient.[facility] CenterIn the event this information is protected by the Federal Confidentiality of Alcohol and Drug Abuse Patient Records regulations: The Federal rules restrict any use of the information to criminally investigate or prosecute any alcohol or drug abuse patient.[facility] CenterIn the event this information is protected by the Federal Confidentiality of Alcohol and Drug Abuse Patient Records regulations: The Federal rules restrict any use of the information to criminally investigate or prosecute any alcohol or drug abuse patient.[facility] CenterIn the event this information is protected by the Federal Confidentiality of Alcohol and Drug Abuse Patient Records regulations: The Federal rules restrict any use of the information to criminally investigate or prosecute any alcohol or drug abuse patient.[facility] CenterIn the event this information is protected by the Federal Confidentiality of Alcohol and Drug Abuse Patient Records regulations: The Federal rules restrict any use of the information to criminally investigate or prosecute any alcohol or drug abuse patient.[facility] CenterIn the event this information is protected by the Federal Confidentiality of Alcohol and Drug Abuse Patient Records regulations: The Federal rules restrict any use of the information to criminally investigate or prosecute any alcohol or drug abuse patient.[facility] CenterIn the event this information is protected by the Federal Confidentiality of Alcohol and Drug Abuse Patient Records regulations: The Federal rules restrict any use of the information to criminally investigate or prosecute any alcohol or drug abuse patient.[facility] CenterIn the event this information is protected by the Federal Confidentiality of Alcohol and Drug Abuse Patient Records regulations: The Federal rules restrict any use of the information to criminally investigate or prosecute any alcohol or drug abuse patient.[facility] CenterIn the event this information is protected by the Federal Confidentiality of Alcohol and Drug Abuse Patient Records regulations: The Federal rules restrict any use of the information to criminally investigate or prosecute any alcohol or drug abuse patient.[facility] CenterIn the event this information is protected by the Federal Confidentiality of Alcohol and Drug Abuse Patient Records regulations: The Federal rules restrict any use of the information to criminally investigate or prosecute any alcohol or drug abuse patient.[facility] CenterIn the event this information is protected by the Federal Confidentiality of Alcohol and Drug Abuse Patient Records regulations: The Federal rules restrict any use of the information to criminally investigate or prosecute any alcohol or drug abuse patient.[facility] CenterIn the event this information is protected by the Federal Confidentiality of Alcohol and Drug Abuse Patient Records regulations: The Federal rules restrict any use of the information to criminally investigate or prosecute any alcohol or drug abuse patient.[facility] CenterIn the event this information is protected by the Federal Confidentiality of Alcohol and Drug Abuse Patient Records regulations: The Federal rules restrict any use of the information to criminally investigate or prosecute any alcohol or drug abuse patient.[facility] CenterIn the event this information is protected by the Federal Confidentiality of Alcohol and Drug Abuse Patient Records regulations: The Federal rules restrict any use of the information to criminally investigate or prosecute any alcohol or drug abuse patient.[facility] CenterIn the event this information is protected by the Federal Confidentiality of Alcohol and Drug Abuse Patient Records regulations: The Federal rules restrict any use of the information to criminally investigate or prosecute any alcohol or drug abuse patient.[facility] CenterIn the event this information is protected by the Federal Confidentiality of Alcohol and Drug Abuse Patient Records regulations: The Federal rules restrict any use of the information to criminally investigate or prosecute any alcohol or drug abuse patient.[facility] CenterIn the event this information is protected by the Federal Confidentiality of Alcohol and Drug Abuse Patient Records regulations: The Federal rules restrict any use of the information to criminally investigate or prosecute any alcohol or drug abuse patient.[facility] CenterIn the event this information is protected by the Federal Confidentiality of Alcohol and Drug Abuse Patient Records regulations: The Federal rules restrict any use of the information to criminally investigate or prosecute any alcohol or drug abuse patient.[facility] CenterIn the event this information is protected by the Federal Confidentiality of Alcohol and Drug Abuse Patient Records regulations: The Federal rules restrict any use of the information to criminally investigate or prosecute any alcohol or drug abuse patient.[facility] CenterIn the event this information is protected by the Federal Confidentiality of Alcohol and Drug Abuse Patient Records regulations: The Federal rules restrict any use of the information to criminally investigate or prosecute any alcohol or drug abuse patient.[facility] CenterIn the event this information is protected by the Federal Confidentiality of Alcohol and Drug Abuse Patient Records regulations: The Federal rules restrict any use of the information to criminally investigate or prosecute any alcohol or drug abuse patient.[facility] CenterIn the event this information is protected by the Federal Confidentiality of Alcohol and Drug Abuse Patient Records regulations: The Federal rules restrict any use of the information to criminally investigate or prosecute any alcohol or drug abuse patient.[facility] CenterIn the event this information is protected by the Federal Confidentiality of Alcohol and Drug Abuse Patient Records regulations: The Federal rules restrict any use of the information to criminally investigate or prosecute any alcohol or drug abuse patient.[facility] CenterIn the event this information is protected by the Federal Confidentiality of Alcohol and Drug Abuse Patient Records regulations: The Federal rules restrict any use of the information to criminally investigate or prosecute any alcohol or drug abuse patient.[facility] CenterIn the event this information is protected by the Federal Confidentiality of Alcohol and Drug Abuse Patient Records regulations: The Federal rules restrict any use of the information to criminally investigate or prosecute any alcohol or drug abuse patient.[facility] CenterIn the event this information is protected by the Federal Confidentiality of Alcohol and Drug Abuse Patient Records regulations: The Federal rules restrict any use of the information to criminally investigate or prosecute any alcohol or drug abuse patient.[facility] CenterIn the event this information is protected by the Federal Confidentiality of Alcohol and Drug Abuse Patient Records regulations: The Federal rules restrict any use of the information to criminally investigate or prosecute any alcohol or drug abuse patient.[facility] CenterIn the event this information is protected by the Federal Confidentiality of Alcohol and Drug Abuse Patient Records regulations: The Federal rules restrict any use of the information to criminally investigate or prosecute any alcohol or drug abuse patient.[facility] CenterIn the event this information is protected by the Federal Confidentiality of Alcohol and Drug Abuse Patient Records regulations: The Federal rules restrict any use of the information to criminally investigate or prosecute any alcohol or drug abuse patient.[facility] CenterIn the event this information is protected by the Federal Confidentiality of Alcohol and Drug Abuse Patient Records regulations: The Federal rules restrict any use of the information to criminally investigate or prosecute any alcohol or drug abuse patient.[facility] CenterIn the event this information is protected by the Federal Confidentiality of Alcohol and Drug Abuse Patient Records regulations: The Federal rules restrict any use of the information to criminally investigate or prosecute any alcohol or drug abuse patient.[facility] CenterIn the event this information is protected by the Federal Confidentiality of Alcohol and Drug Abuse Patient Records regulations: The Federal rules restrict any use of the information to criminally investigate or prosecute any alcohol or drug abuse patient.[facility] CenterIn the event this information is protected by the Federal Confidentiality of Alcohol and Drug Abuse Patient Records regulations: The Federal rules restrict any use of the information to criminally investigate or prosecute any alcohol or drug abuse patient.[facility] CenterIn the event this information is protected by the Federal Confidentiality of Alcohol and Drug Abuse Patient Records regulations: The Federal rules restrict any use of the information to criminally investigate or prosecute any alcohol or drug abuse patient.[facility] Care Teams (unrecognized sec tion and content) Chocolate Dipper Relationship Specialty Start Date End Date Susy Brizuela RN PCP - General 01/20/21 Marquis Lizarraga MD [address] [place] [address] Referring General Surgery 02/19/18 Tatum Hagen RN [address] [place], [place] [id number] Change Management Facilitator Post Acute Care 02/20/18 Marquis Lizarraga MD [address] [place] [address] Home Care Physician General Surgery 02/20/18 Audi Ferrer RN [facility] [address] [place] [address] Registered Nurse Transplant Center 04/14/19 Gillian Nolen APRN.CONFIGURATION CONSULTANT [address] [place] [address] Primary Staff Physician Nephrology 03/31/21 Chocolate Dipper Relationship Specialty Start Date End Date Susy Brizuela RN PCP - General 01/20/21 Marquis Lizarraga MD [address] [place] [address] Referring General Surgery 02/19/18 Tatum aHgen RN [address] [place], [place] [id number] Change Management Facilitator Post Acute Care 02/20/18 Marquis Lizarraga MD [address] [place] [address] Home Care Physician General Surgery 02/20/18 Audi Ferrer RN [facility] [address] [place] [address] Registered Nurse Transplant Center 04/14/19 Gillian Nolen DRUGLESS PHYSICIAN.CONFIGURATION CONSULTANT [address] [place] [address] Primary Staff Physician Nephrology 03/31/21 Chocolate Dipper Relationship Specialty Start Date End Date Susy Brizuela RN PCP - General 01/20/21 Marquis Lizarraga MD [address] [place], [place] [id number] Referring General Surgery 02/19/18 Tatum Hagen, MADDY [address] [place] [address] Change Management Facilitator Post Acute Care 02/20/18 Marquis Lizarraga MD [address] [place] [address] Home Care Physician General Surgery 02/20/18 Audi Ferrer RN [facility] [address] [place] [address] Registered Nurse Transplant Center 04/14/19 Gillian Nolen, DRUGLESS PHYSICIAN.CONFIGURATION CONSULTANT [address] [place], [place] [id number] Primary Staff Physician Nephrology 03/31/21 Team Status: Inactive Member Role Status Dates PHYSICIAN NO FAMILY Primary Care Provider Active Isabel Gilbert NP-C Attending Provider Active Team Status: Inactive Member Role Status Dates MARIA EUGENIA Roa Attending Provider Active PHYSICIAN NO FAMILY Primary Care Provider Active Team Status: Inactive Member Role Status Dates Susy Brizuela MD Primary Care Provider Active MARIA EUGENIA Roa Attending Provider Active Team Status: Inactive Member Role Status Dates PHYSICIAN NO FAMILY Primary Care Provider Active DOT JacksonC Attending Provider Active Team Status: Inactive Member Role Status Dates Sreekanth James Jr, DO Attending Provider Active PHYSICIAN NO FAMILY Primary Care Provider Active Team Status: Active Member Role Status Dates PHYSICIAN NO FAMILY Primary Care Provider Active Chocolate Dipper Relationship Specialty Start Date End Date Susy Brizuela RN PCP - General 01/20/21 Marquis Lizarraga MD [address] [facility] [place] [address] Referring General Surgery 02/19/18 Tatum Hagen, MADDY [address] [place] [address] Change Management Facilitator Post Acute Care 02/20/18 Marquis Lizarraga MD [address] [place] [address] Home Care Provider General Surgery 02/20/18 Audi Ferrer RN [facility] [address] [place] [address] Registered Nurse Transplant Center 04/14/19 Gillian Nolen, DRUGLESS PHYSICIAN.CONFIGURATION CONSULTANT [address] [place] [address] Primary Staff Physician Nephrology 03/31/21 Chocolate Dipper Relationship Specialty Start Date End Date Susy Brizuela, MADDY PCP - General 01/20/21 Marquis Lizarraga MD [address] [place] [address] Referring General Surgery 02/19/18 Tatum Hagen RN [address] [place] [address] Change Management Facilitator Post Acute Care 02/20/18 Marquis Lizarraga MD [address] [place] [address] Home Care Provider General Surgery 02/20/18 Audi Ferrer RN [facility] [address] [place] [address] Registered Nurse Transplant Center 04/14/19 Gillian Nolen, DRUGLESS PHYSICIAN.CONFIGURATION CONSULTANT [address] [place] [address] Primary Staff Physician Nephrology 03/31/21 Team Status: Inactive Member Role Status Dates Susy Brizuela MD Primary Care Provider Active Kris Bae DO Emergency Provider Active Team Status: Active Member Role Status Dates Susy Brizuela MD Primary Care Provider Active Team Status: Inactive Member Role Status Dates Isabel Gilbert COST ESTIMATING MANAGER-C Attending Provider Active Susy Brizuela MD Primary Care Provider Active Chocolate Dipper Relationship Specialty Start Date End Date Susy Brizuela RN PCP - General 01/20/21 Marquis Lizarraga MD [address] [place] [address] Referring General Surgery 02/19/18 Tatum Hagen RN [address] [place] [address] Change Management Facilitator Post Acute Care 02/20/18 Marquis Lizarraga MD [address] [place] [address] Home Care Provider General Surgery 02/20/18 Audi Ferrer RN [facility] [address] [place] [address] Registered Nurse Transplant Center 04/14/19 Gillian Nolen, DRUGLESS PHYSICIAN.CONFIGURATION CONSULTANT [address] [place] [address] Primary Staff Physician Nephrology 03/31/21 Chocolate Dipper Relationship Specialty Start Date End Date Susy Brizuela RN PCP - General 01/20/21 Marquis Lizarraga MD [address] [place] [address] Referring General Surgery 02/19/18 [facility] [place] [place] [id number] Change Management Facilitator Post Acute Care 02/20/18 Marquis Lizarraga MD [address] [place] [address] Home Care Provider General Surgery 02/20/18 Audi Ferrer RN [facility] [address] [place] [address] Registered Nurse Transplant Center 04/14/19 Gillian Nolen, DRUGLESS PHYSICIAN.CONFIGURATION CONSULTANT [address] [place] [address] Primary Staff Physician Nephrology 03/31/21 Chocolate Dipper Relationship Specialty Start Date End Date Susy Brizuela RN PCP - General 01/20/21 Marquis Lizarraga MD [address] [place] [address] Referring General Surgery 02/19/18 Tatum Hagen RN [address] [place] [address] Change Management Facilitator Post Acute Care 02/20/18 Marquis Lizarraga MD [address] [place] [address] Home Care Provider General Surgery 02/20/18 Audi Ferrer RN [facility] [address] [place] [address] Registered Nurse Transplant Center 04/14/19 Gillian Nolen, DRUGLESS PHYSICIAN.CONFIGURATION CONSULTANT [address] [place] [address] Primary Staff Physician Nephrology 03/31/21 Chocolate Dipper Relationship Specialty Start Date End Date Susy Brizuela RN PCP - General 01/20/21 Marquis Lizarraga MD [address] [place] [address] Referring General Surgery 02/19/18 Tatum Hagen RN [address] [place], [place] [id number] Change Management Facilitator Post Acute Care 02/20/18 Marquis Lizarraga MD [address] [place] [address] Home Care Provider General Surgery 02/20/18 Audi Ferrer RN [facility] [address] [place] [address] Registered Nurse Transplant Center 04/14/19 Gillian Nolen, DRUGLESS PHYSICIAN.CONFIGURATION CONSULTANT [address] [place] [address] Primary Staff Physician Nephrology 03/31/21 Chocolate Dipper Relationship Specialty Start Date End Date Susy Brizuela RN PCP - General 01/20/21 Marquis Lizarraga MD [address] [place] [address] Referring General Surgery 02/19/18 Tatum Hagen RN [address] [place] [address] Change Management Facilitator Post Acute Care 02/20/18 Marquis Lizarraga MD [address] [place] [address] Home Care Provider General Surgery 02/20/18 Audi Ferrer RN [facility] [address] [place] [address] Registered Nurse Transplant Center 04/14/19 Gillian Nolen, DRUGLESS PHYSICIAN.CONFIGURATION CONSULTANT [address] [place] [address] Primary Staff Physician Nephrology 03/31/21 Chocolate Dipper Relationship Specialty Start Date End Date Susy Brizuela RN PCP - General 01/20/21 Marquis Lizarraga MD [address] [place] [address] Referring General Surgery 02/19/18 Tatum Hagen RN [address] [place] [address] Change Management Facilitator Post Acute Care 02/20/18 Marquis Lizarraga MD [address] [place] [address] Home Care Provider General Surgery 02/20/18 Audi Ferrer RN [facility] [address] [place] [address] Registered Nurse Transplant Center 04/14/19 Gillian Nolen, DRUGLESS PHYSICIAN.CONFIGURATION CONSULTANT [address] [place] [address] Primary Staff Physician Nephrology 03/31/21 Chocolate Dipper Relationship Specialty Start Date End Date Susy Brizuela RN PCP - General 01/20/21 Marquis Lizarraga MD [address] [place] [address] Referring General Surgery 02/19/18 Tatum Hagen RN [address] [place] [address] Change Management Facilitator Post Acute Care 02/20/18 Marquis Lizarraga MD [address] [place] [address] Home Care Provider General Surgery 02/20/18 Audi Ferrer RN [facility] [address] [place] [address] Registered Nurse Transplant Center 04/14/19 Gillian Nolen, DRUGLESS PHYSICIAN.CONFIGURATION CONSULTANT [address] [place] [address] Primary Staff Physician Nephrology 03/31/21 Chocolate Dipper Relationship Specialty Start Date End Date Susy Brizuela RN PCP - General 01/20/21 Marquis Lizarraga MD [address] [place] [address] Referring General Surgery 02/19/18 Tatum Hagen RN [address] [place] [address] Change Management Facilitator Post Acute Care 02/20/18 Marquis Lizarraga MD [address] [place] [address] Home Care Provider General Surgery 02/20/18 Audi Ferrer RN [facility] [address] [place] [address] Registered Nurse Transplant Center 04/14/19 Gillian Nolen, DRUGLESS PHYSICIAN.CONFIGURATION CONSULTANT [address] [place] [address] Primary Staff Physician Nephrology 03/31/21 Chocolate Dipper Relationship Specialty Start Date End Date Susy Brizuela RN PCP - General 01/20/21 Marquis Lizarraga MD [address] [place] [address] Referring General Surgery 02/19/18 Tatum Hagen RN [address] [place] [address] Change Management Facilitator Post Acute Care 02/20/18 Marquis Lizarraga MD [address] [place] [address] Home Care Provider General Surgery 02/20/18 Audi Ferrer RN [facility] [address] [place] [address] Registered Nurse Transplant Center 04/14/19 Gillian Nolen DRUGLESS PHYSICIAN.CONFIGURATION CONSULTANT [address] [place] [address] Primary Staff Physician Nephrology 03/31/21 Chocolate Dipper Relationship Specialty Start Date End Date Susy Brizuela RN PCP - General 01/20/21 Marquis Lizarraga MD [address] [place] [address] Referring General Surgery 02/19/18 Tatum Hagen RN [address] [place] [address] Change Management Facilitator Post Acute Care 02/20/18 Marquis Lizarraga MD [address] [place] [address] Home Care Provider General Surgery 02/20/18 Audi Ferrer RN [facility] [address] [place] [address] Registered Nurse Transplant Center 04/14/19 Gillian Nolen, DRUGLESS PHYSICIAN.CONFIGURATION CONSULTANT [address] [place] [address] Primary Staff Physician Nephrology 03/31/21 Chocolate Dipper Relationship Specialty Start Date End Date Susy Brizuela RN PCP - General 01/20/21 Marquis Lizarraga MD [address] [place] [address] Referring General Surgery 02/19/18 Tatum Hagen RN [address] [place] [address] Change Management Facilitator Post Acute Care 02/20/18 Marquis Lizarraga MD [address] [place] [address] Home Care Provider General Surgery 02/20/18 Audi Ferrer RN [facility] [address] [place] [address] Registered Nurse Transplant Center 04/14/19 Gillian Nolen, DRUGLESS PHYSICIAN.CONFIGURATION CONSULTANT [address] [place] [address] Primary Staff Physician Nephrology 03/31/21 Chocolate Dipper Relationship Specialty Start Date End Date Susy Brizuela RN PCP - General 01/20/21 Marquis Lizarraga MD [address] [place] [address] Referring General Surgery 02/19/18 Tatum Hagen RN [address] [place] [address] Change Management Facilitator Post Acute Care 02/20/18 Marquis Lizarraga MD [address] [place] [address] Home Care Provider General Surgery 02/20/18 Audi Ferrer RN [facility] [address] [place] [address] Registered Nurse Transplant Center 04/14/19 Gillian Nolen, DRUGLESS PHYSICIAN.CONFIGURATION CONSULTANT [address] [place] [address] Primary Staff Physician Nephrology 03/31/21 Chocolate Dipper Relationship Specialty Start Date End Date Susy Brizuela RN PCP - General 01/20/21 Marquis Lizarraga MD [address] [place] [address] Referring General Surgery 02/19/18 Tatum Hagen, MADDY [address] [place], [place] [id number] Change Management Facilitator Post Acute Care 02/20/18 Marquis Lizarraga MD [address] [place] [address] Home Care Provider General Surgery 02/20/18 Audi Ferrer RN [facility] [address] [place] [address] Registered Nurse Transplant Center 04/14/19 Gillian Nolen, DRUGLESS PHYSICIAN.CONFIGURATION CONSULTANT [address] [place] [address] Primary Staff Physician Nephrology 03/31/21 Team Status: Inactive Member Role Status Dates Susy Brizuela MD Primary Care Provider Active Dallas Martinez APRN Emergency Provider Active Chocolate Dipper Relationship Specialty Start Date End Date Susy Brizuela [address] [place] [address] PCP - General Family Medicine 08/25/22 Marquis Lizarraga MD [address] [place] [address] Referring General Surgery 02/19/18 Tatum Hagen, MADDY [facility] [place], [place] [id number] Change Management Facilitator Post Acute Care 02/20/18 Marquis Lizarraga MD [address] [place] [address] Home Care Provider General Surgery 02/20/18 Audi Ferrer, MADDY [facility] [address] [place] [address] Registered Nurse Transplant Center 04/14/19 Gillian Nolen, DRUGLESS PHYSICIAN.CONFIGURATION CONSULTANT [address] [place] [address] Primary Staff Physician Nephrology 03/31/21 Team Status: Inactive Member Role Status Dates Susy Brizuela MD Primary Care Provider Active Celestine Leiva DO Attending Provider Active Chocolate Dipper Relationship Specialty Start Date End Date Susy Brizuela [address] [place] [address] PCP - General Family Medicine 08/25/22 Marquis Lizarraga MD [address] [place] [address] Referring General Surgery 02/19/18 Tatum Hagen RN [address] [place] [address] Change Management Facilitator Post Acute Care 02/20/18 Marquis Lizarraga MD [address] [place] [address] Home Care Provider General Surgery 02/20/18 Audi Ferrer RN [facility] [address] [place] [address] Registered Nurse Transplant Center 04/14/19 Gillian Nolen APRN.CONFIGURATION CONSULTANT [address] [place] [address] Primary Staff Physician Nephrology 03/31/21 Chocolate Dipper Relationship Specialty Start Date End Date Susy Brizuela [address] [place] [address] PCP - General Family Medicine 08/25/22 Marquis Lizarraga MD [address] [place] [address] Referring General Surgery 02/19/18 Tatum Hagen RN [address] [place], [place] [id number] Change Management Facilitator Post Acute Care 02/20/18 Marquis Lizarraga MD [address] [place] [address] Home Care Provider General Surgery 02/20/18 Audi Ferrer RN [facility] [address] [place] [address] Registered Nurse Transplant Center 04/14/19 Gillian Nolen DRUGLESS PHYSICIAN.CONFIGURATION CONSULTANT [address] [place] [address] Primary Staff Physician Nephrology 03/31/21 Chocolate Dipper Relationship Specialty Start Date End Date Susy Brizuela [address] [place] [address] PCP - General Family Medicine 08/25/22 Marquis Lizarraga MD [address] [place] [address] Referring General Surgery 02/19/18 Tatum Hagen RN [address] [place], [place] [id number] Change Management Facilitator Post Acute Care 02/20/18 Marquis Lizarraga MD [address] [place] [address] Home Care Provider General Surgery 02/20/18 Audi Ferrer RN [facility] [address] [place] [address] Registered Nurse Transplant Center 04/14/19 Gillian Nolen, DRUGLESS PHYSICIAN.CONFIGURATION CONSULTANT [address] [place] [address] Primary Staff Physician Nephrology 03/31/21 Chocolate Dipper Relationship Specialty Start Date End Date Susy Brizuela [address] [place] [address] PCP - General Family Medicine 08/25/22 Marquis Lizarraga MD [address] [place] [address] Referring General Surgery 02/19/18 Tatum Hagen RN [address] [facility] [place] [address] Change Management Facilitator Post Acute Care 02/20/18 Marquis Lizarraga MD [address] [place] [address] Home Care Provider General Surgery 02/20/18 Audi Ferrer RN [facility] [address] [place] [address] Registered Nurse Transplant Center 04/14/19 Gillian Nolen APRN.CONFIGURATION CONSULTANT [address] [place] [address] Primary Staff Physician Nephrology 03/31/21 Chocolate Dipper Relationship Specialty Start Date End Date Susy Brizuela [address] [place] [address] PCP - General Family Medicine 08/25/22 Marquis Lizarraga MD [address] [place] [address] Referring General Surgery 02/19/18 Tatum Hagen RN [address] [facility] [place] [address] Change Management Facilitator Post Acute Care 02/20/18 Marquis Lizarraga MD [address] [place], [place] [address] Home Care Provider General Surgery 02/20/18 Audi Ferrer RN [facility] [address] [place] [address] Registered Nurse Transplant Center 04/14/19 Gillian Nolen APRN.CONFIGURATION CONSULTANT [address] [place] [address] Primary Staff Physician Nephrology 03/31/21 Chocolate Dipper Relationship Specialty Start Date End Date Susy Brizuela [address] [place] [address] PCP - General Family Medicine 08/25/22 Marquis Lizarraga MD [address] [place] [address] Referring General Surgery 02/19/18 [place] [address] [place] [address] [id number] Change Management Facilitator Post Acute Care 02/20/18 Marquis Lizarraga MD [address] [place] [address] Home Care Provider General Surgery 02/20/18 Audi Ferrer RN [facility] [address] [place] [address] Registered Nurse Transplant Center 04/14/19 Gillian Nolen APRN.CONFIGURATION CONSULTANT [address] [place] [address] Primary Staff Physician Nephrology 03/31/21 Chocolate Dipper Relationship Specialty Start Date End Date Susy Brizuela MD [address] [place], [place] [phone] PCP - General Family Medicine 04/14/21 Chocolate Dipper Relationship Specialty Start Date End Date Susy Brizuela MD [address] [place] [address] PCP - General Family Medicine 07/26/22 Chocolate Dipper Relationship Specialty Start Date End Date Susy Brizuela MD [address] [facility] [place] [address] PCP - General Family Medicine 07/26/22 Chocolate Dipper Relationship Specialty Start Date End Date Susy Brizuela [address] [facility] [place] [address] PCP - General Family Medicine 08/25/22 Marquis Lizarraga MD Referring General Surgery 02/19/18 Tatum Hagen (Rn), melter casterChange Management Facilitator Post Acute Care 02/20/18 Marquis Lizarraga MD Home Care Provider General Surgery 02/20/18 Audi Ferrer, MADDY [facility] [address] [place] [address] Registered Nurse Transplant Center 04/14/19 Gillian Nolen, TAVO.CONFIGURATION CONSULTANT [address] [place] [address] Primary Staff Physician Nephrology 03/31/21 Chocolate Dipper Relationship Specialty Start Date End Date Susy Brizuela [address] [place] [address] PCP - General Family Medicine 08/25/22 Marquis Lizarraga MD Referring General Surgery 02/19/18 Tatum Hagen (Rn), melter casterChange Management Facilitator Post Acute Care 02/20/18 Marquis Lizarraga MD Home Care Provider General Surgery 02/20/18 Audi Ferrer RN [facility] [address] [place] [address] Registered Nurse Transplant Center 04/14/19 Gillian Nolen, DRUGLESS PHYSICIAN.CONFIGURATION CONSULTANT [address] [place] [address] Primary Staff Physician Nephrology 03/31/21 Chocolate Dipper Relationship Specialty Start Date End Date Susy Brizuela [address] [place] [address] PCP - General Family Medicine 08/25/22 Marquis Lizarraga MD Referring General Surgery 02/19/18 Tatum Hagen (Rn), melter casterChange Management Facilitator Post Acute Care 02/20/18 Marquis Lizarraga MD Home Care Provider General Surgery 02/20/18 Audi Ferrer RN [facility] [address] [place] [address] Registered Nurse Transplant Center 04/14/19 Gillian Nolen, DRUGLESS PHYSICIAN.CONFIGURATION CONSULTANT [address] [place] [address] Primary Staff Physician Nephrology 03/31/21 Chocolate Dipper Relationship Specialty Start Date End Date Susy Brizuela [address] [place] [address] PCP - General Family Medicine 08/25/22 Marquis Lizarraga MD Referring General Surgery 02/19/18 Tatum Hagen (Rn), melter casterChange Management Facilitator Post Acute Care 02/20/18 Marquis Lizarraga MD Home Care Provider General Surgery 02/20/18 Audi Ferrer RN [facility] [address] [place] [address] Registered Nurse Transplant Center 04/14/19 Gillian Nolen, DRUGLESS PHYSICIAN.CONFIGURATION CONSULTANT [address] [place] [address] Primary Staff Physician Nephrology 03/31/21 Chocolate Dipper Relationship Specialty Start Date End Date Susy Brizuela [address] [place] [address] PCP - General Family Medicine 08/25/22 Marquis Lizarraga MD Referring General Surgery 02/19/18 Tatum Hagen (Rn), melter casterChange Management Facilitator Post Acute Care 02/20/18 Marquis Lizarraga MD Home Care Provider General Surgery 02/20/18 Audi Ferrer RN [facility] [address] [place] [address] Registered Nurse Transplant Center 04/14/19 Gillian Nolen, DRUGLESS PHYSICIAN.CONFIGURATION CONSULTANT [address] [place] [address] Primary Staff Physician Nephrology 03/31/21 Chocolate Dipper Relationship Specialty Start Date End Date Susy Brizuela [address] [place] [address] PCP - General Family Medicine 08/25/22 Marquis Lizarraga MD Referring General Surgery 02/19/18 Tatum Hagen (Rn), melter casterChange Management Facilitator Post Acute Care 02/20/18 Marquis Lizarraga MD Home Care Provider General Surgery 02/20/18 Audi Ferrer RN [facility] [address] [place] [address] Registered Nurse Transplant Center 04/14/19 Gillian Nolen, DRUGLESS PHYSICIAN.CONFIGURATION CONSULTANT [address] [place] [address] Primary Staff Physician Nephrology 03/31/21 Chocolate Dipper Relationship Specialty Start Date End Date Susy Brizuela [address] [place] [address] PCP - General Family Medicine 08/25/22 Marquis Lizarraga MD Referring General Surgery 02/19/18 Tatum Hagen (Rn), melter casterChange Management Facilitator Post Acute Care 02/20/18 Marquis Lizarraga MD Home Care Provider General Surgery 02/20/18 Audi Ferrer RN [facility] [address] [place] [address] Registered Nurse Transplant Center 04/14/19 Gillian Nolen, DRUGLESS PHYSICIAN.CONFIGURATION CONSULTANT [address] [place] [address] Primary Staff Physician Nephrology 03/31/21 Chocolate Dipper Relationship Specialty Start Date End Date Susy Brizuela [address] [place] [address] PCP - General Family Medicine 08/25/22 Marquis Lizarraga MD Referring General Surgery 02/19/18 Tatum Hagen (Rn), melter casterChange Management Facilitator Post Acute Care 02/20/18 Marquis Lizarraga MD Home Care Provider General Surgery 02/20/18 Audi Ferrer, MADDY [facility] [address] [place] [address] Registered Nurse Transplant Center 04/14/19 Gillian Nolen APRN.CNP [address] [place] [address] Primary Staff Physician Nephrology 03/31/21 Team Status: Active Member Role Status Dates Susy Brizuela MD Primary Care Provide r Active Team Status: Inactive Member Role Status Dates Susy Brizuela MD Primary Care Provider Active Start: October 12, 2023 End: October 13, 2023 Jesse Miguel Jr, MD Emergency Provider Active Start: October 12, 2023 End: October 13, 2023 REASON FOR VISIT (unrecogniz ed section and content) Reason Onset Date Comments Refill Request 10/18/2021 Reason Comments Refill Request Reason Comments Patient Update Reason Comments Discussion Reason Comments Follow Up Reason Comments Gout Reason Comments Follow Up Reason Comments Medication Problem Patient Update Reason Comments Edema Reason Comments Medication Dosage Adjustment Reason Comments Medication Dosage Adjustment Follow Up Reason Comments Appointment Reason Comments Shingles Follow Up Results Reason Onset Date Comments Refill Request 08/25/2022 Reason Comments Med Refill Reason Comments Radiology CT Specialty Diagnoses / Procedures Referred By Contac t Referred To Contact CT IMAGING Diagnoses Liver replaced by transplant (HCC) Incisional hernia, without obstruction or gangrene Procedures CT ABD/PEL WO IVCON CT ABD & PELVIS W/O CONTRAST Lizzie Gilbert DRUGLESS PHYSICIAN.CONFIGURATION CONSULTANT [address] [place] [address] [place] [address] Referral ID Status Reason Start Date Expiration Date V isits Requested Visits Authorized [id number] Closed Auto-Generate d Referral 07/02/2023 07/17/2024 1 1 Reason Comments Consult Specialty Diagnoses / Procedures Referred By Contac t Referred To Contact General Surgery Diagnoses Liver replaced by transplant (HCC) Incisional hernia, without obstruction or gangrene Procedures CONSULT TO GENERAL SURGERY OFFICE/OUTPATIENT [facility] 60 MINUTES Lizzie Gilbert, DRUGLESS PHYSICIAN.CONFIGURATION CONSULTANT [address] [place] [address] Referral ID Status Reason Start Date Expiration Date V isits Requested Visits Authorized [id number] Closed PCP Requested Referral 07/02/2023 06/17/2024 1 1 Goals (unrecognized section and content) Goals may be documented in a n alternate section FOR RECORDS PERTAINING TO PATIENTS WHO ARE OR HAVE BEEN ENROLLED IN A CHEMICAL DEPENDENCY/SUBSTANCEABUSE PROGRAM, SOME INFORMATION MAY BE OMITTED. This clinical summary was aggregated from multiple sources. Caution should be exercised in using it in the provision of clinical care. This summary normalizes information from multiple sources, and as a consequence, information in this document may materially change the coding, format and clinical context of patient data. In addition, data may be omitted in some cases. CLINICAL DECISIONS SHOULD BE BASED ON THE PRIMARY CLINICAL RECORDS. [employer] provides no warranty or guarantee of the accuracy or completeness of information in this document.
[2023-12-03 10:14] VITALS: BP 145/84; PULSE 61; TEMP 36.2; O2SAT 96
[2023-12-03] MEDS: 0.9 % SODIUM CHLORIDE 500 ML IV (10:28)
[2023-12-03 10:32] LABS: Glucometer 129 mg/dL (74-106)
[2023-12-03] MEDS: CEFAZOLIN SODIUM/DEXTROSE,ISO 1 GM/50 ML PREMIX IV (10:32)
--- NOTE | 2023-12-03 11:29 | W.PM.PROCNOT ---
Date of procedure: 12/03/23 Pre-op diagnosis: Pain due to painful diabetic neuropathy Post-op diagnosis: same as pre-op Procedure: Procedure: Spinal cord stimulator trial Procedure Performed by: Jack Kebede M.D. Procedure: Placement of [employer] 16 contact neuroelectrode trial leads (x two) under fluoroscopic guidance *Needle Epitaxial Reactor Operator at the interspace below L1/2 *Final Lead Placement Level at the bottom of the vertebral body T10 Anesthesia: Monitored Anesthesia Care is medically necessary for the procedure due to the procedure requiring the patient to remain motionless for a prolonged period of time. Procedure: Risks, Benefits, Alternatives were reviewed and informed consent was obtained in the preop holding area. All questions were answered appropriately. The patient was brought to the operating room and placed in the prone position with padding under all bony prominences. A pre-procedure time out was performed specifying pt. name, nature site and side of surgery, and allergies. Anesthesia provided appropriate sedation as the skin over the thoracic and lumbar spine were prepped with duraprep and draped in the usual sterile fashion. Under fluoroscopic guidance, the above noted interspace was identified as the site for epidural needle entry. The skin and subcutaneous tissues were anesthetized approximately 1 level inferior to this point with a mixture of 1% lidocaine and 0.25% bupivacaine. Two 14 gauge tuouy needles were inserted to the superior aspect of the lamina just inferior to the target interspace. Then, using loss of resistance technique as well as fluoroscopic guidance, the epidural space was entered. Two [employer] Trial Stimulator Leads were then advanced under intermittent fluoroscopic guidance until the distal tip of the electrode was observed to be in position at the final position noted above. After appropriate electrode placement was achieved, stimulation was tested intraoperatively with multiple lead configurations until concordant paresthesias were obtained covering the areas of the patients pain. At this point, the needles and stylets were removed carefully and the leads were secured to the skin using steri-strips. The region was covered using a sterile tegaderm bandage. The patient was escorted to the recovery area in stable condition having tolerated the procedure well. Anesthesia: MAC Surgeon: Jack Kebede Pathology: none sent Condition: stable Disposition: no change
[2023-12-03] MEDS: LIDOCAINE HCL 2%-EPINEPHRINE 1:200,000 20 ML MDV 10 ML INJ (11:30)
[2023-12-03] MEDS: BUPIVACAINE HCL 0.5% PF 50 MG/10 ML VIAL INJ (11:30)
[2023-12-03 11:32] VITALS: BP 126/72; PULSE 60; TEMP 36.2; O2SAT 97
[2023-12-03 11:34] VITALS: BP 126/69; PULSE 62; TEMP 36.2; O2SAT 94
== END 2023-12-03 12:05 | disposition home or self-care (01) ==
LOC: SURGOUT 09:26
PROVIDERS: PCP Family Medicine; Visit Provider Anesthesiology
DX: E11.42 Type 2 diabetes mellitus with diabetic polyneuropathy (principal); Z90.710 Acquired absence of both cervix and uterus; Z94.4 Liver transplant status; G47.33 Obstructive sleep apnea (adult) (pediatric); E78.5 Hyperlipidemia, unspecified; I10 Essential (primary) hypertension; K21.9 Gastro-esophageal reflux disease without esophagitis
CPT/HCPCS: 36415; 63650; 82948; 87624; C1897; J0665; J0690; J2704

== ENCOUNTER 2023-12-06 10:12 | Outpatient (OUT) | payer MEDICARE, OTHER, SELFPAY ==
--- NOTE | 2023-12-06 10:40 | P.CN_ITS ---
Consult Note: HPI Data of Consult Patient: known to practice within the last 3 years Consult date: 01/29/23 Requesting Physician: Chayo Eisenberg NP Primary Care Provider: VALENTIN BRIZUELA Consult Narrative Reason for consult: bilateral lower extremity pain Narrative: 72yof who presents for assessment. continues to have significant pain and burning that radiates into bilateral feet. recently underwent lumbar MRI, which is significant for multiple levels of stenosis and disc bulging, particularly at l5-s1 with near abutment of s1 nerve root. she continues to engage in a provider directed home exercise program >6 weeks, with minimal benefit. she has recently tried lidocaine patches on her feet, which helps to some degree. she otherwise denies adverse medication side effects or loss of bowel or bladder control. Pain today 2/10 increasing to 10/10 in the evenings. Bilateral castro/feet pain worsening and burning is intensifying at night, consistent with painful diabetic neuropathy. With hx of liver failure/transplant I would caution duloxetine, TCAs, SSRIs, SNRIs. Patient takes tramadol 50mg q8hr PRN and notices improvement. failed tylenol, cannot take NSAIDs with CKD. gabapentin caused brain frog, lyrica 50mg BID helping but also causing brain fog during the day. Pt presents for evaluation of chronic bilateral foot/leg pain secondary to painful diabetic polyneuropathy.? The patient presents today for evaluation of Spinal Cord Stimulator trial.? The patient has completed the prescribed anti- biotic course.? Pt denies any fevers, chills, or night sweats.? The patient states that during the trial pain was decreased by 100%.?She states that her sleep and activity level was significantly increased.? The patient has decided to?proceed with SCS implant. ? cc:: CC: Chayo Eisenberg NP [facility] Medical History (Updated 11/27/23 @ 11:02 by Shreya Osuna NP) Pneumonia ?J18.9 - Pneumonia, unspecified organism (ICD-10) Tubular adenoma ?D36.9 - Benign neoplasm, unspecified site (ICD-10) Pertussis ?A37.90 - Whooping cough, unspecified species without pneumonia (ICD-10) Osteopenia ?M85.80 - Other specified disorders of bone density and structure, unspecified site (ICD-10) Nonalcoholic steatohepatitis ?K75.81 - Nonalcoholic steatohepatitis ([place]) (ICD-10) Nonalcoholic fatty liver ?K76.0 - Fatty (change of) liver, not elsewhere classified (ICD-10) Hip pain ?M25.559 - Pain in unspecified hip (ICD-10) Hemorrhoids ?K64.9 - Unspecified hemorrhoids (ICD-10) Encephalopathy ?G93.40 - Encephalopathy, unspecified (ICD-10) Chest pain ?R07.9 - Chest pain, unspecified (ICD-10) Biliary dyskinesia ?K82.8 - Other specified diseases of gallbladder (ICD-10) Adjustment disorder with depressed mood ?F43.21 - Adjustment disorder with depressed mood (ICD-10) Hyperkalemia ?E87.5 - Hyperkalemia (ICD-10) Hypercholesterolemia ?E78.00 - Pure hypercholesterolemia, unspecified (ICD-10) Left ventricular hypertrophy ?I51.7 - Cardiomegaly (ICD-10) Autoimmune hepatitis ?K75.4 - Autoimmune hepatitis (ICD-10) Cirrhosis of liver with ascites ?K74.60 - Unspecified cirrhosis of liver (ICD-10) ?R18.8 - Other ascites (ICD-10) Acute kidney injury ?N17.9 - Acute kidney failure, unspecified (ICD-10) Neck pain ?M54.2 - Cervicalgia (ICD-10) Arthritis ?M19.90 - Unspecified osteoarthritis, unspecified site (ICD-10) Neuropathy ?G62.9 - Polyneuropathy, unspecified (ICD-10) Back pain ?M54.9 - Dorsalgia, unspecified (ICD-10) History of blood transfusion ?Z92.89 - Personal history of other medical treatment (ICD-10) Pulmonary embolism ?I26.99 - Other pulmonary embolism without acute cor pulmonale (ICD-10) Deep vein thrombosis ?I82.409 - Acute embolism and thrombosis of unspecified deep veins of unspecified lower extremity (ICD-10) 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 ?Z79.01 - buttermilk drier operator (current) use of anticoagulants (ICD-10) COVID-19 ?U07.1 - COVID-19 (ICD-10) Sleep apnea ?G47.30 - Sleep apnea, unspecified (ICD-10) Acute renal failure ?N17.9 - Acute kidney failure, unspecified (ICD-10) GERD (gastroesophageal reflux disease) ?K21.9 - Gastro-esophageal reflux disease without esophagitis (ICD-10) Palpitations ?R00.2 - Palpitations (ICD-10) Diet-controlled diabetes mellitus ?E11.9 - Type 2 diabetes mellitus without complications (ICD-10) Heel spur ?M77.30 - Calcaneal spur, unspecified foot (ICD-10) Osteoarthritis ?M19.90 - Unspecified osteoarthritis, unspecified site (ICD-10) Chronic lower back pain ?M54.50 - Low back pain, unspecified (ICD-10) ?G89.29 - Other chronic pain (ICD-10) Carpal tunnel syndrome ?G56.00 - Carpal tunnel syndrome, unspecified upper limb (ICD-10) Obesity ?E66.9 - Obesity, unspecified (ICD-10) Loud snoring ?R06.83 - Snoring (ICD-10) Heart murmur ?R01.1 - Cardiac murmur, unspecified (ICD-10) High cholesterol ?E78.00 - Pure hypercholesterolemia, unspecified (ICD-10) Hypertension ?I10 - Essential (primary) hypertension (ICD-10) Surgical History (Updated 11/27/23 @ 10:59 by Shreya Osuna NP) History of cataract extraction ?Z98.49 - Cataract extraction status, unspecified eye (ICD-10) History of colonoscopy ?Z98.890 - Other specified postprocedural states (ICD-10) History of esophagogastroduodenoscopy (EGD) ?Z98.890 - Other specified postprocedural states (ICD-10) S/P epidural steroid injection ?Z92.241 - Personal history of systemic steroid therapy (ICD-10) History of carpal tunnel release ?Z98.890 - Other specified postprocedural states (ICD-10) H/O hand surgery ?Z98.890 - Other specified postprocedural states (ICD-10) Liver transplant recipient (~2018) ?Z94.4 - Liver transplant status (ICD-10) History of knee replacement ?Z96.659 - Presence of unspecified artificial knee joint (ICD-10) History of section, classical ?Z98.891 - History of uterine scar from previous surgery (ICD-10) History of hysterectomy ?Z90.710 - Acquired absence of both cervix and uterus (ICD-10) Family History (Updated 11/27/23 @ 10:45 by Shreya Osuna NP) Other Cancer Deep vein thrombosis Family history of heart disease Family history of hypertension Family history of myocardial infarction Family history of stroke Social History (Updated 11/27/23 @ 10:37 by Shreya Osuna NP) Within the past year, how often did you have a drink containing alcohol: never Score interpretation: A score less than 3 is consistent with normal alcohol consumption. Smoking status: Never smoker Non-prescribed substance use: denies use Highest level of school completed/degree received: some college, no degree Meds Home Medications and Allergies Home Medications ?Medication ?Instructions ?Recorded ?Confirmed ?Type albuterol 90 mcg/actuation aerosol 90 mcg inhalation .4 TIMES PER DAY 11/22/22 11/27/23 History inhaler PRN shortness of breath carvedilol 25 mg tablet 25 mg PO BID 11/22/22 11/27/23 History denosumab 60 mg/mL subcutaneous 60 mg subcut .EVERY 2 WEEKS 11/22/22 11/27/23 History syringe (Prolia) pregabalin 50 mg capsule (Lyrica) 50 mg PO BID #60 caps 09/04/23 11/27/23 Rx allopurinol 100 mg tablet 400 mg PO DAILY 11/27/23 11/27/23 History furosemide 40 mg tablet 40 mg PO DAILY 11/27/23 11/27/23 History rivaroxaban 15 mg tablet (Xarelto) 15 mg PO DAILY 11/27/23 11/27/23 History tacrolimus 0.75 mg tablet,extended 0.75 mg PO DAILY 11/27/23 11/27/23 History release 24 hr (Envarsus XR) tramadol 50 mg tablet 50 mg PO Q12H 11/27/23 11/27/23 History Allergies Allergy/AdvReac Type Severity Reaction Status Date / Time [id number] Reductase Allergy Muscle Pain Verified 11/27/23 10:29 Inhibitor Sulfa (Sulfonamide Allergy Rash Verified 11/27/23 10:29 Antibiotics) Exam Narrative Exam Narrative: Psych-alert and oriented x 3. Attentive and appropriate, constitutionally normal, displays normal mood and affect per situation. There are no obvious deficits in memory, reasoning, or intellect.? Skin-no obvious rashes, bruising, erythema noted to the patient's area of pain.? Extremities- extremities are warm with minimal edema and palpable pulses. Lumbar-tenderness to palpation noted in the lumbar spine and paraspinal musculature. Pain is elicited with flexion, extension, and lateral rotation of the lumbar spine. Range of motion is diminished with these motions. Facet loading maneuvers are negative.? Strength-noted to be unremarkable with the exception of decreased strength rated at 4 out of 5 in bilateral posterior tibialis. Sensory-no notable sensory deficits in the bilateral lower extremities to touch or pinprick in all dermatomal distributions with the exception to decreased sensation to the bilateral L5, S1 dermatomal distribution Coordination remains intact.? Gait remains non-antalgic. Assessment and Plan Assessment and Plan (1) Chronic painful diabetic neuropathy: Assessment and Plan: The dressings were removed. The leads were removed without difficulty.? The insertion sites are clean, dry, and non-erythematous.? There is no Tenderness to palpation.?bandaid applied to site, no bleeding. patient tolerated lead removal with no discomfort. (2) Neuropathic pain: (3) Hx of senior care use of blood thinners: Plan proceed with permanent two lead [employer] spinal cord stimulator placement under IV sedation and fluoroscopy with Dr Kebede, risks vs benefits reviewed f/u after placement with Dr Kebede
== END 2023-12-06 10:13 | disposition home or self-care (01) ==
LOC: PM 10:13
PROVIDERS: PCP Family Medicine; Visit Provider Nurse Practitioner
DX: E11.40 Type 2 diabetes mellitus with diabetic neuropathy, unspecified (principal); Z79.01 Long term (current) use of anticoagulants
CPT/HCPCS: G0463

== ENCOUNTER 2023-12-31 09:17 | Day surgery (SDC) | payer MEDICARE, OTHER, SELFPAY ==
[2023-12-31 09:57] VITALS: BP 142/78; PULSE 73; TEMP 36.5; O2SAT 97
[2023-12-31 10:05] LABS: Glucometer 133 mg/dL (74-106)
[2023-12-31] MEDS: 0.9 % SODIUM CHLORIDE 500 ML IV (10:16)
[2023-12-31] MEDS: CEFAZOLIN SODIUM/DEXTROSE,ISO 1 GM/50 ML PREMIX IV (10:41)
--- NOTE | 2023-12-31 11:29 | P.ON_ITS ---
Date of procedure: 12/31/23 Pre-op diagnosis: Pain due to lumbar stenosis with neurogenic claudication Post-op diagnosis: same as pre-op Procedure: Procedure: Spinal cord stimulator implantation Procedure Performed by: Jack Kebede M.D. Procedure: Placement of [employer] 16 contact neuroelectrode leads (x two) and Impulse Generator Battery under fluoroscopic guidance *Needle Gravure Printing Machinist at the interspace below L1/2 *Final Lead Placement Level at the middle of the vertebral body T11 *Battery Placement on the Left Side Anesthesia: Monitored Anesthesia Care is medically necessary for the procedure due to the procedure requiring the patient to remain motionless for a prolonged period of time. Procedure: Risks, Benefits, Alternatives were reviewed and informed consent was obtained in the preop holding area. All questions were answered appropriately. The patient was brought to the operating room and placed in the prone position with padding under all bony prominences. A pre-procedure time out was performed specifying pt. name, nature site and side of surgery, and allergies. Anesthesia provided appropriate sedation as the skin over the thoracic and lumbar spine were prepped and draped in the usual sterile fashion. Under fluoroscopic guidance, the needle neuropsychiatric aide interspace noted above was identified as the site for epidural needle entry. The skin and subcutaneous tissues were anesthetized approximately 1 level inferior to this point with a mixture of 1% lidocaine and 0.25% bupivacaine. A 14 gauge tuohy needle was inserted to the superior aspect of the lamina just inferior to the target interspace. Then, using loss of resistance technique as well as fluoroscopic guidance, the epidural space was entered. Two [employer] Leads were then advanced under intermittent fluoroscopic guidance until the distal tip of the electrode was observed to be in position at the location noted above. After appropriate electrode placement was achieved, stimulation was tested intraoperatively with multiple lead configurations until concordant paresthesias were obtained covering the areas of the patient's pain. Intraoperative analysis and programming of the neurostimulator pulse generator was completed by the physician and the operations support representative from [employer]. Next, the skin approximately 1cm superior to the needle entry point and 3cm distal to the needle entry point were anesthetized with 1% lidocaine and 0.25% bupivacaine. An incision was made along this area exposing the underlying fascia. Hemostasis was achieved. A small horizontal incision was made in the subcutaneous tissue overlying the posterior ilium after local anesthetic was infiltrated with 1% lidocaine and 0.25% bupivacaine mixture. A small pocket was made in the subcutaneous fat using blunt dissection. Hemostasis was obtained. A stimulator battery/implantable generator was then placed into the small pocket and attached to the electrodes. Testing was performed to ensure adequate connection between the electrodes and battery. After testing was completed, the two incisions were sutured with Vicryl 3-0 for deep tissue and Vicryl 4-0 for epidermis. The incisions were covered with sterile bandages. The patient was then taken to the recovery area in good condition. Anesthesia: MAC Surgeon: Jack Kebede Pathology: none sent Condition: stable Disposition: no change
[2023-12-31] MEDS: LIDOCAINE HCL 2%-EPINEPHRINE 1:200,000 20 ML MDV 16 ML INJ (11:30)
[2023-12-31 11:50] VITALS: BP 116/80; PULSE 63; TEMP 36.6
[2023-12-31 12:01] VITALS: BP 120/59; PULSE 66; O2SAT 97
--- NOTE | 2023-12-31 12:12 | PC.NURSE ---
Surgical dressing to low back and upper left buttock clean and dry upon sitting up and getting dressed
== END 2023-12-31 12:19 | disposition home or self-care (01) ==
PROVIDERS: PCP Family Medicine; Visit Provider Anesthesiology
DX: M48.062 Spinal stenosis, lumbar region with neurogenic claudication (principal)
CPT/HCPCS: 36415; 63650; 63685; 77003; 82948; C1820; J0690; J2250; J2704; J3010

== ENCOUNTER 2024-01-07 13:21 | Outpatient (OUT) | payer MEDICARE, OTHER, SELFPAY ==
--- NOTE | 2024-01-07 14:26 | P.CN_ITS ---
Consult Note: HPI Data of Consult Patient: known to practice within the last 3 years Consult date: 01/07/24 Requesting Physician: Chayo Eisenberg NP Primary Care Provider: VALENTIN BRIZUELA Consult Narrative Reason for consult: bilateral leg pain Narrative: 73yof who presents for assessment. had scs implanted last week and is doing well. denies issues at this time. cc:: CC: Chayo Eisenberg NP Review of Systems ROS Status of ROS 10 or more systems reviewed and unremark able except as noted in history and below [facility] Medical History (Updated 11/27/23 @ 11:02 by Shreya Osuna NP) Pneumonia ?J18.9 - Pneumonia, unspecified organism (ICD-10) Tubular adenoma ?D36.9 - Benign neoplasm, unspecified site (ICD-10) Pertussis ?A37.90 - Whooping cough, unspecified species without pneumonia (ICD-10) Osteopenia ?M85.80 - Other specified disorders of bone density and structure, unspecified site (ICD-10) Nonalcoholic steatohepatitis ?K75.81 - Nonalcoholic steatohepatitis ([place]) (ICD-10) Nonalcoholic fatty liver ?K76.0 - Fatty (change of) liver, not elsewhere classified (ICD-10) Hip pain ?M25.559 - Pain in unspecified hip (ICD-10) Hemorrhoids ?K64.9 - Unspecified hemorrhoids (ICD-10) Encephalopathy ?G93.40 - Encephalopathy, unspecified (ICD-10) Chest pain ?R07.9 - Chest pain, unspecified (ICD-10) Biliary dyskinesia ?K82.8 - Other specified diseases of gallbladder (ICD-10) Adjustment disorder with depressed mood ?F43.21 - Adjustment disorder with depressed mood (ICD-10) Hyperkalemia ?E87.5 - Hyperkalemia (ICD-10) Hypercholesterolemia ?E78.00 - Pure hypercholesterolemia, unspecified (ICD-10) Left ventricular hypertrophy ?I51.7 - Cardiomegaly (ICD-10) Autoimmune hepatitis ?K75.4 - Autoimmune hepatitis (ICD-10) Cirrhosis of liver with ascites ?K74.60 - Unspecified cirrhosis of liver (ICD-10) ?R18.8 - Other ascites (ICD-10) Acute kidney injury ?N17.9 - Acute kidney failure, unspecified (ICD-10) Neck pain ?M54.2 - Cervicalgia (ICD-10) Arthritis ?M19.90 - Unspecified osteoarthritis, unspecified site (ICD-10) Neuropathy ?G62.9 - Polyneuropathy, unspecified (ICD-10) Back pain ?M54.9 - Dorsalgia, unspecified (ICD-10) History of blood transfusion ?Z92.89 - Personal history of other medical treatment (ICD-10) Pulmonary embolism ?I26.99 - Other pulmonary embolism without acute cor pulmonale (ICD-10) Deep vein thrombosis ?I82.409 - Acute embolism and thrombosis of unspecified deep veins of unspecified lower extremity (ICD-10) 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 (ICD-10) COVID-19 ?U07.1 - COVID-19 (ICD-10) Sleep apnea ?G47.30 - Sleep apnea, unspecified (ICD-10) Acute renal failure ?N17.9 - Acute kidney failure, unspecified (ICD-10) GERD (gastroesophageal reflux disease) ?K21.9 - Gastro-esophageal reflux disease without esophagitis (ICD-10) Palpitations ?R00.2 - Palpitations (ICD-10) Diet-controlled diabetes mellitus ?E11.9 - Type 2 diabetes mellitus without complications (ICD-10) Heel spur ?M77.30 - Calcaneal spur, unspecified foot (ICD-10) Osteoarthritis ?M19.90 - Unspecified osteoarthritis, unspecified site (ICD-10) Chronic lower back pain ?M54.50 - Low back pain, unspecified (ICD-10) ?G89.29 - Other chronic pain (ICD-10) Carpal tunnel syndrome ?G56.00 - Carpal tunnel syndrome, unspecified upper limb (ICD-10) Obesity ?E66.9 - Obesity, unspecified (ICD-10) Loud snoring ?R06.83 - Snoring (ICD-10) Heart murmur ?R01.1 - Cardiac murmur, unspecified (ICD-10) High cholesterol ?E78.00 - Pure hypercholesterolemia, unspecified (ICD-10) Hypertension ?I10 - Essential (primary) hypertension (ICD-10) Surgical History History of cataract extraction ?Z98.49 - Cataract extraction status, unspecified eye (ICD-10) History of colonoscopy ?Z98.890 - Other specified postprocedural states (ICD-10) History of esophagogastroduodenoscopy (EGD) ?Z98.890 - Other specified postprocedural states (ICD-10) S/P epidural steroid injection ?Z92.241 - Personal history of systemic steroid therapy (ICD-10) History of carpal tunnel release ?Z98.890 - Other specified postprocedural states (ICD-10) H/O hand surgery ?Z98.890 - Other specified postprocedural states (ICD-10) Liver transplant recipient (~2018) ?Z94.4 - Liver transplant status (ICD-10) History of knee replacement ?Z96.659 - Presence of unspecified artificial knee joint (ICD-10) History of section, classical ?Z98.891 - History of uterine scar from previous surgery (ICD-10) History of hysterectomy ?Z90.710 - Acquired absence of both cervix and uterus (ICD-10) Family History Other Cancer Deep vein thrombosis Family history of heart disease Family history of hypertension Family history of myocardial infarction Family history of stroke Social History Within the past year, how often did you have a drink containing alcohol: never Score interpretation: A score less than 3 is consistent with normal alcohol consumption. Smoking status: Never smoker Non-prescribed substance use: denies use Highest level of school completed/degree received: some college, no degree Meds Home Medications and Allergies Home Medications ?Medication ?Instructions ?Recorded ?Confirmed ?Type albuterol 90 mcg/actuation aerosol 90 mcg inhalation .4 TIMES PER DAY 11/22/22 11/27/23 History inhaler PRN shortness of breath carvedilol 25 mg tablet 25 mg PO BID 11/22/22 11/27/23 History denosumab 60 mg/mL subcutaneous 60 mg subcut .EVERY 2 WEEKS 11/22/22 11/27/23 History syringe (Prolia) pregabalin 50 mg capsule (Lyrica) 50 mg PO BID #60 caps 09/04/23 11/27/23 Rx allopurinol 100 mg tablet 400 mg PO DAILY 11/27/23 11/27/23 History furosemide 40 mg tablet 40 mg PO DAILY 11/27/23 11/27/23 History rivaroxaban 15 mg tablet (Xarelto) 15 mg PO DAILY 11/27/23 11/27/23 History tacrolimus 0.75 mg tablet,extended 0.75 mg PO DAILY 11/27/23 11/27/23 History release 24 hr (Envarsus XR) tramadol 50 mg tablet 50 mg PO Q12H 11/27/23 11/27/23 History hydrocodone 5 mg-acetaminophen 325 1 tab PO QID PRN pain #12 tabs 12/31/23 Rx mg tablet Allergies Allergy/AdvReac Type Severity Reaction Status Date / Time cephalexin (From Keflex) Allergy Intermediate Hives Verified 12/10/23 15:43 [id number] Reductase Allergy Muscle Pain Verified 11/27/23 10:29 Inhibitor Sulfa (Sulfonamide Allergy Rash Verified 11/27/23 10:29 Antibiotics) Exam Narrative Exam Narrative: Psych-alert and oriented x 3. Attentive and appropriate, constitutionally normal, displays normal mood and affect per situation.? There are no obvious deficits in memory, reasoning, or intellect.? Skin-no obvious rashes, bruising, erythema noted to the patient's area of pain. Extremities- extremities are warm with minimal edema and palpable pulses. Lumbar-no significant tenderness to palpation noted in the lumbar spine and paraspinal musculature.? Pain is elicited with extension, and lateral rotation of the lumbar spine. Range of motion is slightly diminished with these motions due to pain. Coordination remains intact.? Gait remains non-antalgic. Assessment and Plan Assessment and Plan (1) Lumbar stenosis with neurogenic claudication: (2) Chronic painful diabetic neuropathy: Plan 73yof who presents for assessment. continues to do well after recent scs implant. bandages removed today, no signs of infection appreciated. incisions clean, dry, intact. scs settings adjusted by scs rep today. meds reviewed, no changes. follow up in 3 weeks.
== END 2024-01-07 13:22 | disposition home or self-care (01) ==
LOC: PM 13:22
PROVIDERS: PCP Family Medicine; Visit Provider Nurse Practitioner
DX: M48.062 Spinal stenosis, lumbar region with neurogenic claudication (principal); E11.40 Type 2 diabetes mellitus with diabetic neuropathy, unspecified; G89.29 Other chronic pain
CPT/HCPCS: G0463

== ENCOUNTER 2024-01-30 07:39 | Outpatient (OUT) | payer MEDICARE, OTHER, SELFPAY ==
--- NOTE | 2024-01-30 08:09 | P.CN_ITS ---
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 Pt has reported >80% improvement in pain and functional ability, pt is eager to come off of pregabalin and very sparingly utilizes tramadol 50mg for moderate to severe generalized OA pain. denies side effects to current regimen. Cannot take nsaids, CKD and on xarelto. cc:: CC: Chayo Eisenberg NP Review of Systems ROS Status of ROS 10 or more systems reviewed and unremark able except as noted in history and below [facility] Medical History (Updated 01/30/24 @ 08:12 by Chayo Eisenberg NP) Pneumonia ?J18.9 - Pneumonia, unspecified organism (ICD-10) Tubular adenoma ?D36.9 - Benign neoplasm, unspecified site (ICD-10) Pertussis ?A37.90 - Whooping cough, unspecified species without pneumonia (ICD-10) Osteopenia ?M85.80 - Other specified disorders of bone density and structure, unspecified site (ICD-10) Nonalcoholic steatohepatitis ?K75.81 - Nonalcoholic steatohepatitis (GONGORA) (ICD-10) Nonalcoholic fatty liver ?K76.0 - Fatty (change of) liver, not elsewhere classified (ICD-10) Hip pain ?M25.559 - Pain in unspecified hip (ICD-10) Hemorrhoids ?K64.9 - Unspecified hemorrhoids (ICD-10) Encephalopathy ?G93.40 - Encephalopathy, unspecified (ICD-10) Chest pain ?R07.9 - Chest pain, unspecified (ICD-10) Biliary dyskinesia ?K82.8 - Other specified diseases of gallbladder (ICD-10) Adjustment disorder with depressed mood ?F43.21 - Adjustment disorder with depressed mood (ICD-10) Hyperkalemia ?E87.5 - Hyperkalemia (ICD-10) Hypercholesterolemia ?E78.00 - Pure hypercholesterolemia, unspecified (ICD-10) Left ventricular hypertrophy ?I51.7 - Cardiomegaly (ICD-10) Autoimmune hepatitis ?K75.4 - Autoimmune hepatitis (ICD-10) Cirrhosis of liver with ascites ?K74.60 - Unspecified cirrhosis of liver (ICD-10) ?R18.8 - Other ascites (ICD-10) Acute kidney injury ?N17.9 - Acute kidney failure, unspecified (ICD-10) Neck pain ?M54.2 - Cervicalgia (ICD-10) Arthritis ?M19.90 - Unspecified osteoarthritis, unspecified site (ICD-10) Neuropathy ?G62.9 - Polyneuropathy, unspecified (ICD-10) Back pain ?M54.9 - Dorsalgia, unspecified (ICD-10) History of blood transfusion ?Z92.89 - Personal history of other medical treatment (ICD-10) Pulmonary embolism ?I26.99 - Other pulmonary embolism without acute cor pulmonale (ICD-10) Deep vein thrombosis ?I82.409 - Acute embolism and thrombosis of unspecified deep veins of unspecified lower extremity (ICD-10) 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 (ICD-10) COVID-19 ?U07.1 - COVID-19 (ICD-10) Sleep apnea ?G47.30 - Sleep apnea, unspecified (ICD-10) Acute renal failure ?N17.9 - Acute kidney failure, unspecified (ICD-10) GERD (gastroesophageal reflux disease) ?K21.9 - Gastro-esophageal reflux disease without esophagitis (ICD-10) Palpitations ?R00.2 - Palpitations (ICD-10) Diet-controlled diabetes mellitus ?E11.9 - Type 2 diabetes mellitus without complications (ICD-10) Heel spur ?M77.30 - Calcaneal spur, unspecified foot (ICD-10) Osteoarthritis ?M19.90 - Unspecified osteoarthritis, unspecified site (ICD-10) Chronic lower back pain ?M54.50 - Low back pain, unspecified (ICD-10) ?G89.29 - Other chronic pain (ICD-10) Carpal tunnel syndrome ?G56.00 - Carpal tunnel syndrome, unspecified upper limb (ICD-10) Obesity ?E66.9 - Obesity, unspecified (ICD-10) Loud snoring ?R06.83 - Snoring (ICD-10) Heart murmur ?R01.1 - Cardiac murmur, unspecified (ICD-10) High cholesterol ?E78.00 - Pure hypercholesterolemia, unspecified (ICD-10) Hypertension ?I10 - Essential (primary) hypertension (ICD-10) Surgical History History of cataract extraction ?Z98.49 - Cataract extraction status, unspecified eye (ICD-10) History of colonoscopy ?Z98.890 - Other specified postprocedural states (ICD-10) History of esophagogastroduodenoscopy (EGD) ?Z98.890 - Other specified postprocedural states (ICD-10) S/P epidural steroid injection ?Z92.241 - Personal history of systemic steroid therapy (ICD-10) History of carpal tunnel release ?Z98.890 - Other specified postprocedural states (ICD-10) H/O hand surgery ?Z98.890 - Other specified postprocedural states (ICD-10) Liver transplant recipient (~2018) ?Z94.4 - Liver transplant status (ICD-10) History of knee replacement ?Z96.659 - Presence of unspecified artificial knee joint (ICD-10) History of section, classical ?Z98.891 - History of uterine scar from previous surgery (ICD-10) History of hysterectomy ?Z90.710 - Acquired absence of both cervix and uterus (ICD-10) Family History Other Cancer Deep vein thrombosis Family history of heart disease Family history of hypertension Family history of myocardial infarction Family history of stroke Social History Within the past year, how often did you have a drink containing alcohol: never Score interpretation: A score less than 3 is consistent with normal alcohol consumption. Smoking status: Never smoker Non-prescribed substance use: denies use Highest level of school completed/degree received: some college, no degree Meds Home Medications and Allergies Home Medications ?Medication ?Instructions ?Recorded ?Confirmed ?Type albuterol 90 mcg/actuation aerosol 90 mcg inhalation .4 TIMES PER DAY 11/22/22 11/27/23 History inhaler PRN shortness of breath carvedilol 25 mg tablet 25 mg PO BID 11/22/22 11/27/23 History denosumab 60 mg/mL subcutaneous 60 mg subcut .EVERY 2 WEEKS 11/22/22 11/27/23 History syringe (Prolia) pregabalin 50 mg capsule (Lyrica) 50 mg PO BID #60 caps 09/04/23 11/27/23 Rx allopurinol 100 mg tablet 400 mg PO DAILY 11/27/23 11/27/23 History furosemide 40 mg tablet 40 mg PO DAILY 11/27/23 11/27/23 History rivaroxaban 15 mg tablet (Xarelto) 15 mg PO DAILY 11/27/23 11/27/23 History tacrolimus 0.75 mg tablet,extended 0.75 mg PO DAILY 11/27/23 11/27/23 History release 24 hr (Envarsus XR) tramadol 50 mg tablet 50 mg PO Q12H 11/27/23 11/27/23 History hydrocodone 5 mg-acetaminophen 325 1 tab PO QID PRN pain #12 tabs 12/31/23 Rx mg tablet Allergies Allergy/AdvReac Type Severity Reaction Status Date / Time cephalexin (From Keflex) Allergy Intermediate Hives Verified 12/10/23 15:43 Sfbwaxh-CWH-VjP Reductase Allergy Muscle Pain Verified 11/27/23 10:29 Inhibitor Sulfa (Sulfonamide Allergy Rash Verified 11/27/23 10:29 Antibiotics) Exam Narrative Exam Narrative: Psych-alert and oriented x 3. Attentive and appropriate, constitutionally normal, displays normal mood and affect per situation.? There are no obvious deficits in memory, reasoning, or intellect.? Skin-no obvious rashes, bruising, erythema noted to the patient's area of pain. Extremities- extremities are warm with minimal edema and palpable pulses. Lumbar-no significant tenderness to palpation noted in the lumbar spine and paraspinal musculature.? Pain is elicited with extension, and lateral rotation of the lumbar spine. Range of motion is slightly diminished with these motions due to pain. Coordination remains intact.? Gait remains non-antalgic. Constitutional Documenting provider has reviewed patient's vital signs: yes Common normals: no apparent distress, oriented x3, healthy appearing, alert and well nourished General appearance: cooperative HENIN Common normals: normocephalic, hearing grossly normal bilaterally and moist oral mucous membranes Head and scalp: normocephalic Eye Common normals: PERRL Pupil: PERRL Neck & C-Spine Common normals: full ROM General: normal visual inspection Chest Common normals: inspection of chest normal Respiratory Common normals: normal respiratory effort, no retractions and no use of accessory muscles Neuro Common normals: oriented x3, CN's II-XII intact bilaterally, moves all extremities, no focal motor deficits, no sensory deficits noted and deep tendon reflexes 2+ bilaterally Sensorium/orientation: alert Motor exam: strength 5/5 throughout and no movement abnormalities noted Psych Common normals: mental status grossly normal, thought process normal, cooperative, affect normal, speech normal and activity/motor behavior normal Speech: normal speech Thought process: normal thought process Results Additional Findings Additional findings: If on a controlled substance or opioids, I have checked an OARRS report on this patient and there are no aberrancies noted in the prescribing history.??If on a controlled substance or opioid a drug screen was completed and reviewed within the last year, and if there has not been a drug screen completed we ordered one today to monitor higher risk, state monitored pain medication use. As part of providing excellent, safe, comprehensive care, the following was completed at our patient's visit: 1. A medication reconciliation and review to ensure accurate knowledge of current/active medications, including asking our patients to inform us about any rfdz-wpq-bbetzfd medications or herbal remedies/nutritional supplements /alternative remedies. 2. A review to specifically ensure our patients have had annual screening for screening for depression, screening for tobacco use, and screening for unhealthy alcohol use. For concerning screenings had a discussion with the patient, provided patient education, and recommended follow-up with primary care provider when appropriate. If patient noted with a risk of falling, they received education on strength, gait, and balance training to prevent future risk of falling. Assessment and Plan Assessment and Plan (1) Chronic painful diabetic neuropathy: (2) Chronic kidney disease: (3) Chronic prescription opiate use: Plan decrease pregabalin 50mg daily for 1 week then stop continue tramadol through PCP update UDS for medication monitoring f/u 3 months
== END 2024-01-30 07:40 | disposition home or self-care (01) ==
LOC: PM 07:45
PROVIDERS: PCP Family Medicine; Visit Provider Nurse Practitioner
DX: E13.40 Other specified diabetes mellitus with diabetic neuropathy, unspecified (principal); N18.9 Chronic kidney disease, unspecified; Z79.891 Long term (current) use of opiate analgesic
CPT/HCPCS: G0463

== ENCOUNTER 2024-05-01 07:36 | Outpatient (OUT) | payer MEDICARE, OTHER, SELFPAY ==
--- NOTE | 2024-05-01 07:59 | PM.CN ---
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 Pt has reported >80% improvement in pain and functional ability, pt has been able to wean off of pregabalin without increased pain and is very sparingly utilizing tramadol through PCP. Cannot take nsaids, CKD and on xarelto. Pt would like to workup chronic left hip pain, has had left hip pain greater than 1 year without injury. no imaging available. continues to engage in HEP greater than 6 weeks without benefit. pain 0/10 increasing to 8/10 with reclining in a chair and walking. cc:: CC: Chayo Eisenberg NP Review of Systems ROS Status of ROS 10 or more systems reviewed and unremarkable except as noted in history and below [facility] Medical History (Updated 05/01/24 @ 08:04 by Chayo Eisenberg NP) Pneumonia ?J18.9 - Pneumonia, unspecified organism (ICD-10) Tubular adenoma ?D36.9 - Benign neoplasm, unspecified site (ICD-10) Pertussis ?A37.90 - Whooping cough, unspecified species without pneumonia (ICD-10) Osteopenia ?M85.80 - Other specified disorders of bone density and structure, unspecified site (ICD-10) Nonalcoholic steatohepatitis ?K75.81 - Nonalcoholic steatohepatitis ([place]A) (ICD-10) Nonalcoholic fatty liver ?K76.0 - Fatty (change of) liver, not elsewhere classified (ICD-10) Hip pain ?M25.559 - Pain in unspecified hip (ICD-10) Hemorrhoids ?K64.9 - Unspecified hemorrhoids (ICD-10) Encephalopathy ?G93.40 - Encephalopathy, unspecified (ICD-10) Chest pain ?R07.9 - Chest pain, unspecified (ICD-10) Biliary dyskinesia ?K82.8 - Other specified diseases of gallbladder (ICD-10) Adjustment disorder with depressed mood ?F43.21 - Adjustment disorder with depressed mood (ICD-10) Hyperkalemia ?E87.5 - Hyperkalemia (ICD-10) Hypercholesterolemia ?E78.00 - Pure hypercholesterolemia, unspecified (ICD-10) Left ventricular hypertrophy ?I51.7 - Cardiomegaly (ICD-10) Autoimmune hepatitis ?K75.4 - Autoimmune hepatitis (ICD-10) Cirrhosis of liver with ascites ?K74.60 - Unspecified cirrhosis of liver (ICD-10) ?R18.8 - Other ascites (ICD-10) Acute kidney injury ?N17.9 - Acute kidney failure, unspecified (ICD-10) Neck pain ?M54.2 - Cervicalgia (ICD-10) Arthritis ?M19.90 - Unspecified osteoarthritis, unspecified site (ICD-10) Neuropathy ?G62.9 - Polyneuropathy, unspecified (ICD-10) Back pain ?M54.9 - Dorsalgia, unspecified (ICD-10) History of blood transfusion ?Z92.89 - Personal history of other medical treatment (ICD-10) Pulmonary embolism ?I26.99 - Other pulmonary embolism without acute cor pulmonale (ICD-10) Deep vein thrombosis ?I82.409 - Acute embolism and thrombosis of unspecified deep veins of unspecified lower extremity (ICD-10) 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 ?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.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 (ICD-10) COVID-19 ?U07.1 - COVID-19 (ICD-10) Sleep apnea ?G47.30 - Sleep apnea, unspecified (ICD-10) Acute renal failure ?N17.9 - Acute kidney failure, unspecified (ICD-10) GERD (gastroesophageal reflux disease) ?K21.9 - Gastro-esophageal reflux disease without esophagitis (ICD-10) Palpitations ?R00.2 - Palpitations (ICD-10) Diet-controlled diabetes mellitus ?E11.9 - Type 2 diabetes mellitus without complications (ICD-10) Heel spur ?M77.30 - Calcaneal spur, unspecified foot (ICD-10) Osteoarthritis ?M19.90 - Unspecified osteoarthritis, unspecified site (ICD-10) Chronic lower back pain ?M54.50 - Low back pain, unspecified (ICD-10) ?G89.29 - Other chronic pain (ICD-10) Carpal tunnel syndrome ?G56.00 - Carpal tunnel syndrome, unspecified upper limb (ICD-10) Obesity ?E66.9 - Obesity, unspecified (ICD-10) Loud snoring ?R06.83 - Snoring (ICD-10) Heart murmur ?R01.1 - Cardiac murmur, unspecified (ICD-10) High cholesterol ?E78.00 - Pure hypercholesterolemia, unspecified (ICD-10) Hypertension ?I10 - Essential (primary) hypertension (ICD-10) Surgical History History of cataract extraction ?Z98.49 - Cataract extraction status, unspecified eye (ICD-10) History of colonoscopy ?Z98.890 - Other specified postprocedural states (ICD-10) History of esophagogastroduodenoscopy (EGD) ?Z98.890 - Other specified postprocedural states (ICD-10) S/P epidural steroid injection ?Z92.241 - Personal history of systemic steroid therapy (ICD-10) History of carpal tunnel release ?Z98.890 - Other specified postprocedural states (ICD-10) H/O hand surgery ?Z98.890 - Other specified postprocedural states (ICD-10) Liver transplant recipient (~2017) ?Z94.4 - Liver transplant status (ICD-10) History of knee replacement ?Z96.659 - Presence of unspecified artificial knee joint (ICD-10) History of section, classical ?Z98.891 - History of uterine scar from previous surgery (ICD-10) History of hysterectomy ?Z90.710 - Acquired absence of both cervix and uterus (ICD-10) Family History Other Cancer Deep vein thrombosis Family history of heart disease Family history of hypertension Family history of myocardial infarction Family history of stroke Social History Within the past year, how often did you have a drink containing alcohol: never Score interpretation: A score less than 3 is consistent with normal alcohol consumption. Smoking status: Never smoker Non-prescribed substance use: denies use Highest level of school completed/degree received: some college, no degree Meds Home Medications and Allergies Home Medications ?Medication ?Instructions ?Recorded ?Confirmed ?Type albuterol 90 mcg/actuation aerosol 90 mcg inhalation .4 TIMES PER DAY 11/22/22 11/27/23 History inhaler PRN shortness of breath carvedilol 25 mg tablet 25 mg PO BID 11/22/22 11/27/23 History denosumab 60 mg/mL subcutaneous 60 mg subcut .EVERY 2 WEEKS 11/22/22 11/27/23 History syringe (Prolia) pregabalin 50 mg capsule (Lyrica) 50 mg PO BID #60 caps 09/04/23 11/27/23 Rx allopurinol 100 mg tablet 400 mg PO DAILY 11/27/23 11/27/23 History furosemide 40 mg tablet 40 mg PO DAILY 11/27/23 11/27/23 History rivaroxaban 15 mg tablet (Xarelto) 15 mg PO DAILY 11/27/23 11/27/23 History tacrolimus 0.75 mg tablet,extended 0.75 mg PO DAILY 11/27/23 11/27/23 History release 24 hr (Envarsus XR) tramadol 50 mg tablet 50 mg PO Q12H 11/27/23 11/27/23 History hydrocodone 5 mg-acetaminophen 325 1 tab PO QID PRN pain #12 tabs 12/31/23 Rx mg tablet Allergies Allergy/AdvReac Type Severity Reaction Status Date / Time cephalexin (From KeNuAx) Allergy Intermediate Hives Verified 12/10/23 15:43 Vmnjxwk-HWF-BsD Reductase Allergy Muscle Pain Verified 11/27/23 10:29 Inhibitor Sulfa (Sulfonamide Allergy Rash Verified 11/27/23 10:29 Antibiotics) Exam Constitutional Documenting provider has reviewed patient's vital signs: yes Common normals: no apparent distress, oriented x3, healthy appearing, alert and well nourished General appearance: cooperative HENMT Common normals: normocephalic, hearing grossly normal bilaterally and moist oral mucous membranes Head and scalp: normocephalic Eye Common normals: PERRL Pupil: PERRL Neck & C-Spine Common normals: full ROM General: normal visual inspection Chest Common normals: inspection of chest normal Respiratory Common normals: normal respiratory effort, no retractions and no use of accessory muscles Back & Pelvis Lumbar spine/lower back: lumbar ROM normal; no pain with ROM Sacroiliac joints: SI joint(s) abnormal Other: left SIJ positive virgilio(patricks), gaenslens, thigh thrust, compression test Extremity Left lower extremity: hip joint Other: increased pain with internal rotation and external rotation of left hip Neuro Common normals: oriented x3, CN's II-XII intact bilaterally, moves all extremities, no focal motor deficits, no sensory deficits noted and deep tendon reflexes 2+ bilaterally Sensorium/orientation: alert Motor exam: strength 5/5 throughout and no movement abnormalities noted Psych Common normals: mental status grossly normal, thought process normal, cooperative, affect normal, speech normal and activity/motor behavior normal Speech: normal speech Thought process: normal thought process Results Additional Findings Additional findings: If on a controlled substance or opioids, I have checked an OARRS report on this patient and there are no aberrancies noted in the prescribing history.??If on a controlled substance or opioid a drug screen was completed and reviewed within the last year, and if there has not been a drug screen completed we ordered one today to monitor higher risk, state monitored pain medication use. As part of providing excellent, safe, comprehensive care, the following was completed at our patient's visit: 1. A medication reconciliation and review to ensure accurate knowledge of current/active medications, including asking our patients to inform us about any aczl-dvn-mkvxraw medications or herbal remedies/nutritional supplements/alternative remedies. 2. A review to specifically ensure our patients have had annual screening for screening for depression, screening for tobacco use, and screening for unhealthy alcohol use. For concerning screenings had a discussion with the patient, provided patient education, and recommended follow-up with primary care provider when appropriate. If patient noted with a risk of falling, they received education on strength, gait, and balance training to prevent future risk of falling. Portions of this note may have been carried over from the previous visit and updated as appropriate. Please note this office utilizes paper charting in addition to the electronic medical record. A list of current medications, vitals, and PMH is available there as the clinical staff outside of myself do not have access to [employer] charting during the clinic day operations. As part of providing quality comprehensive care the current medications, vitals, and PMH were reviewed in the paper chart. Assessment and Plan Assessment and Plan (1) Chronic painful diabetic neuropathy: Assessment and Plan: >80% improvement from SCS (2) Chronic left hip pain: (3) Sacroiliitis: Plan update left hip xray, pt interested in orthopedic consult depending on results declining left SIJ injection under fluoroscopy continue HEP as tolerated f/u PRN
== END 2024-05-01 07:37 | disposition home or self-care (01) ==
LOC: PM 07:36
PROVIDERS: PCP Family Medicine; Visit Provider Nurse Practitioner
DX: M25.552 Pain in left hip (principal); G89.29 Other chronic pain; M46.1 Sacroiliitis, not elsewhere classified; E11.40 Type 2 diabetes mellitus with diabetic neuropathy, unspecified
CPT/HCPCS: 73502; G0463

== ENCOUNTER 2024-05-01 08:06 | Outpatient (OUT) | payer MEDICARE, OTHER, SELFPAY ==
--- NOTE | 2024-05-01 08:13 | XR_ITS ---
[facility] [place] [id number] Patient Name: HENOK CERVANTES MRN: [id number] date: 1950 Sex: F Assigned Patient Location: [facility] Current Patient Location: [facility] Accession/Order Number: [id number] Exam Date: 05/01/2024 10:28 Report Date: 05/01/2024 10:30 At the request of: PATRICK REED NP Procedure: XR hip LT min 2V LEFT HIP - 2 views: CLINICAL HISTORY: Chronic left hip pain, greatest at the groin. No injury. COMPARISON: None AP and frog-lateral views were obtained. There is no evidence of fracture or dislocation. The hip joint space is maintained. There is minor marginal spurring. There are enthesophytes at the iliac crest and greater trochanter. There is sclerosis at the SI joint. Levoscoliotic curvature and degenerative changes are seen at the lower imaged lumbar spine. There is a battery pack overlying the superior aspect of the SI joint. There are no significant soft tissue abnormalities. XR/XR hip LT min 2V IMPRESSION: MILD DEGENERATIVE CHANGES. NO ACUTE BONY FINDINGS. Impression dictated by: Komal Schumacher M.D.05/01/2024 10:30 AM Dictation Location: [place] [address] Electronically authenticated by: [id number] Y Date: 05/01/2024 10:30
== END 2024-05-01 08:07 | disposition home or self-care (01) ==
LOC: RAD 08:08
PROVIDERS: PCP Family Medicine; Visit Provider Nurse Practitioner
DX: M25.552 Pain in left hip (principal)
CPT/HCPCS: 73502